=== PATIENT | male | born 1980 | race African-American/Black ===

== ENCOUNTER → 2016-11-20 | Outpatient (CLI) | payer OTHER ==
[~2016-11-20] MED LIST: ALBUPOW38 PO; DIPH1TAB36 PO; DOXY100T PO; NAPR500 PO; PROMSYP PO
--- NOTE | 2016-11-20 12:01 | RADRPT ---
EXAM DATE/TIME: 11/20/2016 11:46 [facility] COMPARISON: No previous studies available for comparison. INDICATIONS : Short of breath x3 days. MEDICAL HISTORY : None. SURGICAL HISTORY : None. ENCOUNTER: Initial ACUITY: 3 days PAIN SCORE: 0/10 LOCATION: Bilateral chest FINDINGS: PA and lateral views of the chest demonstrate the lungs to be symmetrically aerated without evidence of mass, infiltrate or effusion. The cardiomediastinal contours are unremarkable. Osseous structure s are intact. CONCLUSION: 1. No acute cardiopulmonary disease. Eron Angeles MD on November 20, 2016 at 11:58 Board Certified Radiologist. This report was verified electronically.
== END ==
LOC: HRAD 11:33
PROVIDERS: ATTEND Specialist
DX: B20 Human immunodeficiency virus [HIV] disease (principal)
CPT/HCPCS: 71020

== ENCOUNTER 2017-05-05 13:42 | Inpatient (IN) | payer OTHER ==
[~2017-05-05] VITALS: Ht 182.9 cm; Wt 61.0 kg
[2017-05-05] VITALS (11 sets, daily range): BP systolic 96–119; BP diastolic 51–63; PULSE 100–115; RESP 14–27; TEMP 98.2–100.6; O2SAT 97–100
[2017-05-05] MEDS ORDERED: SODIUM CHLORIDE 0.9% FLUSH 10 ML FLUSH IV FLUSH PRN ×2 (14:45→17:45)
[2017-05-05] MEDS ORDERED: FURO40TA PO (15:09)
[2017-05-05] MEDS ORDERED: CIPR500T2 PO (15:09)
[2017-05-05] MEDS ORDERED: AZIT500T2 PO (15:09)
[2017-05-05] MEDS ORDERED: ETHA400T (15:09)
[2017-05-05] MEDS ORDERED: FERR325T18 PO (15:09)
[2017-05-05] MEDS ORDERED: ELVI1TAB3 PO (15:09)
[2017-05-05] MEDS ORDERED: CYAN100025 SL (15:09)
[2017-05-05] MEDS ORDERED: FOLI400T PO (15:09)
[2017-05-05] MEDS ORDERED: BACT800T5 PO (15:09)
[2017-05-05 15:35] LABS: MEAN CELL VOLUME 85.3 FL (80.0-100.0); MEAN CORPUSCULAR HEMOGLOBIN 29.2 PG (27.0-34.0); MEAN CORPUSCULAR HGB CONC 34.2 % (32.0-36.0); PLATELET COUNT 58 TH/MM3 (150-450); RED BLOOD COUNT 2.13 MIL/MM3 (4.50-5.90); RED CELL DISTRIBUTION WIDTH 17.7 % (11.6-17.2); WHITE BLOOD COUNT 2.2 TH/MM3 (4.0-11.0)
[2017-05-05 15:41] LABS: HEMO FLAGS AUTO DIFF
[2017-05-05 15:42] LABS: INTERNATIONAL NORMALIZED RATIO 1.1 RATIO
--- NOTE | 2017-05-05 15:42 | PD ---
HPI Chief Complaint: Pain: Acute or Chronic Time Seen by Provider: 15:18 Travel History International Travel<30 days: No Contact w/Intl Traveler<30days: No Traveled to known affect area: No History of Present Illness HPI 36-year-old male presents to the emergency department for evaluation of " allover body pain". Patient also reports enlarged spleen and pain to the left upper quadrant. Patient reports history of AIDS. He states that he was started on antivirals approximately 6 months ago. He states he has been out of [facility] in a with a recent admission to ICU for pneumonia. He states he was discharged about 7 days ago. He states his current left upper quadrant abdominal pain and allover pain started approximately 2 days ago. He also reports new skin lesions as well. Reports that he has felt feverish, but has not checked his temperature. Patient is generally weak and his Duff at bedside states that she has to bathe him and dressed them. Patient states he still has a cough and feels slightly short of breath. Patient is currently on antibiotics. Severity is moderate. No exacerbating his or alleviating factors. PFSH Past Medical History Autoimmune Disease: Yes (HIV+) Diminished Hearing: No Medical other: Yes ("MAC") Social History Alcohol Use: No ( ) Tobacco Use: Yes (1/2 PACK A DAY FOR 13 YEARS) Substance Use: Yes (MARIJUANA) Allergies-Medications (Allergen,Severity, Reaction): Coded Allergies: No Known Allergies (Verified Allergy, Mild, 05/30/08) Reported Meds & Prescriptions Reported Meds & Active Scripts Active Reported Bactrim DS (Sulfamethoxazole-Trimethoprim) 800-160 Mg Tab 1 Tab PO DAILY Folic Acid 0.4 Mg Tab 1 Mg PO DAILY Ethambutol (Ethambutol HCl) 400 Mg Tab 800 DAILY B-12 (Cyanocobalamin) 1,000 Mcg Subl 1,000 Mcg SL DAILY Azithromycin 500 Mg Tab 500 Mg PO DAILY Furosemide 40 Mg Tab 40 Mg PO DAILY Ferrous Sulfate 325 Mg (65 Mg Iron) Tablet 325 Mg PO TIDPC Ciprofloxacin (Ciprofloxacin HCl) 500 Mg Tab 500 Mg PO BID Genvoya (Qjtpdyslcvov-Gyjnjmlkdv-Fkxxoljdksue-Tenofvir) [phone] Mg Tab 1 Tab PO DAILY Review of Systems Except as stated in HPI: all other systems reviewed are Neg Physical Exam Narrative GENERAL: Well-nourished, well-developed male patient, afebrile. SKIN: Focused skin assessment warm/dry. HEAD: Normocephalic. Atraumatic. ENT: Mucosa pink and moist. No erythema or exudates. No uvular edema. No uvular , palatal, or tonsillar deviation. Airway patent. Nasal turbinates appear normal without nasal blood, purulent drainage or septal hematoma. EYES: No scleral icterus. No injection or drainage. NECK: Supple, trachea midline. No JVD or lymphadenopathy. CARDIOVASCULAR: Regular rhythm without murmurs, gallops, or rubs. Patient is slightly tachycardic with heart rate of 110. RESPIRATORY: Breath sounds equal bilaterally. No accessory muscle use. GASTROINTESTINAL: Abdomen soft, and nondistended. Tenderness to palpation over the left upper quadrant. MUSCULOSKELETAL: No cyanosis, or edema. BACK: Nontender without obvious deformity. No CVA tenderness. RECTAL EXAM: No masses or tenderness, stool is brown. Hemoccult is negative This exam was done with TAVO Bey at bedside. Data Data Last Documented VS Vital Signs Date Time Temp Pulse Resp B/P (MAP) Pulse Ox O2 Delivery O2 Flow Rate FiO2 05/05/17 15:23 100 Room Air 05/05/17 14:58 100 20 05/05/17 13:45 98.4 Orders Orders Complete Blood Count With Diff (05/05/17 14:43) Comprehensive Metabolic Panel (05/05/17 14:43) Lipase (05/05/17 14:43) Lactic Acid (05/05/17 14:43) Prothrombin Time / Inr (Pt) (05/05/17 14:43) Act Partial Throm Time (Ptt) (05/05/17 14:43) Urinalysis - C+S If Indicated (05/05/17 14:43) Ct Abd/Pel W Iv Contrast(Rout) (05/05/17 14:43) Iv Access Insert/Monitor (05/05/17 14:43) Ecg Monitoring (05/05/17 14:43) Oximetry (05/05/17 14:43) Sodium Chloride 0.9% Flush (Ns Flush) (05/05/17 14:45) Chest, Single Ap (05/05/17 ) Sodium Chlorid 0.9% 500 Ml Inj (Ns 500 M (05/05/17 15:45) Morphine Inj (Morphine Inj) (05/05/17 15:45) Ondansetron Inj (Zofran Inj) (05/05/17 15:45) Type And Screen (05/05/17 16:07) Red Blood Cells (Rbc) (05/05/17 16:07) Sodium Chlor 0.9% 250 Ml Inj (Ns 250 Ml (05/05/17 16:15) Iohexol 350 Inj (Omnipaque 350 Inj) (05/05/17 17:00) Admit To Inpatient (05/05/17 ) Vital Signs (Adult) Q4H (05/05/17 17:40) Activity Oob With Assistance (05/05/17 17:40) Standards Engineer / Telemetry .CONTINUOUS (05/05/17 17:40) Intake + Output GERSON.QSHIFT (05/05/17 17:40) Diet Heart Healthy (05/05/17 Dinner) Sodium Chloride 0.9% Flush (Ns Flush) (05/05/17 17:45) Sodium Chloride 0.9% Flush (Ns Flush) (05/05/17 21:00) Basic Metabolic Panel (Bmp) (05/06/17 06:00) Complete Blood Count With Diff (05/06/17 06:00) Case Management Consult (05/05/17 17:40) Naloxone Inj (Narcan Inj) (05/05/17 17:45) Inpatient Certification (05/05/17 ) Hgb & Hct (05/05/17 23:55) Blood Product Administration (05/05/17 17:43) Furosemide Inj (Lasix Inj) (05/05/17 18:00) Admit Order (Ed Use Only) (05/05/17 17:52) Labs Laboratory Tests Test 05/05/17 15:20 05/05/17 15:55 White Blood Count 2.2 TH/MM3 Red Blood Count 2.13 MIL/MM3 Hemoglobin 6.2 GM/DL Hematocrit 18.2 % Mean Corpuscular Volume 85.3 FL Mean Corpuscular Hemoglobin 29.2 PG Mean Corpuscular Hemoglobin Concent 34.2 % Red Cell Distribution Width 17.7 % Platelet Count 58 TH/MM3 Mean Platelet Volume 8.3 FL CBC Comment AUTO DIFF Differential Total Cells Counted 100 Neutrophils % (Manual) 84 % Band Neutrophils % 1 % Lymphocytes % 5 % Monocytes % 10 % Neutrophils # (Manual) 1.9 TH/MM3 Differential Comment FINAL DIFF MANUAL Platelet Estimate LOW Platelet Morphology Comment NORMAL Stomatocytes Keratocytes OCC Prothrombin Time 12.0 SEC Prothromb Time International Ratio 1.1 RATIO Activated Partial Thromboplast Time 29.8 SEC Blood Urea Nitrogen 14 MG/DL Creatinine 0.90 MG/DL Random Glucose 108 MG/DL Total Protein 6.8 GM/DL Albumin 1.4 GM/DL Calcium Level 8.0 MG/DL Alkaline Phosphatase 138 U/L Aspartate Amino Transf (AST/SGOT) 59 U/L Alanine Aminotransferase (ALT/SGPT) 37 U/L Total Bilirubin 0.4 MG/DL Sodium Level 137 MEQ/L Potassium Level 4.7 MEQ/L Chloride Level 106 MEQ/L Carbon Dioxide Level 22.1 MEQ/L Anion Gap 9 MEQ/L Estimat Glomerular Filtration Rate 114 ML/MIN Lactic Acid Level 2.4 mmol/L Lipase 80 U/L Urine Color YELLOW Urine Turbidity HAZY Urine pH 5.5 Urine Specific [place] 1.016 Urine Protein 30 mg/dL Urine Glucose (UA) NEG mg/dL Urine Ketones NEG mg/dL Urine Occult Blood NEG Urine Nitrite NEG Urine Bilirubin NEG Urine Urobilinogen LESS THAN 2.0 MG/DL Urine Leukocyte Esterase NEG Urine RBC 1 /hpf Urine WBC 3 /hpf Urine Squamous Epithelial Cells <1 /hpf Urine Amorphous Sediment RARE Urine Mucus FEW /lpf Microscopic Urinalysis Comment CULT NOT INDICATED MDM Medical Decision Making Medical Screen Exam Complete: Yes Emergency Medical Condition: Yes Medical Record Reviewed: Yes Interpretation(s) Vital Signs Date Time Temp Pulse Resp B/P (MAP) Pulse Ox O2 Delivery O2 Flow Rate FiO2 05/05/17 15:23 100 Room Air 05/05/17 14:58 100 20 112/58 (76) 100 05/05/17 13:45 98.4 107 14 110/57 (74) 100 Room Air Last Impressions Chest X-Ray 05/05/17 0000 Signed Impressions: Service Date/Time: Wednesday, May 05, 2017 15:41 - CONCLUSION: Negative for fracture or dislocation. Follow up in 7-10 days is suggested if symptoms persist. Clinton Valadez MD FACR CT abdomen/pelvis - CONCLUSION: Enlarged spleen with large areas of infarction or or neoplastic infiltration. Trace ascites. Sclerotic bones without focal destructive lesions. Differential Diagnosis Pneumonia versus enlarged spleen versus sepsis versus UTI Narrative Course 36-year-old male history of AIDS presents to the emergency department for all of her body pain, new skin lesions, left upper quadrant abdominal pain with "enlarged spleen". CBC, CMP, lipase, lactic acid, PTT, PT/INR, UA are ordered and pending. Chest x-ray and CT abdomen/pelvis with IV contrast are ordered and pending. Patient is given normal saline 500 bolus, Zofran 4 mg IV, morphine 4 mg IV. CBC shows leukopenia 2.2, hemoglobin 6.2, hematocrit 18.2, platelets of 58. CMP shows no acute abnormality. Lipase is 80. Lactic acid is 2.4. Coags show no acute abnormality. UA is negative for acute infection. Chest x-ray shows no acute disease. CT abdomen/pelvis shows elarged spleen with large areas of infarction or or neoplastic infiltration. Trace ascites. Sclerotic bones without focal destructive lesions. 2 units PRBCs are ordered. [facility] is paged for admission. Dr. Hutchinson accepted admission. [facility] Point of Care Internal Pos. & Neg. Controls: Passed Fecal Specimen Occult Blood: Negative Diagnosis Primary Impression: Anemia Qualified Codes: D64.9 - Anemia, unspecified Additional Impression: Enlargement of spleen Admitting Information Admitting Physician Requests: Admit Mary Mendoza May 05, 2017 15:41
[2017-05-05 15:45] LABS: HEMATOCRIT 18.2 % (39.0-51.0)
[2017-05-05] MEDS ORDERED: ONDANSETRON HCL 4 MG/2 ML VIAL IV PUSH ONE (15:45)
[2017-05-05] MEDS ORDERED: SODIUM CHLORID 0.9% 500 ML INJ 500 ML IV ONE (15:45)
[2017-05-05] MEDS ORDERED: MORPHINE SULFATE 4 MG/ML INJ IV PUSH ONE (15:45)
[2017-05-05 15:46] LABS: APTT (PATIENT) 29.8 SEC (24.3-30.1)
--- NOTE | 2017-05-05 15:57 | RADRPT ---
EXAM DATE/TIME: 05/05/2017 15:41 [facility] COMPARISON: No previous studies available for comparison. INDICATIONS : Lower chest pain. Cough. MEDICAL HISTORY : None. SURGICAL HISTORY : None. ENCOUNTER: Initial ACUITY: 1 day PAIN SCORE: 2/10 LOCATION: Bilateral chest FINDINGS: A single view of the chest demonstrates the lungs to be symmetrically aerated without evidence of mas s, infiltrate or effusion. The cardiomediastinal contours are unremarkable. Osseous structures are intact. CONCLUSION: Negative for fracture or dislocation. Follow up in 7-10 days is suggested if symptoms persist. Clinton Valadez MD FACR on May 05, 2017 at 15:54 Board Certified Radiologist. This report was verified electronically.
[2017-05-05 16:01] LABS: ALKALINE PHOSPHATASE 138 U/L (45-117); ALT (GPT) 37 U/L (12-78); TOTAL BILIRUBIN ADULT 0.4 MG/DL (0.2-1.0)
[2017-05-05 16:04] LABS: ANION GAP 9 MEQ/L (5-15); AST (GOT) 59 U/L (15-37); BICARBONATE 22.1 MEQ/L (21.0-32.0); BLOOD UREA NITROGEN 14 MG/DL (7-18); CHLORIDE 106 MEQ/L (98-107); GLOMERULAR FILTRATION RATE 114 ML/MIN (>89); SODIUM (NA) 137 MEQ/L (136-145)
[2017-05-05 16:06] LABS: POTASSIUM 4.7 MEQ/L (3.5-5.1)
[2017-05-05 16:13] LABS: BLOOD, URINE NEG (NEG); COMMENT (UR) CULT NOT INDICATED; CULTURE IF INDICATED CULT NOT INDICATED; GLUCOSE,URINE NEG (NEG); KETONE, URINE NEG (NEG); MUCUS URINE FEW /lpf (OCC); NITRITE,URINE NEG (NEG); PH, URINE 5.5 (5.0-8.5); SQUAMOUS EPITHELIAL CELL URINE <1 /hpf (0-5); URINE COLOR YELLOW (YELLW/STRAW)
[2017-05-05] MEDS ORDERED: SODIUM CHLOR 0.9% 250 ML INJ 250 ML IV ONE (16:15)
[2017-05-05 16:32] LABS: BANDS 1 % (0-6); NEUTROPHIL # MANUAL DIFF 1.9 TH/MM3 (1.8-7.7); POLYS (SEG NEUTROPHILS) 84 % (16-70); WBC DIFF SAMPLE 100
[2017-05-05 16:40] LABS: KERATOCYTES OCC (NORMAL)
[2017-05-05 16:42] LABS: PLATELET ESTIMATE SMEAR LOW (NORMAL); PLATELET MORPHOLOGY NORMAL (NORMAL); SCAN/DIFF FINAL DIFF MANUAL
[2017-05-05] MEDS ORDERED: IOHEXOL 350 MG/ML 10 ML VIAL (for RAD DIAG) IVCONTRAST ONE (17:00)
--- NOTE | 2017-05-05 17:06 | RADRPT ---
EXAM DATE/TIME: 05/05/2017 16:42 [facility] COMPARISON: No previous studies available for comparison. INDICATIONS : Generalized abdominal pain. IV CONTRAST: 100 cc Omnipaque 350 (iohexol) IV ORAL CONTRAST: No oral contrast ingested. RADIATION DOSE: 11.60 CTDIvol (mGy) MEDICAL HISTORY : HIV. SURGICAL HISTORY : None. ENCOUNTER: Initial ACUITY: 4 - 6 days PAIN SCALE: 10/10 LOCATION: Bilateral lower quadrant upper quadrant TECHNIQUE: Volumetric scanning of the abdomen and pelvis was performed. Using automated exposure control and ad justment of the mA and/or kV according to patient size, radiation dose was kept as low as reasonably achievable to obtain optimal diagnostic quality images. DICOM format image data is available electro nically for review and comparison. FINDINGS: Lung base is are clear. The liver is free of focal defects. Massive splenomegaly is evident with la rge areas of apparent infarction or infiltration. The spleen measures 15 cm. The pancreas is unremarkable. There is symmetrical renal function. Minimal ascites is evident. Other than trace fluid pelvic contents unremarkable. The bones are sclerotic. CONCLUSION: Enlarged spleen with large areas of infarction or or neoplastic infiltration. Trace ascites. Sclerotic bones without focal destructive lesions. Clinton Valadez MD FACR on May 05, 2017 at 17:02 Board Certified Radiologist. This report was verified electronically.
[2017-05-05] MEDS ORDERED: NALOXONE HCL 0.4 MG/ML AMP IV PUSH PRN (17:45)
[2017-05-05] MEDS ORDERED: FUROSEMIDE 20 MG/2 ML VIAL IV PUSH ONE (18:00)
--- NOTE | 2017-05-05 18:19 | HHI.HP ---
[facility] Melanie Edmondson MD Admission Diagnosis anemia, enlarged spleen Diagnoses: Travel History International Travel<30 Days: No Contact w/Intl Traveler <30 Da: No Traveled to Known Affected Are: No History of Present Illness hx from patient, ER communication, and nursing staff hurts all over cant lie down on left side because spleen is too big and painful it was bruised before but not bleeding there body aches, left shoulder pains, cant even grab a bottle also now within past 48hrs, nodules all over the body popped up fevers come and go , highest 103.2- past 3 months of fever at [facility] icu- discharged about 10 days ago, was in hospital for 13 days, 3 days was in icu- think it was for hypertensive urgency; had MAC, was on airborne or droplet isolation there, no toxo, cmv or epv that he knows of at that time, had 3 different transfusions had fevers then too had iv in neck had diarrhea- always had lose stool- goes about 5-6 x a day congested in nasal and had thick discharge no urinary symptoms no blood in stool or urine never had gi workup no chest pain, no shortness of breath has been taking lots of bc powders and ibuprofen Review of Systems Except as stated in HPI: all other systems reviewed are Neg Past Family Social History Past Medical History hiv/aids- 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24 borderline htn no cad/chf/afib splenomegaly no kidney or liver problem Past Surgical History no surgeries Allergies: Coded Allergies: No Known Allergies (Verified Allergy, Mild, 05/30/08) Family History dm, htn in mom and grandma Social History stopped smoking about 3 days ago, usually about 10 cigarettes a day stopped etoh completely, usually only 8 beers a week or so smoke marijuana occasional pain med never iv drugs Physical Exam Vital Signs Vital Signs Date Time Temp Pulse Resp B/P (MAP) Pulse Ox O2 Delivery O2 Flow Rate FiO2 05/05/17 15:23 100 Room Air 05/05/17 14:58 100 20 112/58 (76) 100 05/05/17 13:45 98.4 107 14 110/57 (74) 100 Room Air Physical Exam GENERAL: This is a well-nourished, well-developed patient, in no apparent distress. SKIN: skin nodules all over HEAD: Atraumatic. Normocephalic. No temporal or scalp tenderness. EYES: No scleral icterus. No injection or drainage. ENT: . Airway patent. NECK: Trachea midline. No JVD or lymphadenopathy. Supple, nontender, no meningeal signs. CARDIOVASCULAR: Regular rate and rhythm without murmurs, gallops, or rubs. RESPIRATORY: Clear to auscultation. Breath sounds equal bilaterally. No wheezes , rales, or rhonchi. GASTROINTESTINAL: Abdomen soft, non-tender, nondistended. No guarding. MUSCULOSKELETAL: Extremities without clubbing, cyanosis, or edema. No calf tenderness NEUROLOGICAL: Awake and alert. Motor and sensory grossly within normal limits. Normal speech. Laboratory Laboratory Tests Test 05/05/17 15:20 05/05/17 15:55 White Blood Count 2.2 Red Blood Count 2.13 Hemoglobin 6.2 Hematocrit 18.2 Mean Corpuscular Volume 85.3 Mean Corpuscular Hemoglobin 29.2 Mean Corpuscular Hemoglobin Concent 34.2 Red Cell Distribution Width 17.7 Platelet Count 58 Mean Platelet Volume 8.3 CBC Comment AUTO DIFF Differential Total Cells Counted 100 Neutrophils % (Manual) 84 Band Neutrophils % 1 Lymphocytes % 5 Monocytes % 10 Neutrophils # (Manual) 1.9 Differential Comment FINAL DIFF MANUAL Platelet Estimate LOW Platelet Morphology Comment NORMAL Stomatocytes Keratocytes OCC Prothrombin Time 12.0 Prothromb Time International Ratio 1.1 Activated Partial Thromboplast Time 29.8 Blood Urea Nitrogen 14 Creatinine 0.90 Random Glucose 108 Total Protein 6.8 Albumin 1.4 Calcium Level 8.0 Alkaline Phosphatase 138 Aspartate Amino Transf (AST/SGOT) 59 Alanine Aminotransferase (ALT/SGPT) 37 Total Bilirubin 0.4 Sodium Level 137 Potassium Level 4.7 Chloride Level 106 Carbon Dioxide Level 22.1 Anion Gap 9 Estimat Glomerular Filtration Rate 114 Lactic Acid Level 2.4 Lipase 80 Urine Color YELLOW Urine Turbidity HAZY Urine pH 5.5 Urine Specific [place] 1.016 Urine Protein 30 Urine Glucose (UA) NEG Urine Ketones NEG Urine Occult Blood NEG Urine Nitrite NEG Urine Bilirubin NEG Urine Urobilinogen LESS THAN 2.0 Urine Leukocyte Esterase NEG Urine RBC 1 Urine WBC 3 Urine Squamous Epithelial Cells <1 Urine Amorphous Sediment RARE Urine Mucus FEW Microscopic Urinalysis Comment CULT NOT INDICATED Result Diagram: 05/05/17 1520 05/05/17 1520 Imaging Last 48 hours Impressions Abdomen/Pelvis CT 05/05/17 1443 Signed Impressions: Service Date/Time: Friday, May 05, 2017 16:42 - CONCLUSION: Enlarged spleen with large areas of infarction or or neoplastic infiltration. Trace ascites. Sclerotic bones without focal destructive lesions. Clinton Valadez MD FACR Chest X-Ray 05/05/17 0000 Signed Impressions: Service Date/Time: Friday, May 05, 2017 15:41 - CONCLUSION: Negative for fracture or dislocation. Follow up in 7-10 days is suggested if symptoms persist. Clinton Valadez MD FACR Caprini VTE Risk Assessment Caprini VTE Risk Assessment: Mod/High Risk (score >= 2) Caprini Risk Assessment Model Point Value = 1 Point Value = 2 Point Value = 3 Point Value = 5 Age 41-60 Minor surgery BMI > 25 kg/m2 Swollen legs Varicose veins or History of unexplained or recurrent spontaneous Oral contraceptives or hormone replacement Sepsis (< 1 month) Serious lung disease, including pneumonia (< 1 month) Abnormal pulmonary function Acute myocardial infarction Congestive heart failure (< 1 month) History of inflammatory bowel disease Medical patient at bed rest Age 61-74 Arthroscopic surgery Major open surgery (> 45 min) Laparoscopic surgery (> 45 min) Malignancy Confined to bed (> 72 hours) Immobilizing plaster cast Central venous access Age >= 75 History of VTE Family history of VTE Factor V Leiden Prothrombin [id number] Lupus anticoagulant Anticardiolipin antibodies Elevated serum homocysteine Heparin-induced thrombocytopenia Other congenital or acquired thrombophilia Stroke (< 1 month) Elective arthroplasty Hip, pelvis, or leg fracture Acute spinal cord injury (< 1 month) Prophylaxis Regimen Total Risk Factor Score Risk Level Prophylaxis Regimen 0-1 Low Early ambulation 2 Moderate Order ONE of the following: *Sequential Compression Device (SCD) *Heparin 5000 units SQ BID 3-4 Higher Order ONE of the following medications: *Heparin 5000 units SQ TID *Enoxaparin/Lovenox 40 mg SQ daily (WT < 150 kg, CrCl > 30 mL/min) *Enoxaparin/Lovenox 30 mg SQ daily (WT < 150 kg, CrCl > 10-29 mL/min) *Enoxaparin/Lovenox 30 mg SQ BID (WT < 150 kg, CrCl > 30 mL/min) AND/OR *Sequential Compression Device (SCD) 5 or more Highest Order ONE of the following medications: *Heparin 5000 units SQ TID (Preferred with Epidurals) *Enoxaparin/Lovenox 40 mg SQ daily (WT < 150 kg, CrCl > 30 mL/min) *Enoxaparin/Lovenox 30 mg SQ daily (WT < 150 kg, CrCl > 10-29 mL/min) *Enoxaparin/Lovenox 30 mg SQ BID (WT < 150 kg, CrCl > 30 mL/min) AND *Sequential Compression Device (SCD) Assessment and Plan Assessment and Plan Impression: splenic infarct splenomegaly aids thrombocytopenia anemia symptomatic freq use of nsaids and bc powder hiv/aids- cd4 - 24 borderline htn no cad/chf/afib splenomegaly no kidney or liver problem Plan: gi consult for r/o gi bleed egd colonsocopy general sx consult splenectomy? resume hiv meds transfuse 2 units prbc may need platelet transfusion if bleeding actively- guiaic negative in er here and at [facility] too Discussed Condition With patient, ER physician, nursing staff Physician Certification 2 Midnight Certification Type: Admission for Inpatient Services Order for Inpatient Services The services are ordered in accordance with Medicare regulations or non- Medicare payer requirements, as applicable. In the case of services not specified as inpatient-only, they are appropriately provided as inpatient services in accordance with the 2-midnight benchmark. Estimated LOS (days): 2 days is the estimated time the patient will need to remain in the hospital, assuming treatment plan goals are met and no additional complications. Post-Hospital Plan: Home Lokesh Hutchinson MD May 05, 2017 18:19
[2017-05-05] MEDS: FERROUS SULFATE 325 MG (65 MG ELEMENTAL IRON) TAB PO SCH (19:28)
[2017-05-05] MEDS: CIPROFLOXACIN 500 MG TAB PO SCH (20:40)
[2017-05-05] MEDS: SODIUM CHLORIDE 0.9% FLUSH 10 ML FLUSH IV FLUSH SCH (20:41)
[2017-05-05] MEDS: MORPHINE SULFATE 2 MG/ML INJ IV PUSH PRN (20:44)
[2017-05-06] VITALS (12 sets, daily range): BP systolic 101–117; BP diastolic 56–68; PULSE 84–109; RESP 17–22; TEMP 96.7–100.6; O2SAT 98–100
[2017-05-06 02:21] LABS: MEAN CELL VOLUME 82.4 FL (80.0-100.0); MEAN CORPUSCULAR HEMOGLOBIN 28.2 PG (27.0-34.0); MEAN CORPUSCULAR HGB CONC 34.3 % (32.0-36.0); PLATELET COUNT 47 TH/MM3 (150-450); RED BLOOD COUNT 2.42 MIL/MM3 (4.50-5.90); WHITE BLOOD COUNT 1.9 TH/MM3 (4.0-11.0)
[2017-05-06 02:25] LABS: HEMO FLAGS AUTO DIFF
[2017-05-06 02:53] LABS: POTASSIUM 4.2 MEQ/L (3.5-5.1)
[2017-05-06 02:55] LABS: BANDS 6 % (0-6); BASOPHILS 1 % (0-2); NEUTROPHIL # MANUAL DIFF 1.6 TH/MM3 (1.8-7.7); POLYS (SEG NEUTROPHILS) 76 % (16-70); WBC DIFF SAMPLE 100
[2017-05-06 02:56] LABS: PLATELET ESTIMATE SMEAR LOW (NORMAL); PLATELET MORPHOLOGY NORMAL (NORMAL); SCAN/DIFF FINAL DIFF MANUAL
[2017-05-06] MEDS ORDERED: SODIUM CHLOR 0.9% 250 ML INJ 250 ML IV ONE (03:00)
[2017-05-06 03:01] LABS: ACANTHOCYTES OCC (NORMAL); DOHLE BODIES PRESENT (NONE SEEN); HELMET CELLS OCC (NORMAL); OVALOCYTES 1+ (NORMAL)
[2017-05-06] MEDS: MORPHINE SULFATE 2 MG/ML INJ IV PUSH PRN ×4 (05:10→17:45)
[2017-05-06 08:55] LABS: APTT (PATIENT) 34.5 SEC (24.3-30.1); INTERNATIONAL NORMALIZED RATIO 1.1 RATIO; PROTHROMBIN TIME - PATIENT 12.1 SEC (9.8-11.6)
[2017-05-06] MEDS: FERROUS SULFATE 325 MG (65 MG ELEMENTAL IRON) TAB PO SCH ×3 (09:01→17:44)
[2017-05-06] MEDS: CIPROFLOXACIN 500 MG TAB PO SCH ×2 (09:01→21:21)
[2017-05-06] MEDS: FUROSEMIDE 40 MG TAB PO SCH (09:01)
[2017-05-06] MEDS: FOLIC ACID 1 MG TAB PO SCH (09:01)
[2017-05-06] MEDS: ETHAMBUTOL HCL 400 MG TAB PO SCH (09:02)
[2017-05-06] MEDS: AZITHROMYCIN 250 MG TAB PO SCH (09:02)
[2017-05-06] MEDS: CYANOCOBALAMIN 1,000 MCG TAB PO SCH (09:02)
[2017-05-06] MEDS: SODIUM CHLORIDE 0.9% FLUSH 10 ML FLUSH IV FLUSH SCH ×2 (09:03→21:00)
--- NOTE | 2017-05-06 10:00 | PD.CONS ---
History of Present Illness Service Infectious Disease Consult Requested By Dr Ernestina Hutchinson Reason for Consult Evaluate patient with HIV and splenic infarcts Primary Care Physician Melanie Edmondson MD Diagnoses: History of Present Illness Patient seen and examined. Records reviewed. Patient is a 36-year-old male, with known HIV, AIDS, presented to the hospital complaining of diffuse body aches, as well as severe left upper quadrant pain. Patient stated he was hospitalized 2 times at [facility]. The first one was 7 days, and the second one was about 10 days, and he was discharge about a week ago. During that hospitalization he was told he had a bruise in his spleen, and he was actively being evaluated for a splenectomy, but it was decided not to do it. During that time he also had left upper quadrant pain, and his pain resolved the pain however started again at home and it was so severe that any kind of movement aggravates the pain. He is also had on and off fevers. Minimal respiratory complaint. No nausea or vomiting. Has frequent bowel movement. No urinary complaints. Patient has been diagnosed to have HIV probably for the last 7 years. He was going [facility] the health Department, but lost to follow-up, and recently started following up with Dr. Edmondson. He has been put on HAART in the last 4 months. The record also mention that he had been diagnosed to have MAC, and currently on treatment for that. Patient also noted a rash on the right side of his neck recently. He has never had chickenpox and denies any exposure to anyone with shingles or chickenpox. Patient since admission has had fevers. He has pancytopenia. He is complaining of severe pain in his left upper quadrant. CT of the abdomen and pelvis did confirm an area of splenic infarct. Infectious disease consultation has been requested to evaluate the patient. Review of Systems Constitutional: COMPLAINS OF: Fatigue, Fever, Chills Eyes: DENIES: Eye pain, Double Vision Ears, nose, mouth, throat: COMPLAINS OF: Nasal discharge, DENIES: Oral lesions , Throat pain, Ear Pain Respiratory: DENIES: Cough, Shortness of breath Cardiovascular: DENIES: Chest pain, Palpitations, Syncope, Lower Extremity Edema Genitourinary: DENIES: Urgency, Hematuria, Dysuria Musculoskeletal: COMPLAINS OF: Muscle aches Integumentary: COMPLAINS OF: Rash Hematologic/lymphatic: DENIES: Bruising Immunologic/allergic: DENIES: Urticaria Neurologic: DENIES: Localized weakness Psychiatric: DENIES: Hallucinations Past Family Social History Allergies: Coded Allergies: No Known Allergies (Verified Allergy, Mild, 05/30/08) Past Medical History HIV/AIDS, CD4 24 Hypertension Splenomegaly, splenic infarct MAC infection Past Surgical History None Reported Medications I attest that I obtained, updated or reviewed the home and current medications. Reported Meds & Active Scripts Active Reported Folic Acid 0.4 Mg Tab 1 Mg PO DAILY Ethambutol (Ethambutol HCl) 400 Mg Tab 800 DAILY B-12 (Cyanocobalamin) 1,000 Mcg Subl 1,000 Mcg SL DAILY Azithromycin 500 Mg Tab 500 Mg PO DAILY Furosemide 40 Mg Tab 40 Mg PO DAILY Ferrous Sulfate 325 Mg (65 Mg Iron) Tablet 325 Mg PO TIDPC Ciprofloxacin (Ciprofloxacin HCl) 500 Mg Tab 500 Mg PO BID Genvoya (Irvtopizqqqs-Tzmvlhujwk-Mqsjklhwunpq-Tenofvir) [phone] Mg Tab 1 Tab PO DAILY Active Ordered Medications Current Medications Medications (Trade) Dose Ordered Sig/Derek Route Start Time Stop Time Status Last Admin (NS Flush) 2 ml UNSCH PRN IV FLUSH 05/05/17 17:45 (NS Flush) 2 ml BID IV FLUSH 05/05/17 21:00 05/06/17 09:03 (Narcan Inj) 0.4 mg UNSCH PRN IV PUSH 05/05/17 17:45 Patient Own Medication PT OWN MED: Genvoya (Elvitegra... DAILY PO 05/06/17 09:00 Future Hold (Zithromax) 500 mg DAILY PO 05/06/17 09:00 05/06/17 09:02 (Cipro) 500 mg BID PO 05/05/17 21:00 05/06/17 09:01 (Ferrous Sulfate) 325 mg TIDPC PO 05/05/17 18:30 05/06/17 09:01 (Folate) 1 mg DAILY PO 05/06/17 09:00 05/06/17 09:01 (Lasix) 40 mg DAILY PO 05/06/17 09:00 05/06/17 09:01 (Vitamin B12) 1,000 mcg DAILY PO 05/06/17 09:00 05/06/17 09:02 (Myambutol) 800 mg DAILY PO 05/06/17 09:00 05/06/17 09:02 (Morphine Inj) 2 mg Q3H PRN IV PUSH 05/05/17 18:45 05/06/17 09:05 Sodium Chloride 250 ml @ 15 mls/hr ONCE ONCE IV 05/06/17 03:00 05/06/17 19:39 05/06/17 04:55 Family History Fam Hx DM and hypertension Social History Stopped smoking about 3 days ago, usually about 10 cigarettes a day Stopped ETOH completely, usually only 8 beers a week or so Has smoke marijuana Denies IVDU Physical Exam Vital Signs Vital Signs Date Time Temp Pulse Resp B/P (MAP) Pulse Ox O2 Delivery O2 Flow Rate FiO2 05/06/17 08:46 99.3 91 17 110/68 100 05/06/17 08:18 96.7 84 19 104/65 100 05/06/17 08:12 99.6 84 19 104/65 100 05/06/17 08:00 99.6 84 18 104/65 (78) 100 05/06/17 05:15 20 05/06/17 05:10 99.3 90 20 108/57 99 05/06/17 04:55 98.9 93 20 106/58 98 05/06/17 04:00 99.2 97 22 107/58 (74) 99 05/06/17 00:00 100.0 101 22 103/56 (72) 98 05/06/17 00:00 100.0 101 22 103/56 98 05/05/17 23:01 110 05/05/17 22:13 100.3 115 20 102/56 100 05/05/17 21:58 100.5 111 20 96/58 99 05/05/17 21:06 100.6 103 24 118/63 99 05/05/17 20:30 100.2 108 24 108/56 (73) 98 05/05/17 19:49 98.2 106 27 119/57 100 05/05/17 19:32 98.2 113 23 119/57 97 05/05/17 18:49 99.0 110 20 102/51 (68) 99 Room Air 05/05/17 15:23 100 Room Air 05/05/17 14:58 100 20 112/58 (76) 100 05/05/17 13:45 98.4 107 14 110/57 (74) 100 Room Air Physical Exam GENERAL: Patient is a thin, well-developed male, awake and alert, not in respiratory distress. SKIN: Warm and dry. Has scattered pustular lesions that looks like chickenpox rash HEAD: Atraumatic. Normocephalic. No temporal wasting, or tenderness. EYES: [place] conjunctiva. No petechia or hemorrhage. Pupils equal, round and reactive to light. Extraocular movements full and intact. No scleral icterus. No injection or drainage. EARS, NOSE AND THROAT: Nose without bleeding or purulent nasal discharge. No sinus tenderness. Mucous membranes pink and moist. No oral lesions noted. No exudate. No oral thrush. NECK: Trachea midline. Supple and not tender, no meningeal signs. Has cervical lymphadenopathy CARDIOVASCULAR: Regular rate and rhythm. No murmurs, rubs or gallops heard RESPIRATORY: Clear to auscultation. Breath sounds equal bilaterally. No rales , wheezing or rhonchi ABDOMEN: Soft, nondistended. Tender especially on L side. Bowel sounds present and normoactive. No guarding. No rebound. EXTREMITIES: No clubbing, cyanosis, or edema.No joint effusion, has good ROM. No calf tenderness. Well perfused and warm. NEUROLOGICAL: Awake and alert. Cranial nerves grossly intact. Motor grossly within normal limits. PSYCHIATRIC: Normal affect, calm and cooperative. LINE: No evidence of infection Laboratory Laboratory Tests Test 05/05/17 15:20 05/05/17 15:55 05/06/17 01:39 05/06/17 08:15 White Blood Count 2.2 1.9 Red Blood Count 2.13 2.42 Hemoglobin 6.2 6.8 Hematocrit 18.2 20.0 Mean Corpuscular Volume 85.3 82.4 Mean Corpuscular Hemoglobin 29.2 28.2 Mean Corpuscular Hemoglobin Concent 34.2 34.3 Red Cell Distribution Width 17.7 18.0 Platelet Count 58 47 Mean Platelet Volume 8.3 7.8 CBC Comment AUTO DIFF AUTO DIFF Differential Total Cells Counted 100 100 Neutrophils % (Manual) 84 76 Band Neutrophils % 1 6 Lymphocytes % 5 8 Monocytes % 10 9 Neutrophils # (Manual) 1.9 1.6 Differential Comment FINAL DIFF MANUAL FINAL DIFF MANUAL Platelet Estimate LOW LOW Platelet Morphology Comment NORMAL NORMAL Stomatocytes Keratocytes OCC Prothrombin Time 12.0 12.1 Prothromb Time International Ratio 1.1 1.1 Activated Partial Thromboplast Time 29.8 34.5 Blood Urea Nitrogen 14 13 Creatinine 0.90 0.87 Random Glucose 108 91 Total Protein 6.8 Albumin 1.4 Calcium Level 8.0 7.6 Alkaline Phosphatase 138 Aspartate Amino Transf (AST/SGOT) 59 Alanine Aminotransferase (ALT/SGPT) 37 Total Bilirubin 0.4 Sodium Level 137 137 Potassium Level 4.7 4.2 Chloride Level 106 104 Carbon Dioxide Level 22.1 24.0 Anion Gap 9 9 Estimat Glomerular Filtration Rate 114 119 Lactic Acid Level 2.4 1.5 Lipase 80 Urine Color YELLOW Urine Turbidity HAZY Urine pH 5.5 Urine Specific [place] 1.016 Urine Protein 30 Urine Glucose (UA) NEG Urine Ketones NEG Urine Occult Blood NEG Urine Nitrite NEG Urine Bilirubin NEG Urine Urobilinogen LESS THAN 2.0 Urine Leukocyte Esterase NEG Urine RBC 1 Urine WBC 3 Urine Squamous Epithelial Cells <1 Urine Amorphous Sediment RARE Urine Mucus FEW Microscopic Urinalysis Comment CULT NOT INDICATED Basophils % 1 Dohle Bodies PRESENT Ovalocytes 1+ Helmet Cells OCC Acanthocytes OCC Date/Time Source Procedure Growth Status 05/06/17 08:25 Blood Peripheral Aerobic Blood Culture Pending Received 05/06/17 08:25 Blood Peripheral Anaerobic Blood Culture Pending Received Result Diagram: 05/06/17 0139 05/06/17 0139 Imaging RADIOLOGY STUDIES/FILMS REVIEWED Abdomen/Pelvis CT 05/05/17 1443 Signed Impressions: Service Date/Time: Friday, May 05, 2017 16:42 - CONCLUSION: Enlarged spleen with large areas of infarction or or neoplastic infiltration. Trace ascites. Sclerotic bones without focal destructive lesions. Clinton Valadez MD FACR Chest X-Ray 05/05/17 0000 Signed Impressions: Service Date/Time: Friday, May 05, 2017 15:41 - CONCLUSION: Negative for fracture or dislocation. Follow up in 7-10 days is suggested if symptoms persist. Clinton Valadez MD FACR Assessment and Plan Assessment and Plan IMPRESSION Sepsis, with fevers - has splenomegaly, prob nypersdplenism and splenic infarct - known MAC and on Rx - has HIV/AIDS - has rash resembling varicella, ?primary (he denies prior Hx chickenpox) or disseminated zoster Pancytopenia HIV/AIDS MAC infection by Hx RECOMMENDATION Get Varicella Ab (this will tell us if primary or dissemination) - not unusual for asymptomatic chickenpox if he had it at a young age Varicella PCR from neck lesion (I took the specimen) IV Acyclovir Continue other meds - MAC RX and HAART Get hematology consult for pancytopenia [place] [facility] [place] Monitor progress Isolation for disseminated zoster per infection control policy I will follow along with you Thank you for this consultation Discussed Condition With Discussed with RN Explained plan to the patient Bettina Covarrubias MD May 06, 2017 09:59
[2017-05-06 10:07] LABS: TOTAL BILIRUBIN ADULT 0.7 MG/DL (0.2-1.0)
--- NOTE | 2017-05-06 11:05 | PD.CONS ---
HPI History of Present Illness This is a 36 year old male who came to the hospital for evaluation of generalized malaise and left-sided abdominal pain. He has a history of HIV/ AIDS and was recently hospitalized at [facility] for about 2 weeks for pneumonia/MAC. During his hospitalization he required multiple blood transfusions. He was discharged about 10 days ago on azithromycin, ethambutol, and Cipro. He reports that he has continued to have generalized fatigue but started having malaise and left-sided abdominal pain about 3-4 days ago. He describes this as a constant ache in both the left upper and lower quadrant. He endorses some nausea but denies any vomiting. He states that for the past month, his stool has been more loose and he is having 3-4 bowel movements a day. He has not seen any blood or mucus. He normally has one solid bowel movement per day. He reports that at times, he has had decreased appetite, but denies any weight loss. He has not seen any obvious blood loss and denies any melena or hematochezia. He also reports scattered blisters/pustules on his trunk and arms. He came to the emergency room and was noted to have WBC 2.2, H& H 6.2/18.2, platelets 58. He does have a history of splenomegaly. She went for CT scan of the abdomen and pelvis with IV contrast (05/05/17) and this revealed enlarged spleen with large areas of infarction or neoplastic infiltration, trace ascites, sclerotic bones without focal destructive lesions. He was given 2 units of packed red blood cells and his repeat H&H this morning is 6.8/20.0. He is receiving an additional 2 units of packed red blood cells. He is currently in no distress. He is resting in bed eating his breakfast without any difficulty. He denies any history of peptic ulcer disease or GI bleeding in the past. He has never had an EGD or colonoscopy. (Alessandra De La Garza) PFSH Past Medical History HIV/AIDS HTN Mycobacterium avium complex Anemia Splenomegaly Past Surgical History Denies (Alessandra De La Garza) Coded Allergies: No Known Allergies (Verified Allergy, Mild, 05/30/08) Medications Allergies Coded Allergies Type Severity Reaction Last Updated Verified No Known Allergies Allergy Mild 05/30/08 Yes Active Scripts Medications Dose Route/Sig Max Daily Dose Days Date Category Folic Acid 0.4 Mg Tab 1 Mg PO DAILY 05/05/17 Reported Ethambutol (Ethambutol HCl) 400 Mg Tab 800 DAILY 05/05/17 Reported B-12 (Cyanocobalamin) 1,000 Mcg Subl 1,000 Mcg SL DAILY 05/05/17 Reported Azithromycin 500 Mg Tab 500 Mg PO DAILY 05/05/17 Reported Furosemide 40 Mg Tab 40 Mg PO DAILY 05/05/17 Reported Ferrous Sulfate 325 Mg (65 Mg Iron) Tablet 325 Mg PO TIDPC 05/05/17 Reported Ciprofloxacin (Ciprofloxacin HCl) 500 Mg Tab 500 Mg PO BID 05/05/17 Reported Genvoya (Rngktfkypkxy-Wzngpjtxhu-Zsdxtjwsdpnw-Tenofvir) [phone] Mg Tab 1 Tab PO DAILY 05/05/17 Reported Family History Mother and MGM with diabetes and htn. Social History Smokes 1/2 PPD No ETOH use Marijuana use (Alessandra De La Garza) Review of Systems Constitutional: COMPLAINS OF: Fatigue, Change in appetite, DENIES: Fever, Weight loss, Chills Respiratory: COMPLAINS OF: Cough, DENIES: Shortness of breath Cardiovascular: DENIES: Chest pain Gastrointestinal: COMPLAINS OF: Abdominal pain, Diarrhea, Nausea, Anorexia (at times), DENIES: Black stools, Bloody stools, Constipation, Vomiting, Heartburn, Hematemesis Musculoskeletal: COMPLAINS OF: Muscle aches Integumentary: COMPLAINS OF: Rash Neurologic: COMPLAINS OF: Headache Psychiatric: DENIES: Confusion (Alessandra De La Garza) GI Exam Vitals I&O Vital Signs Date Time Temp Pulse Resp B/P (MAP) Pulse Ox O2 Delivery O2 Flow Rate FiO2 05/06/17 08:46 99.3 91 17 110/68 100 05/06/17 08:18 96.7 84 19 104/65 100 05/06/17 08:12 99.6 84 19 104/65 100 05/06/17 08:00 99.6 84 18 104/65 (78) 100 05/06/17 05:15 20 05/06/17 05:10 99.3 90 20 108/57 99 05/06/17 04:55 98.9 93 20 106/58 98 05/06/17 04:00 99.2 97 22 107/58 (74) 99 05/06/17 00:00 100.0 101 22 103/56 (72) 98 05/06/17 00:00 100.0 101 22 103/56 98 05/05/17 23:01 110 05/05/17 22:13 100.3 115 20 102/56 100 05/05/17 21:58 100.5 111 20 96/58 99 05/05/17 21:06 100.6 103 24 118/63 99 05/05/17 20:30 100.2 108 24 108/56 (73) 98 05/05/17 19:49 98.2 106 27 119/57 100 05/05/17 19:32 98.2 113 23 119/57 97 05/05/17 18:49 99.0 110 20 102/51 (68) 99 Room Air 05/05/17 15:23 100 Room Air 05/05/17 14:58 100 20 112/58 (76) 100 05/05/17 13:45 98.4 107 14 110/57 (74) 100 Room Air I/O 05/05/17 05/05/17 05/05/17 05/06/17 05/06/17 05/06/17 07:00 15:00 23:00 07:00 15:00 23:00 Intake Total 420 ml 880 ml 410 ml Output Total 1250 ml Balance 420 ml -370 ml 410 ml Intake Oral 480 ml Packed Cells 400 ml 400 ml 400 ml Blood Product IV Normal Saline Flush 20 ml 10 ml Output Urine Total 1250 ml # Bowel Movements 0 Imaging Last Impressions Abdomen/Pelvis CT 05/05/17 1443 Signed Impressions: Service Date/Time: Friday, May 05, 2017 16:42 - CONCLUSION: Enlarged spleen with large areas of infarction or or neoplastic infiltration. Trace ascites. Sclerotic bones without focal destructive lesions. Clinton Valadez MD FACR Chest X-Ray 05/05/17 0000 Signed Impressions: Service Date/Time: Friday, May 05, 2017 15:41 - CONCLUSION: Negative for fracture or dislocation. Follow up in 7-10 days is suggested if symptoms persist. Clinton Valadez MD FACR Laboratory Test 05/05/17 15:20 05/05/17 15:55 05/06/17 01:39 05/06/17 08:15 White Blood Count 2.2 TH/MM3 1.9 TH/MM3 Red Blood Count 2.13 MIL/MM3 2.42 MIL/MM3 Hemoglobin 6.2 GM/DL 6.8 GM/DL Hematocrit 18.2 % 20.0 % Mean Corpuscular Volume 85.3 FL 82.4 FL Mean Corpuscular Hemoglobin 29.2 PG 28.2 PG Mean Corpuscular Hemoglobin Concent 34.2 % 34.3 % Red Cell Distribution Width 17.7 % 18.0 % Platelet Count 58 TH/MM3 47 TH/MM3 Mean Platelet Volume 8.3 FL 7.8 FL CBC Comment AUTO DIFF AUTO DIFF Differential Total Cells Counted 100 100 Neutrophils % (Manual) 84 % 76 % Band Neutrophils % 1 % 6 % Lymphocytes % 5 % 8 % Monocytes % 10 % 9 % Neutrophils # (Manual) 1.9 TH/MM3 1.6 TH/MM3 Differential Comment FINAL DIFF MANUAL FINAL DIFF MANUAL Platelet Estimate LOW LOW Platelet Morphology Comment NORMAL NORMAL Stomatocytes Keratocytes OCC Prothrombin Time 12.0 SEC 12.1 SEC Prothromb Time International Ratio 1.1 RATIO 1.1 RATIO Activated Partial Thromboplast Time 29.8 SEC 34.5 SEC Blood Urea Nitrogen 14 MG/DL 13 MG/DL Creatinine 0.90 MG/DL 0.87 MG/DL 0.90 MG/DL Random Glucose 108 MG/DL 91 MG/DL Total Protein 6.8 GM/DL Albumin 1.4 GM/DL Calcium Level 8.0 MG/DL 7.6 MG/DL Alkaline Phosphatase 138 U/L Aspartate Amino Transf (AST/SGOT) 59 U/L Alanine Aminotransferase (ALT/SGPT) 37 U/L Total Bilirubin 0.4 MG/DL 0.7 MG/DL Sodium Level 137 MEQ/L 137 MEQ/L Potassium Level 4.7 MEQ/L 4.2 MEQ/L Chloride Level 106 MEQ/L 104 MEQ/L Carbon Dioxide Level 22.1 MEQ/L 24.0 MEQ/L Anion Gap 9 MEQ/L 9 MEQ/L Estimat Glomerular Filtration Rate 114 ML/MIN 119 ML/MIN 114 ML/MIN Lactic Acid Level 2.4 mmol/L 1.5 mmol/L Lipase 80 U/L Urine Color YELLOW Urine Turbidity HAZY Urine pH 5.5 Urine Specific [place] 1.016 Urine Protein 30 mg/dL Urine Glucose (UA) NEG mg/dL Urine Ketones NEG mg/dL Urine Occult Blood NEG Urine Nitrite NEG Urine Bilirubin NEG Urine Urobilinogen LESS THAN 2.0 MG/DL Urine Leukocyte Esterase NEG Urine RBC 1 /hpf Urine WBC 3 /hpf Urine Squamous Epithelial Cells <1 /hpf Urine Amorphous Sediment RARE Urine Mucus FEW /lpf Microscopic Urinalysis Comment CULT NOT INDICATED Basophils % 1 % Dohle Bodies PRESENT Ovalocytes 1+ Helmet Cells OCC Acanthocytes OCC Test 05/06/17 09:30 Date/Time Source Procedure Growth Status 05/06/17 08:25 Blood Peripheral Aerobic Blood Culture Pending Received 05/06/17 08:25 Blood Peripheral Anaerobic Blood Culture Pending Received Physical Examination HEENT: Normocephalic; atraumatic; no jaundice. CHEST: CTA CARDIAC: RRR ABDOMEN: Soft, nondistended, mild LUQ tenderness; splenomegaly; bowel sounds are present in all four quadrants. EXTREMITIES: No clubbing, cyanosis, or edema. SKIN: Scattered pustules DIRECTOR CHECK: No focal deficits; alert and oriented times three. (Alessandra De La Garza) Assessment and Plan Plan ASSESSMENT: - Severe Anemia. HH on admission 6.2/18.2. S/P 2 units PRBC and now 6.8/20.0. No obvious GI bleeding. Has abdominal pain that could be attributed to his spleen. No hematemesis, melena, hematochezia. Tolerating diet. May need endoscopic evaluation depending on clinical course. - Abdominal pain. CT scan of the abdomen and pelvis with IV contrast (05/05/17 ) and this revealed enlarged spleen with large areas of infarction or neoplastic infiltration, trace ascites, sclerotic bones without focal destructive lesions. Likely related to splenic infarction. - Abnormal imaging of spleen with splenomegaly and large areas of infarction on CT imaging. CT as above. - Diarrhea, 1 month hx of diarrhea with 3-4 loose stools per day. Get stool studies. On Cipro/Azithromycin/Ethambutol for MAC. - Pancytopenia. WBC 1.9, 6.8, 20.0, 47. - Elevated AST, mild. - Sepsis with fevers. On tx for MAC. Pt with pustular rash, suspected varicella- primary vs. disseminated zoster. ID following. 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 Dx during recent hospitalization at [facility]. - Rash, scattered blisters/pustules. ? varicella- primary or disseminated zoster. ID following, Varicella Ab pending. - HIV/AIDS. On HAART. PLAN: - LAUR[facility] - Stool studies for WBC, Giardia, Enteric pathogens, O&P, Cyclospora, Cryptosporidium - PPI - Abx per ID - Monitor labs - Transfuse as necessary - ID following - Consider EGD/Colonoscopy based on clinical course and once stool studies resulted - Pt seen and examined by Dr. Mason and myself and this note is written on his behalf (Alessandra De La Garza) Physician Comments Patient seen and examined Agree with above Continue with current supportive care Monitor labs (Shiva Mason MD) Alessandra De La Garza May 06, 2017 11:05 Shiva Mason MD May 06, 2017 23:38
[2017-05-06] MEDS: ACYCLOVIR INJ 600 MG in SODIUM CHLORIDE 0.9% INJ 100 ML IV SCH ×2 (12:15→21:21)
--- NOTE | 2017-05-06 12:23 | PD.CONS ---
cc: Brice Jean MD [facility] Service General Surgery Consult NOTE FOR SURGICAL ATTENDING, DR. BRICE JEAN Consult Requested By Dr. Hutchinson Reason for Consult Splenic infarct Primary Care Physician Melanie Edmondson MD History of Present Illness This is a 36-year-old male with a past medical history of HIV/AIDS, hypertension , MAC, and splenomegaly. The patient was recently hospitalized at [facility] for pneumonia and found to also have a splenic infarct. The patient was discharged in stable condition with antibiotics. The patient continued to have generalized weakness and low appetite. He continued to have left-sided abdominal pain that radiated to his left shoulder. He is unable to lay on this side. Laboratory work was completed which shows a white blood cell count of 2.2 and hemoglobin of 6.2 with a hematocrit of 18.2. The patient's platelet count is 58k on admission. A CT abdomen and pelvis was obtained which shows an enlarged spleen with a large area of infarction. Also on exam the patient has a small pustular lesions on his right forearm, right upper abdomen and right shoulder. Infectious disease has been consulted. A General Surgery consultation has been requested for evaluation of spleen. Review of Systems Constitutional: COMPLAINS OF: Fatigue, Weight loss, Change in appetite Endocrine: DENIES: Polydipsia, Polyuria Eyes: DENIES: Diplopia Ears, nose, mouth, throat: DENIES: Tinnitus Respiratory: DENIES: Apneas Cardiovascular: DENIES: Palpitations Gastrointestinal: COMPLAINS OF: Abdominal pain, DENIES: Nausea, Vomiting Genitourinary: DENIES: Urinary frequency Musculoskeletal: COMPLAINS OF: Joint pain (LEFT shoulder pain ) Integumentary: COMPLAINS OF: Abnormal pigmentation (lesions on RIGHT forearm, RIGHT upper abdomnen; RIGHT sholder ) Hematologic/lymphatic: DENIES: Bruising Immunologic/allergic: DENIES: Eczema Neurologic: DENIES: Headache Psychiatric: DENIES: Confusion, Mood changes, Depression Past Family Social History Past Medical History HIV/AIDS Hypertension MAC Anemia Splenomegaly Past Surgical History None Reported Medications Erythromycin Cipro Ethambutol Genvoya Ferrous sulfate Furosemide B12 Folic acid Allergies: Coded Allergies: No Known Allergies (Verified Allergy, Mild, 05/30/08) Active Ordered Medications Current Medications Medications (Trade) Dose Ordered Sig/Derek Route Start Time Stop Time Status Last Admin (NS Flush) 2 ml UNSCH PRN IV FLUSH 05/05/17 17:45 (NS Flush) 2 ml BID IV FLUSH 05/05/17 21:00 05/06/17 09:03 (Narcan Inj) 0.4 mg UNSCH PRN IV PUSH 05/05/17 17:45 Patient Own Medication PT OWN MED: Genvoya (Elvitegra... DAILY PO 05/06/17 09:00 Future hold (Zithromax) 500 mg DAILY PO 05/06/17 09:00 05/06/17 09:02 (Cipro) 500 mg BID PO 05/05/17 21:00 05/06/17 09:01 (Ferrous Sulfate) 325 mg TIDPC PO 05/05/17 18:30 05/06/17 09:01 (Folate) 1 mg DAILY PO 05/06/17 09:00 05/06/17 09:01 (Lasix) 40 mg DAILY PO 05/06/17 09:00 05/06/17 09:01 (Vitamin B12) 1,000 mcg DAILY PO 05/06/17 09:00 05/06/17 09:02 (Myambutol) 800 mg DAILY PO 05/06/17 09:00 05/06/17 09:02 (Morphine Inj) 2 mg Q3H PRN IV PUSH 05/05/17 18:45 05/06/17 09:05 Sodium Chloride 250 ml @ 15 mls/hr ONCE ONCE IV 05/06/17 03:00 05/06/17 19:39 05/06/17 04:55 Acyclovir Sodium 600 mg/Sodium Chloride 100 ml @ 100 mls/hr Q8H IV 05/06/17 12:00 05/06/17 12:15 Family History Noncontributory Social History Positive tobacco use--1/2 per day Denies EtOH use Denies illicit drug use Physical Exam Vital Signs Vital Signs Date Time Temp Pulse Resp B/P (MAP) Pulse Ox O2 Delivery O2 Flow Rate FiO2 05/06/17 08:46 99.3 91 17 110/68 100 05/06/17 08:18 96.7 84 19 104/65 100 05/06/17 08:12 99.6 84 19 104/65 100 05/06/17 08:00 99.6 84 18 104/65 (78) 100 05/06/17 05:15 20 05/06/17 05:10 99.3 90 20 108/57 99 05/06/17 04:55 98.9 93 20 106/58 98 05/06/17 04:00 99.2 97 22 107/58 (74) 99 05/06/17 00:00 100.0 101 22 103/56 (72) 98 05/06/17 00:00 100.0 101 22 103/56 98 05/05/17 23:01 110 05/05/17 22:13 100.3 115 20 102/56 100 05/05/17 21:58 100.5 111 20 96/58 99 05/05/17 21:06 100.6 103 24 118/63 99 05/05/17 20:30 100.2 108 24 108/56 (73) 98 05/05/17 19:49 98.2 106 27 119/57 100 05/05/17 19:32 98.2 113 23 119/57 97 05/05/17 18:49 99.0 110 20 102/51 (68) 99 Room Air 05/05/17 15:23 100 Room Air 05/05/17 14:58 100 20 112/58 (76) 100 05/05/17 13:45 98.4 107 14 110/57 (74) 100 Room Air Physical Exam GENERAL: A 36-year-old male resting in bed in no acute distress. SKIN: Right forearm, right upper abdomen, right shoulder with pustular lesions. HEAD: Atraumatic. Normocephalic. EYES: Pupils equal and round. No scleral icterus. No injection or drainage. ENT: No nasal bleeding or discharge. Mucous membranes pink and moist. NECK: Trachea midline. CARDIOVASCULAR: Regular rate and rhythm. RESPIRATORY: No accessory muscle use. Clear to auscultation. Breath sounds equal bilaterally. GASTROINTESTINAL: Abdomen soft, nondistended. Left upper quadrant pain with palpation. No visible scars or hernias. MUSCULOSKELETAL: Extremities without clubbing, cyanosis, or edema. No obvious deformities. NEUROLOGICAL: Awake and alert. No obvious cranial nerve deficits. Motor grossly within normal limits. Five out of 5 muscle strength in the arms and legs. Normal speech. PSYCHIATRIC: Appropriate mood and affect; insight and judgment normal. Laboratory Laboratory Tests Test 05/05/17 15:20 05/05/17 15:55 05/06/17 01:39 05/06/17 08:15 White Blood Count 2.2 1.9 Red Blood Count 2.13 2.42 Hemoglobin 6.2 6.8 Hematocrit 18.2 20.0 Mean Corpuscular Volume 85.3 82.4 Mean Corpuscular Hemoglobin 29.2 28.2 Mean Corpuscular Hemoglobin Concent 34.2 34.3 Red Cell Distribution Width 17.7 18.0 Platelet Count 58 47 Mean Platelet Volume 8.3 7.8 CBC Comment AUTO DIFF AUTO DIFF Differential Total Cells Counted 100 100 Neutrophils % (Manual) 84 76 Band Neutrophils % 1 6 Lymphocytes % 5 8 Monocytes % 10 9 Neutrophils # (Manual) 1.9 1.6 Differential Comment FINAL DIFF MANUAL FINAL DIFF MANUAL Platelet Estimate LOW LOW Platelet Morphology Comment NORMAL NORMAL Stomatocytes Keratocytes OCC Prothrombin Time 12.0 12.1 Prothromb Time International Ratio 1.1 1.1 Activated Partial Thromboplast Time 29.8 34.5 Blood Urea Nitrogen 14 13 Creatinine 0.90 0.87 0.90 Random Glucose 108 91 Total Protein 6.8 Albumin 1.4 Calcium Level 8.0 7.6 Alkaline Phosphatase 138 Aspartate Amino Transf (AST/SGOT) 59 Alanine Aminotransferase (ALT/SGPT) 37 Total Bilirubin 0.4 0.7 Sodium Level 137 137 Potassium Level 4.7 4.2 Chloride Level 106 104 Carbon Dioxide Level 22.1 24.0 Anion Gap 9 9 Estimat Glomerular Filtration Rate 114 119 114 Lactic Acid Level 2.4 1.5 Lipase 80 Urine Color YELLOW Urine Turbidity HAZY Urine pH 5.5 Urine Specific [place] 1.016 Urine Protein 30 Urine Glucose (UA) NEG Urine Ketones NEG Urine Occult Blood NEG Urine Nitrite NEG Urine Bilirubin NEG Urine Urobilinogen LESS THAN 2.0 Urine Leukocyte Esterase NEG Urine RBC 1 Urine WBC 3 Urine Squamous Epithelial Cells <1 Urine Amorphous Sediment RARE Urine Mucus FEW Microscopic Urinalysis Comment CULT NOT INDICATED Basophils % 1 Dohle Bodies PRESENT Ovalocytes 1+ Helmet Cells OCC Acanthocytes OCC Test 05/06/17 09:30 Date/Time Source Procedure Growth Status 05/06/17 08:25 Blood Peripheral Aerobic Blood Culture Pending Received 05/06/17 08:25 Blood Peripheral Anaerobic Blood Culture Pending Received Result Diagram: 05/06/17 0139 05/06/17 0815 Imaging Last 48 hours Impressions Abdomen/Pelvis CT 05/05/17 1443 Signed Impressions: Service Date/Time: Friday, May 05, 2017 16:42 - CONCLUSION: Enlarged spleen with large areas of infarction or or neoplastic infiltration. Trace ascites. Sclerotic bones without focal destructive lesions. Clinton Valadez MD FACR Chest X-Ray 05/05/17 0000 Signed Impressions: Service Date/Time: Friday, May 05, 2017 15:41 - CONCLUSION: Negative for fracture or dislocation. Follow up in 7-10 days is suggested if symptoms persist. Clinton Valadez MD FACR Assessment and Plan Problem List: (1) Splenic infarction ICD Codes: D73.5 - Infarction of spleen Status: Acute (2) Enlargement of spleen ICD Codes: R16.1 - Splenomegaly, not elsewhere classified Status: Chronic (3) HIV (human immunodeficiency virus infection) ICD Codes: B20 - Human immunodeficiency virus [HIV] disease Status: Chronic (4) Thrombocytopenia ICD Codes: D69.6 - Thrombocytopenia, unspecified Status: Acute (5) Anemia ICD Codes: D64.9 - Anemia, unspecified Status: Acute Assessment and Plan 36 year old male with splenic infarction -Continue to monitor Hmg and transfuse as necessary -Continue to monitor platelet count -ID following -GI following -Pain control -We will continue to follow for possible splenectomy if clinically indicated Discussed Condition With Dr. Miranda Grady Attending Statement CONSULT NOTE FOR SURGICAL ATTENDING, DR. BRICE JEAN pt has very large spleen pat tender luq has very low plts nonoperative treatment for now I agree with above assessment and plan. The exam, history, and the medical decision-making described in the above note were completed with the assistance of the mid-level provider. I reviewed and agree with the findings presented. I attest that I had a [id number] encounter with the patient on the same day, and personally performed and documented my assessment and findings in the medical record. The following services were provided during this hospital visit: Chart data review, vital sign assessments/reviewing monitor data Review of consultations notes if present. Medication orders/review and/or management Ordering and/or reviewing lab tests Ordering and/or interpreting/reviewing x-rays and/or diagnostic studies Care of the patient and discussion of the patient with the care team Documentation time To help prompt me to consider important information that might be impacting today's encounter and assessment, information from prior notes written by myself or my colleagues may have been "brought forward/copy and pasted" into today's note. Problem Qualifiers (1) Anemia: Qualified Codes: D64.9 - Anemia, unspecified Agustina Mijares May 06, 2017 12:23 Brice Jean MD May 07, 2017 19:58
--- NOTE | 2017-05-06 13:23 | HHI.PR ---
Subjective Remarks Follow-up splenic infarct, anemia. The patient reports pain "all over". He states that his current pain medication is not helping. Denies dyspnea, nausea, vomiting. Objective Vitals Vital Signs Date Time Temp Pulse Resp B/P (MAP) Pulse Ox O2 Delivery O2 Flow Rate FiO2 05/06/17 12:00 100.0 104 19 101/59 (73) 99 05/06/17 08:46 99.3 91 17 110/68 100 05/06/17 08:18 96.7 84 19 104/65 100 05/06/17 08:12 99.6 84 19 104/65 100 05/06/17 08:00 99.6 84 18 104/65 (78) 100 05/06/17 05:15 20 05/06/17 05:10 99.3 90 20 108/57 99 05/06/17 04:55 98.9 93 20 106/58 98 05/06/17 04:00 99.2 97 22 107/58 (74) 99 05/06/17 00:00 100.0 101 22 103/56 (72) 98 05/06/17 00:00 100.0 101 22 103/56 98 05/05/17 23:01 110 05/05/17 22:13 100.3 115 20 102/56 100 05/05/17 21:58 100.5 111 20 96/58 99 05/05/17 21:06 100.6 103 24 118/63 99 05/05/17 20:30 100.2 108 24 108/56 (73) 98 05/05/17 19:49 98.2 106 27 119/57 100 05/05/17 19:32 98.2 113 23 119/57 97 05/05/17 18:49 99.0 110 20 102/51 (68) 99 Room Air 05/05/17 15:23 100 Room Air 05/05/17 14:58 100 20 112/58 (76) 100 05/05/17 13:45 98.4 107 14 110/57 (74) 100 Room Air I/O 05/05/17 05/05/17 05/05/17 05/06/17 05/06/17 05/06/17 07:00 15:00 23:00 07:00 15:00 23:00 Intake Total 420 ml 880 ml 1210 ml Output Total 1250 ml Balance 420 ml -370 ml 1210 ml Intake Oral 480 ml Packed Cells 400 ml 400 ml 800 ml Blood Product IV Normal Saline Flush 20 ml 410 ml Output Urine Total 1250 ml # Bowel Movements 0 Result Diagram: 05/06/17 0139 05/06/17 0815 Imaging Last Impressions Abdomen/Pelvis CT 05/05/17 1443 Signed Impressions: Service Date/Time: Friday, May 05, 2017 16:42 - CONCLUSION: Enlarged spleen with large areas of infarction or or neoplastic infiltration. Trace ascites. Sclerotic bones without focal destructive lesions. Clinton Valadez MD FACR Chest X-Ray 05/05/17 0000 Signed Impressions: Service Date/Time: Friday, May 05, 2017 15:41 - CONCLUSION: Negative for fracture or dislocation. Follow up in 7-10 days is suggested if symptoms persist. Clinton Valadez MD FACR Objective Remarks General: No acute distress. Heart: Regular rate and rhythm. No murmur. Lungs: Clear to auscultation bilaterally. No wheezes, rales, or rhonchi. Breathing is nonlabored. Abdomen: Soft, nontender, nondistended. Extremities: No lower extremity edema. Psych: Alert and oriented. Procedures None Urinary Catheter: No Vascular Central Line Catheter: No A/P Assessment and Plan 1. Splenic infarct: General surgery consultation appreciated. 2. Symptomatic anemia: Receiving transfusion of 2 units PRBCs. Monitor H&H. 3. AIDS: Appreciate infectious disease recommendations. 4. Possible GI bleed: Appreciate gastroenterology recommendations. 5. Disseminated para-sella: Airborne/contact isolation. Appreciate infectious disease recommendations. 6. DVT prophylaxis: SCDs, HERBER bojorqueze. Avoid chemical prophylaxis secondary to anemia, possible GI bleed. Discussed with Dr. Covarrubias. Kale Parrish MD May 06, 2017 13:23
--- NOTE | 2017-05-06 15:47 | PD.CONS ---
HPI Service General Surgery Consult Requested By Dr. Hutchinson Reason for Consult Splenic infarction Primary Care Physician Melanie Edmondson MD Past Family Social History Allergies: Coded Allergies: No Known Allergies (Verified Allergy, Mild, 05/30/08) Active Ordered Medications Current Medications Medications (Trade) Dose Ordered Sig/Derek Route Start Time Stop Time Status Last Admin (NS Flush) 2 ml UNSCH PRN IV FLUSH 05/05/17 17:45 (NS Flush) 2 ml BID IV FLUSH 05/05/17 21:00 05/06/17 09:03 (Narcan Inj) 0.4 mg UNSCH PRN IV PUSH 05/05/17 17:45 Patient Own Medication PT OWN MED: Genvoya (Elvitegra... DAILY PO 05/06/17 09:00 Future hold (Zithromax) 500 mg DAILY PO 05/06/17 09:00 05/06/17 09:02 (Cipro) 500 mg BID PO 05/05/17 21:00 05/06/17 09:01 (Ferrous Sulfate) 325 mg TIDPC PO 05/05/17 18:30 05/06/17 13:49 (Folate) 1 mg DAILY PO 05/06/17 09:00 05/06/17 09:01 (Lasix) 40 mg DAILY PO 05/06/17 09:00 05/06/17 09:01 (Vitamin B12) 1,000 mcg DAILY PO 05/06/17 09:00 05/06/17 09:02 (Myambutol) 800 mg DAILY PO 05/06/17 09:00 05/06/17 09:02 (Morphine Inj) 2 mg Q3H PRN IV PUSH 05/05/17 18:45 05/06/17 13:51 Sodium Chloride 250 ml @ 15 mls/hr ONCE ONCE IV 05/06/17 03:00 05/06/17 19:39 05/06/17 04:55 Acyclovir Sodium 600 mg/Sodium Chloride 100 ml @ 100 mls/hr Q8H IV 05/06/17 12:00 05/06/17 12:15 (Roxicodone) 5 mg Q6H PRN PO 05/06/17 13:30 (Roxicodone) 10 mg Q6H PRN PO 05/06/17 13:30 Physical Exam Vital Signs Vital Signs Date Time Temp Pulse Resp B/P (MAP) Pulse Ox O2 Delivery O2 Flow Rate FiO2 05/06/17 12:00 100.0 104 19 101/59 (73) 99 05/06/17 08:46 99.3 91 17 110/68 100 05/06/17 08:18 96.7 84 19 104/65 100 05/06/17 08:12 99.6 84 19 104/65 100 05/06/17 08:00 99.6 84 18 104/65 (78) 100 05/06/17 05:15 20 05/06/17 05:10 99.3 90 20 108/57 99 05/06/17 04:55 98.9 93 20 106/58 98 05/06/17 04:00 99.2 97 22 107/58 (74) 99 05/06/17 00:00 100.0 101 22 103/56 (72) 98 05/06/17 00:00 100.0 101 22 103/56 98 05/05/17 23:01 110 05/05/17 22:13 100.3 115 20 102/56 100 05/05/17 21:58 100.5 111 20 96/58 99 05/05/17 21:06 100.6 103 24 118/63 99 05/05/17 20:30 100.2 108 24 108/56 (73) 98 05/05/17 19:49 98.2 106 27 119/57 100 05/05/17 19:32 98.2 113 23 119/57 97 05/05/17 18:49 99.0 110 20 102/51 (68) 99 Room Air Laboratory Laboratory Tests Test 05/05/17 15:55 05/06/17 01:39 05/06/17 08:15 05/06/17 09:30 Urine Color YELLOW Urine Turbidity HAZY Urine pH 5.5 Urine Specific [place] 1.016 Urine Protein 30 Urine Glucose (UA) NEG Urine Ketones NEG Urine Occult Blood NEG Urine Nitrite NEG Urine Bilirubin NEG Urine Urobilinogen LESS THAN 2.0 Urine Leukocyte Esterase NEG Urine RBC 1 Urine WBC 3 Urine Squamous Epithelial Cells <1 Urine Amorphous Sediment RARE Urine Mucus FEW Microscopic Urinalysis Comment CULT NOT INDICATED White Blood Count 1.9 Red Blood Count 2.42 Hemoglobin 6.8 Hematocrit 20.0 Mean Corpuscular Volume 82.4 Mean Corpuscular Hemoglobin 28.2 Mean Corpuscular Hemoglobin Concent 34.3 Red Cell Distribution Width 18.0 Platelet Count 47 Mean Platelet Volume 7.8 CBC Comment AUTO DIFF Differential Total Cells Counted 100 Neutrophils % (Manual) 76 Band Neutrophils % 6 Lymphocytes % 8 Monocytes % 9 Basophils % 1 Neutrophils # (Manual) 1.6 Differential Comment FINAL DIFF MANUAL Dohle Bodies PRESENT Platelet Estimate LOW Platelet Morphology Comment NORMAL Ovalocytes 1+ Helmet Cells OCC Acanthocytes OCC Blood Urea Nitrogen 13 Creatinine 0.87 0.90 Random Glucose 91 Calcium Level 7.6 Sodium Level 137 Potassium Level 4.2 Chloride Level 104 Carbon Dioxide Level 24.0 Anion Gap 9 Estimat Glomerular Filtration Rate 119 114 Prothrombin Time 12.1 Prothromb Time International Ratio 1.1 Activated Partial Thromboplast Time 34.5 Lactic Acid Level 1.5 Total Bilirubin 0.7 Date/Time Source Procedure Growth Status 05/06/17 08:25 Blood Peripheral Aerobic Blood Culture Pending Received 05/06/17 08:25 Blood Peripheral Anaerobic Blood Culture Pending Received Result Diagram: 05/06/17 0139 05/06/17 0815 Agustina Mijares May 06, 2017 15:46
[2017-05-06 18:15] LABS: REVIEW FLAG FINAL
[2017-05-06 20:08] LABS: C. DIFF EPI 027 PRESUMPTIVE NEGATIVE (NEGATIVE)
[2017-05-06 23:37] LABS: HEMATOCRIT 27.1 % (39.0-51.0)
[2017-05-07] VITALS (7 sets, daily range): BP systolic 101–109; BP diastolic 57–61; PULSE 91–105; RESP 17–20; TEMP 98.2–100.1; O2SAT 93–100
[2017-05-07 00:05] LABS: REVIEW FLAG FINAL
[2017-05-07] MEDS: ACYCLOVIR INJ 600 MG in SODIUM CHLORIDE 0.9% INJ 100 ML IV SCH ×3 (04:59→21:43)
[2017-05-07 07:36] LABS: HEMATOCRIT 25.8 % (39.0-51.0); MEAN CELL VOLUME 82.9 FL (80.0-100.0); MEAN CORPUSCULAR HEMOGLOBIN 28.4 PG (27.0-34.0); MEAN CORPUSCULAR HGB CONC 34.3 % (32.0-36.0); PLATELET COUNT 41 TH/MM3 (150-450); RED BLOOD COUNT 3.11 MIL/MM3 (4.50-5.90); RED CELL DISTRIBUTION WIDTH 17.2 % (11.6-17.2); WHITE BLOOD COUNT 2.3 TH/MM3 (4.0-11.0)
[2017-05-07 07:46] LABS: BICARBONATE 24.5 MEQ/L (21.0-32.0); POTASSIUM 3.9 MEQ/L (3.5-5.1)
[2017-05-07 08:07] LABS: HEMO FLAGS AUTO DIFF
[2017-05-07] MEDS: SODIUM CHLORIDE 0.9% FLUSH 10 ML FLUSH IV FLUSH SCH ×2 (09:00→21:44)
[2017-05-07] MEDS: GENVOYA PO SCH (09:04)
[2017-05-07] MEDS: ETHAMBUTOL HCL 400 MG TAB PO SCH (09:04)
[2017-05-07] MEDS: [UNRECOGNIZED DRUG - OTHER] PO SCH (09:04)
[2017-05-07] MEDS: FUROSEMIDE 40 MG TAB PO SCH (09:05)
[2017-05-07] MEDS: CYANOCOBALAMIN 1,000 MCG TAB PO SCH (09:05)
[2017-05-07] MEDS: FERROUS SULFATE 325 MG (65 MG ELEMENTAL IRON) TAB PO SCH ×3 (09:05→17:50)
[2017-05-07] MEDS: CIPROFLOXACIN 500 MG TAB PO SCH ×2 (09:05→21:43)
[2017-05-07] MEDS: AZITHROMYCIN 250 MG TAB PO SCH (09:05)
[2017-05-07] MEDS: FOLIC ACID 1 MG TAB PO SCH (09:05)
[2017-05-07 09:38] LABS: BANDS 1 % (0-6); BASOPHILS 1 % (0-2); HYPERSEGMENTED POLYS 1+ (NORMAL); NEUTROPHIL # MANUAL DIFF 2.1 TH/MM3 (1.8-7.7); POLYS (SEG NEUTROPHILS) 91 % (16-70); WBC DIFF SAMPLE 100
[2017-05-07 09:39] LABS: PLATELET ESTIMATE SMEAR LOW (NORMAL); PLATELET MORPHOLOGY NORMAL (NORMAL); SCAN/DIFF FINAL DIFF MANUAL
--- NOTE | 2017-05-07 10:18 | HHI.GIFU ---
Subjective Remarks Patient resting in bed. He reports that he is having more left sided abdominal pain today, but states his diarrhea is better. He denies any nausea or vomiting. (Alessandra De La Garza) Objective Vitals I&O Vital Signs Date Time Temp Pulse Resp B/P (MAP) Pulse Ox O2 Delivery O2 Flow Rate FiO2 05/07/17 08:00 98.2 96 17 106/59 (75) 98 05/07/17 06:06 18 05/07/17 04:00 99.6 98 20 109/59 (76) 93 05/07/17 00:00 98.6 99 20 103/61 (75) 99 05/06/17 20:40 97 05/06/17 20:00 100.4 102 18 117/60 (79) 99 05/06/17 16:00 100.6 109 19 105/59 (74) 98 05/06/17 12:00 100.0 104 19 101/59 (73) 99 I/O 05/06/17 05/06/17 05/06/17 05/07/17 05/07/17 05/07/17 07:00 15:00 23:00 07:00 15:00 23:00 Intake Total 880 ml 1210 ml 2640 ml 400 ml Output Total 1250 ml 1200 ml 800 ml Balance -370 ml 1210 ml 1440 ml -400 ml Intake Oral 480 ml 2640 ml 400 ml Packed Cells 400 ml 800 ml Blood Product IV Normal Saline Flush 410 ml Output Urine Total 1250 ml 1200 ml 800 ml # Voids 8 # Bowel Movements 0 1 2 Laboratory Laboratory Tests Test 05/06/17 17:30 05/06/17 18:01 05/06/17 23:06 05/07/17 05:35 Hemoglobin 9.6 9.1 8.8 Hematocrit 28.0 27.1 25.8 Stool C. difficile Toxin (PCR) NEGATIVE Stl C. difficile Toxin Epiderm 027 PRESUMPTIVE NEGATIVE White Blood Count 2.3 Red Blood Count 3.11 Mean Corpuscular Volume 82.9 Mean Corpuscular Hemoglobin 28.4 Mean Corpuscular Hemoglobin Concent 34.3 Red Cell Distribution Width 17.2 Platelet Count 41 Mean Platelet Volume 8.3 CBC Comment AUTO DIFF Differential Total Cells Counted 100 Neutrophils % (Manual) 91 Band Neutrophils % 1 Lymphocytes % 4 Monocytes % 3 Basophils % 1 Neutrophils # (Manual) 2.1 Differential Comment FINAL DIFF MANUAL Hypersegmented Polys 1+ Platelet Estimate LOW Platelet Morphology Comment NORMAL Red Cell Morphology Comment NORMAL Blood Urea Nitrogen 13 Creatinine 0.96 Random Glucose 100 Calcium Level 8.0 Sodium Level 134 Potassium Level 3.9 Chloride Level 102 Carbon Dioxide Level 24.5 Anion Gap 8 Estimat Glomerular Filtration Rate 106 Date/Time Source Procedure Growth Status 05/06/17 08:25 Blood Peripheral Aerobic Blood Culture Pending Received 05/06/17 08:25 Blood Peripheral Anaerobic Blood Culture Pending Received 05/06/17 18:01 Stool Stool Cyclospora Exam Pending Resulted 05/06/17 18:01 Stool Stool Cryptosporidium Exam Pending Resulted 05/06/17 18:01 Stool Stool Stool Pus (RADHA) - Final RARE WBC Resulted 05/06/17 18:01 Stool Stool Giardia Antigen (RADHA) Pending Resulted Imaging Last Impressions Abdomen/Pelvis CT 05/05/17 1443 Signed Impressions: Service Date/Time: Wednesday, May 05, 2017 16:42 - CONCLUSION: Enlarged spleen with large areas of infarction or or neoplastic infiltration. Trace ascites. Sclerotic bones without focal destructive lesions. Clinton Valadez MD FACR Chest X-Ray 05/05/17 0000 Signed Impressions: Service Date/Time: Friday, May 05, 2017 15:41 - CONCLUSION: Negative for fracture or dislocation. Follow up in 7-10 days is suggested if symptoms persist. Clinton Valadez MD FACR Physical Exam HEENT: Normocephalic; atraumatic; no jaundice. CHEST: CTA CARDIAC: RRR ABDOMEN: Soft, mildly bloated, left sided abdominal tenderness, splenomegaly; bowel sounds are present in all four quadrants. EXTREMITIES: No clubbing, cyanosis, or edema. SKIN: Normal; no rash; no jaundice. TOWER CONTROL OPERATOR: No focal deficits; alert and oriented times three. (Alessandra De La Garza) Assessment and Plan Plan ASSESSMENT: - Severe Anemia. on admission 6.2/18.2. No obvious GI bleeding. Pt with known splenomegaly and now with areas of large splenic infarctions. S/P 4 units PRBC. HH 8.8/25.8. - Abdominal pain. CT scan of the abdomen and pelvis with IV contrast (05/05/17) and this revealed enlarged spleen with large areas of infarction or neoplastic infiltration, trace ascites, sclerotic bones without focal destructive lesions. Continues to have pain, states worse today. Likely related to splenic infarction. - Abnormal imaging of spleen with splenomegaly and large areas of infarction on CT imaging. CT as above. GS following. - Diarrhea, 1 month hx of diarrhea with 3-4 loose stools per day. On Cipro/ Azithromycin/Ethambutol for MAC. CDiff negative. Cryptosporidium, Cyclospora, Giardia, O&P, Enteric pathogens pending. - Pancytopenia. WBC 2.3, 8.8, 25.8, 41. - Elevated AST, mild. Recheck in am - Sepsis with fevers. On tx for MAC. Pt with pustular rash, suspected varicella- primary vs. disseminated zoster- labs pending. ID following. 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 Dx during recent hospitalization at [facility]. - Rash, scattered blisters/pustules. ? varicella- primary or disseminated zoster. ID following, Varicella Ab pending. - HIV/AIDS. On HAART. PLAN: - LAURA - Await stool studies - PPI - Abx per ID - Monitor labs - Transfuse as necessary - ID following - Likely will need EGD/Colonoscopy next week after stool studies resulted - Pt seen and examined by Dr. Mason and myself and this note is written on his behalf (Alessandra De La Garza) Physician Comments Patient seen and examined Agree with above Continue with current supportive care Monitor labs (Shiva Mason MD) Alessandra De La Garza May 07, 2017 10:17 Shiva Mason MD May 07, 2017 22:12
--- NOTE | 2017-05-07 11:19 | MB ---
cc: VALENTINE MARTI MD DATE OF CONSULTATION: 05/07/2017 DATE OF : 1980 Consult requested by the infectious disease service REASON FOR CONSULTATION Pancytopenia and massive splenomegaly associated with splenic infarct in a patient with HIV/AIDS. CHIEF COMPLAINT The patient reports a four-month history of progressive left-sided abdominal pain. He tells me he also has had an approximately 60-pound weight loss over the past 4 months. He reports symptoms of night sweats and chills. HISTORY OF PRESENT ILLNESS Mr. Grady is a 36-year-old male with the above-noted infectious medical co-morbid condition. He is under the care of Dr. Melanie Edmondson, who has him on treatment with HAART therapy as well as multiple antibiotics as the patient describes. He tells me his disease has been under "pretty good" control. He is not aware of his HIV titers, viral count or his CD4 count. The patient reports symptoms of progressive left-sided abdominal pain associated with decreased appetite, weight loss and night sweats over the past 4 months. The symptoms became acutely worse over the past 10 days and he was hospitalized at [facility] for these symptoms. His symptoms after discharge persisted so he came into [facility] this time. Since admission he has undergone imaging studies of the abdomen including CT scan of the abdomen and pelvis on 05/05/2017 which revealed massive splenomegaly associated with areas of infarction/infiltration. Sclerotic bone lesions were noted without destructive lesions. He was also noted to be pancytopenic with a WBC count of 2.2 associated with an absolute neutrophil count of 1.6. His hemoglobin at presentation was as low as 6.2 gm/dl with a hematocrit of 18.2%. Platelet counts have ranged between 40 and 58,000. PAST MEDICAL HISTORY 1. HIV/AIDS. 2. History of MAC infection. 3. Splenomegaly. 4. Hypertension. PAST SURGICAL HISTORY He denies any surgeries. FAMILY HISTORY Mother has diabetes. He denies any oncologic diagnoses. SOCIAL HISTORY The patient reports formally being a smoker, having quit smoking just before this admission. He reports smoking about a half pack a day and has smoked since he was a teenager. 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 He is disabled. He was a drinker but no longer drinks. He denies IV drug use. ALLERGIES No known drug allergies. MEDICATIONS Current inpatient medications: 1. Acyclovir 600 mg IV q.8h. 2. Azithromycin 500 mg p.o. daily. 3. Ciprofloxacin 500 mg p.o. b.i.d. 4. Vitamin-B12 1000 mcg p.o. daily. 5. Ethambutol 800 mg p.o. daily. 6. Ferrous sulfate 325 mg p.o. t.i.d. 7. Folic acid 1 mg p.o. daily. 8. Lasix 40 mg daily. 9. Morphine 2 mg IV q.3h. as needed for breakthrough pain. 10.Oxycodone 5 mg p.o. q.6h. as needed for pain. 11.The patient is also on his own medication of Genvoya, which is a combination of elvitegravir 150 mg, cobicistat 150 mg, emtricitabine 200 mg, and tenofovir 10 mg. He takes one tablet of this once a day. REVIEW OF SYSTEMS A 13-point review of systems was obtained and the following are the pertinent positives and negatives: CONSTITUTIONAL: The patient reports fatigue, weakness, loss of appetite, night sweats, weight loss of about 60 pounds over the past four months. HEENT: Denies headaches, blurry vision, difficulty swallowing or soreness in the throat. He does report recently having thrush which is now resolved. RESPIRATORY: Reports difficulty breathing with exertion. Denies cough, hemoptysis, pleuritic chest pain. He denies overt bleeding. CARDIOVASCULAR: Denies angina-like chest pain, PND, orthopnea. He denies lower extremity swelling. GASTROINTESTINAL: Denies nausea, vomiting, diarrhea, hematochezia or melena. He reports abdominal pain. Reports decreased appetite. GENITOURINARY: No complaints. CENTRAL NERVOUS SYSTEM: No focal sensory or motor deficits. SKIN: He reports developing hard round bumps all over his skin which he thinks may be "chickenpox." No other complaints reported. PHYSICAL EXAMINATION VITAL SIGNS: Temperature maximum over the past 24 hours is 100.4 degrees Fahrenheit, heart rate 96 beats a minute, respiratory rate 17, blood pressure 106/60. O2 sat is 98% on room air. GENERAL APPEARANCE: Mr. Grady is a young male. He appears to be cachectic and chronically ill. He is in no acute distress. HEENT: Head is atraumatic, normocephalic. Conjunctivae are not pale. Sclerae are anicteric. EOMI. PERRLA. No pharyngeal erythema. NECK: No palpable cervical or supraclavicular lymphadenopathy. PULMONARY: Good air movement bilaterally, poor inspiratory effort. CARDIOVASCULAR: Regular rate and rhythm, S1, S2. No obvious murmurs, rubs or gallops. ABDOMEN: Thin and soft. He has tenderness over the upper quadrants and in particular over the left upper quadrant. He has splenomegaly but no hepatomegaly. Positive bowel sounds. EXTREMITIES: No pretibial edema. No calf tenderness. MUSCULOSKELETAL: Generally decreased muscle mass and tone. RAND BUTTER: No focal sensory or motor deficits. SKIN: He has well-circumscribed firm nodular skin lesions with central dimpling. These are pinkish lesions noted on his forearms and torso. LABORATORY FINDINGS Blood work dated 05/07/2017: WBC count 2.3, hemoglobin 8.8 gm/dl, hematocrit 25.8%, platelet count 41,000. Absolute neutrophil count is 1.6. Chemistries: Sodium 134, potassium 3.9, chloride 102, bicarb 24.5, BUN 13, creatinine 0.96, EGFR 106, random glucose 100, calcium 8. Liver functions dated 05/05/2017: AST 59, ALT 37, alkaline phosphatase 138, albumin 1.4, lipase 80. IMAGING STUDIES CT scan of the abdomen and pelvis dated 05/05/2017 indicates enlarged spleen (massively enlarged) with large areas of infarction/infiltration. Trace ascites is noted as well. ASSESSMENT Mr. Grady is a 36-year-old man with a diagnosis of HIV/AIDS (diagnosed about 8 years ago). He is presently on HAART therapy with a combination pill known as Genvoya. His ID doctor is Dr. Edmondson in the outpatient setting. He was recently treated for thrush and also recently treated for the MAC infection. The patient was admitted to the hospital with complaints of progressive left-sided abdominal pain, unintended weight loss, night sweats, fatigue and weakness. Upon presentation to this hospital three days ago he was noted to be pancytopenic. His hemoglobin was 6.2 gm/dl, WBC count 2.2 and platelet count 58,000. IMAGING STUDIES The abdomen revealed a massively enlarged spleen associated with splenic infarction/infiltration. The hematology service has been asked to see him for further work-up and management of the pancytopenia and splenomegaly. Coupled with his symptoms of weight loss and night sweats I am concerned about an underlying myeloproliferative disorder. RECOMMENDATIONS 1. Pancytopenia and splenomegaly: I would like him to undergo a CT-guided bone marrow biopsy and aspiration to rule out a primary bone marrow disorder. Other differential diagnoses include bone marrow infiltration with an opportunistic infection related to his HIV or myelosuppression related to his HAART therapy. 2. I will add folic acid and a vitamin B12 level, and a parvovirus B19 level as well to rule out this as a possible etiology. His viral exanthem is appreciated on his skin and this may be a real issue with resultant aplastic crisis. 3. Future recommendations will be made as additional diagnostic work-up is reported. MD GILLIAN Moody/JARVIS /8:51 AM /10:47 AM
[2017-05-07 12:44] LABS: LDH SERUM 206 U/L (87-241)
--- NOTE | 2017-05-07 13:21 | HHI.IDPN ---
Subjective Subjective Remarks Patient is a 36-year-old male, with known HIV, AIDS, presented to the hospital complaining of diffuse body aches, as well as severe left upper quadrant pain. Patient stated he was hospitalized 2 times at [facility]. The first one was 7 days, and the second one was about 10 days, and he was discharge about a week ago. During that hospitalization he was told he had a bruise in his spleen, and he was actively being evaluated for a splenectomy, but it was decided not to do it. During that time he also had left upper quadrant pain, and his pain resolved the pain however started again at home and it was so severe that any kind of movement aggravates the pain. He is also had on and off fevers. Minimal respiratory complaint. No nausea or vomiting. Has frequent bowel movement. No urinary complaints. Patient has been diagnosed to have HIV probably for the last 7 years. He was going to the health Department, but lost to follow-up, and recently started following up with Dr. Edmondson. He has been put on HAART in the last 4 months. The record also mention that he had been diagnosed to have MAC, and currently on treatment for that. Patient also noted a rash on the right side of his neck recently. He has never had chickenpox and denies any exposure to anyone with shingles or chickenpox. Patient since admission has had fevers. He has pancytopenia. He is complaining of severe pain in his left upper quadrant. CT of the abdomen and pelvis did confirm an area of splenic infarct. Infectious disease consultation has been requested to evaluate the patient. Notes reviewed Has low grade temps Still with LUQ pain Diarrhea better C Diff negative BM biopsy has been ordered Antibiotics VIKKI Rx HAART Acyclovir Lines PIV Past Medical History HIV/AIDS, CD4 26 Hypertension Splenomegaly, splenic infarct MAC infection Allergies: Coded Allergies: No Known Allergies (Verified Allergy, Mild, 05/30/08) Objective . Vital Signs Date Time Temp Pulse Resp B/P (MAP) Pulse Ox O2 Delivery O2 Flow Rate FiO2 05/07/17 12:00 100.1 105 17 101/59 (73) 99 05/07/17 11:28 18 05/07/17 08:00 98.2 96 17 106/59 (75) 98 05/07/17 04:00 99.6 98 20 109/59 (76) 93 05/07/17 00:00 98.6 99 20 103/61 (75) 99 05/06/17 20:40 97 05/06/17 20:00 100.4 102 18 117/60 (79) 99 05/06/17 16:00 100.6 109 19 105/59 (74) 98 . Laboratory Tests Test 05/05/17 15:20 05/06/17 01:39 05/06/17 17:30 05/06/17 23:06 White Blood Count 2.2 TH/MM3 1.9 TH/MM3 Red Blood Count 2.13 MIL/MM3 2.42 MIL/MM3 Hemoglobin 6.2 GM/DL 6.8 GM/DL 9.6 GM/DL 9.1 GM/DL Hematocrit 18.2 % 20.0 % 28.0 % 27.1 % Mean Corpuscular Volume 85.3 FL 82.4 FL Mean Corpuscular Hemoglobin 29.2 PG 28.2 PG Mean Corpuscular Hemoglobin Concent 34.2 % 34.3 % Red Cell Distribution Width 17.7 % 18.0 % Platelet Count 58 TH/MM3 47 TH/MM3 Mean Platelet Volume 8.3 FL 7.8 FL CBC Comment AUTO DIFF AUTO DIFF Differential Total Cells Counted 100 100 Neutrophils % (Manual) 84 % 76 % Band Neutrophils % 1 % 6 % Lymphocytes % 5 % 8 % Monocytes % 10 % 9 % Neutrophils # (Manual) 1.9 TH/MM3 1.6 TH/MM3 Differential Comment FINAL DIFF MANUAL FINAL DIFF MANUAL Platelet Estimate LOW LOW Platelet Morphology Comment NORMAL NORMAL Stomatocytes Keratocytes OCC Basophils % 1 % Dohle Bodies PRESENT Ovalocytes 1+ Helmet Cells OCC Acanthocytes OCC Test 05/07/17 05:35 05/07/17 11:10 White Blood Count 2.3 TH/MM3 Red Blood Count 3.11 MIL/MM3 Hemoglobin 8.8 GM/DL Hematocrit 25.8 % Mean Corpuscular Volume 82.9 FL Mean Corpuscular Hemoglobin 28.4 PG Mean Corpuscular Hemoglobin Concent 34.3 % Red Cell Distribution Width 17.2 % Platelet Count 41 TH/MM3 Mean Platelet Volume 8.3 FL CBC Comment AUTO DIFF Differential Total Cells Counted 100 Neutrophils % (Manual) 91 % Band Neutrophils % 1 % Lymphocytes % 4 % Monocytes % 3 % Basophils % 1 % Neutrophils # (Manual) 2.1 TH/MM3 Differential Comment FINAL DIFF MANUAL Hypersegmented Polys 1+ Platelet Estimate LOW Platelet Morphology Comment NORMAL Red Cell Morphology Comment NORMAL Erythrocyte Sedimentation Rate GREATER THAN 140 mm/hr Haptoglobin 482 MG/DL Laboratory Tests Test 05/05/17 15:20 05/06/17 01:39 05/06/17 08:15 05/07/17 05:35 Blood Urea Nitrogen 14 MG/DL 13 MG/DL 13 MG/DL Creatinine 0.90 MG/DL 0.87 MG/DL 0.90 MG/DL 0.96 MG/DL Random Glucose 108 MG/DL 91 MG/DL 100 MG/DL Total Protein 6.8 GM/DL Albumin 1.4 GM/DL Calcium Level 8.0 MG/DL 7.6 MG/DL 8.0 MG/DL Alkaline Phosphatase 138 U/L Aspartate Amino Transf (AST/SGOT) 59 U/L Alanine Aminotransferase (ALT/SGPT) 37 U/L Total Bilirubin 0.4 MG/DL 0.7 MG/DL Sodium Level 137 MEQ/L 137 MEQ/L 134 MEQ/L Potassium Level 4.7 MEQ/L 4.2 MEQ/L 3.9 MEQ/L Chloride Level 106 MEQ/L 104 MEQ/L 102 MEQ/L Carbon Dioxide Level 22.1 MEQ/L 24.0 MEQ/L 24.5 MEQ/L Anion Gap 9 MEQ/L 9 MEQ/L 8 MEQ/L Estimat Glomerular Filtration Rate 114 ML/MIN 119 ML/MIN 114 ML/MIN 106 ML/MIN Lactic Acid Level 2.4 mmol/L 1.5 mmol/L Lipase 80 U/L Test 05/07/17 11:10 Lactate Dehydrogenase 206 U/L C-Reactive Protein 13.40 MG/DL Vitamin B12 Level GREATER THAN 2000 PG/ML Folate GREATER THAN 20.0 NG/ML Microbiology Date/Time Source Procedure Growth Status 05/06/17 08:25 Blood Peripheral Aerobic Blood Culture - Preliminary NO GROWTH IN 1 DAY Resulted 05/06/17 08:25 Blood Peripheral Anaerobic Blood Culture - Preliminary NO GROWTH IN 1 DAY Resulted 05/06/17 08:15 Blood Peripheral Aerobic Blood Culture - Preliminary NO GROWTH IN 1 DAY Resulted 05/06/17 08:15 Blood Peripheral Anaerobic Blood Culture - Preliminary NO GROWTH IN 1 DAY Resulted 05/06/17 18:01 Stool Stool Cyclospora Exam Pending Resulted 05/06/17 18:01 Stool Stool Cryptosporidium Exam Pending Resulted 05/06/17 18:01 Stool Stool Stool Pus (RADHA) - Final RARE WBC Resulted 05/06/17 18:01 Stool Stool Giardia Antigen (RADHA) Pending Resulted 05/06/17 18:01 Stool Stool Pending Received Imaging Last Impressions Abdomen/Pelvis CT 05/05/17 1443 Signed Impressions: Service Date/Time: Friday, May 05, 2017 16:42 - CONCLUSION: Enlarged spleen with large areas of infarction or or neoplastic infiltration. Trace ascites. Sclerotic bones without focal destructive lesions. Clinton Valadez MD FACR Chest X-Ray 05/05/17 0000 Signed Impressions: Service Date/Time: Wednesday, May 05, 2017 15:41 - CONCLUSION: Negative for fracture or dislocation. Follow up in 7-10 days is suggested if symptoms persist. Clinton Valadez MD FACR Physical Exam GENERAL: Patient is a thin, well-developed male, awake and alert, not in respiratory distress. SKIN: Warm and dry. Has scattered pustular lesions looks more, noted in back/ trunk, RUE, and BLE HEAD: Atraumatic. Normocephalic. No temporal wasting, or tenderness. EYES: Jena conjunctiva. No petechia or hemorrhage. Pupils equal, round and reactive to light. Extraocular movements full and intact. No scleral icterus. No injection or drainage. EARS, NOSE AND THROAT: Nose without bleeding or purulent nasal discharge. No sinus tenderness. Mucous membranes pink and moist. No oral lesions noted. No exudate. No oral thrush. NECK: Trachea midline. Supple and not tender, no meningeal signs. Has cervical lymphadenopathy CARDIOVASCULAR: Regular rate and rhythm. No murmurs, rubs or gallops heard RESPIRATORY: Clear to auscultation. Breath sounds equal bilaterally. No rales , wheezing or rhonchi ABDOMEN: Soft, nondistended. Tender especially on L side. Bowel sounds present and normoactive. No guarding. No rebound. EXTREMITIES: No clubbing, cyanosis, or edema.No joint effusion, has good ROM. No calf tenderness. Well perfused and warm. NEUROLOGICAL: Awake and alert. Cranial nerves grossly intact. Motor grossly within normal limits. PSYCHIATRIC: Normal affect, calm and cooperative. LINE: No evidence of infection Assessment & Plan Remarks IMPRESSION Sepsis, with fevers - has splenomegaly, prob hypersdplenism and splenic infarct - known MAC and on Rx - has HIV/AIDS - has rash resembling varicella, ?primary (he denies prior Hx chickenpox) or disseminated zoster Pancytopenia HIV/AIDS MAC infection by Hx RECOMMENDATION Get Varicella Ab (this will tell us if primary or dissemination) - not unusual for asymptomatic chickenpox if he had it at a young age Follow C/S Continue IV Acyclovir Continue other meds - MAC RX and HAART Heme eval in progress Obtain records from [facility] Follow C/S Monitor progress Isolation for disseminated zoster per infection control policy Explained plan to the patient Bettina Covarrubias MD May 07, 2017 13:21
[2017-05-07] MEDS: ACETAMINOPHEN 325 MG TAB PO PRN (14:06)
[2017-05-07 14:22] LABS: VZV RESULT Positive (Negative); VZV SPECIMEN SOURCE RT.NECK PUSTULE
--- NOTE | 2017-05-07 14:24 | HHI.PR ---
Subjective Remarks Follow-up abdominal pain, sepsis, anemia. The patient reports worsening pain on the left side of his abdomen. Otherwise feels better. No nausea or vomiting. No chest pain or dyspnea. Objective Vitals Vital Signs Date Time Temp Pulse Resp B/P (MAP) Pulse Ox O2 Delivery O2 Flow Rate FiO2 05/07/17 12:00 100.1 105 17 101/59 (73) 99 05/07/17 11:28 18 05/07/17 08:00 98.2 96 17 106/59 (75) 98 05/07/17 04:00 99.6 98 20 109/59 (76) 93 05/07/17 00:00 98.6 99 20 103/61 (75) 99 05/06/17 20:40 97 05/06/17 20:00 100.4 102 18 117/60 (79) 99 05/06/17 16:00 100.6 109 19 105/59 (74) 98 I/O 05/06/17 05/06/17 05/06/17 05/07/17 05/07/17 05/07/17 07:00 15:00 23:00 07:00 15:00 23:00 Intake Total 880 ml 1210 ml 2640 ml 400 ml Output Total 1250 ml 1200 ml 800 ml Balance -370 ml 1210 ml 1440 ml -400 ml Intake Oral 480 ml 2640 ml 400 ml Packed Cells 400 ml 800 ml Blood Product IV Normal Saline Flush 410 ml Output Urine Total 1250 ml 1200 ml 800 ml # Voids 8 # Bowel Movements 0 1 2 Result Diagram: 05/07/17 0535 05/07/17 0535 Imaging Last Impressions Abdomen/Pelvis CT 05/05/17 1443 Signed Impressions: Service Date/Time: Friday, May 05, 2017 16:42 - CONCLUSION: Enlarged spleen with large areas of infarction or or neoplastic infiltration. Trace ascites. Sclerotic bones without focal destructive lesions. Clinton Valadez MD FACR Chest X-Ray 05/05/17 0000 Signed Impressions: Service Date/Time: Friday, May 05, 2017 15:41 - CONCLUSION: Negative for fracture or dislocation. Follow up in 7-10 days is suggested if symptoms persist. Clinton Valadez MD FACR Objective Remarks General: No acute distress. Heart: Regular rate and rhythm. No murmur. Lungs: Clear to auscultation bilaterally. No wheezes, rales, or rhonchi. Breathing is nonlabored. Abdomen: Soft, nontender, nondistended. Extremities: No lower extremity edema. Psych: Alert and oriented. Procedures None Urinary Catheter: No Vascular Central Line Catheter: No A/P Assessment and Plan 1. Splenic infarct: General surgery consultation appreciated. 2. Symptomatic anemia: Receiving transfusion of 2 units PRBCs. Monitor H&H. 3. AIDS: Appreciate infectious disease recommendations. 4. Possible GI bleed: Appreciate gastroenterology recommendations. 5. Disseminated varicella: Airborne/contact isolation. Appreciate infectious disease recommendations. 6. DVT prophylaxis: SCDs, HERBER boss. Avoid chemical prophylaxis secondary to anemia, possible GI bleed. 7. Pancytopenia: Appreciate hematology recommendations. Planning for bone marrow biopsy, likely Wednesday. Kale Parrish MD May 07, 2017 14:24
--- NOTE | 2017-05-07 17:51 | HHI.PR ---
cc: Brice Domínguez MD Subjective Subjective Notes PROGRESS NOTE FOR SURGICAL ATTENDING, DR. BRICE DOMÍNGUEZ Sitting on the side of the bed Ambulating in room without any issues Objective Vitals/I&O Vital Signs Date Time Temp Pulse Resp B/P (MAP) Pulse Ox O2 Delivery O2 Flow Rate FiO2 05/07/17 16:19 18 05/07/17 16:00 98.8 100 104/57 (73) 98 05/05/17 18:49 Room Air Labs Laboratory Tests Test 05/06/17 18:01 05/06/17 23:06 05/07/17 05:35 05/07/17 11:10 Stool C. difficile Toxin (PCR) NEGATIVE Stl C. difficile Toxin Epiderm 027 PRESUMPTIVE NEGATIVE Hemoglobin 9.1 8.8 Hematocrit 27.1 25.8 White Blood Count 2.3 Red Blood Count 3.11 Mean Corpuscular Volume 82.9 Mean Corpuscular Hemoglobin 28.4 Mean Corpuscular Hemoglobin Concent 34.3 Red Cell Distribution Width 17.2 Platelet Count 41 Mean Platelet Volume 8.3 CBC Comment AUTO DIFF Differential Total Cells Counted 100 Neutrophils % (Manual) 91 Band Neutrophils % 1 Lymphocytes % 4 Monocytes % 3 Basophils % 1 Neutrophils # (Manual) 2.1 Differential Comment FINAL DIFF MANUAL Hypersegmented Polys 1+ Platelet Estimate LOW Platelet Morphology Comment NORMAL Red Cell Morphology Comment NORMAL Blood Urea Nitrogen 13 Creatinine 0.96 Random Glucose 100 Calcium Level 8.0 Sodium Level 134 Potassium Level 3.9 Chloride Level 102 Carbon Dioxide Level 24.5 Anion Gap 8 Estimat Glomerular Filtration Rate 106 Erythrocyte Sedimentation Rate GREATER THAN 140 Haptoglobin 482 Lactate Dehydrogenase 206 C-Reactive Protein 13.40 Vitamin B12 Level GREATER THAN 2000 Folate GREATER THAN 20.0 Hepatitis A IgM Antibody NEGATIVE Hepatitis B Surface Antigen NEGATIVE Hepatitis B Core IgM Antibody NEGATIVE Hepatitis C Antibody NEGATIVE Date/Time Source Procedure Growth Status 05/06/17 08:25 Blood Peripheral Aerobic Blood Culture - Preliminary NO GROWTH IN 1 DAY Resulted 05/06/17 08:25 Blood Peripheral Anaerobic Blood Culture - Preliminary NO GROWTH IN 1 DAY Resulted 05/06/17 18:01 Stool Stool Cyclospora Exam - Final NO CYCLOSPORA SEEN Resulted 05/06/17 18:01 Stool Stool Cryptosporidium Exam Pending Resulted 05/06/17 18:01 Stool Stool Stool Pus (RADHA) - Final RARE WBC Resulted 05/06/17 18:01 Stool Stool Giardia Antigen (RADHA) Pending Resulted Radiology Last Impressions Abdomen/Pelvis CT 05/05/17 1443 Signed Impressions: Service Date/Time: Friday, May 05, 2017 16:42 - CONCLUSION: Enlarged spleen with large areas of infarction or or neoplastic infiltration. Trace ascites. Sclerotic bones without focal destructive lesions. Clinton Valadez MD FACR Chest X-Ray 05/05/17 0000 Signed Impressions: Service Date/Time: Friday, May 05, 2017 15:41 - CONCLUSION: Negative for fracture or dislocation. Follow up in 7-10 days is suggested if symptoms persist. Clinton Valadez MD FACR Cardiovascular: Regular Lungs: Clear Abdomen: Other (LUQ tenderness ) Extremities: No edema A/P Assessment and Plan 36 year old male with splenic infarction; low platelet count; HIV/AIS -Plans for bone marrow bx on Wednesday -Regular diet -Continue to monitor blood counts Attending Statement PROGRESS NOTE FOR SURGICAL ATTENDING, DR. BRICE DOMÍNGUEZ I agree with above assessment and plan. The exam, history, and the medical decision-making described in the above note were completed with the assistance of the mid-level provider. I reviewed and agree with the findings presented. I attest that I had a [id number] encounter with the patient on the same day, and personally performed and documented my assessment and findings in the medical record. The following services were provided during this hospital visit: Chart data review, vital sign assessments/reviewing monitor data Review of consultations notes if present. Medication orders/review and/or management Ordering and/or reviewing lab tests Ordering and/or interpreting/reviewing x-rays and/or diagnostic studies Care of the patient and discussion of the patient with the care team Documentation time To help prompt me to consider important information that might be impacting today's encounter and assessment, information from prior notes written by myself or my colleagues may have been "brought forward/copy and pasted" into today's note. Agustina Mijares May 07, 2017 17:51 Brice Domínguez MD May 07, 2017 19:00
[2017-05-08 00:46] VITALS: BP 90/54; PULSE 95; RESP 18; TEMP 100; O2SAT 98
[2017-05-08 04:00] VITALS: BP 104/59; PULSE 97; RESP 18; TEMP 99.4; O2SAT 99
[2017-05-08] MEDS: ACYCLOVIR INJ 600 MG in SODIUM CHLORIDE 0.9% INJ 100 ML IV SCH ×3 (05:34→20:33)
[2017-05-08 07:34] LABS: AUTOMATED NEUTROPHIL # 1.5 TH/MM3 (1.8-7.7); BASOPHIL % 0.6 % (0.0-2.0); EOSINOPHIL % 0.3 % (0.0-4.0); HEMATOCRIT 24.3 % (39.0-51.0); LYMPH % 8.1 % (9.0-44.0); LYMPHOCYTE # 0.2 TH/MM3 (1.0-4.8); MEAN CELL VOLUME 82.7 FL (80.0-100.0); MEAN CORPUSCULAR HGB CONC 33.8 % (32.0-36.0); MONO % 12.3 % (0.0-8.0); NEUT % 78.7 % (16.0-70.0); PLATELET COUNT 42 TH/MM3 (150-450); RED BLOOD COUNT 2.93 MIL/MM3 (4.50-5.90); RED CELL DISTRIBUTION WIDTH 17.4 % (11.6-17.2); WHITE BLOOD COUNT 1.9 TH/MM3 (4.0-11.0)
[2017-05-08 07:40] LABS: HEMO FLAGS AUTO DIFF
[2017-05-08 07:56] LABS: POTASSIUM 3.9 MEQ/L (3.5-5.1)
[2017-05-08 08:00] VITALS: BP 98/53; PULSE 100; PULSE 89; RESP 20; TEMP 99; O2SAT 96
[2017-05-08] MEDS: CIPROFLOXACIN 500 MG TAB PO SCH ×2 (08:54→20:33)
[2017-05-08] MEDS: [UNRECOGNIZED DRUG - OTHER] PO SCH (08:54)
[2017-05-08] MEDS: GENVOYA PO SCH (08:54)
[2017-05-08] MEDS: SODIUM CHLORIDE 0.9% FLUSH 10 ML FLUSH IV FLUSH SCH ×2 (08:55→20:34)
[2017-05-08] MEDS: CYANOCOBALAMIN 1,000 MCG TAB PO SCH (08:55)
[2017-05-08] MEDS: ETHAMBUTOL HCL 400 MG TAB PO SCH (08:55)
[2017-05-08] MEDS: FOLIC ACID 1 MG TAB PO SCH (08:55)
[2017-05-08] MEDS: FUROSEMIDE 40 MG TAB PO SCH (08:55)
[2017-05-08] MEDS: FERROUS SULFATE 325 MG (65 MG ELEMENTAL IRON) TAB PO SCH ×3 (08:55→18:01)
[2017-05-08] MEDS: AZITHROMYCIN 250 MG TAB PO SCH (08:55)
--- NOTE | 2017-05-08 09:11 | PD.ONC.PN ---
Subjective Subjective Remarks Tmax 100F overnight. Patient resting in bed in nad. Having pain in left rib cage with cough. Objective Data Date Time Temp Pulse Resp B/P (MAP) Pulse Ox O2 Delivery O2 Flow Rate FiO2 05/08/17 08:00 99.0 100 20 98/53 (68) 96 05/08/17 04:00 99.4 97 18 104/59 (74) 99 05/08/17 00:46 100.0 95 18 90/54 (66) 98 05/07/17 20:21 91 05/07/17 20:00 98.9 93 18 108/60 (76) 100 05/07/17 16:19 18 05/07/17 16:00 98.8 100 17 104/57 (73) 98 05/07/17 15:06 18 05/07/17 12:00 100.1 105 17 101/59 (73) 99 05/07/17 11:28 18 05/08/17 05/08/17 05/08/17 07:00 15:00 23:00 Intake Total 120 ml Output Total 300 ml Balance -300 ml 120 ml Result Diagram: 05/08/1770405/08/17704 Laboratory Results Laboratory Tests Test 05/07/17 11:10 05/08/17 07:05 Erythrocyte Sedimentation Rate GREATER THAN 140 mm/hr Haptoglobin 482 MG/DL Lactate Dehydrogenase 206 U/L C-Reactive Protein 13.40 MG/DL Vitamin B12 Level GREATER THAN 2000 PG/ML Folate GREATER THAN 20.0 NG/ML Hepatitis A IgM Antibody NEGATIVE Hepatitis B Surface Antigen NEGATIVE Hepatitis B Core IgM Antibody NEGATIVE Hepatitis C Antibody NEGATIVE White Blood Count 1.9 TH/MM3 Red Blood Count 2.93 MIL/MM3 Hemoglobin 8.2 GM/DL Hematocrit 24.3 % Mean Corpuscular Volume 82.7 FL Mean Corpuscular Hemoglobin 28.0 PG Mean Corpuscular Hemoglobin Concent 33.8 % Red Cell Distribution Width 17.4 % Platelet Count 42 TH/MM3 Mean Platelet Volume 7.6 FL Neutrophils (%) (Auto) 78.7 % Lymphocytes (%) (Auto) 8.1 % Monocytes (%) (Auto) 12.3 % Eosinophils (%) (Auto) 0.3 % Basophils (%) (Auto) 0.6 % Neutrophils # (Auto) 1.5 TH/MM3 Lymphocytes # (Auto) 0.2 TH/MM3 Monocytes # (Auto) 0.2 TH/MM3 Eosinophils # (Auto) 0.0 TH/MM3 Basophils # (Auto) 0.0 TH/MM3 CBC Comment AUTO DIFF Blood Urea Nitrogen 11 MG/DL Creatinine 0.83 MG/DL Random Glucose 111 MG/DL Calcium Level 8.1 MG/DL Sodium Level 136 MEQ/L Potassium Level 3.9 MEQ/L Chloride Level 102 MEQ/L Carbon Dioxide Level 26.0 MEQ/L Anion Gap 8 MEQ/L Estimat Glomerular Filtration Rate 126 ML/MIN Culture Results Microbiology Date/Time Source Procedure Growth Status 05/06/17 08:25 Blood Peripheral Aerobic Blood Culture - Preliminary NO GROWTH IN 1 DAY Resulted 05/06/17 08:25 Blood Peripheral Anaerobic Blood Culture - Preliminary NO GROWTH IN 1 DAY Resulted 05/06/17 08:15 Blood Peripheral Aerobic Blood Culture - Preliminary NO GROWTH IN 1 DAY Resulted 05/06/17 08:15 Blood Peripheral Anaerobic Blood Culture - Preliminary NO GROWTH IN 1 DAY Resulted 05/06/17 18:01 Stool Stool Cyclospora Exam - Final NO CYCLOSPORA SEEN Resulted 05/06/17 18:01 Stool Stool Cryptosporidium Exam Pending Resulted 05/06/17 18:01 Stool Stool Stool Pus (RADHA) - Final RARE WBC Resulted 05/06/17 18:01 Stool Stool Giardia Antigen (RADHA) Pending Resulted 05/06/17 18:01 Stool Stool - Final NO ENTERIC PATHOGENS DETECTED BY PCR... Complete Administered Medications Medications (Trade) Dose Ordered Sig/Derek Route PRN Reason Start Time Stop Time Status Last Admin Dose Admin Sodium Chloride (NS Flush) 2 ml BID IV FLUSH 05/05/17 21:00 05/07/17 21:44 Patient Own Medication PT OWN MED: Genvoya (Elvitegra... DAILY PO 05/06/17 09:00 Future hold 05/08/17 08:54 Azithromycin (Zithromax) 500 mg DAILY PO 05/06/17 09:00 05/07/17 09:05 Ciprofloxacin (Cipro) 500 mg BID PO 05/05/17 21:00 05/08/17 08:54 Ferrous Sulfate (Ferrous Sulfate) 325 mg TIDPC PO 05/05/17 18:30 05/07/17 17:50 Folic Acid (Folate) 1 mg DAILY PO 05/06/17 09:00 05/07/17 09:05 Furosemide (Lasix) 40 mg DAILY PO 05/06/17 09:00 05/07/17 09:05 Cyanocobalamin (Vitamin B12) 1,000 mcg DAILY PO 05/06/17 09:00 05/07/17 09:05 Ethambutol HCl (Myambutol) 800 mg DAILY PO 05/06/17 09:00 05/08/17 08:55 Morphine Sulfate (Morphine Inj) 2 mg Q3H PRN IV PUSH BREAKTHROUGH PAIN 05/05/17 18:45 05/06/17 17:45 Acyclovir Sodium 600 mg/Sodium Chloride 100 ml @ 100 mls/hr Q8H IV 05/06/17 12:00 05/08/17 05:34 Oxycodone HCl (Roxicodone) 10 mg Q4H PRN PO PAIN SCALE 7 TO 10 05/07/17 15:00 05/08/17 05:30 Acetaminophen (Tylenol) 325 mg Q6H PRN PO FEVER 05/07/17 13:15 05/07/17 14:06 Objective Remarks GENERAL: Middle aged female lying in bed in nad. SKIN: Warm and dry. HEAD: Normocephalic. EYES: No injection or drainage. NECK: Supple, trachea midline. CARDIOVASCULAR: Regular rate and rhythm RESPIRATORY: diminished at bases. anterior dunn clear. GASTROINTESTINAL: Abdomen soft, non-tender, nondistended. EXTREMITIES: No cyanosis NEUROLOGICAL: No obvious focal deficit. Awake, alert, and oriented x3. Assessment/Plan Problem List: (1) Pancytopenia ICD Codes: D61.818 - Other pancytopenia Plan: --will need CT-guided bone marrow biopsy and aspiration to rule out a primary bone marrow disorder. --with a diagnosis of HIV/AIDS (diagnosed about 8 years ago). --is presently on HAART therapy with a combination pill known as Genvoya. --CT abdomen shows enlarged spleen --Coupled with his symptoms of weight loss and night sweats I am concerned about an underlying myeloproliferative disorder. --other differential diagnoses include bone marrow infiltration with an opportunistic infection related to his HIV or myelosuppression related to his HAART therapy. Assessment 36y/o male with pancytopenia and massive splenomegaly associated with splenic infarct in a patient with HIV/AIDS. h/o HIV/AIDS. History of MAC infection. Splenomegaly. Hypertension. Plan 1. monitor CBC 2. plan for CT guided bone marrow biopsy Wednesday Attending Statement The exam, history, and the medical decision-making described in the above note were completed with the assistance of the mid-level provider. I reviewed and agree with the findings presented. I attest that I had a [id number] encounter with the patient on the same day, and personally performed and documented my assessment and findings in the medical record. No complaints, sleepy after meds. Discussed biopsy and differential. Ghislaine Bender May 08, 2017 09:11 Marisel Ashley MD May 08, 2017 19:54
[2017-05-08 09:27] LABS: BANDS 8 % (0-6); METAMYELOCYTES 1 % (0-1); NEUTROPHIL # MANUAL DIFF 1.7 TH/MM3 (1.8-7.7); PLATELET ESTIMATE SMEAR LOW (NORMAL); PLATELET MORPHOLOGY NORMAL (NORMAL); POLYS (SEG NEUTROPHILS) 80 % (16-70); SCAN/DIFF FINAL DIFF MANUAL; WBC DIFF SAMPLE 100
--- NOTE | 2017-05-08 10:12 | HHI.IDPN ---
Subjective Subjective Remarks Patient is a 36-year-old male, with known HIV, AIDS, presented to the hospital complaining of diffuse body aches, as well as severe left upper quadrant pain. Patient stated he was hospitalized [address] [facility]. The first one was 7 days, and the second one was about 10 days, and he was discharge about a week ago. During that hospitalization he was told he had a bruise in his spleen, and he was actively being evaluated for a splenectomy, but it was decided not to do it. During that time he also had left upper quadrant pain, and his pain resolved the pain however started again at home and it was so severe that any kind of movement aggravates the pain. He is also had on and off fevers. Minimal respiratory complaint. No nausea or vomiting. Has frequent bowel movement. No urinary complaints. Patient has been diagnosed to have HIV probably for the last 7 years. He was going [facility] the health Department, but lost to follow-up, and recently started following up with Dr. Edmondson. He has been put on HAART in the last 4 months. The record also mention that he had been diagnosed to have MAC, and currently on treatment for that. Patient also noted a rash on the right side of his neck recently. He has never had chickenpox and denies any exposure to anyone with shingles or chickenpox. Patient since admission has had fevers. He has pancytopenia. He is complaining of severe pain in his left upper quadrant. CT of the abdomen and pelvis did confirm an area of splenic infarct. Infectious disease consultation has been requested to evaluate the patient. Notes reviewed Has low grade temps Still with LUQ pain BM biopsy scheduled for Wednesday WBC lower 1.9 VZV PCR (+) Diarrhea better C Diff negative Antibiotics VIKKI Rx HAART Acyclovir Lines PIV Past Medical History HIV/AIDS, CD4 26 Hypertension Splenomegaly, splenic infarct MAC infection Allergies: Coded Allergies: No Known Allergies (Verified Allergy, Mild, 05/30/08) Objective . Vital Signs Date Time Temp Pulse Resp B/P (MAP) Pulse Ox O2 Delivery O2 Flow Rate FiO2 05/08/17 08:00 99.0 100 20 98/53 (68) 96 05/08/17 04:00 99.4 97 18 104/59 (74) 99 05/08/17 00:46 100.0 95 18 90/54 (66) 98 05/07/17 20:21 91 05/07/17 20:00 98.9 93 18 108/60 (76) 100 05/07/17 16:19 18 05/07/17 16:00 98.8 100 17 104/57 (73) 98 05/07/17 15:06 18 05/07/17 12:00 100.1 105 17 101/59 (73) 99 05/07/17 11:28 18 05/08/17 05/08/17 05/09/17 15:00 23:00 07:00 Intake Total 120 ml Balance 120 ml Intake Oral 120 ml . Laboratory Tests Test 05/06/17 17:30 05/06/17 23:06 05/07/17 05:35 05/07/17 11:10 Hemoglobin 9.6 GM/DL 9.1 GM/DL 8.8 GM/DL Hematocrit 28.0 % 27.1 % 25.8 % White Blood Count 2.3 TH/MM3 Red Blood Count 3.11 MIL/MM3 Mean Corpuscular Volume 82.9 FL Mean Corpuscular Hemoglobin 28.4 PG Mean Corpuscular Hemoglobin Concent 34.3 % Red Cell Distribution Width 17.2 % Platelet Count 41 TH/MM3 Mean Platelet Volume 8.3 FL CBC Comment AUTO DIFF Differential Total Cells Counted 100 Neutrophils % (Manual) 91 % Band Neutrophils % 1 % Lymphocytes % 4 % Monocytes % 3 % Basophils % 1 % Neutrophils # (Manual) 2.1 TH/MM3 Differential Comment FINAL DIFF MANUAL Hypersegmented Polys 1+ Platelet Estimate LOW Platelet Morphology Comment NORMAL Red Cell Morphology Comment NORMAL Erythrocyte Sedimentation Rate GREATER THAN 140 mm/hr Haptoglobin 482 MG/DL Test 05/08/17 07:05 White Blood Count 1.9 TH/MM3 Red Blood Count 2.93 MIL/MM3 Hemoglobin 8.2 GM/DL Hematocrit 24.3 % Mean Corpuscular Volume 82.7 FL Mean Corpuscular Hemoglobin 28.0 PG Mean Corpuscular Hemoglobin Concent 33.8 % Red Cell Distribution Width 17.4 % Platelet Count 42 TH/MM3 Mean Platelet Volume 7.6 FL Neutrophils (%) (Auto) 78.7 % Lymphocytes (%) (Auto) 8.1 % Monocytes (%) (Auto) 12.3 % Eosinophils (%) (Auto) 0.3 % Basophils (%) (Auto) 0.6 % Neutrophils # (Auto) 1.5 TH/MM3 Lymphocytes # (Auto) 0.2 TH/MM3 Monocytes # (Auto) 0.2 TH/MM3 Eosinophils # (Auto) 0.0 TH/MM3 Basophils # (Auto) 0.0 TH/MM3 CBC Comment AUTO DIFF Differential Total Cells Counted 100 Neutrophils % (Manual) 80 % Band Neutrophils % 8 % Lymphocytes % 4 % Monocytes % 7 % Neutrophils # (Manual) 1.7 TH/MM3 Metamyelocytes 1 % Differential Comment FINAL DIFF MANUAL Platelet Estimate LOW Platelet Morphology Comment NORMAL Red Cell Morphology Comment NORMAL Laboratory Tests Test 05/07/17 05:35 05/07/17 11:10 05/08/17 07:05 Blood Urea Nitrogen 13 MG/DL 11 MG/DL Creatinine 0.96 MG/DL 0.83 MG/DL Random Glucose 100 MG/DL 111 MG/DL Calcium Level 8.0 MG/DL 8.1 MG/DL Sodium Level 134 MEQ/L 136 MEQ/L Potassium Level 3.9 MEQ/L 3.9 MEQ/L Chloride Level 102 MEQ/L 102 MEQ/L Carbon Dioxide Level 24.5 MEQ/L 26.0 MEQ/L Anion Gap 8 MEQ/L 8 MEQ/L Estimat Glomerular Filtration Rate 106 ML/MIN 126 ML/MIN Lactate Dehydrogenase 206 U/L C-Reactive Protein 13.40 MG/DL Vitamin B12 Level GREATER THAN 2000 PG/ML Folate GREATER THAN 20.0 NG/ML Microbiology Date/Time Source Procedure Growth Status 05/06/17 08:25 Blood Peripheral Aerobic Blood Culture - Preliminary NO GROWTH IN 1 DAY Resulted 05/06/17 08:25 Blood Peripheral Anaerobic Blood Culture - Preliminary NO GROWTH IN 1 DAY Resulted 05/06/17 08:15 Blood Peripheral Aerobic Blood Culture - Preliminary NO GROWTH IN 1 DAY Resulted 05/06/17 08:15 Blood Peripheral Anaerobic Blood Culture - Preliminary NO GROWTH IN 1 DAY Resulted 05/06/17 18:01 Stool Stool Cyclospora Exam - Final NO CYCLOSPORA SEEN Resulted 05/06/17 18:01 Stool Stool Cryptosporidium Exam Pending Resulted 05/06/17 18:01 Stool Stool Stool Pus (RADHA) - Final RARE WBC Resulted 05/06/17 18:01 Stool Stool Giardia Antigen (RADHA) Pending Resulted 05/06/17 18:01 Stool Stool - Final NO ENTERIC PATHOGENS DETECTED BY PCR... Complete Imaging Last Impressions Abdomen/Pelvis CT 05/05/17 [id number] Signed Impressions: Service Date/Time: Friday, May 05, 2017 16:42 - CONCLUSION: Enlarged spleen with large areas of infarction or or neoplastic infiltration. Trace ascites. Sclerotic bones without focal destructive lesions. Clinton Valadez MD FACR Chest X-Ray 05/05/17 0000 Signed Impressions: Service Date/Time: Friday, May 05, 2017 15:41 - CONCLUSION: Negative for fracture or dislocation. Follow up in 7-10 days is suggested if symptoms persist. Clinton Valadez MD FACR Physical Exam GENERAL: Patient is a thin, well-developed male, awake and alert, not in respiratory distress. SKIN: Warm and dry. Has scattered pustular lesions looks more, noted in back/ trunk, RUE, and BLE HEAD: Atraumatic. Normocephalic. No temporal wasting, or tenderness. EYES: [place] conjunctiva. No petechia or hemorrhage. Pupils equal, round and reactive to light. Extraocular movements full and intact. No scleral icterus. No injection or drainage. EARS, NOSE AND THROAT: Nose without bleeding or purulent nasal discharge. No sinus tenderness. Mucous membranes pink and moist. No oral lesions noted. No exudate. No oral thrush. NECK: Trachea midline. Supple and not tender, no meningeal signs. Has cervical lymphadenopathy CARDIOVASCULAR: Regular rate and rhythm. No murmurs, rubs or gallops heard RESPIRATORY: Clear to auscultation. Breath sounds equal bilaterally. No rales , wheezing or rhonchi ABDOMEN: Soft, nondistended. Tender especially on L side. Bowel sounds present and normoactive. No guarding. No rebound. EXTREMITIES: No clubbing, cyanosis, or edema.No joint effusion, has good ROM. No calf tenderness. Well perfused and warm. NEUROLOGICAL: Awake and alert. Cranial nerves grossly intact. Motor grossly within normal limits. PSYCHIATRIC: Normal affect, calm and cooperative. LINE: No evidence of infection Assessment & Plan Remarks IMPRESSION Sepsis, with fevers - has splenomegaly, prob hypersdplenism and splenic infarct - known MAC and on Rx - has HIV/AIDS - has rash resembling varicella, ?primary (he denies prior Hx chickenpox) or disseminated zoster ?Primary Varicella vs disseminated zoster HIV/AIDS MAC infection by Hx RECOMMENDATION Follow C/S Continue IV Acyclovir Continue other meds - MAC RX and HAART Heme eval in progress Obtain records from [facility] [place] Follow C/S Monitor progress Isolation for disseminated zoster per infection control policy Explained plan to the patient Bettina Covarrubias MD May 08, 2017 10:12
--- NOTE | 2017-05-08 11:52 | HHI.PR ---
Subjective Remarks Patient reports left upper quadrant abdominal pain. The pain medication is helping.. Objective Vitals Vital Signs Date Time Temp Pulse Resp B/P (MAP) Pulse Ox O2 Delivery O2 Flow Rate FiO2 05/08/17 08:00 99.0 100 20 98/53 (68) 96 05/08/17 04:00 99.4 97 18 104/59 (74) 99 05/08/17 00:46 100.0 95 18 90/54 (66) 98 05/07/17 20:21 91 05/07/17 20:00 98.9 93 18 108/60 (76) 100 05/07/17 16:19 18 05/07/17 16:00 98.8 100 17 104/57 (73) 98 05/07/17 15:06 18 05/07/17 12:00 100.1 105 17 101/59 (73) 99 I/O 05/07/17 05/07/17 05/07/17 05/08/17 05/08/17 05/08/17 07:00 15:00 23:00 07:00 15:00 23:00 Intake Total 400 ml 1780 ml 120 ml Output Total 800 ml 2125 ml 300 ml Balance -400 ml -345 ml -300 ml 120 ml Intake Oral 400 ml 1680 ml 120 ml IV Total 100 ml Output Urine Total 800 ml 2125 ml 300 ml # Voids 2 # Bowel Movements 2 0 Result Diagram: 05/08/1770405/08/17704 Objective Remarks GENERAL: Appearing older than stated age CARDIOVASCULAR: Normal rate and regular rhythm without murmurs, gallops, or rubs. RESPIRATORY: Good respiratory efforts. Breath sounds equal and clear to auscultation bilaterally. GASTROINTESTINAL: Abdomen soft, some tenderness to palpation over the left upper quadrant. MUSCULOSKELETAL: Extremities without cyanosis, or edema. NEURO: Alert & Oriented x4 to person, place, time, situation. Moves all ext x4 PSYCH: Appropriate mood and affect. Procedures None A/P Assessment and Plan 36-year-old male with history of HIV/AIDS admitted with splenic infarct, symptomatic anemia, pancytopenia. Splenic infarct: General surgery consultation appreciated. Hematology following and planning for bone marrow biopsy on Wednesday. Symptomatic anemia/pancytopenia: Patient received transfusion of 2 units of PRBCs. Monitor H&H. -Appreciate hematology following. Concern for underlying myeloproliferative disorder. Plan for bone marrow biopsy on Wednesday. HIV/AIDS: Appreciate infectious disease recommendations. Known history of MAC and on treatment. Primary varicella versus disseminated zoster - Continue IV acyclovir, MAC Rx and HAART treatment Possible GI bleed: Appreciate gastroenterology recommendations. DVT prophylaxis: HERBER [place]. Avoid chemical prophylaxis secondary to anemia , possible GI bleed. Mitesh Wheeler MD May 08, 2017 11:52
[2017-05-08 12:00] VITALS: BP 107/60; PULSE 104; RESP 20; TEMP 98.9; O2SAT 99
--- NOTE | 2017-05-08 14:08 | HHI.GIFU ---
Subjective Remarks Pt resting in bed in NAD. "I've been better but I'm ok i guess." ADmits LUQ discomfort. No BM today. (Rebeca Ribeiro) Objective Vitals I&O Vital Signs Date Time Temp Pulse Resp B/P (MAP) Pulse Ox O2 Delivery O2 Flow Rate FiO2 05/08/17 12:00 98.9 104 20 107/60 (76) 99 05/08/17 11:14 18 05/08/17 08:00 99.0 100 20 98/53 (68) 96 05/08/17 04:00 99.4 97 18 104/59 (74) 99 05/08/17 00:46 100.0 95 18 90/54 (66) 98 05/07/17 20:21 91 05/07/17 20:00 98.9 93 18 108/60 (76) 100 05/07/17 16:00 98.8 100 17 104/57 (73) 98 05/07/17 15:06 18 I/O 05/07/17 05/07/17 05/07/17 05/08/17 05/08/17 05/08/17 07:00 15:00 23:00 07:00 15:00 23:00 Intake Total 400 ml 1780 ml 120 ml Output Total 800 ml 2125 ml 300 ml Balance -400 ml -345 ml -300 ml 120 ml Intake Oral 400 ml 1680 ml 120 ml IV Total 100 ml Output Urine Total 800 ml 2125 ml 300 ml # Voids 2 # Bowel Movements 2 0 Laboratory Laboratory Tests Test 05/08/17 07:05 White Blood Count 1.9 Red Blood Count 2.93 Hemoglobin 8.2 Hematocrit 24.3 Mean Corpuscular Volume 82.7 Mean Corpuscular Hemoglobin 28.0 Mean Corpuscular Hemoglobin Concent 33.8 Red Cell Distribution Width 17.4 Platelet Count 42 Mean Platelet Volume 7.6 Neutrophils (%) (Auto) 78.7 Lymphocytes (%) (Auto) 8.1 Monocytes (%) (Auto) 12.3 Eosinophils (%) (Auto) 0.3 Basophils (%) (Auto) 0.6 Neutrophils # (Auto) 1.5 Lymphocytes # (Auto) 0.2 Monocytes # (Auto) 0.2 Eosinophils # (Auto) 0.0 Basophils # (Auto) 0.0 CBC Comment AUTO DIFF Differential Total Cells Counted 100 Neutrophils % (Manual) 80 Band Neutrophils % 8 Lymphocytes % 4 Monocytes % 7 Neutrophils # (Manual) 1.7 Metamyelocytes 1 Differential Comment FINAL DIFF MANUAL Platelet Estimate LOW Platelet Morphology Comment NORMAL Red Cell Morphology Comment NORMAL Blood Urea Nitrogen 11 Creatinine 0.83 Random Glucose 111 Calcium Level 8.1 Sodium Level 136 Potassium Level 3.9 Chloride Level 102 Carbon Dioxide Level 26.0 Anion Gap 8 Estimat Glomerular Filtration Rate 126 Date/Time Source Procedure Growth Status 05/06/17 08:25 Blood Peripheral Aerobic Blood Culture - Preliminary NO GROWTH IN 2 DAYS Resulted 05/06/17 08:25 Blood Peripheral Anaerobic Blood Culture - Preliminary NO GROWTH IN 2 DAYS Resulted 05/06/17 18:01 Stool Stool Cyclospora Exam - Final NO CYCLOSPORA SEEN Resulted 05/06/17 18:01 Stool Stool Cryptosporidium Exam Pending Resulted 05/06/17 18:01 Stool Stool Stool Pus (RADHA) - Final RARE WBC Resulted 05/06/17 18:01 Stool Stool Giardia Antigen (RADHA) Pending Resulted Imaging Last Impressions Abdomen/Pelvis CT 05/05/17 1443 Signed Impressions: Service Date/Time: Friday, May 05, 2017 16:42 - CONCLUSION: Enlarged spleen with large areas of infarction or or neoplastic infiltration. Trace ascites. Sclerotic bones without focal destructive lesions. Clinton Valadez MD FACR Chest X-Ray 05/05/17 0000 Signed Impressions: Service Date/Time: Friday, May 05, 2017 15:41 - CONCLUSION: Negative for fracture or dislocation. Follow up in 7-10 days is suggested if symptoms persist. Clinton Valadez MD FACR Physical Exam HEENT: Normocephalic; atraumatic; no jaundice. CHEST: CTA CARDIAC: RRR ABDOMEN: Soft, mildly bloated, left sided abdominal tenderness, splenomegaly; bowel sounds are present in all four quadrants. EXTREMITIES: No clubbing, cyanosis, or edema. SKIN: Normal; no rash; no jaundice. [employer]: No focal deficits; alert and oriented times three. (Rebeca Ribeiro) Assessment and Plan Plan ASSESSMENT: - Severe Anemia. HH on admission 6.2/18.2. No obvious GI bleeding. Pt with known splenomegaly and now with areas of large splenic infarctions. S/P 4 units PRBC. HH relatively stable - Abdominal pain. CT scan of the abdomen and pelvis with IV contrast (05/05/17) and this revealed enlarged spleen with large areas of infarction or neoplastic infiltration, trace ascites, sclerotic bones without focal destructive lesions. likely related to splenic infarction - Abnormal imaging of spleen with splenomegaly and large areas of infarction on CT imaging. CT as above. GS following. - Diarrhea, 1 month hx of diarrhea with 3-4 loose stools per day. On Cipro/ Azithromycin/Ethambutol for MAC. CDiff negative. Cryptosporidium, Cyclospora, Giardia, O&P, Enteric pathogens negative - Pancytopenia. WBC 1.9, PLT 42 going for bone marrow bx next week, hem/ onc following, concern for myeloproliferative disorder - Elevated AST, mild. - Sepsis with fevers. On tx for MAC. Pt with pustular rash, suspected varicella- primary vs. disseminated zoster- labs pending. ID following. 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 Dx during recent hospitalization at [facility]. - Rash, scattered blisters/pustules. ? varicella- primary or disseminated zoster. ID following, Varicella Ab pending. - HIV/AIDS. On HAART. 05/08/17 - some LUQ discomfort. No BM today. enteric pathogens negative. bone marrow bx next week per hem/onc. PLAN: - LAURA - Await O&P, cryptosporidium & giardia - PPI - Abx per ID - Monitor labs - Transfuse as necessary - EGD colonoscopy possibly next week - Pt seen and examined by Dr. Mason and myself and this note is written on his behalf (Rebeca Ribeiro) Physician Comments Patient seen and examined Agree with above Continue with current supportive care Monitor labs Probable EGD colonoscopy on Wednesday (Shiva Mason MD) Rebeca Ribeiro May 08, 2017 14:08 Shiva Mason MD May 08, 2017 22:35
[2017-05-08 15:48] VITALS: BP 108/62; PULSE 122; RESP 20; TEMP 98.6; O2SAT 97
--- NOTE | 2017-05-08 17:56 | HHI.PR ---
cc: Dash Henderson MD Subjective Subjective Notes Pain stable, not worse; hurts mostly when he is taking a deep breath. Objective Vitals/I&O Vital Signs Date Time Temp Pulse Resp B/P (MAP) Pulse Ox O2 Delivery O2 Flow Rate FiO2 05/08/17 15:48 98.6 122 20 108/62 (77) 97 05/05/17 18:49 Room Air Labs Laboratory Tests Test 05/08/17 07:05 White Blood Count 1.9 Red Blood Count 2.93 Hemoglobin 8.2 Hematocrit 24.3 Mean Corpuscular Volume 82.7 Mean Corpuscular Hemoglobin 28.0 Mean Corpuscular Hemoglobin Concent 33.8 Red Cell Distribution Width 17.4 Platelet Count 42 Mean Platelet Volume 7.6 Neutrophils (%) (Auto) 78.7 Lymphocytes (%) (Auto) 8.1 Monocytes (%) (Auto) 12.3 Eosinophils (%) (Auto) 0.3 Basophils (%) (Auto) 0.6 Neutrophils # (Auto) 1.5 Lymphocytes # (Auto) 0.2 Monocytes # (Auto) 0.2 Eosinophils # (Auto) 0.0 Basophils # (Auto) 0.0 CBC Comment AUTO DIFF Differential Total Cells Counted 100 Neutrophils % (Manual) 80 Band Neutrophils % 8 Lymphocytes % 4 Monocytes % 7 Neutrophils # (Manual) 1.7 Metamyelocytes 1 Differential Comment FINAL DIFF MANUAL Platelet Estimate LOW Platelet Morphology Comment NORMAL Red Cell Morphology Comment NORMAL Blood Urea Nitrogen 11 Creatinine 0.83 Random Glucose 111 Calcium Level 8.1 Sodium Level 136 Potassium Level 3.9 Chloride Level 102 Carbon Dioxide Level 26.0 Anion Gap 8 Estimat Glomerular Filtration Rate 126 Date/Time Source Procedure Growth Status 05/06/17 08:25 Blood Peripheral Aerobic Blood Culture - Preliminary NO GROWTH IN 2 DAYS Resulted 05/06/17 08:25 Blood Peripheral Anaerobic Blood Culture - Preliminary NO GROWTH IN 2 DAYS Resulted 05/06/17 18:01 Stool Stool Cyclospora Exam - Final NO CYCLOSPORA SEEN Resulted 05/06/17 18:01 Stool Stool Cryptosporidium Exam Pending Resulted 05/06/17 18:01 Stool Stool Stool Pus (RADHA) - Final RARE WBC Resulted 05/06/17 18:01 Stool Stool Giardia Antigen (RADHA) Pending Resulted Radiology Last Impressions Abdomen/Pelvis CT 05/05/17 1443 Signed Impressions: Service Date/Time: Friday, May 05, 2017 16:42 - CONCLUSION: Enlarged spleen with large areas of infarction or or neoplastic infiltration. Trace ascites. Sclerotic bones without focal destructive lesions. Clinton Valadez MD FACR Chest X-Ray 05/05/17 0000 Signed Impressions: Service Date/Time: Friday, May 05, 2017 15:41 - CONCLUSION: Negative for fracture or dislocation. Follow up in 7-10 days is suggested if symptoms persist. Clinton Valadez MD FACR Abdomen: Non-distended, Other (Tender LUQ) A/P Problem List: (1) Splenic infarction ICD Codes: D73.5 - Infarction of spleen Status: Acute (2) Enlargement of spleen ICD Codes: R16.1 - Splenomegaly, not elsewhere classified Status: Chronic (3) HIV (human immunodeficiency virus infection) ICD Codes: B20 - Human immunodeficiency virus [HIV] disease Status: Chronic (4) Thrombocytopenia ICD Codes: D69.6 - Thrombocytopenia, unspecified Status: Acute (5) Anemia ICD Codes: D64.9 - Anemia, unspecified Status: Acute Assessment and Plan Assessment and Plan 36 year old male with splenic infarction; low platelet count persists; HIV/AIDS -Plans for bone marrow bx on Wednesday -Regular diet -Continue to monitor blood counts Problem Qualifiers (1) Anemia: Qualified Codes: D64.9 - Anemia, unspecified Dash Henderson MD May 08, 2017 17:56
[2017-05-08 20:00] VITALS: BP 112/62; PULSE 116; RESP 18; TEMP 99.6; O2SAT 97
[2017-05-09] VITALS (8 sets, daily range): BP systolic 93–104; BP diastolic 52–59; PULSE 81–109; RESP 16–18; TEMP 96.7–100.3; O2SAT 95–99
[2017-05-09] MEDS: ACETAMINOPHEN 325 MG TAB PO PRN ×2 (05:05→15:40)
[2017-05-09] MEDS: ACYCLOVIR INJ 600 MG in SODIUM CHLORIDE 0.9% INJ 100 ML IV SCH ×2 (05:05→12:00)
[2017-05-09] MEDS: FOLIC ACID 1 MG TAB PO SCH (08:27)
[2017-05-09] MEDS: GENVOYA PO SCH (08:27)
[2017-05-09] MEDS: FUROSEMIDE 40 MG TAB PO SCH (08:27)
[2017-05-09] MEDS: [UNRECOGNIZED DRUG - OTHER] PO SCH (08:27)
[2017-05-09] MEDS: CIPROFLOXACIN 500 MG TAB PO SCH ×2 (08:27→20:03)
[2017-05-09] MEDS: CYANOCOBALAMIN 1,000 MCG TAB PO SCH (08:28)
[2017-05-09] MEDS: AZITHROMYCIN 250 MG TAB PO SCH (08:28)
[2017-05-09] MEDS: FERROUS SULFATE 325 MG (65 MG ELEMENTAL IRON) TAB PO SCH ×3 (08:28→18:18)
[2017-05-09] MEDS: ETHAMBUTOL HCL 400 MG TAB PO SCH (08:28)
[2017-05-09] MEDS: SODIUM CHLORIDE 0.9% FLUSH 10 ML FLUSH IV FLUSH SCH ×2 (08:32→20:04)
--- NOTE | 2017-05-09 09:45 | HHI.IDPN ---
Subjective Subjective Remarks Patient is a 36-year-old male, with known HIV, AIDS, presented to the hospital complaining of diffuse body aches, as well as severe left upper quadrant pain. Patient stated he was hospitalized 2 times at [facility]. The first one was 7 days, and the second one was about 10 days, and he was discharge about a week ago. During that hospitalization he was told he had a bruise in his spleen, and he was actively being evaluated for a splenectomy, but it was decided not to do it. During that time he also had left upper quadrant pain, and his pain resolved the pain however started again at home and it was so severe that any kind of movement aggravates the pain. He is also had on and off fevers. Minimal respiratory complaint. No nausea or vomiting. Has frequent bowel movement. No urinary complaints. Patient has been diagnosed to have HIV probably for the last 7 years. He was going to the health Department, but lost to follow-up, and recently started following up with Dr. Edmondson. He has been put on HAART in the last 4 months. The record also mention that he had been diagnosed to have MAC, and currently on treatment for that. Patient also noted a rash on the right side of his neck recently. He has never had chickenpox and denies any exposure to anyone with shingles or chickenpox. Patient since admission has had fevers. He has pancytopenia. He is complaining of severe pain in his left upper quadrant. CT of the abdomen and pelvis did confirm an area of splenic infarct. Infectious disease consultation has been requested to evaluate the patient. Notes reviewed Has low grade temps Still with LUQ pain BM biopsy scheduled for Wednesday WBC lower 1.9 VZV PCR (+) VZV IgG (+) Antibiotics VIKKI Rx HAART Acyclovir Lines PIV Past Medical History HIV/AIDS, CD4 26 Hypertension Splenomegaly, splenic infarct MAC infection Allergies: Coded Allergies: No Known Allergies (Verified Allergy, Mild, 05/30/08) Objective . Vital Signs Date Time Temp Pulse Resp B/P (MAP) Pulse Ox O2 Delivery O2 Flow Rate FiO2 05/09/17 08:00 97.6 91 16 99/56 (70) 98 05/09/17 06:36 99.1 103 18 104/59 (74) 05/09/17 04:35 100.2 109 18 96/54 (68) 95 05/09/17 00:13 99.6 97 18 93/52 (66) 97 05/08/17 20:00 99.6 116 18 112/62 (79) 97 05/08/17 15:48 98.6 122 20 108/62 (77) 97 05/08/17 15:38 18 05/08/17 12:00 98.9 104 20 107/60 (76) 99 . Laboratory Tests Test 05/07/17 11:10 05/08/17 07:05 Erythrocyte Sedimentation Rate GREATER THAN 140 mm/hr Haptoglobin 482 MG/DL White Blood Count 1.9 TH/MM3 Red Blood Count 2.93 MIL/MM3 Hemoglobin 8.2 GM/DL Hematocrit 24.3 % Mean Corpuscular Volume 82.7 FL Mean Corpuscular Hemoglobin 28.0 PG Mean Corpuscular Hemoglobin Concent 33.8 % Red Cell Distribution Width 17.4 % Platelet Count 42 TH/MM3 Mean Platelet Volume 7.6 FL Neutrophils (%) (Auto) 78.7 % Lymphocytes (%) (Auto) 8.1 % Monocytes (%) (Auto) 12.3 % Eosinophils (%) (Auto) 0.3 % Basophils (%) (Auto) 0.6 % Neutrophils # (Auto) 1.5 TH/MM3 Lymphocytes # (Auto) 0.2 TH/MM3 Monocytes # (Auto) 0.2 TH/MM3 Eosinophils # (Auto) 0.0 TH/MM3 Basophils # (Auto) 0.0 TH/MM3 CBC Comment AUTO DIFF Differential Total Cells Counted 100 Neutrophils % (Manual) 80 % Band Neutrophils % 8 % Lymphocytes % 4 % Monocytes % 7 % Neutrophils # (Manual) 1.7 TH/MM3 Metamyelocytes 1 % Differential Comment FINAL DIFF MANUAL Platelet Estimate LOW Platelet Morphology Comment NORMAL Red Cell Morphology Comment NORMAL Laboratory Tests Test 05/07/17 11:10 05/08/17 07:05 Lactate Dehydrogenase 206 U/L C-Reactive Protein 13.40 MG/DL Vitamin B12 Level GREATER THAN 2000 PG/ML Folate GREATER THAN 20.0 NG/ML Blood Urea Nitrogen 11 MG/DL Creatinine 0.83 MG/DL Random Glucose 111 MG/DL Calcium Level 8.1 MG/DL Sodium Level 136 MEQ/L Potassium Level 3.9 MEQ/L Chloride Level 102 MEQ/L Carbon Dioxide Level 26.0 MEQ/L Anion Gap 8 MEQ/L Estimat Glomerular Filtration Rate 126 ML/MIN Microbiology Date/Time Source Procedure Growth Status 05/06/17 18:01 Stool Stool Cyclospora Exam - Final NO CYCLOSPORA SEEN Resulted 05/06/17 18:01 Stool Stool Cryptosporidium Exam Pending Resulted 05/06/17 18:01 Stool Stool Stool Pus (RADHA) - Final RARE WBC Resulted 05/06/17 18:01 Stool Stool Giardia Antigen (RADHA) Pending Resulted 05/06/17 18:01 Stool Stool - Final NO ENTERIC PATHOGENS DETECTED BY PCR... Complete Imaging Last Impressions Abdomen/Pelvis CT 05/05/17 1443 Signed Impressions: Service Date/Time: Wednesday, May 05, 2017 16:42 - CONCLUSION: Enlarged spleen with large areas of infarction or or neoplastic infiltration. Trace ascites. Sclerotic bones without focal destructive lesions. Clinton Valadez MD FACR Chest X-Ray 05/05/17 0000 Signed Impressions: Service Date/Time: Wednesday, May 05, 2017 15:41 - CONCLUSION: Negative for fracture or dislocation. Follow up in 7-10 days is suggested if symptoms persist. Clinton Valadez MD FACR Physical Exam GENERAL: Patient is a thin, well-developed male, awake and alert, not in respiratory distress. SKIN: Warm and dry. Has scattered pustular lesions looks more, noted in back/ trunk, RUE, and BLE, some lesions are drying up HEAD: Atraumatic. Normocephalic. No temporal wasting, or tenderness. EYES: [place] conjunctiva. No petechia or hemorrhage. Pupils equal, round and reactive to light. Extraocular movements full and intact. No scleral icterus. No injection or drainage. EARS, NOSE AND THROAT: Nose without bleeding or purulent nasal discharge. No sinus tenderness. Mucous membranes pink and moist. No oral lesions noted. No exudate. No oral thrush. NECK: Trachea midline. Supple and not tender, no meningeal signs. Has cervical lymphadenopathy CARDIOVASCULAR: Regular rate and rhythm. No murmurs, rubs or gallops heard RESPIRATORY: Clear to auscultation. Breath sounds equal bilaterally. No rales , wheezing or rhonchi ABDOMEN: Soft, nondistended. Tender especially on L side. Bowel sounds present and normoactive. No guarding. No rebound. EXTREMITIES: No clubbing, cyanosis, or edema.No joint effusion, has good ROM. No calf tenderness. Well perfused and warm. NEUROLOGICAL: Awake and alert. Cranial nerves grossly intact. Motor grossly within normal limits. PSYCHIATRIC: Normal affect, calm and cooperative. LINE: No evidence of infection Assessment & Plan Remarks IMPRESSION Sepsis, with fevers - has splenomegaly, prob hypersdplenism and splenic infarct - known MAC and on Rx - has HIV/AIDS - has rash resembling varicella, ?primary (he denies prior Hx chickenpox) or disseminated zoster Disseminated zoster HIV/AIDS MAC infection by Hx RECOMMENDATION Follow C/S Continue IV Acyclovir - follow BMP Continue other meds - MAC RX and HAART Heme eval in progress Monitor progress Isolation for disseminated zoster per infection control policy Explained plan to the patient D/W Bettina Tang MD May 09, 2017 09:45
--- NOTE | 2017-05-09 11:27 | HHI.PR ---
Subjective Subjective Notes pain stable, hurts with deep breaths, tolerating diet, moving bowels. Objective Vitals/I&O Vital Signs Date Time Temp Pulse Resp B/P (MAP) Pulse Ox O2 Delivery O2 Flow Rate FiO2 05/09/17 08:30 88 05/09/17 08:00 97.6 16 99/56 (70) 98 05/05/17 18:49 Room Air Labs Date/Time Source Procedure Growth Status 05/06/17 08:25 Blood Peripheral Aerobic Blood Culture - Preliminary NO GROWTH IN 3 DAYS Resulted 05/06/17 08:25 Blood Peripheral Anaerobic Blood Culture - Preliminary NO GROWTH IN 3 DAYS Resulted 05/06/17 18:01 Stool Stool Cyclospora Exam - Final NO CYCLOSPORA SEEN Resulted 05/06/17 18:01 Stool Stool Cryptosporidium Exam Pending Resulted 05/06/17 18:01 Stool Stool Stool Pus (RADHA) - Final RARE WBC Resulted 05/06/17 18:01 Stool Stool Giardia Antigen (RADHA) Pending Resulted Radiology Last Impressions Abdomen/Pelvis CT 05/05/17 1443 Signed Impressions: Service Date/Time: Friday, May 05, 2017 16:42 - CONCLUSION: Enlarged spleen with large areas of infarction or or neoplastic infiltration. Trace ascites. Sclerotic bones without focal destructive lesions. Clinton Valadez MD FACR Chest X-Ray 05/05/17 0000 Signed Impressions: Service Date/Time: Friday, May 05, 2017 15:41 - CONCLUSION: Negative for fracture or dislocation. Follow up in 7-10 days is suggested if symptoms persist. Clinton Valadez MD FACR Abdomen: Non-distended Narrative Exam mild tenderness, no R/G, BS present. A/P Problem List: (1) Splenic infarction ICD Codes: D73.5 - Infarction of spleen Status: Acute (2) Enlargement of spleen ICD Codes: R16.1 - Splenomegaly, not elsewhere classified Status: Chronic (3) HIV (human immunodeficiency virus infection) ICD Codes: B20 - Human immunodeficiency virus [HIV] disease Status: Chronic (4) Thrombocytopenia ICD Codes: D69.6 - Thrombocytopenia, unspecified Status: Acute (5) Anemia ICD Codes: D64.9 - Anemia, unspecified Status: Acute Assessment and Plan splenic infarct vs metatatic process no indication for splenectomy at this time medical management continue BLANCA and pain management. Problem Qualifiers (1) Anemia: Qualified Codes: D64.9 - Anemia, unspecified Sathish Jimenes MD May 09, 2017 11:27
--- NOTE | 2017-05-09 12:01 | HHI.PR ---
Subjective Remarks Patient reports same left upper quadrant pain. Objective Vitals Vital Signs Date Time Temp Pulse Resp B/P (MAP) Pulse Ox O2 Delivery O2 Flow Rate FiO2 05/09/17 08:30 88 05/09/17 08:00 97.6 91 16 99/56 (70) 98 05/09/17 06:36 99.1 103 18 104/59 (74) 05/09/17 04:35 100.2 109 18 96/54 (68) 95 05/09/17 00:13 99.6 97 18 93/52 (66) 97 05/08/17 20:00 99.6 116 18 112/62 (79) 97 05/08/17 15:48 98.6 122 20 108/62 (77) 97 05/08/17 15:38 18 I/O 05/08/17 05/08/17 05/08/17 05/09/17 05/09/17 05/09/17 07:00 15:00 23:00 07:00 15:00 23:00 Intake Total 120 ml 1300 ml 100 ml Output Total 300 ml 2200 ml Balance -300 ml 120 ml -900 ml 100 ml Intake Oral 120 ml 1200 ml IV Total 100 ml 100 ml Output Urine Total 300 ml 2200 ml # Voids 2 3 # Bowel Movements 1 Result Diagram: 05/08/1770405/08/17704 Objective Remarks GENERAL: Appearing older than stated age CARDIOVASCULAR: Normal rate and regular rhythm without murmurs, gallops, or rubs. RESPIRATORY: Good respiratory efforts. Breath sounds equal and clear to auscultation bilaterally. GASTROINTESTINAL: Abdomen soft, some tenderness to palpation over the left upper quadrant. MUSCULOSKELETAL: Extremities without cyanosis, or edema. NEURO: Alert & Oriented x4 to person, place, time, situation. Moves all ext x4 PSYCH: Appropriate mood and affect. Procedures None A/P Assessment and Plan 36-year-old male with history of HIV/AIDS admitted with splenic infarct, symptomatic anemia, pancytopenia. Splenic infarct: General surgery consultation appreciated. Hematology following and planning for bone marrow biopsy on Wednesday. Symptomatic anemia/pancytopenia: Patient received transfusion of 2 units of PRBCs. H&H stable. -Appreciate hematology following. Concern for underlying myeloproliferative disorder. Plan for bone marrow biopsy tomorrow. HIV/AIDS: Appreciate infectious disease recommendations. Known history of MAC and on treatment. Primary varicella versus disseminated zoster - Continue IV acyclovir, MAC Rx and HAART treatment Possible GI bleed: Appreciate gastroenterology recommendations. DVT prophylaxis: SCDsHERBER. Avoid chemical prophylaxis secondary to anemia , possible GI bleed. Mitesh Wheeler MD May 09, 2017 12:01
--- NOTE | 2017-05-09 14:18 | HHI.GIFU ---
Subjective Remarks patient is resting in bed, no melena or hematochezia. Very fatigue and weak, going for bone marrow tomorrow (Sasha Birmingham) Objective Vitals I&O Vital Signs Date Time Temp Pulse Resp B/P (MAP) Pulse Ox O2 Delivery O2 Flow Rate FiO2 05/09/17 12:00 96.7 105 16 94/58 (70) 98 05/09/17 11:56 18 05/09/17 08:30 88 05/09/17 08:00 97.6 91 16 99/56 (70) 98 05/09/17 06:36 99.1 103 18 104/59 (74) 05/09/17 04:35 100.2 109 18 96/54 (68) 95 05/09/17 00:13 99.6 97 18 93/52 (66) 97 05/08/17 20:00 99.6 116 18 112/62 (79) 97 05/08/17 15:48 98.6 122 20 108/62 (77) 97 I/O 05/08/17 05/08/17 05/08/17 05/09/17 05/09/17 05/09/17 07:00 15:00 23:00 07:00 15:00 23:00 Intake Total 120 ml 1300 ml 100 ml Output Total 300 ml 2200 ml Balance -300 ml 120 ml -900 ml 100 ml Intake Oral 120 ml 1200 ml IV Total 100 ml 100 ml Output Urine Total 300 ml 2200 ml # Voids 2 3 # Bowel Movements 1 Laboratory Date/Time Source Procedure Growth Status 05/06/17 08:25 Blood Peripheral Aerobic Blood Culture - Preliminary NO GROWTH IN 3 DAYS Resulted 05/06/17 08:25 Blood Peripheral Anaerobic Blood Culture - Preliminary NO GROWTH IN 3 DAYS Resulted 05/06/17 18:01 Stool Stool Cyclospora Exam - Final NO CYCLOSPORA SEEN Resulted 05/06/17 18:01 Stool Stool Cryptosporidium Exam Pending Resulted 05/06/17 18:01 Stool Stool Stool Pus (RADHA) - Final RARE WBC Resulted 05/06/17 18:01 Stool Stool Giardia Antigen (RADHA) Pending Resulted Imaging Last Impressions Abdomen/Pelvis CT 05/05/17 1443 Signed Impressions: Service Date/Time: Wednesday, May 05, 2017 16:42 - CONCLUSION: Enlarged spleen with large areas of infarction or or neoplastic infiltration. Trace ascites. Sclerotic bones without focal destructive lesions. Clinton Valadez MD FACR Chest X-Ray 05/05/17 0000 Signed Impressions: Service Date/Time: Friday, May 05, 2017 15:41 - CONCLUSION: Negative for fracture or dislocation. Follow up in 7-10 days is suggested if symptoms persist. Clinton Valadez MD FACR Physical Exam HEENT: Normocephalic; atraumatic; no jaundice. CHEST: CTA CARDIAC: RRR ABDOMEN: Soft, mildly bloated, left sided abdominal tenderness, splenomegaly; bowel sounds are present in all four quadrants. EXTREMITIES: No clubbing, cyanosis, or edema. SKIN: Normal; no rash; no jaundice. POT PUNCHER: No focal deficits; alert and oriented times three. (Sasha Birmingham) Assessment and Plan Plan ASSESSMENT: - Severe Anemia. HH on admission 6.2/18.2. No obvious GI bleeding. Pt with known splenomegaly and now with areas of large splenic infarctions. S/P 4 units PRBC. HH relatively stable - Abdominal pain. CT scan of the abdomen and pelvis with IV contrast (05/05/17) and this revealed enlarged spleen with large areas of infarction or neoplastic infiltration, trace ascites, sclerotic bones without focal destructive lesions. likely related to splenic infarction - Abnormal imaging of spleen with splenomegaly and large areas of infarction on CT imaging. CT as above. GS following. - Diarrhea, 1 month hx of diarrhea with 3-4 loose stools per day. On Cipro/ Azithromycin/Ethambutol for MAC. CDiff negative. Cryptosporidium, Cyclospora, Giardia, O&P, Enteric pathogens negative - Pancytopenia. WBC 1.9, PLT 42 going for bone marrow bx tomorrow, hem/ onc following, concern for myeloproliferative disorder - Elevated AST, mild. - Sepsis with fevers. On tx for MAC. Pt with pustular rash, suspected varicella- primary vs. disseminated zoster- labs pending. ID following. 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 Dx during recent hospitalization at [facility]. - Rash, scattered blisters/pustules. ? varicella- primary or disseminated zoster. ID following, Varicella Ab pending. - HIV/AIDS. On HAART. PLAN: - LAURA - going for bone marrow bx tomorrow, will shoot for EGD/colonoscopy possibly on Wednesday - PPI - Abx per ID - Monitor labs - Transfuse as necessary - Pt seen and examined by Dr. Mason and myself and this note is written on his behalf (Sasha Birmingham) Physician Comments Patient seen and examined Agree with above Continue with current supportive care Monitor labs (Shiva Mason MD) Sasha Birmingham May 09, 2017 14:18 Shiva Mason MD May 09, 2017 18:43
[2017-05-09 17:01] LABS: HEMATOCRIT 26.6 % (39.0-51.0); MEAN CELL VOLUME 83.9 FL (80.0-100.0); MEAN CORPUSCULAR HEMOGLOBIN 27.6 PG (27.0-34.0); MEAN CORPUSCULAR HGB CONC 32.9 % (32.0-36.0); PLATELET COUNT 48 TH/MM3 (150-450); RED BLOOD COUNT 3.17 MIL/MM3 (4.50-5.90); WHITE BLOOD COUNT 1.9 TH/MM3 (4.0-11.0)
[2017-05-09 17:04] LABS: HEMO FLAGS AUTO DIFF
[2017-05-09 17:36] LABS: BANDS 1 % (0-6); BASOPHILS 1 % (0-2); NEUTROPHIL # MANUAL DIFF 1.6 TH/MM3 (1.8-7.7); POLYS (SEG NEUTROPHILS) 85 % (16-70); WBC DIFF SAMPLE 100
[2017-05-09 17:37] LABS: PLATELET ESTIMATE SMEAR LOW (NORMAL); PLATELET MORPHOLOGY NORMAL (NORMAL); SCAN/DIFF FINAL DIFF MANUAL
[2017-05-10] VITALS (9 sets, daily range): BP systolic 97–123; BP diastolic 51–64; PULSE 90–108; RESP 18–20; TEMP 96.9–100.7; O2SAT 95–100
[2017-05-10] MEDS: ACYCLOVIR INJ 600 MG in SODIUM CHLORIDE 0.9% INJ 100 ML IV SCH ×4 (00:35→21:22)
[2017-05-10] MEDS: AZITHROMYCIN 250 MG TAB PO SCH (07:51)
[2017-05-10] MEDS: ELVIT/COBI/EMTR/TENOF 150/150/200/300 MG TABLETS PO SCH (07:51)
[2017-05-10] MEDS: CYANOCOBALAMIN 1,000 MCG TAB PO SCH (07:51)
[2017-05-10] MEDS: CIPROFLOXACIN 500 MG TAB PO SCH ×2 (07:51→21:23)
[2017-05-10] MEDS: ETHAMBUTOL HCL 400 MG TAB PO SCH (07:52)
[2017-05-10] MEDS: FOLIC ACID 1 MG TAB PO SCH (07:52)
[2017-05-10] MEDS: FERROUS SULFATE 325 MG (65 MG ELEMENTAL IRON) TAB PO SCH ×3 (07:52→17:18)
[2017-05-10] MEDS: FUROSEMIDE 40 MG TAB PO SCH (07:53)
[2017-05-10] MEDS: GENVOYA PO SCH (07:53)
[2017-05-10] MEDS: [UNRECOGNIZED DRUG - OTHER] PO SCH (07:53)
[2017-05-10] MEDS: SODIUM CHLORIDE 0.9% FLUSH 10 ML FLUSH IV FLUSH SCH ×2 (07:53→21:22)
--- NOTE | 2017-05-10 09:01 | PD.ONC.PN ---
Subjective Subjective Remarks Patient seen and examined, vital signs, labs and medications reviewed. Patient remains pancytopenic, bone marrow biopsy planned for later today. He continues to have left-sided abdominal pain which he reports associated severe he even has difficulty shifting in bed. He denies fevers or chills. Objective Data Date Time Temp Pulse Resp B/P (MAP) Pulse Ox O2 Delivery O2 Flow Rate FiO2 05/10/17 04:33 98.8 94 18 99/54 (69) 95 05/10/17 00:37 99.6 100 18 98/57 (71) 96 05/09/17 20:59 98.9 102 18 104/57 (73) 99 05/09/17 16:40 18 05/09/17 16:40 18 05/09/17 16:00 100.3 107 16 104/59 (74) 97 05/09/17 12:00 96.7 105 16 94/58 (70) 98 05/10/17 05/10/17 05/10/17 07:00 15:00 23:00 Intake Total 100 ml Output Total 700 ml Balance -600 ml Result Diagram: 05/09/17 1435 05/08/17 0705 Laboratory Results Laboratory Tests Test 05/09/17 14:35 White Blood Count 1.9 TH/MM3 Red Blood Count 3.17 MIL/MM3 Hemoglobin 8.7 GM/DL Hematocrit 26.6 % Mean Corpuscular Volume 83.9 FL Mean Corpuscular Hemoglobin 27.6 PG Mean Corpuscular Hemoglobin Concent 32.9 % Red Cell Distribution Width 17.0 % Platelet Count 48 TH/MM3 Mean Platelet Volume 8.1 FL CBC Comment AUTO DIFF Differential Total Cells Counted 100 Neutrophils % (Manual) 85 % Band Neutrophils % 1 % Lymphocytes % 8 % Monocytes % 5 % Basophils % 1 % Neutrophils # (Manual) 1.6 TH/MM3 Differential Comment FINAL DIFF MANUAL Platelet Estimate LOW Platelet Morphology Comment NORMAL Administered Medications Medications (Trade) Dose Ordered Sig/Derek Route PRN Reason Start Time Stop Time Status Last Admin Dose Admin Sodium Chloride (NS Flush) 2 ml BID IV FLUSH 05/05/17 21:00 05/10/17 07:53 Patient Own Medication PT OWN MED: Genvoya (Elvitegra... DAILY PO 05/06/17 09:00 Future hold 05/10/17 07:53 Azithromycin (Zithromax) 500 mg DAILY PO 05/06/17 09:00 05/10/17 07:51 Ciprofloxacin (Cipro) 500 mg BID PO 05/05/17 21:00 05/10/17 07:51 Ferrous Sulfate (Ferrous Sulfate) 325 mg TIDPC PO 05/05/17 18:30 05/10/17 07:52 Folic Acid (Folate) 1 mg DAILY PO 05/06/17 09:00 05/10/17 07:52 Furosemide (Lasix) 40 mg DAILY PO 05/06/17 09:00 05/09/17 08:27 Cyanocobalamin (Vitamin B12) 1,000 mcg DAILY PO 05/06/17 09:00 05/10/17 07:51 Ethambutol HCl (Myambutol) 800 mg DAILY PO 05/06/17 09:00 05/10/17 07:52 Morphine Sulfate (Morphine Inj) 2 mg Q3H PRN IV PUSH BREAKTHROUGH PAIN 05/05/17 18:45 05/06/17 17:45 Acyclovir Sodium 600 mg/Sodium Chloride 100 ml @ 100 mls/hr Q8H IV 05/06/17 12:00 05/10/17 06:23 Oxycodone HCl (Roxicodone) 10 mg Q4H PRN PO PAIN SCALE 7 TO 10 05/07/17 15:00 05/10/17 06:24 Acetaminophen (Tylenol) 325 mg Q6H PRN PO FEVER 05/07/17 13:15 05/09/17 15:40 Elvitegravir/ Cobicis/Emtricit/ Tenof (Stribild [phone] Mg) 1 tab DAILY PO 05/10/17 09:00 05/10/17 07:51 Objective Remarks GENERAL APPEARANCE: Mr. Grady is a young male. He appears to be cachectic and chronically ill. He is in no acute distress. HEENT: Head is atraumatic, normocephalic. Conjunctivae are not pale. Sclerae are anicteric. EOMI. PERRLA. No pharyngeal erythema. NECK: No palpable cervical or supraclavicular lymphadenopathy. PULMONARY: Good air movement bilaterally, poor inspiratory effort. CARDIOVASCULAR: Regular rate and rhythm, S1, S2. No obvious murmurs, rubs or gallops. ABDOMEN: Thin and soft. He has tenderness over the upper quadrants and in particular over the left upper quadrant. He has splenomegaly but no hepatomegaly. Positive bowel sounds. EXTREMITIES: No pretibial edema. No calf tenderness. MUSCULOSKELETAL: Generally decreased muscle mass and tone. CLINICAL AIDE: No focal sensory or motor deficits. SKIN: He has well-circumscribed firm nodular skin lesions with central dimpling. These are pinkish lesions noted on his forearms and torso. Assessment/Plan Problem List: (1) Pancytopenia ICD Codes: D61.818 - Other pancytopenia Plan: --will need CT-guided bone marrow biopsy and aspiration to rule out a primary bone marrow disorder. --with a diagnosis of HIV/AIDS (diagnosed about 8 years ago). --is presently on HAART therapy with a combination pill known as Genvoya. --CT abdomen shows enlarged spleen --Coupled with his symptoms of weight loss and night sweats I am concerned about an underlying myeloproliferative disorder. --other differential diagnoses include bone marrow infiltration with an opportunistic infection related to his HIV or myelosuppression related to his HAART therapy. Assessment 36y/o male with pancytopenia and massive splenomegaly associated with splenic infarct in a patient with HIV/AIDS. Recent history of MAC infection. Massive Splenomegaly with what appears to be either infarction or infiltration of the spleen. Plan 1. Pancytopenia: Parvovirus B19 IgG titers elevated, IgM titer is undetectable this indicates previous infection but not active infection. Vitamin B12 and folic acid levels are within normal limits. Await findings on bone marrow biopsy; differential diagnosis includes primary bone marrow disorder such as lymphoproliferative disorder versus opportunistic infection versus medication related myelosuppression. I anticipate the results of the bone marrow findings will be available either early next week or later this week. Jerry Chapman MD May 10, 2017 09:01
--- NOTE | 2017-05-10 11:02 | HHI.GIFU ---
Subjective Remarks Resting in bed. No complaints other than being hungry. Abdominal pain is improved. (Alessandra De La Garza) Objective Vitals I&O Vital Signs Date Time Temp Pulse Resp B/P (MAP) Pulse Ox O2 Delivery O2 Flow Rate FiO2 05/10/17 08:00 98.7 91 20 97/51 (66) 98 05/10/17 04:33 98.8 94 18 99/54 (69) 95 05/10/17 00:37 99.6 100 18 98/57 (71) 96 05/09/17 20:59 98.9 102 18 104/57 (73) 99 05/09/17 16:40 18 05/09/17 16:40 18 05/09/17 16:00 100.3 107 16 104/59 (74) 97 05/09/17 12:00 96.7 105 16 94/58 (70) 98 I/O 05/09/17 05/09/17 05/09/17 05/10/17 05/10/17 05/10/17 07:00 15:00 23:00 07:00 15:00 23:00 Intake Total 100 ml 600 ml 100 ml 0 ml Output Total 900 ml 700 ml Balance 100 ml -300 ml -600 ml 0 ml Intake Oral 600 ml 0 ml IV Total 100 ml 100 ml Output Urine Total 900 ml 700 ml # Voids 3 # Bowel Movements 1 Laboratory Laboratory Tests Test 05/09/17 14:35 White Blood Count 1.9 Red Blood Count 3.17 Hemoglobin 8.7 Hematocrit 26.6 Mean Corpuscular Volume 83.9 Mean Corpuscular Hemoglobin 27.6 Mean Corpuscular Hemoglobin Concent 32.9 Red Cell Distribution Width 17.0 Platelet Count 48 Mean Platelet Volume 8.1 CBC Comment AUTO DIFF Differential Total Cells Counted 100 Neutrophils % (Manual) 85 Band Neutrophils % 1 Lymphocytes % 8 Monocytes % 5 Basophils % 1 Neutrophils # (Manual) 1.6 Differential Comment FINAL DIFF MANUAL Platelet Estimate LOW Platelet Morphology Comment NORMAL Date/Time Source Procedure Growth Status 05/06/17 08:25 Blood Peripheral Aerobic Blood Culture - Preliminary NO GROWTH IN 3 DAYS Resulted 05/06/17 08:25 Blood Peripheral Anaerobic Blood Culture - Preliminary NO GROWTH IN 3 DAYS Resulted 05/06/17 18:01 Stool Stool Cyclospora Exam - Final NO CYCLOSPORA SEEN Resulted 05/06/17 18:01 Stool Stool Cryptosporidium Exam Pending Resulted 05/06/17 18:01 Stool Stool Stool Pus (RADHA) - Final RARE WBC Resulted 05/06/17 18:01 Stool Stool Giardia Antigen (RADHA) Pending Resulted Imaging Last Impressions Abdomen/Pelvis CT 05/05/17 1443 Signed Impressions: Service Date/Time: Friday, May 05, 2017 16:42 - CONCLUSION: Enlarged spleen with large areas of infarction or or neoplastic infiltration. Trace ascites. Sclerotic bones without focal destructive lesions. Clinton Valadez MD FACR Chest X-Ray 05/05/17 0000 Signed Impressions: Service Date/Time: Friday, May 05, 2017 15:41 - CONCLUSION: Negative for fracture or dislocation. Follow up in 7-10 days is suggested if symptoms persist. Clinton Valadez MD FACR Physical Exam HEENT: Normocephalic; atraumatic; no jaundice. CHEST: CTA CARDIAC: RRR ABDOMEN: Soft, mildly bloated, left sided abdominal tenderness, splenomegaly; bowel sounds are present in all four quadrants. EXTREMITIES: No clubbing, cyanosis, or edema. SKIN: Normal; no rash; no jaundice. MANAGER COMMUNICATION: No focal deficits; alert and oriented times three. (Alessandra De La Garza [facility]) Assessment and Plan Plan ASSESSMENT: - Severe Anemia. HH on admission 8.7/26.6. No obvious GI bleeding. Pt with known splenomegaly and now with areas of large splenic infarctions. S/P 4 units PRBC. HH relatively stable - Abdominal pain. CT scan of the abdomen and pelvis with IV contrast (05/05/17) and this revealed enlarged spleen with large areas of infarction or neoplastic infiltration, trace ascites, sclerotic bones without focal destructive lesions. Likely related to splenic infarction - Abnormal imaging of spleen with splenomegaly and large areas of infarction on CT imaging. CT as above. GS following, will likely need splenectomy at some point. - Diarrhea, 1 month hx of diarrhea with 3-4 loose stools per day. On Cipro/ Azithromycin/Ethambutol for MAC. CDiff negative. Cryptosporidium, Cyclospora, Giardia, O&P, Enteric pathogens negative - Pancytopenia. WBC 1.9, PLT 48. Hematology- concern for myeloproliferative disorder, going for bone marrow bx tomorrow - Elevated AST, mild. - Sepsis with fevers. On tx for MAC. Pt with pustular rash, suspected varicella- primary vs. disseminated zoster- labs pending. ID following. 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 Dx during recent hospitalization at [facility]. - Rash, scattered blisters/pustules, Disseminated zoster ID following, Acyclovir - HIV/AIDS. On HAART. PLAN: - Plan for egd with sb biopsy and colonoscopy in am - Obtain consents - Clear liquids - NPO after MN - Golytely - Notify GI in am if Platelets < 50,000 - PPI - Abx per ID - Monitor labs - Transfuse as necessary - Pt seen and examined by Dr. Lindsey and myself and this note is written on his behalf (Alessandra De La Garza) Physician Comments Seen and examined with JANE, egd/colonoscopy planned for tomorrow. (Charisma Lindsey MD) Alessandra De La Garza May 10, 2017 11:02 Charisma Lindsey MD May 10, 2017 15:47
[2017-05-10] MEDS ORDERED: MIDAZOLAM HCL 2 MG/2 ML VIAL ONE (12:10)
[2017-05-10] MEDS ORDERED: LIDOCAINE 1%/EPINEPHrine 1:100,000 SOLN 20 ML VIAL ONE (12:11)
[2017-05-10 12:49] LABS: AUTOMATED NEUTROPHIL # 1.6 TH/MM3 (1.8-7.7); BASOPHIL % 0.6 % (0.0-2.0); EOSINOPHIL % 0.3 % (0.0-4.0); HEMATOCRIT 25.4 % (39.0-51.0); LYMPH % 9.7 % (9.0-44.0); LYMPHOCYTE # 0.2 TH/MM3 (1.0-4.8); MEAN CORPUSCULAR HEMOGLOBIN 27.8 PG (27.0-34.0); MEAN CORPUSCULAR HGB CONC 33.1 % (32.0-36.0); MONO % 12.3 % (0.0-8.0); NEUT % 77.1 % (16.0-70.0); PLATELET COUNT 50 TH/MM3 (150-450); RED BLOOD COUNT 3.02 MIL/MM3 (4.50-5.90); RED CELL DISTRIBUTION WIDTH 16.8 % (11.6-17.2)
[2017-05-10 12:53] LABS: HEMO FLAGS AUTO DIFF
--- NOTE | 2017-05-10 13:00 | PD.RAD ---
Post CT Procedure Prog Note Pre Procedure Diagnosis: (1) Thrombocytopenia (2) HIV (human immunodeficiency virus infection) Post Procedure Diagnosis: (1) HIV (human immunodeficiency virus infection) (2) Thrombocytopenia Procedure Date: May 10, 2017 Supervising Radiologist: Eron Angeles Anesthesia: Conscious Sedation Plan of Activity Patient to Unit: ROPU Patient Condition: Good See PACS Report for procedural detail/treatment Eron Angeles MD May 10, 2017 13:00
[2017-05-10 13:12] LABS: APTT (PATIENT) 36.4 SEC (24.3-30.1); INTERNATIONAL NORMALIZED RATIO 1.1 RATIO; PROTHROMBIN TIME - PATIENT 12.7 SEC (9.8-11.6)
[2017-05-10 13:16] LABS: BICARBONATE 26.6 MEQ/L (21.0-32.0); POTASSIUM 4.3 MEQ/L (3.5-5.1)
[2017-05-10 13:35] LABS: OVALOCYTES 1+ (NORMAL); PLATELET ESTIMATE SMEAR LOW (NORMAL); PLATELET MORPHOLOGY NORMAL (NORMAL); SCAN/DIFF AUTO DIFF CONFIRMED
--- NOTE | 2017-05-10 13:52 | RADRPT ---
EXAM DATE/TIME: 05/10/2017 12:39 [place] COMPARISON: No previous studies available for comparison. INDICATIONS : Thrombocytopenia SEDATION TIME: 30 minutes BIOPSY SITE: Left ilium MEDICATION(S): 1.) 4 mg midazolam (Versed) IV 2.) 200 mcg fentanyl (Sublimaze) IV DEVICE(S): 1.) 12 gauge On-Control needle MEDICAL HISTORY : HIV. SURGICAL HISTORY : None. ENCOUNTER: Initial ACUITY: 1 day PAIN SCORE: 0/10 LOCATION: lower quadrant A total of one core specimen(s) were obtained and sent to the laboratory for pathologic evaluation. PROCEDURE: 1. CT guided bone marrow biopsy. 2. Conscious sedation with continuous EKG and oximetry monitoring. 3. EKG and oximetry remained stable throughout the procedure. Prior to the procedure informed consent was obtained. Any appropriate prior imaging studies were rev iewed. Using automated exposure control and adjustment of the mA and/or kV according to patient size , radiation dose was kept as low as reasonably achievable to obtain optimal diagnostic quality images . DICOM format image data is available electronically for review and comparison. The site was prepped in a sterile fashion. Full sterile technique was used, including cap, mask, sujata rile gloves and gown and a large sterile sheet. Hand hygiene and 2% chlorhexidine and/or betadine/al cohol prep was utilized per protocol for cutaneous antisepsis. The skin and subcutaneous tissues wer e infiltrated with local anesthetic solution. With CT guidance the previously identified target was localized. Biopsy was performed using the presc ribed needle as above. Following biopsy marrow aspiration was performed with repeat puncture. Adequa te hemostasis was obtained with compression at the puncture site. Follow-up CT scan reveals no hemorrhage. Conscious sedation was performed with the prescribed dosages and duration as above in the presence of an independent trained radiology nurse to assist in the monitoring of the patient. EKG and oximetry remained stable throughout the procedure. The patient tolerated the procedure well and there were no complications. The patient was sent to Radiology Outpatient Unit in stable condition. CONCLUSION: 1. Uncomplicated CT guided bone marrow aspirate. 2. Uncomplicated CT guided bone marrow biopsy. Eron Angeles MD on May 10, 2017 at 13:50 Board Certified Radiologist. This report was verified electronically.
[2017-05-10 14:08] LABS: BONE MARROW PROCESSING COMPLETE; IRON STAIN DONE; JENNER GIEMSA STAIN DONE
--- NOTE | 2017-05-10 14:11 | HHI.PR ---
Subjective Remarks Patient is still having intermittent left upper quadrant pain. No new issues. Will have bone marrow biopsy today. Objective Vitals Vital Signs Date Time Temp Pulse Resp B/P (MAP) Pulse Ox O2 Delivery O2 Flow Rate FiO2 05/10/17 13:30 90 20 100/60 (73) 100 05/10/17 13:10 97.7 98 20 98/59 (72) 99 05/10/17 11:44 97.7 96 20 102/55 (71) 99 05/10/17 08:00 98.7 91 20 97/51 (66) 98 05/10/17 04:33 98.8 94 18 99/54 (69) 95 05/10/17 00:37 99.6 100 18 98/57 (71) 96 05/09/17 20:59 98.9 102 18 104/57 (73) 99 05/09/17 16:40 18 05/09/17 16:40 18 05/09/17 16:00 100.3 107 16 104/59 (74) 97 I/O 05/09/17 05/09/17 05/09/17 05/10/17 05/10/17 05/10/17 07:00 15:00 23:00 07:00 15:00 23:00 Intake Total 100 ml 600 ml 100 ml 0 ml Output Total 900 ml 700 ml Balance 100 ml -300 ml -600 ml 0 ml Intake Oral 600 ml 0 ml IV Total 100 ml 100 ml Output Urine Total 900 ml 700 ml # Voids 3 # Bowel Movements 1 Result Diagram: 05/10/17 1145 05/10/17 1145 Objective Remarks GENERAL: Appearing older than stated age CARDIOVASCULAR: Normal rate and regular rhythm without murmurs, gallops, or rubs. RESPIRATORY: Good respiratory efforts. Breath sounds equal and clear to auscultation bilaterally. GASTROINTESTINAL: Abdomen soft, some tenderness to palpation over the left upper quadrant. MUSCULOSKELETAL: Extremities without cyanosis, or edema. NEURO: Alert & Oriented x4 to person, place, time, situation. Moves all ext x4 PSYCH: Appropriate mood and affect. Procedures None A/P Assessment and Plan 36-year-old male with history of HIV/AIDS admitted with splenic infarct, symptomatic anemia, pancytopenia. Splenic infarct: General surgery consultation appreciated. Hematology following and planning for bone marrow today. Symptomatic anemia/pancytopenia: Patient received transfusion of 2 units of PRBCs. H&H stable. -Appreciate hematology following. Concern for underlying myeloproliferative disorder. Bone marrow biopsy today. HIV/AIDS: Appreciate infectious disease recommendations. Known history of MAC and on treatment. Primary varicella versus disseminated zoster - Continue IV acyclovir, MAC Rx and HAART treatment ?GI bleed: Appreciate gastroenterology recommendations. DVT prophylaxis: ADRIANAs, HERBER boss. Avoid chemical prophylaxis secondary to anemia , possible GI bleed. Mitesh Wheeler MD May 10, 2017 14:11
[2017-05-10] MEDS ORDERED: PEG (High)/E-LYTE SOLN 4000 ML BTL PO ONE (16:00)
--- NOTE | 2017-05-10 16:41 | HHI.PR ---
Subjective Subjective Notes Resting in bed No issues Feels hungry ---await bone marrow bx Objective Vitals/I&O Vital Signs Date Time Temp Pulse Resp B/P (MAP) Pulse Ox O2 Delivery O2 Flow Rate FiO2 05/10/17 13:30 90 20 100/60 (73) 100 05/10/17 13:10 97.7 Labs Laboratory Tests Test 05/10/17 11:45 05/10/17 12:50 White Blood Count 2.0 Red Blood Count 3.02 Hemoglobin 8.4 Hematocrit 25.4 Mean Corpuscular Volume 84.0 Mean Corpuscular Hemoglobin 27.8 Mean Corpuscular Hemoglobin Concent 33.1 Red Cell Distribution Width 16.8 Platelet Count 50 Mean Platelet Volume 7.4 Neutrophils (%) (Auto) 77.1 Lymphocytes (%) (Auto) 9.7 Monocytes (%) (Auto) 12.3 Eosinophils (%) (Auto) 0.3 Basophils (%) (Auto) 0.6 Neutrophils # (Auto) 1.6 Lymphocytes # (Auto) 0.2 Monocytes # (Auto) 0.2 Eosinophils # (Auto) 0.0 Basophils # (Auto) 0.0 CBC Comment AUTO DIFF Differential Comment AUTO DIFF CONFIRMED Platelet Estimate LOW Platelet Morphology Comment NORMAL Ovalocytes 1+ Prothrombin Time 12.7 Prothromb Time International Ratio 1.1 Activated Partial Thromboplast Time 36.4 Fibrinogen 648 Blood Urea Nitrogen 16 Creatinine 0.87 Random Glucose 73 Calcium Level 9.0 Sodium Level 134 Potassium Level 4.3 Chloride Level 98 Carbon Dioxide Level 26.6 Anion Gap 9 Estimat Glomerular Filtration Rate 119 Date/Time Source Procedure Growth Status 05/06/17 08:25 Blood Peripheral Aerobic Blood Culture - Preliminary NO GROWTH IN 4 DAYS Resulted 05/06/17 08:25 Blood Peripheral Anaerobic Blood Culture - Preliminary NO GROWTH IN 4 DAYS Resulted 05/06/17 18:01 Stool Stool Cyclospora Exam - Final NO CYCLOSPORA SEEN Complete 05/06/17 18:01 Stool Stool Cryptosporidium Exam - Final NEGATIVE - NO CRYPTOSPORIDIUM ANTIGEN... Complete 05/06/17 18:01 Stool Stool Stool Pus (RADHA) - Final RARE WBC Complete 05/06/17 18:01 Stool Stool Giardia Antigen (RADHA) - Final NEGATIVE - NO GIARDIA ANTIGEN DETECTE... Complete Radiology Last Impressions Abdomen/Pelvis CT 05/05/17 1443 Signed Impressions: Service Date/Time: Friday, May 05, 2017 16:42 - CONCLUSION: Enlarged spleen with large areas of infarction or or neoplastic infiltration. Trace ascites. Sclerotic bones without focal destructive lesions. Clinton Valadez MD FACR Chest X-Ray 05/05/17 0000 Signed Impressions: Service Date/Time: Wednesday, May 05, 2017 15:41 - CONCLUSION: Negative for fracture or dislocation. Follow up in 7-10 days is suggested if symptoms persist. Clinton Valadez MD FACR Cardiovascular: Regular Lungs: Clear Abdomen: Other (LUQ tenderness; soft ) Extremities: No edema A/P Problem List: (1) Splenic infarction ICD Codes: D73.5 - Infarction of spleen Status: Acute (2) Enlargement of spleen ICD Codes: R16.1 - Splenomegaly, not elsewhere classified Status: Chronic (3) HIV (human immunodeficiency virus infection) ICD Codes: B20 - Human immunodeficiency virus [HIV] disease Status: Chronic (4) Thrombocytopenia ICD Codes: D69.6 - Thrombocytopenia, unspecified Status: Acute (5) Anemia ICD Codes: D64.9 - Anemia, unspecified Status: Acute Assessment and Plan 36 year old male with splenic infarction; low platelet count; HIV/AIS -Plans for bone marrow bx today -Colonoscopy tomorrow -NPO for bone marrow biopsy; clear liquids after -Continue to monitor blood counts -Will continue to follow Attending Statement Abdomen soft, non tender now. For scopes for Gi bleed tomorrow. Pt may benefit from splenectomy at some point, will need to d/w Dr Chapman. Will require open approach due to splenomegaly. Will follow. Problem Qualifiers (1) Anemia: Qualified Codes: D64.9 - Anemia, unspecified Agustina Mijares May 10, 2017 16:41 Joni Alvarez MD May 10, 2017 16:58
[2017-05-10] MEDS: ACETAMINOPHEN 325 MG TAB PO PRN (21:24)
[2017-05-11] VITALS (8 sets, daily range): BP systolic 103–137; BP diastolic 56–77; PULSE 87–114; RESP 18–20; TEMP 96.5–102.2; O2SAT 97–100
[2017-05-11] MEDS: ACYCLOVIR INJ 600 MG in SODIUM CHLORIDE 0.9% INJ 100 ML IV SCH ×3 (03:13→21:00)
[2017-05-11 05:54] LABS: HEMATOCRIT 23.1 % (39.0-51.0); MEAN CELL VOLUME 83.5 FL (80.0-100.0); MEAN CORPUSCULAR HEMOGLOBIN 27.7 PG (27.0-34.0); MEAN CORPUSCULAR HGB CONC 33.2 % (32.0-36.0); PLATELET COUNT 53 TH/MM3 (150-450); RED BLOOD COUNT 2.77 MIL/MM3 (4.50-5.90); RED CELL DISTRIBUTION WIDTH 16.7 % (11.6-17.2); WHITE BLOOD COUNT 1.3 TH/MM3 (4.0-11.0)
[2017-05-11 05:57] LABS: HEMO FLAGS AUTO DIFF
[2017-05-11] MEDS ORDERED: LACTATED RINGER'S 1000 ML IV PRN (06:00)
[2017-05-11 06:11] LABS: BICARBONATE 26.7 MEQ/L (21.0-32.0); POTASSIUM 3.9 MEQ/L (3.5-5.1)
[2017-05-11 08:13] LABS: BANDS 5 % (0-6); EOSINOPHILS 2 % (0-4); NEUTROPHIL # MANUAL DIFF 1.1 TH/MM3 (1.8-7.7); POLYS (SEG NEUTROPHILS) 79 % (16-70); WBC DIFF SAMPLE 100
[2017-05-11 08:15] LABS: PLATELET ESTIMATE SMEAR LOW (NORMAL); PLATELET MORPHOLOGY NORMAL (NORMAL); SCAN/DIFF FINAL DIFF MANUAL
--- NOTE | 2017-05-11 08:30 | PD.ONC.PN ---
Subjective Subjective Remarks Patient seen and examined, vital signs, labs and medications reviewed. He reports tolerating the bone marrow biopsy yesterday without difficulties, he is currently nothing by mouth and is waiting a colonoscopy and EGD later today. His abdominal pain persists but is a little improved today. He denies fevers or chills. He denies overt bleeding. He is progressively pancytopenic. Objective Data Date Time Temp Pulse Resp B/P (MAP) Pulse Ox O2 Delivery O2 Flow Rate FiO2 05/11/17 04:00 97.8 87 20 105/56 (72) 99 05/11/17 00:00 97.0 92 20 110/62 (78) 100 05/10/17 20:11 107 05/10/17 20:00 100.7 108 20 123/64 (83) 99 05/10/17 16:00 96.9 99 19 114/62 (79) 99 05/10/17 13:30 90 20 100/60 (73) 100 05/10/17 13:10 97.7 98 20 98/59 (72) 99 05/10/17 11:44 97.7 96 20 102/55 (71) 99 05/11/17 05/11/17 05/11/17 07:00 15:00 23:00 Intake Total 580 ml Output Total 100 ml Balance 480 ml Result Diagram: 05/11/17 0505 05/11/17 0505 Laboratory Results Laboratory Tests Test 05/10/17 11:45 05/10/17 12:50 05/11/17 05:05 White Blood Count 2.0 TH/MM3 1.3 TH/MM3 Red Blood Count 3.02 MIL/MM3 2.77 MIL/MM3 Hemoglobin 8.4 GM/DL 7.7 GM/DL Hematocrit 25.4 % 23.1 % Mean Corpuscular Volume 84.0 FL 83.5 FL Mean Corpuscular Hemoglobin 27.8 PG 27.7 PG Mean Corpuscular Hemoglobin Concent 33.1 % 33.2 % Red Cell Distribution Width 16.8 % 16.7 % Platelet Count 50 TH/MM3 53 TH/MM3 Mean Platelet Volume 7.4 FL 7.3 FL Neutrophils (%) (Auto) 77.1 % Lymphocytes (%) (Auto) 9.7 % Monocytes (%) (Auto) 12.3 % Eosinophils (%) (Auto) 0.3 % Basophils (%) (Auto) 0.6 % Neutrophils # (Auto) 1.6 TH/MM3 Lymphocytes # (Auto) 0.2 TH/MM3 Monocytes # (Auto) 0.2 TH/MM3 Eosinophils # (Auto) 0.0 TH/MM3 Basophils # (Auto) 0.0 TH/MM3 CBC Comment AUTO DIFF AUTO DIFF Differential Comment AUTO DIFF CONFIRMED FINAL DIFF MANUAL Platelet Estimate LOW LOW Platelet Morphology Comment NORMAL NORMAL Ovalocytes 1+ Prothrombin Time 12.7 SEC Prothromb Time International Ratio 1.1 RATIO Activated Partial Thromboplast Time 36.4 SEC Fibrinogen 648 mg/dL Blood Urea Nitrogen 16 MG/DL 17 MG/DL Creatinine 0.87 MG/DL 0.85 MG/DL Random Glucose 73 MG/DL 86 MG/DL Calcium Level 9.0 MG/DL 8.5 MG/DL Sodium Level 134 MEQ/L 134 MEQ/L Potassium Level 4.3 MEQ/L 3.9 MEQ/L Chloride Level 98 MEQ/L 98 MEQ/L Carbon Dioxide Level 26.6 MEQ/L 26.7 MEQ/L Anion Gap 9 MEQ/L 9 MEQ/L Estimat Glomerular Filtration Rate 119 ML/MIN 122 ML/MIN Differential Total Cells Counted 100 Neutrophils % (Manual) 79 % Band Neutrophils % 5 % Lymphocytes % 4 % Monocytes % 10 % Eosinophils % 2 % Neutrophils # (Manual) 1.1 TH/MM3 Red Cell Morphology Comment NORMAL Administered Medications Medications (Trade) Dose Ordered Sig/Derek Route PRN Reason Start Time Stop Time Status Last Admin Dose Admin Sodium Chloride (NS Flush) 2 ml BID IV FLUSH 05/05/17 21:00 05/10/17 21:22 Patient Own Medication PT OWN MED: Genvoya (Elvitegra... DAILY PO 05/06/17 09:00 Future hold 05/10/17 07:53 Azithromycin (Zithromax) 500 mg DAILY PO 05/06/17 09:00 05/10/17 07:51 Ciprofloxacin (Cipro) 500 mg BID PO 05/05/17 21:00 05/10/17 21:23 Ferrous Sulfate (Ferrous Sulfate) 325 mg TIDPC PO 05/05/17 18:30 05/10/17 17:18 Folic Acid (Folate) 1 mg DAILY PO 05/06/17 09:00 05/10/17 07:52 Furosemide (Lasix) 40 mg DAILY PO 05/06/17 09:00 05/09/17 08:27 Cyanocobalamin (Vitamin B12) 1,000 mcg DAILY PO 05/06/17 09:00 05/10/17 07:51 Ethambutol HCl (Myambutol) 800 mg DAILY PO 05/06/17 09:00 05/10/17 07:52 Morphine Sulfate (Morphine Inj) 2 mg Q3H PRN IV PUSH BREAKTHROUGH PAIN 05/05/17 18:45 05/06/17 17:45 Acyclovir Sodium 600 mg/Sodium Chloride 100 ml @ 100 mls/hr Q8H IV 05/06/17 12:00 05/11/17 03:13 Oxycodone HCl (Roxicodone) 10 mg Q4H PRN PO PAIN SCALE 7 TO 10 05/07/17 15:00 05/11/17 05:36 Acetaminophen (Tylenol) 325 mg Q6H PRN PO FEVER 05/07/17 13:15 05/10/17 21:24 Elvitegravir/ Cobicis/Emtricit/ Tenof (Stribild [phone] Mg) 1 tab DAILY PO 05/10/17 09:00 05/10/17 07:51 Objective Remarks GENERAL APPEARANCE: Mr. Grady is a young male. He appears to be cachectic and chronically ill. He is in no acute distress. HEENT: Head is atraumatic, normocephalic. Conjunctivae are not pale. Sclerae are anicteric. EOMI. PERRLA. No pharyngeal erythema. NECK: No palpable cervical or supraclavicular lymphadenopathy. PULMONARY: Good air movement bilaterally, poor inspiratory effort. CARDIOVASCULAR: Regular rate and rhythm, S1, S2. No obvious murmurs, rubs or gallops. ABDOMEN: Thin and soft. He has tenderness over the upper quadrants and in particular over the left upper quadrant. He has splenomegaly but no hepatomegaly. Positive bowel sounds. EXTREMITIES: No pretibial edema. No calf tenderness. MUSCULOSKELETAL: Generally decreased muscle mass and tone. PREVENTIVE MEDICINE OFFICER: No focal sensory or motor deficits. SKIN: He has well-circumscribed firm nodular skin lesions with central dimpling. These are pinkish lesions noted on his forearms and torso. Assessment/Plan Problem List: (1) Pancytopenia ICD Codes: D61.818 - Other pancytopenia Plan: --will need CT-guided bone marrow biopsy and aspiration to rule out a primary bone marrow disorder. --with a diagnosis of HIV/AIDS (diagnosed about 8 years ago). --is presently on HAART therapy with a combination pill known as Genvoya. --CT abdomen shows enlarged spleen --Coupled with his symptoms of weight loss and night sweats I am concerned about an underlying myeloproliferative disorder. --other differential diagnoses include bone marrow infiltration with an opportunistic infection related to his HIV or myelosuppression related to his HAART therapy. Assessment 36y/o male with pancytopenia and massive splenomegaly associated with splenic infarct in a patient with HIV/AIDS. Recent history of MAC infection. Massive Splenomegaly with what appears to be either infarction or infiltration of the spleen. Plan 1. Pancytopenia: Parvovirus B19 IgG titers elevated, IgM titer is undetectable this indicates previous infection but not active infection. Vitamin B12 and folic acid levels are within normal limits. Worsening pancytopenia. Bone marrow biopsy was performed yesterday, await pathologic review. Splenomegaly: With symptoms of abdominal pain, possible infarction of the spleen. I will initiate him on low-dose heparin after he undergoes colonoscopy and EGD. I have requested antiphospholipid antibody panel and circulating lupus anticoagulant panel as a part of prothrombotic workup. Continue ongoing care/supportive care. Jerry Chapman MD May 11, 2017 08:30
[2017-05-11] MEDS: [UNRECOGNIZED DRUG - OTHER] PO SCH (09:00)
[2017-05-11] MEDS: GENVOYA PO SCH (09:00)
[2017-05-11] MEDS: CYANOCOBALAMIN 1,000 MCG TAB PO SCH (09:38)
[2017-05-11] MEDS: CIPROFLOXACIN 500 MG TAB PO SCH ×2 (09:38→21:00)
[2017-05-11] MEDS: FOLIC ACID 1 MG TAB PO SCH (09:39)
[2017-05-11] MEDS: AZITHROMYCIN 250 MG TAB PO SCH (09:39)
[2017-05-11] MEDS: FUROSEMIDE 40 MG TAB PO SCH (09:39)
[2017-05-11] MEDS: ETHAMBUTOL HCL 400 MG TAB PO SCH (09:40)
[2017-05-11] MEDS: ELVIT/COBI/EMTR/TENOF 150/150/200/300 MG TABLETS PO SCH (09:40)
[2017-05-11] MEDS: SODIUM CHLORIDE 0.9% FLUSH 10 ML FLUSH IV FLUSH SCH ×2 (09:48→21:01)
[2017-05-11] MEDS: FERROUS SULFATE 325 MG (65 MG ELEMENTAL IRON) TAB PO SCH ×3 (09:49→19:46)
--- NOTE | 2017-05-11 10:12 | HHI.IDPN ---
Subjective Subjective Remarks Patient is a 36-year-old male, with known HIV, AIDS, presented to the hospital complaining of diffuse body aches, as well as severe left upper quadrant pain. Patient stated he was hospitalized 2 times at [facility]. The first one was 7 days, and the second one was about 10 days, and he was discharge about a week ago. During that hospitalization he was told he had a bruise in his spleen, and he was actively being evaluated for a splenectomy, but it was decided not to do it. During that time he also had left upper quadrant pain, and his pain resolved the pain however started again at home and it was so severe that any kind of movement aggravates the pain. He is also had on and off fevers. Minimal respiratory complaint. No nausea or vomiting. Has frequent bowel movement. No urinary complaints. Patient has been diagnosed to have HIV probably for the last 7 years. He was [facility] the [facility], but lost to follow-up, and recently started following up with Dr. Edmondson. He has been put on HAART in the last 4 months. The record also mention that he had been diagnosed to have MAC, and currently on treatment for that. Patient also noted a rash on the right side of his neck recently. He has never had chickenpox and denies any exposure to anyone with shingles or chickenpox. Patient since admission has had fevers. He has pancytopenia. He is complaining of severe pain in his left upper quadrant. CT of the abdomen and pelvis did confirm an area of splenic infarct. Infectious disease consultation has been requested to evaluate the patient. Notes reviewed Has intermittent low grade temps Still with LUQ pain BM biopsy done yesterday, results pending Pancytopenia looks worse. VZV PCR (+) VZV IgG (+) Antibiotics VIKKI Rx HAART Acyclovir Current Medications Medications (Trade) Dose Ordered Sig/Derek Route Start Time Stop Time Status Last Admin (NS Flush) 2 ml UNSCH PRN IV FLUSH 05/05/17 17:45 (NS Flush) 2 ml BID IV FLUSH 05/05/17 21:00 05/11/17 09:48 (Narcan Inj) 0.4 mg UNSCH PRN IV PUSH 05/05/17 17:45 Patient Own Medication PT OWN MED: Genvoya (Elvitegra... DAILY PO 05/06/17 09:00 Future hold 05/10/17 07:53 (Zithromax) 500 mg DAILY PO 05/06/17 09:00 05/11/17 09:39 (Cipro) 500 mg BID PO 05/05/17 21:00 05/11/17 09:38 (Ferrous Sulfate) 325 mg TIDPC PO 05/05/17 18:30 05/11/17 09:49 (Folate) 1 mg DAILY PO 05/06/17 09:00 05/11/17 09:39 (Lasix) 40 mg DAILY PO 05/06/17 09:00 05/11/17 09:39 (Vitamin B12) 1,000 mcg DAILY PO 05/06/17 09:00 05/11/17 09:38 (Myambutol) 800 mg DAILY PO 05/06/17 09:00 05/11/17 09:40 (Morphine Inj) 2 mg Q3H PRN IV PUSH 05/05/17 18:45 05/06/17 17:45 Acyclovir Sodium 600 mg/Sodium Chloride 100 ml @ 100 mls/hr Q8H IV 05/06/17 12:00 05/11/17 09:35 (Roxicodone) 5 mg Q4HR PRN PO 05/07/17 12:00 (Roxicodone) 10 mg Q4H PRN PO 05/07/17 15:00 05/11/17 09:50 (Tylenol) 325 mg Q6H PRN PO 05/07/17 13:15 05/10/17 21:24 (Stribild [phone] Mg) 1 tab DAILY PO 05/10/17 09:00 05/11/17 09:40 Lactated Ringer's 1,000 ml @ 30 mls/hr Q24H PRN IV 05/11/17 06:00 05/14/17 05:59 Lines PIV Past Medical History HIV/AIDS, CD4 26 Hypertension Splenomegaly, splenic infarct MAC infection Allergies: Coded Allergies: No Known Allergies (Verified Allergy, Mild, 05/30/08) Objective . Vital Signs Date Time Temp Pulse Resp B/P (MAP) Pulse Ox O2 Delivery O2 Flow Rate FiO2 05/11/17 08:00 98.9 97 20 103/59 (74) 99 05/11/17 04:00 97.8 87 20 105/56 (72) 99 05/11/17 00:00 97.0 92 20 110/62 (78) 100 05/10/17 20:11 107 05/10/17 20:00 100.7 108 20 123/64 (83) 99 05/10/17 16:00 96.9 99 19 114/62 (79) 99 05/10/17 13:30 90 20 100/60 (73) 100 05/10/17 13:10 97.7 98 20 98/59 (72) 99 05/10/17 11:44 97.7 96 20 102/55 (71) 99 05/11/17 05/11/17 05/12/17 15:00 23:00 07:00 Intake Total 0 ml Balance 0 ml Intake Oral 0 ml . Laboratory Tests Test 05/09/17 14:35 05/10/17 11:45 05/11/17 05:05 White Blood Count 1.9 TH/MM3 2.0 TH/MM3 1.3 TH/MM3 Red Blood Count 3.17 MIL/MM3 3.02 MIL/MM3 2.77 MIL/MM3 Hemoglobin 8.7 GM/DL 8.4 GM/DL 7.7 GM/DL Hematocrit 26.6 % 25.4 % 23.1 % Mean Corpuscular Volume 83.9 FL 84.0 FL 83.5 FL Mean Corpuscular Hemoglobin 27.6 PG 27.8 PG 27.7 PG Mean Corpuscular Hemoglobin Concent 32.9 % 33.1 % 33.2 % Red Cell Distribution Width 17.0 % 16.8 % 16.7 % Platelet Count 48 TH/MM3 50 TH/MM3 53 TH/MM3 Mean Platelet Volume 8.1 FL 7.4 FL 7.3 FL CBC Comment AUTO DIFF AUTO DIFF AUTO DIFF Differential Total Cells Counted 100 100 Neutrophils % (Manual) 85 % 79 % Band Neutrophils % 1 % 5 % Lymphocytes % 8 % 4 % Monocytes % 5 % 10 % Basophils % 1 % Neutrophils # (Manual) 1.6 TH/MM3 1.1 TH/MM3 Differential Comment FINAL DIFF MANUAL AUTO DIFF CONFIRMED FINAL DIFF MANUAL Platelet Estimate LOW LOW LOW Platelet Morphology Comment NORMAL NORMAL NORMAL Neutrophils (%) (Auto) 77.1 % Lymphocytes (%) (Auto) 9.7 % Monocytes (%) (Auto) 12.3 % Eosinophils (%) (Auto) 0.3 % Basophils (%) (Auto) 0.6 % Neutrophils # (Auto) 1.6 TH/MM3 Lymphocytes # (Auto) 0.2 TH/MM3 Monocytes # (Auto) 0.2 TH/MM3 Eosinophils # (Auto) 0.0 TH/MM3 Basophils # (Auto) 0.0 TH/MM3 Ovalocytes 1+ Eosinophils % 2 % Red Cell Morphology Comment NORMAL Laboratory Tests Test 05/10/17 11:45 05/11/17 05:05 Blood Urea Nitrogen 16 MG/DL 17 MG/DL Creatinine 0.87 MG/DL 0.85 MG/DL Random Glucose 73 MG/DL 86 MG/DL Calcium Level 9.0 MG/DL 8.5 MG/DL Sodium Level 134 MEQ/L 134 MEQ/L Potassium Level 4.3 MEQ/L 3.9 MEQ/L Chloride Level 98 MEQ/L 98 MEQ/L Carbon Dioxide Level 26.6 MEQ/L 26.7 MEQ/L Anion Gap 9 MEQ/L 9 MEQ/L Estimat Glomerular Filtration Rate 119 ML/MIN 122 ML/MIN Imaging Last Impressions Abdomen/Pelvis CT 05/05/17 1443 Signed Impressions: Service Date/Time: Friday, May 05, 2017 16:42 - CONCLUSION: Enlarged spleen with large areas of infarction or or neoplastic infiltration. Trace ascites. Sclerotic bones without focal destructive lesions. Clinton Valadez MD FACR Chest X-Ray 05/05/17 0000 Signed Impressions: Service Date/Time: Friday, May 05, 2017 15:41 - CONCLUSION: Negative for fracture or dislocation. Follow up in 7-10 days is suggested if symptoms persist. Clinton Valadez MD FACR Physical Exam GENERAL: awake and alert, not in respiratory distress. SKIN: Warm and dry. Has scattered pustular lesions looks more, noted in back/ trunk, RUE, and BLE, some lesions are drying up HEAD: Atraumatic. Normocephalic. No temporal wasting, or tenderness. EYES: [place] conjunctiva. No petechia or hemorrhage. Pupils equal, round and reactive to light. Extraocular movements full and intact. No scleral icterus. No injection or drainage. EARS, NOSE AND THROAT: Nose without bleeding or purulent nasal discharge. No sinus tenderness. Mucous membranes pink and moist. No oral lesions noted. No exudate. No oral thrush. NECK: Trachea midline. Supple and not tender, no meningeal signs. Has cervical lymphadenopathy CARDIOVASCULAR: Regular rate and rhythm. No murmurs, rubs or gallops heard RESPIRATORY: Clear to auscultation. Breath sounds equal bilaterally. No rales , wheezing or rhonchi ABDOMEN: Soft, nondistended. Tender especially on L side. Bowel sounds present and normoactive. No guarding. No rebound. EXTREMITIES: No clubbing, cyanosis, or edema.No joint effusion, has good ROM. No calf tenderness. Well perfused and warm. NEUROLOGICAL: Grossly non-focal PSYCHIATRIC: Normal affect, calm and cooperative. LINE: No evidence of infection Assessment & Plan Remarks IMPRESSION Sepsis, with fevers - has splenomegaly, prob hypersdplenism and splenic infarct - known MAC and on Rx - has HIV/AIDS - has rash resembling varicella, ?primary (he denies prior Hx chickenpox) or disseminated zoster Disseminated zoster HIV/AIDS MAC infection by Hx RECOMMENDATION Follow C/S Continue IV Acyclovir - follow BMP Continue other meds - MAC RX and HAART Check CD4 counts Check CMV PCR Monitor progress Follow BM biopsy results Isolation for disseminated zoster per infection control policy Explained plan to the patient Bettina Covarrubias MD May 11, 2017 10:12
--- NOTE | 2017-05-11 12:19 | HHI.PR ---
Subjective Subjective Notes Resting in bed "I'm hungry" Objective Vitals/I&O Vital Signs Date Time Temp Pulse Resp B/P (MAP) Pulse Ox O2 Delivery O2 Flow Rate FiO2 05/11/17 08:30 96 05/11/17 08:00 98.9 20 103/59 (74) 99 Labs Laboratory Tests Test 05/10/17 12:50 05/11/17 05:05 White Blood Count 1.3 Red Blood Count 2.77 Hemoglobin 7.7 Hematocrit 23.1 Mean Corpuscular Volume 83.5 Mean Corpuscular Hemoglobin 27.7 Mean Corpuscular Hemoglobin Concent 33.2 Red Cell Distribution Width 16.7 Platelet Count 53 Mean Platelet Volume 7.3 CBC Comment AUTO DIFF Differential Total Cells Counted 100 Neutrophils % (Manual) 79 Band Neutrophils % 5 Lymphocytes % 4 Monocytes % 10 Eosinophils % 2 Neutrophils # (Manual) 1.1 Differential Comment FINAL DIFF MANUAL Platelet Estimate LOW Platelet Morphology Comment NORMAL Red Cell Morphology Comment NORMAL Blood Urea Nitrogen 17 Creatinine 0.85 Random Glucose 86 Calcium Level 8.5 Sodium Level 134 Potassium Level 3.9 Chloride Level 98 Carbon Dioxide Level 26.7 Anion Gap 9 Estimat Glomerular Filtration Rate 122 Date/Time Source Procedure Growth Status 05/06/17 08:25 Blood Peripheral Aerobic Blood Culture - Final NO GROWTH IN 5 DAYS Complete 05/06/17 08:25 Blood Peripheral Anaerobic Blood Culture - Final NO GROWTH IN 5 DAYS Complete 05/06/17 18:01 Stool Stool Cyclospora Exam - Final NO CYCLOSPORA SEEN Complete 05/06/17 18:01 Stool Stool Cryptosporidium Exam - Final NEGATIVE - NO CRYPTOSPORIDIUM ANTIGEN... Complete 05/06/17 18:01 Stool Stool Stool Pus (RADHA) - Final RARE WBC Complete 05/06/17 18:01 Stool Stool Giardia Antigen (RADHA) - Final NEGATIVE - NO GIARDIA ANTIGEN DETECTE... Complete Radiology Last Impressions Abdomen/Pelvis CT 05/05/17 2353 Signed Impressions: Service Date/Time: Wednesday, May 05, 2017 16:42 - CONCLUSION: Enlarged spleen with large areas of infarction or or neoplastic infiltration. Trace ascites. Sclerotic bones without focal destructive lesions. Clinton Valadez MD FACR Chest X-Ray 05/05/17 0000 Signed Impressions: Service Date/Time: Friday, May 05, 2017 15:41 - CONCLUSION: Negative for fracture or dislocation. Follow up in 7-10 days is suggested if symptoms persist. Clinton Valadez MD FACR Cardiovascular: Regular Lungs: Clear Abdomen: Non-distended, Other (minimal LUQ tenderness to palpation ) Extremities: No edema A/P Problem List: (1) Splenic infarction ICD Codes: D73.5 - Infarction of spleen Status: Acute (2) Enlargement of spleen ICD Codes: R16.1 - Splenomegaly, not elsewhere classified Status: Chronic (3) HIV (human immunodeficiency virus infection) ICD Codes: B20 - Human immunodeficiency virus [HIV] disease Status: Chronic (4) Thrombocytopenia ICD Codes: D69.6 - Thrombocytopenia, unspecified Status: Acute (5) Anemia ICD Codes: D64.9 - Anemia, unspecified Status: Acute Assessment and Plan 36 year old male with splenic infarction; low platelet count; HIV/AIS -s/p bone marrow bx yesterday---await results -Colonoscopy today -Diet as tolerated after colonoscopy -Continue to monitor blood counts -Will continue to follow Attending Statement The exam, history, and the medical decision-making described in the above note were completed with the assistance of the mid-level provider. I reviewed and agree with the findings presented. I attest that I had a [id number] encounter with the patient on the same day, and personally performed and documented my assessment and findings in the medical record. Patient stable, pain controlled, continue follow up, abdominal exam stable Problem Qualifiers (1) Anemia: Qualified Codes: D64.9 - Anemia, unspecified Agustina Mijares May 11, 2017 12:19 Carlito López MD May 20, 2017 13:38
--- NOTE | 2017-05-11 13:12 | HHI.PR ---
Subjective Remarks Patient reports is feeling better. Left upper quadrant abdominal pain is better. Will have EGD/colonoscopy today. Objective Vitals Vital Signs Date Time Temp Pulse Resp B/P (MAP) Pulse Ox O2 Delivery O2 Flow Rate FiO2 05/11/17 12:00 99.5 93 19 103/59 (74) 97 05/11/17 08:30 96 05/11/17 08:00 98.9 97 20 103/59 (74) 99 05/11/17 04:00 97.8 87 20 105/56 (72) 99 05/11/17 00:00 97.0 92 20 110/62 (78) 100 05/10/17 20:11 107 05/10/17 20:00 100.7 108 20 123/64 (83) 99 05/10/17 16:00 96.9 99 19 114/62 (79) 99 05/10/17 13:30 90 20 100/60 (73) 100 I/O 05/10/17 05/10/17 05/10/17 05/11/17 05/11/17 05/11/17 07:00 15:00 23:00 07:00 15:00 23:00 Intake Total 100 ml 0 ml 1500 ml 580 ml 0 ml Output Total 700 ml 1200 ml 100 ml Balance -600 ml 0 ml 300 ml 480 ml 0 ml Intake Oral 0 ml 1200 ml 480 ml 0 ml IV Total 100 ml 300 ml 100 ml Output Urine Total 700 ml 1200 ml 100 ml # Voids 2 # Bowel Movements 0 Result Diagram: 05/11/17 0505 05/11/17 0505 Objective Remarks GENERAL: Appearing older than stated age CARDIOVASCULAR: Normal rate and regular rhythm without murmurs, gallops, or rubs. RESPIRATORY: Good respiratory efforts. Breath sounds equal and clear to auscultation bilaterally. GASTROINTESTINAL: Abdomen soft, some tenderness to palpation over the left upper quadrant. MUSCULOSKELETAL: Extremities without cyanosis, or edema. NEURO: Alert & Oriented x4 to person, place, time, situation. Moves all ext x4 PSYCH: Appropriate mood and affect. Procedures None A/P Assessment and Plan 36-year-old male with history of HIV/AIDS admitted with splenic infarct, symptomatic anemia, pancytopenia. Splenic infarct: General surgery consultation appreciated. Hematology following , status post bone marrow biopsy Symptomatic anemia/pancytopenia: Patient received transfusion of 2 units of PRBCs. H&H stable. -Appreciate hematology following. Concern for underlying myeloproliferative disorder. Status post bone marrow biopsy. Pathology pending. HIV/AIDS: Appreciate infectious disease recommendations. Known history of MAC and on treatment. Primary varicella versus disseminated zoster - Continue IV acyclovir, MAC Rx and HAART treatment ?GI bleed: Appreciate gastroenterology recommendations. Plan for EGD/ colonoscopy today DVT prophylaxis: SCDs, HERBER boss. Avoid chemical prophylaxis secondary to anemia , possible GI bleed. Mitesh Wheeler MD May 11, 2017 13:12
--- NOTE | 2017-05-11 14:06 | GIPROC ---
[facility] [address] [facility]. [facility], [address] EGD PROCEDURE REPORT EXAM DATE: 05/11/2017 PATIENT NAME: Andrea Grady MR #: [id number] BIRTHDATE: 1980 ATTENDING: Charisma Lindsey MD ORDER #: [id number] ASP NET MVC DEVELOPER: Pascual Hankins and Mimi Berman STATUS: inpatient INDICATIONS: The patient is a 36 yr old male here for an EGD due to iron deficiency anemia PROCEDURE PERFORMED: EGD w/ biopsy MEDICATIONS: None and Per Anesthesia. TOPICAL ANESTHETIC: CONSENT: The patient understands the risks and benefits of the procedure and understands that these risks include, but are not limited to: sedation, allergic reaction, infection, perforation and/or bleeding. Alternative means of evaluation and treatment include, among others: physical exam, x-rays, and/or surgical intervention. The patient elects to proceed with this endoscopic procedure. medical equipment was checked for proper function. Hand hygiene and appropriate measures for infection prevention was taken. After the risks, benefits and alternatives of the procedure were thoroughly explained, Informed consent was verified, confirmed and timeout was successfully executed by the treatment team. The patient was anesthetized with topical anesthesia and the EC-[id number] (Pedi C) endoscope was introduced through the mouth and advanced to the second portion of the duodenum. Retroflexed views revealed no abnormalities The gastroscope was then slowly withdrawn and removed. ESOPHAGUS: The mucosa of the esophagus appeared normal. STOMACH: There was erythematous moderate gastritis in the gastric antrum. A biopsy was performed using cold forceps. Sample sent for histology. DUODENUM: Moderate duodenal inflammation was found in the bulb and second portion of the duodenum. ADVERSE EVENTS: There were no complications. IMPRESSIONS: 1. The esophagus appeared normal 2. There was erythematous gastritis in the gastric antrum 3. Duodenal inflammation was found in the bulb and second portion of the duodenum 4. Retroflexed views revealed no abnormalities RECOMMENDATIONS: 1. Await biopsy results. Biopsy results will not be ready for 7-10 days. If you don't hear from us in two weeks, call our office for biopsy results. 2. Anti-reflux regimen 3. Continue PPI PATIENT CONDITION: stable DISPOSITION: Inpatient REPEAT EXAM: Return 1 year EGD pending biopsy results Charisma Lindsey MD eSigned: Charisma Lindsey MD 05/11/2017 2:06 PM cc: PATIENT NAME: Andrea Grady MR#: [id number]
--- NOTE | 2017-05-11 14:08 | GIPROC ---
[facility] [address] [facility]. [facility], [address] COLONOSCOPY PROCEDURE REPORT EXAM DATE: 05/11/2017 PATIENT NAME: Andrea Grady MR #: [id number] BIRTHDATE: 1980 ENDOSCOPIST: Charisma Lindsey MD ORDER #: [id number] NAIL GALVANIZER: Pascual Hankins and Mimi Berman STATUS: inpatient INDICATIONS: The patient is a 36 yr old male here for a colonoscopy due to iron deficiency anemia PROCEDURE PERFORMED: Colonoscopy, diagnostic MEDICATIONS: None and Per Anesthesia. PREP QUALITY: The [place] Bowel Prep Score was Right colon 2, Mid colon 2, and Left colon 2. Total = 6. PREP TYPE:GoLytely ESTIMATED BLOOD LOSS: None CONSENT: The patient understands the risks and benefits of the procedure and understands that these risks include, but are not limited to: sedation, allergic reaction, infection, perforation and/or bleeding. Alternative means of evaluation and treatment include, among others: physical exam, x-rays, and/or surgical intervention. The patient elects to proceed with this endoscopic procedure. medical equipment was checked for proper function. Hand hygiene and appropriate measures for infection prevention was taken. After the risks, benefits and alternatives of the procedure were thoroughly explained, Informed consent was verified, confirmed and timeout was successfully executed by the treatment team. A digital exam revealed external hemorrhoids The Pentax [id number] endoscope was introduced through the anus and advanced to the cecum, which was identified by both the appendix and ileocecal valve. The instrument was then slowly withdrawn as the colon was fully examined. COLON FINDINGS: The colonic mucosa appeared normal. Retroflexed views revealed internal hemorrhoids and Retroflexed views revealed medium internal hemorrhoids The scope was then completely withdrawn from the patient and the procedure terminated. PROCEDURE WITHDRAWAL TIME:6minutes ADVERSE EVENTS: There were no complications. IMPRESSIONS: 1. The colonic mucosa appeared normal 2. Retroflexed views revealed internal hemorrhoids 3. Retroflexed views revealed medium internal hemorrhoids 4. Revealed external hemorrhoids RECOMMENDATIONS: 1. Continue surveillance 2. Yearly hemoccult RECALL: Return 5 years Colonoscopy Charisma Lindsey MD eSigned: Charisma Lindsey MD 05/11/2017 2:08 PM cc:
[2017-05-11] MEDS: ACETAMINOPHEN 325 MG TAB PO PRN (21:00)
[2017-05-12] VITALS: BP 105/58; PULSE 88; RESP 20; TEMP 97.9; O2SAT 99
[2017-05-12 04:00] VITALS: BP 111/63; PULSE 97; RESP 20; TEMP 100.4; O2SAT 99
[2017-05-12] MEDS: ACYCLOVIR INJ 600 MG in SODIUM CHLORIDE 0.9% INJ 100 ML IV SCH ×3 (04:09→21:41)
[2017-05-12] MEDS: ACETAMINOPHEN 325 MG TAB PO PRN (05:21)
[2017-05-12 06:53] LABS: HEMATOCRIT 23.1 % (39.0-51.0); MEAN CELL VOLUME 83.7 FL (80.0-100.0); MEAN CORPUSCULAR HEMOGLOBIN 27.8 PG (27.0-34.0); MEAN CORPUSCULAR HGB CONC 33.3 % (32.0-36.0); PLATELET COUNT 57 TH/MM3 (150-450); RED BLOOD COUNT 2.76 MIL/MM3 (4.50-5.90); RED CELL DISTRIBUTION WIDTH 16.6 % (11.6-17.2); WHITE BLOOD COUNT 1.6 TH/MM3 (4.0-11.0)
[2017-05-12 07:10] LABS: POTASSIUM 3.9 MEQ/L (3.5-5.1)
[2017-05-12 07:13] LABS: REVIEW FLAG AUTO DIFF
[2017-05-12 08:00] VITALS: BP 137/64; PULSE 97; RESP 16; TEMP 97.9; O2SAT 98
[2017-05-12] MEDS: FERROUS SULFATE 325 MG (65 MG ELEMENTAL IRON) TAB PO SCH ×3 (08:49→17:52)
[2017-05-12] MEDS: AZITHROMYCIN 250 MG TAB PO SCH (08:49)
[2017-05-12] MEDS: CIPROFLOXACIN 500 MG TAB PO SCH ×2 (08:49→21:41)
[2017-05-12] MEDS: FUROSEMIDE 40 MG TAB PO SCH (08:50)
[2017-05-12] MEDS: ELVIT/COBI/EMTR/TENOF 150/150/200/300 MG TABLETS PO SCH (08:50)
[2017-05-12] MEDS: CYANOCOBALAMIN 1,000 MCG TAB PO SCH (08:50)
[2017-05-12] MEDS: ETHAMBUTOL HCL 400 MG TAB PO SCH (08:50)
[2017-05-12] MEDS: FOLIC ACID 1 MG TAB PO SCH (08:50)
[2017-05-12] MEDS: GENVOYA PO SCH (09:00)
[2017-05-12] MEDS: [UNRECOGNIZED DRUG - OTHER] PO SCH (09:00)
--- NOTE | 2017-05-12 09:17 | PD.PN.STU ---
Subjective Remarks Patient 1 day s/p endoscopy and colonoscopy. States procedure went well to his knowledge. Awaiting report. States he ran a fever last night. [place] hot and woke up sweaty. No chills, muscle aches, n/v, chest pain. Also states that he has had more cough than usual overnight. He is producing occasional thick clear mucus. Denies any blood in sputum. His intermittent LUQ abdominal pain has increased slightly which patient attributes to coughing. He states that his abdomen is uncomfortable but he his not in acute pain at time of exam. Continues to use calamine lotion for itch a/w rash. Objective Vitals Vital Signs Date Time Temp Pulse Resp B/P (MAP) Pulse Ox O2 Delivery O2 Flow Rate FiO2 05/12/17 08:00 97.9 97 16 137/64 (88) 98 05/12/17 04:00 100.4 97 20 111/63 (79) 99 05/12/17 00:00 97.9 88 20 105/58 (74) 99 05/11/17 20:37 114 05/11/17 20:00 102.2 111 20 137/67 (90) 98 05/11/17 16:00 96.5 106 18 126/77 (93) 100 05/11/17 14:22 87 18 89/53 (65) 100 05/11/17 14:09 97.8 85 18 85/48 (60) 100 05/11/17 12:00 99.5 93 19 103/59 (74) 97 I/O 05/11/17 05/11/17 05/11/17 05/12/17 05/12/17 05/12/17 07:00 15:00 23:00 07:00 15:00 23:00 Intake Total 580 ml 450 ml 880 ml 400 ml Output Total 100 ml 700 ml 800 ml Balance 480 ml 450 ml 180 ml -400 ml Intake Oral 480 ml 0 ml 680 ml 300 ml IV Total 100 ml 200 ml 100 ml Other 450 ml Output Urine Total 100 ml 700 ml 800 ml # Voids 2 # Bowel Movements 0 0 Result Diagram: 05/12/17 0615 05/12/17 0615 Other Results Laboratory Tests Test 05/12/17 06:15 White Blood Count 1.6 TH/MM3 (4.0-11.0) Red Blood Count 2.76 MIL/MM3 (4.50-5.90) Hemoglobin 7.7 GM/DL (13.0-17.0) Hematocrit 23.1 % (39.0-51.0) Mean Corpuscular Volume 83.7 FL (80.0-100.0) Mean Corpuscular Hemoglobin 27.8 PG (27.0-34.0) Mean Corpuscular Hemoglobin Concent 33.3 % (32.0-36.0) Red Cell Distribution Width 16.6 % (11.6-17.2) Platelet Count 57 TH/MM3 (150-450) Mean Platelet Volume 7.0 FL (7.0-11.0) Blood Urea Nitrogen 14 MG/DL (7-18) Creatinine 0.85 MG/DL (0.60-1.30) Random Glucose 108 MG/DL (74-106) Calcium Level 8.8 MG/DL (8.5-10.1) Sodium Level 135 MEQ/L (136-145) Potassium Level 3.9 MEQ/L (3.5-5.1) Chloride Level 99 MEQ/L (98-107) Carbon Dioxide Level 26.0 MEQ/L (21.0-32.0) Anion Gap 10 MEQ/L (5-15) Estimat Glomerular Filtration Rate 122 ML/MIN (>89) Objective Remarks GENERAL: Patient is supine in bed, pleasant, in no apparent distress. SKIN: Warm and dry. Few scabbed ~0.5 cm skin lesions on extremities. Bandage over location of BM biopsy without blood/discharge in bandage, no surrounding erythema. HEAD: Normocephalic. EYES: No scleral icterus. No injection or drainage. NECK: Supple, trachea midline. No JVD or lymphadenopathy. CARDIOVASCULAR: Regular rate and rhythm without murmurs, gallops, or rubs. RESPIRATORY: Breath sounds equal bilaterally. No accessory muscle use. GASTROINTESTINAL: Abdomen soft, non-tender, nondistended. Spleen palpable but non-tender. MUSCULOSKELETAL: No cyanosis, or edema. BACK: Nontender without obvious deformity. No CVA tenderness. Medications and IVs Current Medications Sodium Chloride (NS Flush) 2 ml UNSCH PRN IV FLUSH FLUSH AFTER USING IV ACCESS ; Start 05/05/17 at 14:45; Stop 05/05/17 at 17:55; Status DC Sodium Chloride 500 ml @ 500 mls/hr BOLUS ONCE IV ; Start 05/05/17 at 15:45; Stop 05/05/17 at 16:44; Status DC Morphine Sulfate (Morphine Inj) 4 mg ONCE ONCE IV PUSH Last administered on 15:53; Start 05/05/17 at 15:45; Stop 05/05/17 at 15:46; Status DC Ondansetron HCl (Zofran Inj) 4 mg ONCE ONCE IV PUSH Last administered on 05/05 15:53; Start 05/05/17 at 15:45; Stop 05/05/17 at 15:46; Status DC Sodium Chloride 250 ml @ 15 mls/hr ONCE ONCE IV Last administered on 19:28; Start 05/05/17 at 16:15; Stop 05/06/17 at 08:54; Status DC Iohexol (Omnipaque 350 Inj) 100 ml STK-MED ONCE IVCONTRAST Last administered on 05/05/17 17:00; Start 05/05/17 at 17:00; Stop 05/05/17 at 17:01; Status DC Sodium Chloride (NS Flush) 2 ml UNSCH PRN IV FLUSH FLUSH AFTER USING IV ACCESS ; Start 05/05/17 at 17:45 Sodium Chloride (NS Flush) 2 ml BID IV FLUSH Last administered on 05/11/17 21 :01; Start 05/05/17 at 21:00 Naloxone HCl (Narcan Inj) 0.4 mg UNSCH PRN IV PUSH SEE LABEL COMMENTS; Start 05/05/17 at 17:45 Furosemide (Lasix Inj) 20 mg ONCE ONCE IV PUSH Last administered on 21:08; Start 05/05/17 at 18:00; Stop 05/05/17 at 18:01; Status DC Patient Own Medication PT OWN MED: Genvoya (Elvitegra... DAILY PO Last administered on 05/10/17 07:53; Start 05/06/17 at 09:00; Status Future hold Azithromycin (Zithromax) 500 mg DAILY PO Last administered on 05/11/17 09:39 ; Start 05/06/17 at 09:00 Ciprofloxacin (Cipro) 500 mg BID PO Last administered on 05/11/17 21:00; Start 05/05/17 at 21:00 Ferrous Sulfate (Ferrous Sulfate) 325 mg TIDPC PO Last administered on 19:46; Start 05/05/17 at 18:30 Folic Acid (Folate) 1 mg DAILY PO Last administered on 05/11/17 09:39; Start 05/06/17 at 09:00 Furosemide (Lasix) 40 mg DAILY PO Last administered on 05/11/17 09:39; Start 05/06/17 at 09:00 Cyanocobalamin (Vitamin B12) 1,000 mcg DAILY PO Last administered on 09:38; Start 05/06/17 at 09:00 Ethambutol HCl (Myambutol) 800 mg DAILY PO Last administered on 05/11/17 09: 40; Start 05/06/17 at 09:00 Morphine Sulfate (Morphine Inj) 2 mg Q3H PRN IV PUSH BREAKTHROUGH PAIN Last administered on 05/06/17 17:45; Start 05/05/17 at 18:45 Sodium Chloride 250 ml @ 15 mls/hr ONCE ONCE IV Last administered on 04:55; Start 05/06/17 at 03:00; Stop 05/06/17 at 19:39; Status DC Acyclovir Sodium 600 mg/Sodium Chloride 100 ml @ 100 mls/hr Q8H IV Last administered on 05/12/17 04:09; Start 05/06/17 at 12:00 Oxycodone HCl (Roxicodone) 5 mg Q6H PRN PO PAIN SCALE 3 TO 6; Start 05/06/17 at 13:30; Stop 05/07/17 at 11:03; Status DC Oxycodone HCl (Roxicodone) 10 mg Q6H PRN PO PAIN SCALE 7 TO 10 Last administered on 05/07/17 10:54; Start 05/06/17 at 13:30; Stop 05/07/17 at 11 :03; Status DC Oxycodone HCl (Roxicodone) 5 mg Q4HR PRN PO PAIN SCALE 3 TO 6; Start 05/07/17 at 12:00 Oxycodone HCl (Roxicodone) 10 mg Q4H PRN PO PAIN SCALE 7 TO 10 Last administered on 05/11/17 18:30; Start 05/07/17 at 15:00 Acetaminophen (Tylenol) 325 mg Q6H PRN PO FEVER Last administered on 05:21; Start 05/07/17 at 13:15 Elvitegravir/ Cobicis/Emtricit/ Tenof (Stribild [id number] Mg) 1 tab DAILY PO Last administered on 05/11/17 09:40; Start 05/10/17 at 09:00 Polyethylene Glycol/ Electrolytes (Colyte Liq) 4,000 ml ONCE ONCE PO Last administered on 05/10/17 16:00; Start 05/10/17 at 16:00; Stop 05/10/17 at 16 :01; Status DC Fentanyl Citrate (fentaNYL INJ) 100 mcg STK-MED ONCE .ROUTE Last administered on 05/10/17 12:09; Start 05/10/17 at 12:09; Stop 05/10/17 at 12:10; Status DC Fentanyl Citrate (fentaNYL INJ) 100 mcg STK-MED ONCE .ROUTE Last administered on 05/10/17 12:10; Start 05/10/17 at 12:10; Stop 05/10/17 at 12:11; Status DC Midazolam HCl (Versed Inj) 4 mg STK-MED ONCE .ROUTE Last administered on 12:10; Start 05/10/17 at 12:10; Stop 05/10/17 at 12:11; Status DC Lidocaine/ Epinephrine (Xylocaine-Epi 1%-1:100,000 Inj) 20 ml STK-MED ONCE .ROUTE ; Start 05/10/17 at 12:11; Stop 05/10/17 at 12:12; Status DC Lactated Ringer's 1,000 ml @ 30 mls/hr Q24H PRN IV SEE LABEL COMMENTS; Start 05/11/17 at 06:00; Stop 05/14/17 at 05:59 A/P Assessment and Plan Fever -Temp fluctuated between 96.5 and 102.2 overnight. Monitor closely especially due to immunocompromised state. Pt did have more cough but has known chronic MAC pneumonia. No other evidence of new infection. -Consider CXR to compare with 05/05. -Continue to follow with ID. Pancytopenia -awaiting path report of bone marrow biopsy -following with oncology Possible GI bleed -awaiting report from endoscopy/colonoscopy undergone yesterday for evidence of occult bleeding Chronic MAC pneumonia infection -patient had more cough overnight -continue current management per ID HIV positive with disseminated rash possibly due to varicella -Rash healing well -Continue acyclovir with ART -follow with ID Splenic infarct -LUQ abd pain still less than admission and intermittent -following with gen. surg. Antonino Cabello M3 May 12, 2017 09:17
--- NOTE | 2017-05-12 10:45 | HHI.PR ---
Subjective Remarks Having fevers. Cough is worse which cause him to have more pain Objective Vitals Vital Signs Date Time Temp Pulse Resp B/P (MAP) Pulse Ox O2 Delivery O2 Flow Rate FiO2 05/12/17 08:00 97.9 97 16 137/64 (88) 98 05/12/17 04:00 100.4 97 20 111/63 (79) 99 05/12/17 00:00 97.9 88 20 105/58 (74) 99 05/11/17 20:37 114 05/11/17 20:00 102.2 111 20 137/67 (90) 98 05/11/17 16:00 96.5 106 18 126/77 (93) 100 05/11/17 14:22 87 18 89/53 (65) 100 05/11/17 14:09 97.8 85 18 85/48 (60) 100 05/11/17 12:00 99.5 93 19 103/59 (74) 97 I/O 05/11/17 05/11/17 05/11/17 05/12/17 05/12/17 05/12/17 07:00 15:00 23:00 07:00 15:00 23:00 Intake Total 580 ml 450 ml 880 ml 400 ml Output Total 100 ml 700 ml 800 ml 800 ml Balance 480 ml 450 ml 180 ml -400 ml -800 ml Intake Oral 480 ml 0 ml 680 ml 300 ml IV Total 100 ml 200 ml 100 ml Other 450 ml Output Urine Total 100 ml 700 ml 800 ml 800 ml # Voids 2 # Bowel Movements 0 0 Result Diagram: 05/12/1761405/12/17614 Objective Remarks GENERAL: Appearing older than stated age CARDIOVASCULAR: Normal rate and regular rhythm without murmurs, gallops, or rubs. RESPIRATORY: Good respiratory efforts. Breath sounds equal and clear to auscultation bilaterally. GASTROINTESTINAL: Abdomen soft, some tenderness to palpation over the left upper quadrant. MUSCULOSKELETAL: Extremities without cyanosis, or edema. NEURO: Alert & Oriented x4 to person, place, time, situation. Moves all ext x4 PSYCH: Appropriate mood and affect. Procedures None A/P Assessment and Plan 36-year-old male with history of HIV/AIDS admitted with splenic infarct, symptomatic anemia, pancytopenia. Splenic infarct: General surgery consultation appreciated. Hematology following , status post bone marrow biopsy Symptomatic anemia/pancytopenia: Patient received transfusion of 2 units of PRBCs. H&H stable. -Appreciate hematology following. Concern for underlying myeloproliferative disorder. Status post bone marrow biopsy. Pathology pending. HIV/AIDS: Appreciate infectious disease recommendations. Known history of MAC and on treatment. Primary varicella versus disseminated zoster - Continue IV acyclovir, MAC Rx and HAART treatment Fever/cough: Repeat a chest x-ray today. Patient on antibiotics as above. ?GI bleed: Appreciate gastroenterology recommendations. Plan for EGD/ colonoscopy today DVT prophylaxis: HERBER [place]. Avoid chemical prophylaxis secondary to anemia , possible GI bleed. Discharge Planning Awaiting pathology per hematology. Mitesh Wheeler MD May 12, 2017 10:45
[2017-05-12 12:00] VITALS: BP 117/66; PULSE 97; RESP 16; TEMP 97; O2SAT 99
--- NOTE | 2017-05-12 12:18 | RADRPT ---
EXAM DATE/TIME: 05/12/2017 11:52 [facility] COMPARISON: No previous studies available for comparison. INDICATIONS : Cough. MEDICAL HISTORY : HIV. SURGICAL HISTORY : None. ENCOUNTER: Initial ACUITY: 1 day PAIN SCORE: 0/10 LOCATION: Bilateral chest FINDINGS: A single view of the chest demonstrates the lungs to be symmetrically aerated without evidence of mas s, infiltrate or effusion except minimal platelike atelectasis left lung base. The cardiomediastinal contours are unremarkable. Osseous structures are intact. CONCLUSION: Normal examination except minimal platelike atelectasis left lung base. Jozef Rod MD on May 12, 2017 at 12:16 Board Certified Radiologist. This report was verified electronically.
[2017-05-12 16:00] VITALS: BP 117/66; PULSE 101; PULSE 88; RESP 16; TEMP 99.3; O2SAT 100
[2017-05-12 20:00] VITALS: BP 117/67; PULSE 106; RESP 18; TEMP 99.9; O2SAT 98
[2017-05-12] MEDS: FAMOTIDINE 20 MG TAB PO SCH (21:41)
[2017-05-12] MEDS: SODIUM CHLORIDE 0.9% FLUSH 10 ML FLUSH IV FLUSH SCH (21:46)
[2017-05-13] VITALS (8 sets, daily range): BP systolic 102–116; BP diastolic 59–67; PULSE 80–108; RESP 18–22; TEMP 98.4–100.7; O2SAT 95–99
[2017-05-13 05:18] LABS: HEMATOCRIT 22.5 % (39.0-51.0); MEAN CELL VOLUME 84.3 FL (80.0-100.0); MEAN CORPUSCULAR HEMOGLOBIN 28.1 PG (27.0-34.0); MEAN CORPUSCULAR HGB CONC 33.4 % (32.0-36.0); PLATELET COUNT 59 TH/MM3 (150-450); RED BLOOD COUNT 2.67 MIL/MM3 (4.50-5.90); RED CELL DISTRIBUTION WIDTH 16.7 % (11.6-17.2); WHITE BLOOD COUNT 1.5 TH/MM3 (4.0-11.0)
[2017-05-13 05:23] LABS: REVIEW FLAG FINAL
[2017-05-13] MEDS: ACYCLOVIR INJ 600 MG in SODIUM CHLORIDE 0.9% INJ 100 ML IV SCH ×3 (05:40→19:46)
[2017-05-13 05:45] LABS: BICARBONATE 26.6 MEQ/L (21.0-32.0); POTASSIUM 3.9 MEQ/L (3.5-5.1)
[2017-05-13] MEDS: ELVIT/COBI/EMTR/TENOF 150/150/200/300 MG TABLETS PO SCH (08:49)
[2017-05-13] MEDS: AZITHROMYCIN 250 MG TAB PO SCH (08:50)
[2017-05-13] MEDS: FUROSEMIDE 40 MG TAB PO SCH (08:50)
[2017-05-13] MEDS: FOLIC ACID 1 MG TAB PO SCH (08:50)
[2017-05-13] MEDS: CYANOCOBALAMIN 1,000 MCG TAB PO SCH (08:50)
[2017-05-13] MEDS: FAMOTIDINE 20 MG TAB PO SCH ×2 (08:51→19:45)
[2017-05-13] MEDS: FERROUS SULFATE 325 MG (65 MG ELEMENTAL IRON) TAB PO SCH ×3 (08:51→17:36)
[2017-05-13] MEDS: ETHAMBUTOL HCL 400 MG TAB PO SCH (08:51)
[2017-05-13] MEDS: CIPROFLOXACIN 500 MG TAB PO SCH ×2 (08:51→19:45)
[2017-05-13] MEDS: SODIUM CHLORIDE 0.9% FLUSH 10 ML FLUSH IV FLUSH SCH ×2 (08:53→19:49)
--- NOTE | 2017-05-13 08:53 | PD.ONC.PN ---
Subjective Subjective Remarks Patient seen and examined, VS, labs and meds reviewed. BMbx findings reviewed with our hematopathologist; findings in marrow consistent with disseminated MAC infection with hypoplastic changes in the marrow. Objective Data Date Time Temp Pulse Resp B/P (MAP) Pulse Ox O2 Delivery O2 Flow Rate FiO2 05/13/17 08:00 99.0 100 19 110/65 (80) 97 05/13/17 04:22 98.9 93 18 109/66 (80) 98 05/13/17 00:33 98.4 88 18 110/59 (76) 98 05/12/17 20:00 99.9 106 18 117/67 (84) 98 05/12/17 16:00 99.3 101 16 117/66 (83) 100 05/12/17 16:00 88 05/12/17 12:00 97.0 97 16 117/66 (83) 99 05/12/17 10:30 18 05/13/17 05/13/17 05/13/17 07:00 15:00 23:00 Intake Total 200 ml 120 ml Output Total 1225 ml Balance -1025 ml 120 ml Result Diagram: 05/13/17 0344 05/13/17 0344 Laboratory Results Laboratory Tests Test 05/13/17 03:44 White Blood Count 1.5 TH/MM3 Red Blood Count 2.67 MIL/MM3 Hemoglobin 7.5 GM/DL Hematocrit 22.5 % Mean Corpuscular Volume 84.3 FL Mean Corpuscular Hemoglobin 28.1 PG Mean Corpuscular Hemoglobin Concent 33.4 % Red Cell Distribution Width 16.7 % Platelet Count 59 TH/MM3 Mean Platelet Volume 6.9 FL Blood Urea Nitrogen 13 MG/DL Creatinine 0.82 MG/DL Random Glucose 87 MG/DL Calcium Level 8.8 MG/DL Sodium Level 133 MEQ/L Potassium Level 3.9 MEQ/L Chloride Level 99 MEQ/L Carbon Dioxide Level 26.6 MEQ/L Anion Gap 7 MEQ/L Estimat Glomerular Filtration Rate 127 ML/MIN Administered Medications Medications (Trade) Dose Ordered Sig/Derek Route PRN Reason Start Time Stop Time Status Last Admin Dose Admin Sodium Chloride (NS Flush) 2 ml BID IV FLUSH 05/05/17 21:00 05/12/17 21:46 Patient Own Medication PT OWN MED: Genvoya (Elvitegra... DAILY PO 05/06/17 09:00 Future hold 05/10/17 07:53 Azithromycin (Zithromax) 500 mg DAILY PO 05/06/17 09:00 05/12/17 08:49 Ciprofloxacin (Cipro) 500 mg BID PO 05/05/17 21:00 05/12/17 21:41 Ferrous Sulfate (Ferrous Sulfate) 325 mg TIDPC PO 05/05/17 18:30 05/12/17 17:52 Folic Acid (Folate) 1 mg DAILY PO 05/06/17 09:00 05/12/17 08:50 Furosemide (Lasix) 40 mg DAILY PO 05/06/17 09:00 05/12/17 08:50 Cyanocobalamin (Vitamin B12) 1,000 mcg DAILY PO 05/06/17 09:00 05/12/17 08:50 Ethambutol HCl (Myambutol) 800 mg DAILY PO 05/06/17 09:00 05/12/17 08:50 Morphine Sulfate (Morphine Inj) 2 mg Q3H PRN IV PUSH BREAKTHROUGH PAIN 05/05/17 18:45 05/06/17 17:45 Acyclovir Sodium 600 mg/Sodium Chloride 100 ml @ 100 mls/hr Q8H IV 05/06/17 12:00 05/13/17 05:40 Oxycodone HCl (Roxicodone) 10 mg Q4H PRN PO PAIN SCALE 7 TO 10 05/07/17 15:00 05/13/17 05:45 Acetaminophen (Tylenol) 325 mg Q6H PRN PO FEVER 05/07/17 13:15 05/12/17 05:21 Elvitegravir/ Cobicis/Emtricit/ Tenof (Stribild 375-240-337-300 Mg) 1 tab DAILY PO 05/10/17 09:00 05/12/17 08:50 Famotidine (Pepcid) 20 mg BID PO 05/12/17 21:00 05/12/17 21:41 Objective Remarks GENERAL APPEARANCE: Mr. Grady is a young male. He appears to be cachectic and chronically ill. He is in no acute distress. HEENT: Head is atraumatic, normocephalic. Conjunctivae are not pale. Sclerae are anicteric. EOMI. PERRLA. No pharyngeal erythema. NECK: No palpable cervical or supraclavicular lymphadenopathy. PULMONARY: Good air movement bilaterally, poor inspiratory effort. CARDIOVASCULAR: Regular rate and rhythm, S1, S2. No obvious murmurs, rubs or gallops. ABDOMEN: Thin and soft. He has tenderness over the upper quadrants and in particular over the left upper quadrant. He has splenomegaly but no hepatomegaly. Positive bowel sounds. EXTREMITIES: No pretibial edema. No calf tenderness. MUSCULOSKELETAL: Generally decreased muscle mass and tone. [employer]: No focal sensory or motor deficits. SKIN: He has well-circumscribed firm nodular skin lesions with central dimpling. These are pinkish lesions noted on his forearms and torso. Assessment/Plan Problem List: (1) Pancytopenia ICD Codes: D61.818 - Other pancytopenia Plan: --will need CT-guided bone marrow biopsy and aspiration to rule out a primary bone marrow disorder. --with a diagnosis of HIV/AIDS (diagnosed about 8 years ago). --is presently on HAART therapy with a combination pill known as Genvoya. --CT abdomen shows enlarged spleen --Coupled with his symptoms of weight loss and night sweats I am concerned about an underlying myeloproliferative disorder. --other differential diagnoses include bone marrow infiltration with an opportunistic infection related to his HIV or myelosuppression related to his HAART therapy. Assessment 36y/o male with pancytopenia and massive splenomegaly associated with splenic infarct in a patient with HIV/AIDS. Recent history of disseminated MAC infection. Massive Splenomegaly with what appears to be either infarction or infiltration of the spleen. Plan 1. Pancytopenia: BMbx findings consistent with disseminated MAC infection. Treating his MAC will eventually result in marrow recovery. 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 It is not uncommon to observe splenic infarction after the spleen has undergone rapid enlargement. Splenectomy is not indicated in this setting. I updated the patient on the BMBx findings. I explained to him in no uncertain terms that he must absolutely adhere to his out patient HAART medications and all associated prophylactic antibiotics. His life is at stake and he was informed that if he continues to use illicit drugs (which he admits to using) and missing out patient visits with his ID specialists, he will of complications related to an opportunistic infection such as MAC. The hematology service will follow along with the primary service. Jerry Chapman MD May 13, 2017 08:53
--- NOTE | 2017-05-13 08:57 | PD.PN.STU ---
Subjective Remarks Patient stated he had some cough and warmth last night but much better than the night before. Does complain of a slight sore throat this morning that feels dry and painful upon swallowing. Temp. more stable overnight with Tmax 99.9. Only slight abdominal discomfort in LUQ. Objective Vitals Vital Signs Date Time Temp Pulse Resp B/P (MAP) Pulse Ox O2 Delivery O2 Flow Rate FiO2 05/13/17 08:00 99.0 100 19 110/65 (80) 97 05/13/17 04:22 98.9 93 18 109/66 (80) 98 05/13/17 00:33 98.4 88 18 110/59 (76) 98 05/12/17 20:00 99.9 106 18 117/67 (84) 98 05/12/17 16:00 99.3 101 16 117/66 (83) 100 05/12/17 16:00 88 05/12/17 12:00 97.0 97 16 117/66 (83) 99 05/12/17 10:30 18 I/O 05/12/17 05/12/17 05/12/17 05/13/17 05/13/17 05/13/17 07:00 15:00 23:00 07:00 15:00 23:00 Intake Total 400 ml 100 ml 700 ml 200 ml 120 ml Output Total 800 ml 800 ml 900 ml 1225 ml Balance -400 ml -700 ml -200 ml -1025 ml 120 ml Intake Oral 300 ml 700 ml 120 ml IV Total 100 ml 100 ml 200 ml Output Urine Total 800 ml 800 ml 900 ml 1225 ml # Bowel Movements 0 0 Result Diagram: 05/13/17 0344 05/13/17 0344 Other Results Laboratory Tests Test 05/13/17 03:44 White Blood Count 1.5 TH/MM3 (4.0-11.0) Red Blood Count 2.67 MIL/MM3 (4.50-5.90) Hemoglobin 7.5 GM/DL (13.0-17.0) Hematocrit 22.5 % (39.0-51.0) Mean Corpuscular Volume 84.3 FL (80.0-100.0) Mean Corpuscular Hemoglobin 28.1 PG (27.0-34.0) Mean Corpuscular Hemoglobin Concent 33.4 % (32.0-36.0) Red Cell Distribution Width 16.7 % (11.6-17.2) Platelet Count 59 TH/MM3 (150-450) Mean Platelet Volume 6.9 FL (7.0-11.0) Blood Urea Nitrogen 13 MG/DL (7-18) Creatinine 0.82 MG/DL (0.60-1.30) Random Glucose 87 MG/DL (74-106) Calcium Level 8.8 MG/DL (8.5-10.1) Sodium Level 133 MEQ/L (136-145) Potassium Level 3.9 MEQ/L (3.5-5.1) Chloride Level 99 MEQ/L (98-107) Carbon Dioxide Level 26.6 MEQ/L (21.0-32.0) Anion Gap 7 MEQ/L (5-15) Estimat Glomerular Filtration Rate 127 ML/MIN (>89) Imaging Last 48 hours Impressions Chest X-Ray 05/12/17 0000 Signed Impressions: Service Date/Time: Friday, May 12, 2017 11:52 - CONCLUSION: Normal examination except minimal platelike atelectasis left lung base. Jozef Rod MD Objective Remarks GENERAL: Patient is supine in bed, pleasant, in no apparent distress. SKIN: Warm and dry. Few scabbed ~0.5 cm skin lesions on extremities. HEAD: Normocephalic. EYES: No scleral icterus. No injection or drainage. NECK: Supple, trachea midline. No JVD. Supraclavicular lymphadenopathy (not previously appreciated but patient states has been present for >1 month and biopsied) CARDIOVASCULAR: Regular rate and rhythm without murmurs, gallops, or rubs. RESPIRATORY: Breath sounds equal bilaterally. No accessory muscle use. GASTROINTESTINAL: Abdomen soft, non-tender, nondistended. Spleen palpable but non-tender. MUSCULOSKELETAL: No cyanosis, or edema. BACK: Nontender without obvious deformity. No CVA tenderness. Medications and IVs Current Medications Sodium Chloride (NS Flush) 2 ml UNSCH PRN IV FLUSH FLUSH AFTER USING IV ACCESS ; Start 05/05/17 at 14:45; Stop 05/05/17 at 17:55; Status DC Sodium Chloride 500 ml @ 500 mls/hr BOLUS ONCE IV ; Start 05/05/17 at 15:45; Stop 05/05/17 at 16:44; Status DC Morphine Sulfate (Morphine Inj) 4 mg ONCE ONCE IV PUSH Last administered on 15:53; Start 05/05/17 at 15:45; Stop 05/05/17 at 15:46; Status DC Ondansetron HCl (Zofran Inj) 4 mg ONCE ONCE IV PUSH Last administered on 05/05 15:53; Start 05/05/17 at 15:45; Stop 05/05/17 at 15:46; Status DC Sodium Chloride 250 ml @ 15 mls/hr ONCE ONCE IV Last administered on 19:28; Start 05/05/17 at 16:15; Stop 05/06/17 at 08:54; Status DC Iohexol (Omnipaque 350 Inj) 100 ml STK-MED ONCE IVCONTRAST Last administered on 05/05/17 17:00; Start 05/05/17 at 17:00; Stop 05/05/17 at 17:01; Status DC Sodium Chloride (NS Flush) 2 ml UNSCH PRN IV FLUSH FLUSH AFTER USING IV ACCESS ; Start 05/05/17 at 17:45 Sodium Chloride (NS Flush) 2 ml BID IV FLUSH Last administered on 05/12/17 21 :46; Start 05/05/17 at 21:00 Naloxone HCl (Narcan Inj) 0.4 mg UNSCH PRN IV PUSH SEE LABEL COMMENTS; Start 05/05/17 at 17:45 Furosemide (Lasix Inj) 20 mg ONCE ONCE IV PUSH Last administered on 21:08; Start 05/05/17 at 18:00; Stop 05/05/17 at 18:01; Status DC Patient Own Medication PT OWN MED: Genvoya (Elvitegra... DAILY PO Last administered on 05/10/17 07:53; Start 05/06/17 at 09:00; Status Future hold Azithromycin (Zithromax) 500 mg DAILY PO Last administered on 05/12/17 08:49 ; Start 05/06/17 at 09:00 Ciprofloxacin (Cipro) 500 mg BID PO Last administered on 05/12/17 21:41; Start 05/05/17 at 21:00 Ferrous Sulfate (Ferrous Sulfate) 325 mg TIDPC PO Last administered on 17:52; Start 05/05/17 at 18:30 Folic Acid (Folate) 1 mg DAILY PO Last administered on 05/12/17 08:50; Start 05/06/17 at 09:00 Furosemide (Lasix) 40 mg DAILY PO Last administered on 05/12/17 08:50; Start 05/06/17 at 09:00 Cyanocobalamin (Vitamin B12) 1,000 mcg DAILY PO Last administered on 08:50; Start 05/06/17 at 09:00 Ethambutol HCl (Myambutol) 800 mg DAILY PO Last administered on 05/12/17 08: 50; Start 05/06/17 at 09:00 Morphine Sulfate (Morphine Inj) 2 mg Q3H PRN IV PUSH BREAKTHROUGH PAIN Last administered on 05/06/17 17:45; Start 05/05/17 at 18:45 Sodium Chloride 250 ml @ 15 mls/hr ONCE ONCE IV Last administered on 04:55; Start 05/06/17 at 03:00; Stop 05/06/17 at 19:39; Status DC Acyclovir Sodium 600 mg/Sodium Chloride 100 ml @ 100 mls/hr Q8H IV Last administered on 05/13/17 05:40; Start 05/06/17 at 12:00 Oxycodone HCl (Roxicodone) 5 mg Q6H PRN PO PAIN SCALE 3 TO 6; Start 05/06/17 at 13:30; Stop 05/07/17 at 11:03; Status DC Oxycodone HCl (Roxicodone) 10 mg Q6H PRN PO PAIN SCALE 7 TO 10 Last administered on 05/07/17 10:54; Start 05/06/17 at 13:30; Stop 05/07/17 at 11 :03; Status DC Oxycodone HCl (Roxicodone) 5 mg Q4HR PRN PO PAIN SCALE 3 TO 6; Start 05/07/17 at 12:00 Oxycodone HCl (Roxicodone) 10 mg Q4H PRN PO PAIN SCALE 7 TO 10 Last administered on 05/13/17 05:45; Start 05/07/17 at 15:00 Acetaminophen (Tylenol) 325 mg Q6H PRN PO FEVER Last administered on 05:21; Start 05/07/17 at 13:15 Elvitegravir/ Cobicis/Emtricit/ Tenof (Stribild [phone] Mg) 1 tab DAILY PO Last administered on 05/12/17 08:50; Start 05/10/17 at 09:00 Polyethylene Glycol/ Electrolytes (Colyte Liq) 4,000 ml ONCE ONCE PO Last administered on 05/10/17 16:00; Start 05/10/17 at 16:00; Stop 05/10/17 at 16 :01; Status DC Fentanyl Citrate (fentaNYL INJ) 100 mcg STK-MED ONCE .ROUTE Last administered on 05/10/17 12:09; Start 05/10/17 at 12:09; Stop 05/10/17 at 12:10; Status DC Fentanyl Citrate (fentaNYL INJ) 100 mcg STK-MED ONCE .ROUTE Last administered on 05/10/17 12:10; Start 05/10/17 at 12:10; Stop 05/10/17 at 12:11; Status DC Midazolam HCl (Versed Inj) 4 mg STK-MED ONCE .ROUTE Last administered on 12:10; Start 05/10/17 at 12:10; Stop 05/10/17 at 12:11; Status DC Lidocaine/ Epinephrine (Xylocaine-Epi 1%-1:100,000 Inj) 20 ml STK-MED ONCE .ROUTE ; Start 05/10/17 at 12:11; Stop 05/10/17 at 12:12; Status DC Lactated Ringer's 1,000 ml @ 30 mls/hr Q24H PRN IV SEE LABEL COMMENTS; Start 05/11/17 at 06:00; Stop 05/14/17 at 05:59 Famotidine (Pepcid) 20 mg BID PO Last administered on 05/12/17 21:41; Start 05/12/17 at 21:00 A/P Assessment and Plan Patient is a 36 year old HIV positive male with chronic MAC pneumonia who presented 05/05 with abdominal pain, splenomegaly, rash, and pancytopenia. Fever overnight on -No fever last night 05/12-. Cough better. No acute findings on CXR. Monitor sore throat. No other evidence of new infection. -Continue to follow with ID. Pancytopenia -Hgb continues to decline slowly, 7.5 today. Consider transfusion if down further tomorrow. -awaiting path report of bone marrow biopsy -following with oncology Possible GI bleed -endoscopy/colonoscopy undergone yesterday showed gastritis with no evidence of occult bleeding Gastritis and duodenal inflammation on EGD -continue famotidine tx -awaiting duodenal biopsy results. Following with GI Chronic MAC pneumonia infection -less cough today -continue current management per ID HIV positive with disseminated rash possibly due to varicella -Rash healing well -Continue acyclovir with ART -follow with ID Splenic infarct -LUQ abd pain still less than admission and intermittent -following with gen. surg. Generalized weakness and muscle wasting: most likely due to chronic illness -continue with regular PT to improve mobility Antonino Cabello May 13, 2017 08:57
[2017-05-13] MEDS: [UNRECOGNIZED DRUG - OTHER] PO SCH (09:00)
[2017-05-13] MEDS: GENVOYA PO SCH (09:00)
--- NOTE | 2017-05-13 09:58 | HHI.PR ---
Subjective Remarks Patient reports is doing okay. No new issues. Objective Vitals Vital Signs Date Time Temp Pulse Resp B/P (MAP) Pulse Ox O2 Delivery O2 Flow Rate FiO2 05/13/17 08:00 99.0 100 19 110/65 (80) 97 05/13/17 04:22 98.9 93 18 109/66 (80) 98 05/13/17 00:33 98.4 88 18 110/59 (76) 98 05/12/17 20:00 99.9 106 18 117/67 (84) 98 05/12/17 16:00 99.3 101 16 117/66 (83) 100 05/12/17 16:00 88 05/12/17 12:00 97.0 97 16 117/66 (83) 99 05/12/17 10:30 18 I/O 05/12/17 05/12/17 05/12/17 05/13/17 05/13/17 05/13/17 07:00 15:00 23:00 07:00 15:00 23:00 Intake Total 400 ml 100 ml 700 ml 200 ml 120 ml Output Total 800 ml 800 ml 900 ml 1225 ml Balance -400 ml -700 ml -200 ml -1025 ml 120 ml Intake Oral 300 ml 700 ml 120 ml IV Total 100 ml 100 ml 200 ml Output Urine Total 800 ml 800 ml 900 ml 1225 ml # Bowel Movements 0 0 Result Diagram: 05/13/1734305/13/17343 Objective Remarks GENERAL: Appearing older than stated age CARDIOVASCULAR: Normal rate and regular rhythm without murmurs, gallops, or rubs. RESPIRATORY: Good respiratory efforts. Breath sounds equal and clear to auscultation bilaterally. GASTROINTESTINAL: Abdomen soft, some tenderness to palpation over the left upper quadrant. MUSCULOSKELETAL: Extremities without cyanosis, or edema. NEURO: Alert & Oriented x4 to person, place, time, situation. Moves all ext x4 PSYCH: Appropriate mood and affect. Procedures None A/P Assessment and Plan 36-year-old male with history of HIV/AIDS admitted with splenic infarct, symptomatic anemia, pancytopenia. 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 I discussed with hematology, his pancytopenia is likely a result of MAC. Unfortunately the patient has not been compliant with outpatient treatment per Dr. Chapman's discussion with his infectious disease Dr. Edmondson. He is H&H has been trending down. He will receive a unit of PRBC transfusion today. We'll await final recommendations from ID. We also need to ensure he can get his medications from the health department prior to discharge. They are currently close for the holidays. Splenic infarct: General surgery consultation appreciated. Hematology following , status post bone marrow biopsy. 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 Symptomatic anemia/pancytopenia: Bone marrow biopsy showed disseminated MAC. Patient previously received transfusion of 2 units of PRBCs. H&H trending down. Hemoglobin of 7.1 today. We'll give another unit of PRBC transfusion today. -Appreciate hematology following. Discussed with Dr. Chapman, kitchen food server today. Recommendation is for treatment of MAC and support with transfusions as needed. HIV/AIDS: Appreciate infectious disease recommendations. Known history of MAC and on treatment. Primary varicella versus disseminated zoster - Continue IV acyclovir, MAC Rx and HAART treatment - Further treatment recommendations per infectious disease. Fever/cough: Repeat a chest x-ray today. Patient on antibiotics as above. ?GI bleed: Appreciate gastroenterology recommendations. Plan for EGD/ colonoscopy today DVT prophylaxis: SCDs, HERBER boss. Avoid chemical prophylaxis secondary to anemia , possible GI bleed. Discharge Planning Transfusion today. Need final recommendations from infectious disease. Also needs to ensure the patient can get his medications from the health department. Unfortunately they are closed currently for the holidays. Case management is aware. Mitesh Wheeler MD May 13, 2017 09:58
[2017-05-13] MEDS ORDERED: SODIUM CHLOR 0.9% 250 ML INJ 250 ML IV ONE (10:00)
[2017-05-13 17:54] LABS: CD 19 PERCENT 1 % (6-29); CD3 ABSOLUTE 114 (840-3060); CD4/CD8 RATIO 0.1 (0.86-5.00); CD8 ABSOLUTE 105 (180-1170); LYMPHOCYTES, ABSOLUTE 165 (850-3900)
[2017-05-13] MEDS: ACETAMINOPHEN 325 MG TAB PO PRN (22:21)
[2017-05-14] VITALS (7 sets, daily range): BP systolic 106–118; BP diastolic 56–71; PULSE 88–109; RESP 18–20; TEMP 98.3–100.2; O2SAT 95–100
[2017-05-14] MEDS: ACYCLOVIR INJ 600 MG in SODIUM CHLORIDE 0.9% INJ 100 ML IV SCH ×3 (04:45→21:32)
[2017-05-14 06:06] LABS: HEMATOCRIT 24.5 % (39.0-51.0); MEAN CELL VOLUME 81.6 FL (80.0-100.0); MEAN CORPUSCULAR HEMOGLOBIN 27.5 PG (27.0-34.0); MEAN CORPUSCULAR HGB CONC 33.7 % (32.0-36.0); PLATELET COUNT 67 TH/MM3 (150-450); RED CELL DISTRIBUTION WIDTH 18.6 % (11.6-17.2); WHITE BLOOD COUNT 1.7 TH/MM3 (4.0-11.0)
[2017-05-14 06:12] LABS: REVIEW FLAG FINAL
[2017-05-14] MEDS: FAMOTIDINE 20 MG TAB PO SCH ×2 (08:30→21:32)
[2017-05-14] MEDS: ELVIT/COBI/EMTR/TENOF 150/150/200/300 MG TABLETS PO SCH (08:30)
[2017-05-14] MEDS: ETHAMBUTOL HCL 400 MG TAB PO SCH (08:31)
[2017-05-14] MEDS: AZITHROMYCIN 250 MG TAB PO SCH (08:31)
[2017-05-14] MEDS: FERROUS SULFATE 325 MG (65 MG ELEMENTAL IRON) TAB PO SCH ×3 (08:32→18:00)
[2017-05-14] MEDS: CIPROFLOXACIN 500 MG TAB PO SCH ×2 (08:33→21:32)
[2017-05-14] MEDS: FOLIC ACID 1 MG TAB PO SCH (08:33)
[2017-05-14] MEDS: CYANOCOBALAMIN 1,000 MCG TAB PO SCH (08:34)
[2017-05-14] MEDS: FUROSEMIDE 40 MG TAB PO SCH (08:34)
[2017-05-14] MEDS: SODIUM CHLORIDE 0.9% FLUSH 10 ML FLUSH IV FLUSH SCH ×2 (08:35→21:32)
--- NOTE | 2017-05-14 10:36 | HHI.PR ---
Subjective Remarks AWAIT BONE MARROW BIOPSY RESULTS CONTINUE CURRENT TREATMENTS CONTINUE HAART DW RN AND PT AND FAMILY AT BEDSIDE Objective Vitals Vital Signs Date Time Temp Pulse Resp B/P (MAP) Pulse Ox O2 Delivery O2 Flow Rate FiO2 05/14/17 08:00 99.8 103 18 111/63 (79) 99 05/14/17 03:59 99.0 97 20 117/69 (85) 98 05/14/17 01:07 18 05/14/17 00:45 99.8 90 20 116/63 99 05/13/17 23:50 20 05/13/17 22:32 100.2 97 20 105/66 99 05/13/17 22:18 100.2 97 20 116/67 97 05/13/17 20:00 100.7 108 22 111/65 (80) 96 05/13/17 16:00 98.5 80 20 110/65 (80) 95 05/13/17 11:26 98.5 87 19 102/61 (75) 96 I/O 05/13/17 05/13/17 05/13/17 05/14/17 05/14/17 05/14/17 07:00 15:00 23:00 07:00 15:00 23:00 Intake Total 200 ml 220 ml 1700 ml 720 ml Output Total 1225 ml 2000 ml 500 ml Balance -1025 ml 220 ml -300 ml 220 ml Intake Oral 120 ml 1200 ml 320 ml IV Total 200 ml 100 ml Packed Cells 400 ml Blood Product IV Normal Saline Flush 500 ml Output Urine Total 1225 ml 2000 ml 500 ml # Bowel Movements 1 0 Result Diagram: 05/14/17 0420 05/13/17 0344 Other Results Laboratory Tests Test 05/11/17 12:15 05/12/17 06:15 05/13/17 03:44 05/14/17 04:20 Mix DRVV Patient/Normal 1:1 Absolute Lymphocytes (Cell Immunity 165 Percent CD3 Cells 69 % Absolute CD3 Count 114 Percent CD3-/CD16+/CD56+ Cells 28 % Absolute CD3-/CD16+/CD56+ Count 47 Percent CD4 Cells 3 % Absolute CD4 Count LESS THAN 20 T-[place]/Suppressor Ratio 0.1 Percent CD8 Cells 63 % Absolute CD8 Count 105 Percent CD19 Cells 1 % Absolute CD19 Count LESS THAN 20 Cytomegalovirus DNA Quant (PCR) Undetected IU/mL White Blood Count 1.6 TH/MM3 1.5 TH/MM3 1.7 TH/MM3 Red Blood Count 2.76 MIL/MM3 2.67 MIL/MM3 3.00 MIL/MM3 Hemoglobin 7.7 GM/DL 7.5 GM/DL 8.3 GM/DL Hematocrit 23.1 % 22.5 % 24.5 % Mean Corpuscular Volume 83.7 FL 84.3 FL 81.6 FL Mean Corpuscular Hemoglobin 27.8 PG 28.1 PG 27.5 PG Mean Corpuscular Hemoglobin Concent 33.3 % 33.4 % 33.7 % Red Cell Distribution Width 16.6 % 16.7 % 18.6 % Platelet Count 57 TH/MM3 59 TH/MM3 67 TH/MM3 Mean Platelet Volume 7.0 FL 6.9 FL 7.3 FL Blood Urea Nitrogen 14 MG/DL 13 MG/DL Creatinine 0.85 MG/DL 0.82 MG/DL Random Glucose 108 MG/DL 87 MG/DL Calcium Level 8.8 MG/DL 8.8 MG/DL Sodium Level 135 MEQ/L 133 MEQ/L Potassium Level 3.9 MEQ/L 3.9 MEQ/L Chloride Level 99 MEQ/L 99 MEQ/L Carbon Dioxide Level 26.0 MEQ/L 26.6 MEQ/L Anion Gap 10 MEQ/L 7 MEQ/L Estimat Glomerular Filtration Rate 122 ML/MIN 127 ML/MIN Imaging Last Impressions Chest X-Ray 05/12/17 0000 Signed Impressions: Service Date/Time: Friday, May 12, 2017 11:52 - CONCLUSION: Normal examination except minimal platelike atelectasis left lung base. Jozef Rod MD Bone Biopsy CT 05/10/17 0000 Signed Impressions: Service Date/Time: Wednesday, May 10, 2017 12:39 - CONCLUSION: 1. Uncomplicated CT guided bone marrow aspirate. 2. Uncomplicated CT guided bone marrow biopsy. Eron Angeles MD Abdomen/Pelvis CT 05/05/17 1443 Signed Impressions: Service Date/Time: Friday, May 05, 2017 16:42 - CONCLUSION: Enlarged spleen with large areas of infarction or or neoplastic infiltration. Trace ascites. Sclerotic bones without focal destructive lesions. Clinton Valadez MD FACR Objective Remarks GENERAL: Awake alert oriented talkative and cooperative in no acute distress SKIN: Warm and dry. HEAD: Atraumatic. Normocephalic. EYES: Pupils equal and round. No scleral icterus. No injection or drainage. Extraocular muscles intact ENT: No nasal bleeding or discharge. Mucous membranes pink and moist. Tongue is midline NECK: Trachea midline. No JVD. Supple CARDIOVASCULAR: Regular rate and rhythm. S1 and S2 no S3 or S4 RESPIRATORY: No accessory muscle use. Clear to auscultation. Breath sounds equal bilaterally. GASTROINTESTINAL: Abdomen soft, non-tender, nondistended. Hepatic and splenic margins not palpable. MUSCULOSKELETAL: Extremities without clubbing, cyanosis, or edema. No obvious deformities. NEUROLOGICAL: Awake and alert. No obvious cranial nerve deficits. Motor grossly within normal limits. Five out of 5 muscle strength in the arms and legs. Normal speech. PSYCHIATRIC: Appropriate mood and affect; insight and judgment normal. Procedures EGD PROCEDURE REPORT EXAM DATE: 05/11/2017 PATIENT NAME: Andrea Grady MR #: [id number] BIRTHDATE: 1980 ATTENDING: Charisma Lindsey MD ORDER #: [id number] [employer] F[employer]OR MANAGER: Pascual Hankins and Mimi Berman STATUS: inpatient INDICATIONS: The patient is a 36 yr old male here for an EGD due to iron deficiency anemia PROCEDURE PERFORMED: EGD w/ biopsy MEDICATIONS: None and Per Anesthesia. TOPICAL ANESTHETIC: CONSENT: The patient understands the risks and benefits of the procedure and understands that these risks include, but are not limited to: sedation, allergic reaction, infection, perforation and/or bleeding. Alternative means of evaluation and treatment include, among others: physical exam, x-rays, and/or surgical intervention. The patient elects to proceed with this endoscopic procedure. medical equipment was checked for proper function. Hand hygiene and appropriate measures for infection prevention was taken. After the risks, benefits and alternatives of the procedure were thoroughly explained, Informed consent was verified, confirmed and timeout was successfully executed by the treatment team. The patient was anesthetized with topical anesthesia and the EC-[id number] (Pedi C) endoscope was introduced through the mouth and advanced to the second portion of the duodenum. Retroflexed views revealed no abnormalities The gastroscope was then slowly withdrawn and removed. ESOPHAGUS: The mucosa of the esophagus appeared normal. STOMACH: There was erythematous moderate gastritis in the gastric antrum. A biopsy was performed using cold forceps. Sample sent for histology. DUODENUM: Moderate duodenal inflammation was found in the bulb and second portion of the duodenum. ADVERSE EVENTS: There were no complications. IMPRESSIONS: 1. The esophagus appeared normal 2. There was erythematous gastritis in the gastric antrum 3. Duodenal inflammation was found in the bulb and second portion of the duodenum 4. Retroflexed views revealed no abnormalities RECOMMENDATIONS: 1. Await biopsy results. Biopsy results will not be ready for 7-10 days. If you don't hear from us in two weeks, call our office for biopsy results. 2. Anti-reflux regimen 3. Continue PPI PATIENT CONDITION: stable DISPOSITION: Inpatient REPEAT EXAM: Return 1 year EGD pending biopsy results COLONOSCOPY PROCEDURE REPORT EXAM DATE: 05/11/2017 PATIENT NAME: Andrea Grady MR #: [id number] BIRTHDATE: 1980 ENDOSCOPIST: Charisma Lindsey MD ORDER #: [id number] [employer] FLOOR MANAGER: Pascual Hankins and Mimi Berman STATUS: inpatient INDICATIONS: The patient is a 36 yr old male here for a colonoscopy due to iron deficiency anemia PROCEDURE PERFORMED: Colonoscopy, diagnostic MEDICATIONS: None and Per Anesthesia. PREP QUALITY: The Weikert Bowel Prep Score was Right colon 2, Mid colon 2, and Left colon 2. Total = 6. PREP TYPE:GoLytely ESTIMATED BLOOD LOSS: None CONSENT: The patient understands the risks and benefits of the procedure and understands that these risks include, but are not limited to: sedation, allergic reaction, infection, perforation and/or bleeding. Alternative means of evaluation and treatment include, among others: physical exam, x-rays, and/or surgical intervention. The patient elects to proceed with this endoscopic procedure. medical equipment was checked for proper function. Hand hygiene and appropriate measures for infection prevention was taken. After the risks, benefits and alternatives of the procedure were thoroughly explained, Informed consent was verified, confirmed and timeout was successfully executed by the treatment team. A digital exam revealed external hemorrhoids The Pentax EC-3490Li endoscope was introduced through the anus and advanced to the cecum, which was identified by both the appendix and ileocecal valve. The instrument was then slowly withdrawn as the colon was fully examined. COLON FINDINGS: The colonic mucosa appeared normal. Retroflexed views revealed internal hemorrhoids and Retroflexed views revealed medium internal hemorrhoids The scope was then completely withdrawn from the patient and the procedure terminated. PROCEDURE WITHDRAWAL TIME:6minutes ADVERSE EVENTS: There were no complications. IMPRESSIONS: 1. The colonic mucosa appeared normal 2. Retroflexed views revealed internal hemorrhoids 3. Retroflexed views revealed medium internal hemorrhoids 4. Revealed external hemorrhoids RECOMMENDATIONS: 1. Continue surveillance 2. Yearly hemoccult RECALL: Return [address] Bone Marrow Biopsy Signed EXAM DATE/TIME: 05/10/2017 12:39 [place] COMPARISON: No previous studies available for comparison. INDICATIONS : Thrombocytopenia SEDATION TIME: 30 minutes BIOPSY SITE: Left ilium MEDICATION(S): 1.) 4 mg midazolam (Versed) IV 2.) 200 mcg fentanyl (Sublimaze) IV DEVICE(S): 1.) 12 gauge On-Control needle MEDICAL HISTORY : HIV. SURGICAL HISTORY : None. ENCOUNTER: Initial ACUITY: 1 day PAIN SCORE: 0/10 LOCATION: lower quadrant A total of one core specimen(s) were obtained and sent to the laboratory for pathologic evaluation. PROCEDURE: 1. CT guided bone marrow biopsy. 2. Conscious sedation with continuous EKG and oximetry monitoring. 3. EKG and oximetry remained stable throughout the procedure. Prior to the procedure informed consent was obtained. Any appropriate prior imaging studies were reviewed. Using automated exposure control and adjustment of the mA and/or kV according to patient size, radiation dose was kept as low as reasonably achievable to obtain optimal diagnostic quality images. DICOM format image data is available electronically for review and comparison. The site was prepped in a sterile fashion. Full sterile technique was used, including cap, mask, sterile gloves and gown and a large sterile sheet. Hand hygiene and 2% chlorhexidine and/or betadine/alcohol prep was utilized per protocol for cutaneous antisepsis. The skin and subcutaneous tissues were infiltrated with local anesthetic solution. With CT guidance the previously identified target was localized. Biopsy was performed using the prescribed needle as above. Following biopsy marrow aspiration was performed with repeat puncture. Adequate hemostasis was obtained with compression at the puncture site. Follow-up CT scan reveals no hemorrhage. Conscious sedation was performed with the prescribed dosages and duration as above in the presence of an independent trained radiology nurse to assist in the monitoring of the patient. EKG and oximetry remained stable throughout the procedure. The patient tolerated the procedure well and there were no complications. The patient was sent to Radiology Outpatient Unit in stable condition. CONCLUSION: 1. Uncomplicated CT guided bone marrow aspirate. 2. Uncomplicated CT guided bone marrow biopsy. Eron Angeles MD on May 10, 2017 at 13:50 Medications and IVs Current Medications Sodium Chloride (NS Flush) 2 ml UNSCH PRN IV FLUSH FLUSH AFTER USING IV ACCESS ; Start 05/05/17 at 14:45; Stop 05/05/17 at 17:55; Status DC Sodium Chloride 500 ml @ 500 mls/hr BOLUS ONCE IV ; Start 05/05/17 at 15:45; Stop 05/05/17 at 16:44; Status DC Morphine Sulfate (Morphine Inj) 4 mg ONCE ONCE IV PUSH Last administered on 15:53; Start 05/05/17 at 15:45; Stop 05/05/17 at 15:46; Status DC Ondansetron HCl (Zofran Inj) 4 mg ONCE ONCE IV PUSH Last administered on 05/05 15:53; Start 05/05/17 at 15:45; Stop 05/05/17 at 15:46; Status DC Sodium Chloride 250 ml @ 15 mls/hr ONCE ONCE IV Last administered on 19:28; Start 05/05/17 at 16:15; Stop 05/06/17 at 08:54; Status DC Iohexol (Omnipaque 350 Inj) 100 ml STK-MED ONCE IVCONTRAST Last administered on 05/05/17 17:00; Start 05/05/17 at 17:00; Stop 05/05/17 at 17:01; Status DC Sodium Chloride (NS Flush) 2 ml UNSCH PRN IV FLUSH FLUSH AFTER USING IV ACCESS ; Start 05/05/17 at 17:45 Sodium Chloride (NS Flush) 2 ml BID IV FLUSH Last administered on 05/14/17 08 :35; Start 05/05/17 at 21:00 Naloxone HCl (Narcan Inj) 0.4 mg UNSCH PRN IV PUSH SEE LABEL COMMENTS; Start 05/05/17 at 17:45 Furosemide (Lasix Inj) 20 mg ONCE ONCE IV PUSH Last administered on 21:08; Start 05/05/17 at 18:00; Stop 05/05/17 at 18:01; Status DC Patient Own Medication PT OWN MED: Genvoya (Elvitegra... DAILY PO Last administered on 05/10/17 07:53; Start 05/06/17 at 09:00; Status Future Hold Azithromycin (Zithromax) 500 mg DAILY PO Last administered on 05/14/17 08:31 ; Start 05/06/17 at 09:00 Ciprofloxacin (Cipro) 500 mg BID PO Last administered on 05/14/17 08:33; Start 05/05/17 at 21:00 Ferrous Sulfate (Ferrous Sulfate) 325 mg TIDPC PO Last administered on 08:32; Start 05/05/17 at 18:30 Folic Acid (Folate) 1 mg DAILY PO Last administered on 05/14/17 08:33; Start 05/06/17 at 09:00 Furosemide (Lasix) 40 mg DAILY PO Last administered on 05/14/17 08:34; Start 05/06/17 at 09:00 Cyanocobalamin (Vitamin B12) 1,000 mcg DAILY PO Last administered on 08:34; Start 05/06/17 at 09:00 Ethambutol HCl (Myambutol) 800 mg DAILY PO Last administered on 05/14/17 08: 31; Start 05/06/17 at 09:00 Morphine Sulfate (Morphine Inj) 2 mg Q3H PRN IV PUSH BREAKTHROUGH PAIN Last administered on 05/06/17 17:45; Start 05/05/17 at 18:45 Sodium Chloride 250 ml @ 15 mls/hr ONCE ONCE IV Last administered on 04:55; Start 05/06/17 at 03:00; Stop 05/06/17 at 19:39; Status DC Acyclovir Sodium 600 mg/Sodium Chloride 100 ml @ 100 mls/hr Q8H IV Last administered on 05/14/17 04:45; Start 05/06/17 at 12:00 Oxycodone HCl (Roxicodone) 5 mg Q6H PRN PO PAIN SCALE 3 TO 6; Start 05/06/17 at 13:30; Stop 05/07/17 at 11:03; Status DC Oxycodone HCl (Roxicodone) 10 mg Q6H PRN PO PAIN SCALE 7 TO 10 Last administered on 05/07/17 10:54; Start 05/06/17 at 13:30; Stop 05/07/17 at 11 :03; Status DC Oxycodone HCl (Roxicodone) 5 mg Q4HR PRN PO PAIN SCALE 3 TO 6; Start 05/07/17 at 12:00 Oxycodone HCl (Roxicodone) 10 mg Q4H PRN PO PAIN SCALE 7 TO 10 Last administered on 05/14/17 08:33; Start 05/07/17 at 15:00 Acetaminophen (Tylenol) 325 mg Q6H PRN PO FEVER Last administered on 22:21; Start 05/07/17 at 13:15 Elvitegravir/ Cobicis/Emtricit/ Tenof (Stribild [id number] Mg) 1 tab DAILY PO Last administered on 05/14/17 08:30; Start 05/10/17 at 09:00 Polyethylene Glycol/ Electrolytes (Colyte Liq) 4,000 ml ONCE ONCE PO Last administered on 05/10/17 16:00; Start 05/10/17 at 16:00; Stop 05/10/17 at 16 :01; Status DC Fentanyl Citrate (fentaNYL INJ) 100 mcg STK-MED ONCE .ROUTE Last administered on 05/10/17 12:09; Start 05/10/17 at 12:09; Stop 05/10/17 at 12:10; Status DC Fentanyl Citrate (fentaNYL INJ) 100 mcg STK-MED ONCE .ROUTE Last administered on 05/10/17 12:10; Start 05/10/17 at 12:10; Stop 05/10/17 at 12:11; Status DC Midazolam HCl (Versed Inj) 4 mg STK-MED ONCE .ROUTE Last administered on 12:10; Start 05/10/17 at 12:10; Stop 05/10/17 at 12:11; Status DC Lidocaine/ Epinephrine (Xylocaine-Epi 1%-1:100,000 Inj) 20 ml STK-MED ONCE .ROUTE ; Start 05/10/17 at 12:11; Stop 05/10/17 at 12:12; Status DC Lactated Ringer's 1,000 ml @ 30 mls/hr Q24H PRN IV SEE LABEL COMMENTS; Start 05/11/17 at 06:00; Stop 05/14/17 at 05:59; Status DC Famotidine (Pepcid) 20 mg BID PO Last administered on 05/14/17 08:30; Start 05/12/17 at 21:00 Sodium Chloride 250 ml @ 15 mls/hr ONCE ONCE IV Last administered on t 22:12; Start 05/13/17 at 10:00; Stop 05/14/17 at 02:39; Status DC A/P Assessment and Plan Assessment and Plan 36-year-old male with history of HIV/AIDS admitted with splenic infarct, symptomatic anemia, pancytopenia. 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 I discussed with hematology, his pancytopenia is likely a result of MAC. Unfortunately the patient has not been compliant with outpatient treatment per Dr. Chapman's discussion with his infectious disease Dr. Edmondson. He is H&H has been trending down. He will receive a unit of PRBC transfusion today. We'll await final recommendations from ID. We also need to ensure he can get his medications from the health department prior to discharge. They are currently close for the holidays. Splenic infarct: General surgery consultation appreciated. Hematology following , status post bone marrow biopsy. 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 Symptomatic anemia/pancytopenia: Bone marrow biopsy showed disseminated MAC. Patient previously received transfusion of 2 units of PRBCs. H&H trending down. Hemoglobin of 7.1 today. We'll give another unit of PRBC transfusion today. -Appreciate hematology following. Discussed with Dr. Chapman, registered pharmacy technician today. Recommendation is for treatment of MAC and support with transfusions as needed. HIV/AIDS: Appreciate infectious disease recommendations. Known history of MAC and on treatment. Primary varicella versus disseminated zoster - Continue IV acyclovir, MAC Rx and HAART treatment - Further treatment recommendations per infectious disease. Fever/cough: Repeat a chest x-ray today. Patient on antibiotics as above. ?GI bleed: Appreciate gastroenterology recommendations. Plan for EGD/ colonoscopy today DVT prophylaxis: SCDs, HERBER hose. Avoid chemical prophylaxis secondary to anemia , possible GI bleed. Await bone marrow biopsy for further clarification of diagnosis Discussed with patient and RN and family Discharge Planning Pending bone marrow biopsy results Clinton Bazzi DO May 14, 2017 10:36
--- NOTE | 2017-05-14 13:38 | HHI.IDPN ---
Subjective Subjective Remarks Patient is a 36-year-old male, with known HIV, AIDS, presented to the hospital complaining of diffuse body aches, as well as severe left upper quadrant pain. Patient stated he was hospitalized 2 times at [facility]. The first one was 7 days, and the second one was about 10 days, and he was discharge about a week ago. During that hospitalization he was told he had a bruise in his spleen, and he was actively being evaluated for a splenectomy, but it was decided not to do it. During that time he also had left upper quadrant pain, and his pain resolved the pain however started again at home and it was so severe that any kind of movement aggravates the pain. He is also had on and off fevers. Minimal respiratory complaint. No nausea or vomiting. Has frequent bowel movement. No urinary complaints. Patient has been diagnosed to have HIV probably for the last 7 years. He was [facility] the [facility], but lost to follow-up, and recently started following up with Dr. Edmondson. He has been put on HAART in the last 4 months. The record also mention that he had been diagnosed to have MAC, and currently on treatment for that. Patient also noted a rash on the right side of his neck recently. He has never had chickenpox and denies any exposure to anyone with shingles or chickenpox. Patient since admission has had fevers. He has pancytopenia. He is complaining of severe pain in his left upper quadrant. CT of the abdomen and pelvis did confirm an area of splenic infarct. Infectious disease consultation has been requested to evaluate the patient. Notes reviewed Has intermittent low grade temps Still with LUQ pain BM biopsy done yesterday, results pending No new skin lesions. Remains in airborne isolation. Pancytopenia. VZV PCR (+) VZV IgG (+) Antibiotics VIKKI Rx HAART Acyclovir Current Medications Medications (Trade) Dose Ordered Sig/Derek Route Start Time Stop Time Status Last Admin (NS Flush) 2 ml UNSCH PRN IV FLUSH 05/05/17 17:45 (NS Flush) 2 ml BID IV FLUSH 05/05/17 21:00 05/11/17 09:48 (Narcan Inj) 0.4 mg UNSCH PRN IV PUSH 05/05/17 17:45 Patient Own Medication PT OWN MED: Genvoya (Elvitegra... DAILY PO 05/06/17 09:00 Future hold 05/10/17 07:53 (Zithromax) 500 mg DAILY PO 05/06/17 09:00 05/11/17 09:39 (Cipro) 500 mg BID PO 05/05/17 21:00 05/11/17 09:38 (Ferrous Sulfate) 325 mg TIDPC PO 05/05/17 18:30 05/11/17 09:49 (Folate) 1 mg DAILY PO 05/06/17 09:00 05/11/17 09:39 (Lasix) 40 mg DAILY PO 05/06/17 09:00 05/11/17 09:39 (Vitamin B12) 1,000 mcg DAILY PO 05/06/17 09:00 05/11/17 09:38 (Myambutol) 800 mg DAILY PO 05/06/17 09:00 05/11/17 09:40 (Morphine Inj) 2 mg Q3H PRN IV PUSH 05/05/17 18:45 05/06/17 17:45 Acyclovir Sodium 600 mg/Sodium Chloride 100 ml @ 100 mls/hr Q8H IV 05/06/17 12:00 05/11/17 09:35 (Roxicodone) 5 mg Q4HR PRN PO 05/07/17 12:00 (Roxicodone) 10 mg Q4H PRN PO 05/07/17 15:00 05/11/17 09:50 (Tylenol) 325 mg Q6H PRN PO 05/07/17 13:15 05/10/17 21:24 (Stribild [id number] Mg) 1 tab DAILY PO 05/10/17 09:00 05/11/17 09:40 Lactated Ringer's 1,000 ml @ 30 mls/hr Q24H PRN IV 05/11/17 06:00 05/14/17 05:59 Lines PIV Past Medical History HIV/AIDS, CD4 26 Hypertension Splenomegaly, splenic infarct MAC infection Allergies: Coded Allergies: No Known Allergies (Verified Allergy, Mild, 05/30/08) Objective . Vital Signs Date Time Temp Pulse Resp B/P (MAP) Pulse Ox O2 Delivery O2 Flow Rate FiO2 05/14/17 11:48 99.2 100 19 112/64 (80) 100 05/14/17 08:00 99.8 103 18 111/63 (79) 99 05/14/17 03:59 99.0 97 20 117/69 (85) 98 05/14/17 01:07 18 05/14/17 00:45 99.8 90 20 116/63 99 05/13/17 23:50 20 05/13/17 22:32 100.2 97 20 105/66 99 05/13/17 22:18 100.2 97 20 116/67 97 05/13/17 20:00 100.7 108 22 111/65 (80) 96 05/13/17 16:00 98.5 80 20 110/65 (80) 95 . Laboratory Tests Test 05/13/17 03:44 05/14/17 04:20 White Blood Count 1.5 TH/MM3 1.7 TH/MM3 Red Blood Count 2.67 MIL/MM3 3.00 MIL/MM3 Hemoglobin 7.5 GM/DL 8.3 GM/DL Hematocrit 22.5 % 24.5 % Mean Corpuscular Volume 84.3 FL 81.6 FL Mean Corpuscular Hemoglobin 28.1 PG 27.5 PG Mean Corpuscular Hemoglobin Concent 33.4 % 33.7 % Red Cell Distribution Width 16.7 % 18.6 % Platelet Count 59 TH/MM3 67 TH/MM3 Mean Platelet Volume 6.9 FL 7.3 FL Laboratory Tests Test 05/13/17 03:44 Blood Urea Nitrogen 13 MG/DL Creatinine 0.82 MG/DL Random Glucose 87 MG/DL Calcium Level 8.8 MG/DL Sodium Level 133 MEQ/L Potassium Level 3.9 MEQ/L Chloride Level 99 MEQ/L Carbon Dioxide Level 26.6 MEQ/L Anion Gap 7 MEQ/L Estimat Glomerular Filtration Rate 127 ML/MIN Imaging Last Impressions Abdomen/Pelvis CT 05/05/17 1443 Signed Impressions: Service Date/Time: Friday, May 05, 2017 16:42 - CONCLUSION: Enlarged spleen with large areas of infarction or or neoplastic infiltration. Trace ascites. Sclerotic bones without focal destructive lesions. Clinton Valadez MD FACR Chest X-Ray 05/05/17 0000 Signed Impressions: Service Date/Time: Friday, May 05, 2017 15:41 - CONCLUSION: Negative for fracture or dislocation. Follow up in 7-10 days is suggested if symptoms persist. Clinton Valadez MD FACR Physical Exam GENERAL: awake and alert, not in respiratory distress. SKIN: Warm and dry. Skin lesions are drying up HEAD: Atraumatic. Normocephalic. No temporal wasting, or tenderness. EYES: [place] conjunctiva. No petechia or hemorrhage. Pupils equal, round and reactive to light. Extraocular movements full and intact. No scleral icterus. No injection or drainage. EARS, NOSE AND THROAT: Nose without bleeding or purulent nasal discharge. No sinus tenderness. Mucous membranes pink and moist. No oral lesions noted. No exudate. No oral thrush. NECK: Trachea midline. Supple and not tender, no meningeal signs. Has cervical lymphadenopathy CARDIOVASCULAR: Regular rate and rhythm. No murmurs, rubs or gallops heard RESPIRATORY: Clear to auscultation. Breath sounds equal bilaterally. No rales , wheezing or rhonchi ABDOMEN: Soft, nondistended. Tender especially on L side. Bowel sounds present and normoactive. No guarding. No rebound. EXTREMITIES: No clubbing, cyanosis, or edema.No joint effusion, has good ROM. No calf tenderness. Well perfused and warm. NEUROLOGICAL: Grossly non-focal PSYCHIATRIC: Normal affect, calm and cooperative. LINE: No evidence of infection Assessment & Plan Remarks IMPRESSION Sepsis, with fevers - has splenomegaly, prob hypersdplenism and splenic infarct - known MAC and on Rx - has HIV/AIDS - has rash resembling varicella, ?primary (he denies prior Hx chickenpox) or disseminated zoster Disseminated zoster HIV/AIDS MAC infection by Hx RECOMMENDATION Follow C/S Continue IV Acyclovir would recommend a 3 week course followed by oral suppression. - follow BMP Continue other meds - MAC RX and HAART Check CD4 counts Check CMV PCR Monitor progress Follow BM biopsy results Bone marrow cultures were not sent unfortunately. D.w Pathologist : prelim read s/o macrophages and VIKKI organisms. Will send AFB blood culture Will send Fungus blood culture Send RPR Will send cryptococcal antigen as at risk for Immune reconstitution syndrome if on HAART and has nidus of infection in body. Isolation for disseminated zoster per infection control policy Explained plan to the patient Mely Fernandes MD May 14, 2017 13:38
[2017-05-14] MEDS: ACETAMINOPHEN 325 MG TAB PO PRN (18:01)
[2017-05-15] VITALS (8 sets, daily range): BP systolic 97–162; BP diastolic 53–70; PULSE 86–100; RESP 17–20; TEMP 97.9–100.5; O2SAT 97–100
[2017-05-15] MEDS: ACYCLOVIR INJ 600 MG in SODIUM CHLORIDE 0.9% INJ 100 ML IV SCH ×3 (03:49→21:19)
--- NOTE | 2017-05-15 07:54 | PD.ONC.PN ---
Subjective Subjective Remarks Had low grade temp of 100.2 yesterday afternoon Reports he slept well Has some pain in his back and shoulders that he reports has been an ongoing issue Otherwise no acute complaints Objective Data Date Time Temp Pulse Resp B/P (MAP) Pulse Ox O2 Delivery O2 Flow Rate FiO2 05/15/17 04:35 99.3 94 18 114/62 (79) 99 05/15/17 00:52 98.9 91 20 113/55 (74) 100 05/14/17 20:46 98.3 90 20 106/56 (73) 100 05/14/17 20:00 88 05/14/17 16:00 100.2 109 19 118/71 (87) 95 05/14/17 11:48 99.2 100 19 112/64 (80) 100 05/14/17 08:00 99.8 103 18 111/63 (79) 99 05/15/17 05/15/17 05/15/17 07:00 15:00 23:00 Intake Total 100 ml Output Total 750 ml Balance -650 ml Result Diagram: 05/14/17 0420 05/13/17 0344 Laboratory Results Laboratory Tests Test 05/14/17 17:40 Culture Results Microbiology Date/Time Source Procedure Growth Status 05/14/17 17:40 Blood Peripheral Blood Fungal Culture Pending Received 05/14/17 17:40 Blood Peripheral Blood Fungal Culture Pending Received 05/14/17 17:40 Blood Peripheral Mycobacterial Culture Pending Received Administered Medications Medications (Trade) Dose Ordered Sig/Derek Route PRN Reason Start Time Stop Time Status Last Admin Dose Admin Sodium Chloride (NS Flush) 2 ml BID IV FLUSH 05/05/17 21:00 05/14/17 21:32 Patient Own Medication PT OWN MED: Genvoya (Elvitegra... DAILY PO 05/06/17 09:00 Future Hold 05/10/17 07:53 Azithromycin (Zithromax) 500 mg DAILY PO 05/06/17 09:00 05/14/17 08:31 Ciprofloxacin (Cipro) 500 mg BID PO 05/05/17 21:00 05/14/17 21:32 Ferrous Sulfate (Ferrous Sulfate) 325 mg TIDPC PO 05/05/17 18:30 05/14/17 18:00 Folic Acid (Folate) 1 mg DAILY PO 05/06/17 09:00 05/14/17 08:33 Furosemide (Lasix) 40 mg DAILY PO 05/06/17 09:00 05/14/17 08:34 Cyanocobalamin (Vitamin B12) 1,000 mcg DAILY PO 05/06/17 09:00 05/14/17 08:34 Ethambutol HCl (Myambutol) 800 mg DAILY PO 05/06/17 09:00 05/14/17 08:31 Morphine Sulfate (Morphine Inj) 2 mg Q3H PRN IV PUSH BREAKTHROUGH PAIN 05/05/17 18:45 05/06/17 17:45 Acyclovir Sodium 600 mg/Sodium Chloride 100 ml @ 100 mls/hr Q8H IV 05/06/17 12:00 05/15/17 03:49 Oxycodone HCl (Roxicodone) 10 mg Q4H PRN PO PAIN SCALE 7 TO 10 05/07/17 15:00 05/15/17 03:49 Acetaminophen (Tylenol) 325 mg Q6H PRN PO FEVER 05/07/17 13:15 05/14/17 18:01 Elvitegravir/ Cobicis/Emtricit/ Tenof (Stribild [id number] Mg) 1 tab DAILY PO 05/10/17 09:00 05/14/17 08:30 Famotidine (Pepcid) 20 mg BID PO 05/12/17 21:00 05/14/17 21:32 Objective Remarks GENERAL: Thin, younger male resting in bed. He appears comfortable and calm on exam and converses easily. SKIN: Warm and dry. HEAD: Normocephalic. EYES: No injection or drainage. NECK: Supple, trachea midline. CARDIOVASCULAR: Regular rate and rhythm without murmurs. RESPIRATORY: Clear anteriorly. Breathing unlabored. GASTROINTESTINAL: +Splenomegaly. Non-tender to palpation. EXTREMITIES: No cyanosis, or edema. MUSCULOSKELETAL: Adequate muscle tone. NEUROLOGICAL: No obvious focal deficit. Awake, alert, and oriented x3. Assessment/Plan Problem List: (1) Pancytopenia ICD Codes: D61.818 - Other pancytopenia Plan: --s/p CT-guided bone marrow biopsy and aspiration to rule out a primary bone marrow disorder. --with a diagnosis of HIV/AIDS (diagnosed about 8 years ago). --is presently on HAART therapy with a combination pill known as Genvoya. --CT abdomen shows enlarged spleen --Coupled with his symptoms of weight loss and night sweats there is concern about an underlying myeloproliferative disorder; other differential diagnoses include bone marrow infiltration with an opportunistic infection related to his HIV or myelosuppression related to his HAART therapy. Assessment 36y/o male with pancytopenia and massive splenomegaly associated with splenic infarct in a patient with HIV/AIDS. Recent history of disseminated MAC infection. Massive Splenomegaly with what appears to be either infarction or infiltration of the spleen. Plan 1. Pancytopenia due to MAC infection. Full pathology report pending. Expect counts to slowly recover as infection is treated. 2. Continue Acyclovir; ID recommending 3 weeks of IV therapy followed by po. 3. CBC pending for today. Plan to transfuse for Hgb less than 7.5. 4. Supportive care. Brook Galarza May 15, 2017 07:54
[2017-05-15] MEDS: FUROSEMIDE 40 MG TAB PO SCH (09:00)
[2017-05-15] MEDS: FOLIC ACID 1 MG TAB PO SCH (09:04)
[2017-05-15] MEDS: CYANOCOBALAMIN 1,000 MCG TAB PO SCH (09:04)
[2017-05-15] MEDS: FAMOTIDINE 20 MG TAB PO SCH ×2 (09:04→21:19)
[2017-05-15] MEDS: FERROUS SULFATE 325 MG (65 MG ELEMENTAL IRON) TAB PO SCH ×3 (09:04→17:32)
[2017-05-15] MEDS: CIPROFLOXACIN 500 MG TAB PO SCH ×2 (09:05→21:19)
[2017-05-15] MEDS: AZITHROMYCIN 250 MG TAB PO SCH (09:05)
[2017-05-15 10:50] LABS: ANION GAP 9 MEQ/L (5-15); AST (GOT) 54 U/L (15-37); BICARBONATE 27.1 MEQ/L (21.0-32.0); BLOOD UREA NITROGEN 19 MG/DL (7-18); CHLORIDE 95 MEQ/L (98-107); GLOMERULAR FILTRATION RATE 104 ML/MIN (>89); MAGNESIUM 1.5 MG/DL (1.5-2.5); POTASSIUM 3.8 MEQ/L (3.5-5.1); SODIUM (NA) 131 MEQ/L (136-145)
[2017-05-15 10:51] LABS: ALT (GPT) 50 U/L (12-78)
[2017-05-15 10:56] LABS: MEAN CELL VOLUME 81.5 FL (80.0-100.0); MEAN CORPUSCULAR HEMOGLOBIN 27.5 PG (27.0-34.0); MEAN CORPUSCULAR HGB CONC 33.7 % (32.0-36.0); PLATELET COUNT 81 TH/MM3 (150-450); RED BLOOD COUNT 3.44 MIL/MM3 (4.50-5.90); RED CELL DISTRIBUTION WIDTH 18.7 % (11.6-17.2); WHITE BLOOD COUNT 2.1 TH/MM3 (4.0-11.0)
[2017-05-15 11:00] LABS: ALKALINE PHOSPHATASE 217 U/L (45-117); HEMO FLAGS AUTO DIFF; TOTAL BILIRUBIN ADULT 0.7 MG/DL (0.2-1.0)
[2017-05-15] MEDS: ETHAMBUTOL HCL 400 MG TAB PO SCH (11:32)
[2017-05-15] MEDS: SODIUM CHLORIDE 0.9% FLUSH 10 ML FLUSH IV FLUSH SCH ×2 (11:33→21:19)
[2017-05-15] MEDS: ELVIT/COBI/EMTR/TENOF 150/150/200/300 MG TABLETS PO SCH (11:33)
--- NOTE | 2017-05-15 12:19 | HHI.PR ---
Subjective Remarks AWAIT BONE MARROW BIOPSY RESULTS CONTINUE CURRENT TREATMENTS CONTINUE HAART DW RN AND PT AND FAMILY AT BEDSIDE 05-15 SEEN BY ID AND HEMATOLOGY HAD FEVERS LAST NIGHT BLOOD PRESSURE IS BORDERLINE- HOLD LASIX DW RN AND PT AM LABS Objective Vitals Vital Signs Date Time Temp Pulse Resp B/P (MAP) Pulse Ox O2 Delivery O2 Flow Rate FiO2 05/15/17 08:00 97.9 86 17 106/59 (75) 99 05/15/17 04:35 99.3 94 18 114/62 (79) 99 05/15/17 00:52 98.9 91 20 113/55 (74) 100 05/14/17 20:46 98.3 90 20 106/56 (73) 100 05/14/17 20:00 88 05/14/17 16:00 100.2 109 19 118/71 (87) 95 I/O 05/14/17 05/14/17 05/14/17 05/15/17 05/15/17 05/15/17 07:00 15:00 23:00 07:00 15:00 23:00 Intake Total 720 ml 100 ml 960 ml 100 ml Output Total 500 ml 900 ml 750 ml Balance 220 ml 100 ml 60 ml -650 ml Intake Oral 320 ml 860 ml IV Total 100 ml 100 ml 100 ml Packed Cells 400 ml Output Urine Total 500 ml 900 ml 750 ml # Voids 2 # Bowel Movements 0 1 Result Diagram: 05/15/17 1008 05/15/17 1008 Other Results Laboratory Tests Test 05/13/17 03:44 05/14/17 04:20 05/14/17 17:40 05/15/17 10:08 White Blood Count 1.5 TH/MM3 1.7 TH/MM3 2.1 TH/MM3 Red Blood Count 2.67 MIL/MM3 3.00 MIL/MM3 3.44 MIL/MM3 Hemoglobin 7.5 GM/DL 8.3 GM/DL 9.5 GM/DL Hematocrit 22.5 % 24.5 % 28.0 % Mean Corpuscular Volume 84.3 FL 81.6 FL 81.5 FL Mean Corpuscular Hemoglobin 28.1 PG 27.5 PG 27.5 PG Mean Corpuscular Hemoglobin Concent 33.4 % 33.7 % 33.7 % Red Cell Distribution Width 16.7 % 18.6 % 18.7 % Platelet Count 59 TH/MM3 67 TH/MM3 81 TH/MM3 Mean Platelet Volume 6.9 FL 7.3 FL 7.4 FL Blood Urea Nitrogen 13 MG/DL 19 MG/DL Creatinine 0.82 MG/DL 0.98 MG/DL Random Glucose 87 MG/DL 122 MG/DL Calcium Level 8.8 MG/DL 9.6 MG/DL Sodium Level 133 MEQ/L 131 MEQ/L Potassium Level 3.9 MEQ/L 3.8 MEQ/L Chloride Level 99 MEQ/L 95 MEQ/L Carbon Dioxide Level 26.6 MEQ/L 27.1 MEQ/L Anion Gap 7 MEQ/L 9 MEQ/L Estimat Glomerular Filtration Rate 127 ML/MIN 104 ML/MIN CBC Comment AUTO DIFF Total Protein 7.6 GM/DL Albumin 1.7 GM/DL Phosphorus Level 3.8 MG/DL Magnesium Level 1.5 MG/DL Alkaline Phosphatase 217 U/L Aspartate Amino Transf (AST/SGOT) 54 U/L Alanine Aminotransferase (ALT/SGPT) 50 U/L Total Bilirubin 0.7 MG/DL Free Thyroxine 1.20 NG/DL Thyroid Stimulating Hormone 3rd Gen 1.570 uIU/ML Imaging Last Impressions Chest X-Ray 05/12/17 0000 Signed Impressions: Service Date/Time: Friday, May 12, 2017 11:52 - CONCLUSION: Normal examination except minimal platelike atelectasis left lung base. Jozef Rod MD Bone Biopsy CT 05/10/17 0000 Signed Impressions: Service Date/Time: Wednesday, May 10, 2017 12:39 - CONCLUSION: 1. Uncomplicated CT guided bone marrow aspirate. 2. Uncomplicated CT guided bone marrow biopsy. Eron Angeles MD Abdomen/Pelvis CT 05/05/17 1443 Signed Impressions: Service Date/Time: Friday, May 05, 2017 16:42 - CONCLUSION: Enlarged spleen with large areas of infarction or or neoplastic infiltration. Trace ascites. Sclerotic bones without focal destructive lesions. Clinton Valadez MD FACR Objective Remarks GENERAL: Awake alert oriented talkative and cooperative in no acute distress SKIN: Warm and dry. HEAD: Atraumatic. Normocephalic. EYES: Pupils equal and round. No scleral icterus. No injection or drainage. Extraocular muscles intact ENT: No nasal bleeding or discharge. Mucous membranes pink and moist. Tongue is midline NECK: Trachea midline. No JVD. Supple CARDIOVASCULAR: Regular rate and rhythm. S1 and S2 no S3 or S4 RESPIRATORY: No accessory muscle use. Clear to auscultation. Breath sounds equal bilaterally. GASTROINTESTINAL: Abdomen soft, non-tender, nondistended. Hepatic and splenic margins not palpable. MUSCULOSKELETAL: Extremities without clubbing, cyanosis, or edema. No obvious deformities. NEUROLOGICAL: Awake and alert. No obvious cranial nerve deficits. Motor grossly within normal limits. Five out of 5 muscle strength in the arms and legs. Normal speech. PSYCHIATRIC: Appropriate mood and affect; insight and judgment normal. Procedures EGD PROCEDURE REPORT EXAM DATE: 05/11/2017 PATIENT NAME: Andrea Grady MR #: [id number] BIRTHDATE: 1980 ATTENDING: Charisma Lindsey MD ORDER #: [id number] SLITTER HELPER: Pascual Hankins and Mimi Berman STATUS: inpatient INDICATIONS: The patient is a 36 yr old male here for an EGD due to iron deficiency anemia PROCEDURE PERFORMED: EGD w/ biopsy MEDICATIONS: None and Per Anesthesia. TOPICAL ANESTHETIC: CONSENT: The patient understands the risks and benefits of the procedure and understands that these risks include, but are not limited to: sedation, allergic reaction, infection, perforation and/or bleeding. Alternative means of evaluation and treatment include, among others: physical exam, x-rays, and/or surgical intervention. The patient elects to proceed with this endoscopic procedure. medical equipment was checked for proper function. Hand hygiene and appropriate measures for infection prevention was taken. After the risks, benefits and alternatives of the procedure were thoroughly explained, Informed consent was verified, confirmed and timeout was successfully executed by the treatment team. The patient was anesthetized with topical anesthesia and the EC-3490Li (Pedi C) endoscope was introduced through the mouth and advanced to the second portion of the duodenum. Retroflexed views revealed no abnormalities The gastroscope was then slowly withdrawn and removed. ESOPHAGUS: The mucosa of the esophagus appeared normal. STOMACH: There was erythematous moderate gastritis in the gastric antrum. A biopsy was performed using cold forceps. Sample sent for histology. DUODENUM: Moderate duodenal inflammation was found in the bulb and second portion of the duodenum. ADVERSE EVENTS: There were no complications. IMPRESSIONS: 1. The esophagus appeared normal 2. There was erythematous gastritis in the gastric antrum 3. Duodenal inflammation was found in the bulb and second portion of the duodenum 4. Retroflexed views revealed no abnormalities RECOMMENDATIONS: 1. Await biopsy results. Biopsy results will not be ready for 7-10 days. If you don't hear from us in two weeks, call our office for biopsy results. 2. Anti-reflux regimen 3. Continue PPI PATIENT CONDITION: stable DISPOSITION: Inpatient REPEAT EXAM: Return 1 year EGD pending biopsy results COLONOSCOPY PROCEDURE REPORT EXAM DATE: 05/11/2017 PATIENT NAME: Andrea Grady MR #: [id number] BIRTHDATE: 1980 ENDOSCOPIST: Charisma Lindsey MD ORDER #: [id number] SLITTER HELPER: Pascual Hankins and Mimi Berman STATUS: inpatient INDICATIONS: The patient is a 36 yr old male here for a colonoscopy due to iron deficiency anemia PROCEDURE PERFORMED: Colonoscopy, diagnostic MEDICATIONS: None and Per Anesthesia. PREP QUALITY: The [place] Bowel Prep Score was Right colon 2, Mid colon 2, and Left colon 2. Total = 6. PREP TYPE:GoLytely ESTIMATED BLOOD LOSS: None CONSENT: The patient understands the risks and benefits of the procedure and understands that these risks include, but are not limited to: sedation, allergic reaction, infection, perforation and/or bleeding. Alternative means of evaluation and treatment include, among others: physical exam, x-rays, and/or surgical intervention. The patient elects to proceed with this endoscopic procedure. medical equipment was checked for proper function. Hand hygiene and appropriate measures for infection prevention was taken. After the risks, benefits and alternatives of the procedure were thoroughly explained, Informed consent was verified, confirmed and timeout was successfully executed by the treatment team. A digital exam revealed external hemorrhoids The Pentax EC-[id number] endoscope was introduced through the anus and advanced to the cecum, which was identified by both the appendix and ileocecal valve. The instrument was then slowly withdrawn as the colon was fully examined. COLON FINDINGS: The colonic mucosa appeared normal. Retroflexed views revealed internal hemorrhoids and Retroflexed views revealed medium internal hemorrhoids The scope was then completely withdrawn from the patient and the procedure terminated. PROCEDURE WITHDRAWAL TIME:6minutes ADVERSE EVENTS: There were no complications. IMPRESSIONS: 1. The colonic mucosa appeared normal 2. Retroflexed views revealed internal hemorrhoids 3. Retroflexed views revealed medium internal hemorrhoids 4. Revealed external hemorrhoids RECOMMENDATIONS: 1. Continue surveillance 2. Yearly hemoccult RECALL: Return [address] Bone Marrow Biopsy Signed EXAM DATE/TIME: 05/10/2017 12:39 [place] COMPARISON: No previous studies available for comparison. INDICATIONS : Thrombocytopenia SEDATION TIME: 30 minutes BIOPSY SITE: Left ilium MEDICATION(S): 1.) 4 mg midazolam (Versed) IV 2.) 200 mcg fentanyl (Sublimaze) IV DEVICE(S): 1.) 12 gauge On-Control needle MEDICAL HISTORY : HIV. SURGICAL HISTORY : None. ENCOUNTER: Initial ACUITY: 1 day PAIN SCORE: 0/10 LOCATION: lower quadrant A total of one core specimen(s) were obtained and sent to the laboratory for pathologic evaluation. PROCEDURE: 1. CT guided bone marrow biopsy. 2. Conscious sedation with continuous EKG and oximetry monitoring. 3. EKG and oximetry remained stable throughout the procedure. Prior to the procedure informed consent was obtained. Any appropriate prior imaging studies were reviewed. Using automated exposure control and adjustment of the mA and/or kV according to patient size, radiation dose was kept as low as reasonably achievable to obtain optimal diagnostic quality images. DICOM format image data is available electronically for review and comparison. The site was prepped in a sterile fashion. Full sterile technique was used, including cap, mask, sterile gloves and gown and a large sterile sheet. Hand hygiene and 2% chlorhexidine and/or betadine/alcohol prep was utilized per protocol for cutaneous antisepsis. The skin and subcutaneous tissues were infiltrated with local anesthetic solution. With CT guidance the previously identified target was localized. Biopsy was performed using the prescribed needle as above. Following biopsy marrow aspiration was performed with repeat puncture. Adequate hemostasis was obtained with compression at the puncture site. Follow-up CT scan reveals no hemorrhage. Conscious sedation was performed with the prescribed dosages and duration as above in the presence of an independent trained radiology nurse to assist in the monitoring of the patient. EKG and oximetry remained stable throughout the procedure. The patient tolerated the procedure well and there were no complications. The patient was sent to Radiology Outpatient Unit in stable condition. CONCLUSION: 1. Uncomplicated CT guided bone marrow aspirate. 2. Uncomplicated CT guided bone marrow biopsy. Eron Angeles MD on May 10, 2017 at 13:50 Medications and IVs Current Medications Sodium Chloride (NS Flush) 2 ml UNSCH PRN IV FLUSH FLUSH AFTER USING IV ACCESS ; Start 05/05/17 at 14:45; Stop 05/05/17 at 17:55; Status DC Sodium Chloride 500 ml @ 500 mls/hr BOLUS ONCE IV ; Start 05/05/17 at 15:45; Stop 05/05/17 at 16:44; Status DC Morphine Sulfate (Morphine Inj) 4 mg ONCE ONCE IV PUSH Last administered on 15:53; Start 05/05/17 at 15:45; Stop 05/05/17 at 15:46; Status DC Ondansetron HCl (Zofran Inj) 4 mg ONCE ONCE IV PUSH Last administered on 05/05 15:53; Start 05/05/17 at 15:45; Stop 05/05/17 at 15:46; Status DC Sodium Chloride 250 ml @ 15 mls/hr ONCE ONCE IV Last administered on 19:28; Start 05/05/17 at 16:15; Stop 05/06/17 at 08:54; Status DC Iohexol (Omnipaque 350 Inj) 100 ml STK-MED ONCE IVCONTRAST Last administered on 05/05/17 17:00; Start 05/05/17 at 17:00; Stop 05/05/17 at 17:01; Status DC Sodium Chloride (NS Flush) 2 ml UNSCH PRN IV FLUSH FLUSH AFTER USING IV ACCESS ; Start 05/05/17 at 17:45 Sodium Chloride (NS Flush) 2 ml BID IV FLUSH Last administered on 05/15/17 11 :33; Start 05/05/17 at 21:00 Naloxone HCl (Narcan Inj) 0.4 mg UNSCH PRN IV PUSH SEE LABEL COMMENTS; Start 05/05/17 at 17:45 Furosemide (Lasix Inj) 20 mg ONCE ONCE IV PUSH Last administered on 21:08; Start 05/05/17 at 18:00; Stop 05/05/17 at 18:01; Status DC Patient Own Medication PT OWN MED: Genvoya (Elvitegra... DAILY PO Last administered on 05/10/17 07:53; Start 05/06/17 at 09:00; Status Future Hold Azithromycin (Zithromax) 500 mg DAILY PO Last administered on 05/15/17 09:05 ; Start 05/06/17 at 09:00 Ciprofloxacin (Cipro) 500 mg BID PO Last administered on 05/15/17 09:05; Start 05/05/17 at 21:00 Ferrous Sulfate (Ferrous Sulfate) 325 mg TIDPC PO Last administered on 09:04; Start 05/05/17 at 18:30 Folic Acid (Folate) 1 mg DAILY PO Last administered on 05/15/17 09:04; Start 05/06/17 at 09:00 Furosemide (Lasix) 40 mg DAILY PO Last administered on 05/14/17 08:34; Start 05/06/17 at 09:00 Cyanocobalamin (Vitamin B12) 1,000 mcg DAILY PO Last administered on 09:04; Start 05/06/17 at 09:00 Ethambutol HCl (Myambutol) 800 mg DAILY PO Last administered on 05/15/17 11: 32; Start 05/06/17 at 09:00 Morphine Sulfate (Morphine Inj) 2 mg Q3H PRN IV PUSH BREAKTHROUGH PAIN Last administered on 05/06/17 17:45; Start 05/05/17 at 18:45 Sodium Chloride 250 ml @ 15 mls/hr ONCE ONCE IV Last administered on 04:55; Start 05/06/17 at 03:00; Stop 05/06/17 at 19:39; Status DC Acyclovir Sodium 600 mg/Sodium Chloride 100 ml @ 100 mls/hr Q8H IV Last administered on 05/15/17 11:32; Start 05/06/17 at 12:00 Oxycodone HCl (Roxicodone) 5 mg Q6H PRN PO PAIN SCALE 3 TO 6; Start 05/06/17 at 13:30; Stop 05/07/17 at 11:03; Status DC Oxycodone HCl (Roxicodone) 10 mg Q6H PRN PO PAIN SCALE 7 TO 10 Last administered on 05/07/17 10:54; Start 05/06/17 at 13:30; Stop 05/07/17 at 11 :03; Status DC Oxycodone HCl (Roxicodone) 5 mg Q4HR PRN PO PAIN SCALE 3 TO 6; Start 05/07/17 at 12:00 Oxycodone HCl (Roxicodone) 10 mg Q4H PRN PO PAIN SCALE 7 TO 10 Last administered on 05/15/17 09:05; Start 05/07/17 at 15:00 Acetaminophen (Tylenol) 325 mg Q6H PRN PO FEVER Last administered on 18:01; Start 05/07/17 at 13:15 Elvitegravir/ Cobicis/Emtricit/ Tenof (Stribild [phone] Mg) 1 tab DAILY PO Last administered on 05/15/17 11:33; Start 05/10/17 at 09:00 Polyethylene Glycol/ Electrolytes (Colyte Liq) 4,000 ml ONCE ONCE PO Last administered on 05/10/17 16:00; Start 05/10/17 at 16:00; Stop 05/10/17 at 16 :01; Status DC Fentanyl Citrate (fentaNYL INJ) 100 mcg STK-MED ONCE .ROUTE Last administered on 05/10/17 12:09; Start 05/10/17 at 12:09; Stop 05/10/17 at 12:10; Status DC Fentanyl Citrate (fentaNYL INJ) 100 mcg STK-MED ONCE .ROUTE Last administered on 05/10/17 12:10; Start 05/10/17 at 12:10; Stop 05/10/17 at 12:11; Status DC Midazolam HCl (Versed Inj) 4 mg STK-MED ONCE .ROUTE Last administered on 12:10; Start 05/10/17 at 12:10; Stop 05/10/17 at 12:11; Status DC Lidocaine/ Epinephrine (Xylocaine-Epi 1%-1:100,000 Inj) 20 ml STK-MED ONCE .ROUTE ; Start 05/10/17 at 12:11; Stop 05/10/17 at 12:12; Status DC Lactated Ringer's 1,000 ml @ 30 mls/hr Q24H PRN IV SEE LABEL COMMENTS; Start 05/11/17 at 06:00; Stop 05/14/17 at 05:59; Status DC Famotidine (Pepcid) 20 mg BID PO Last administered on 05/15/17 09:04; Start 05/12/17 at 21:00 Sodium Chloride 250 ml @ 15 mls/hr ONCE ONCE IV Last administered on 22:12; Start 05/13/17 at 10:00; Stop 05/14/17 at 02:39; Status DC A/P Assessment and Plan Assessment and Plan 36-year-old male with history of HIV/AIDS admitted with splenic infarct, symptomatic anemia, pancytopenia. 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 I discussed with hematology, his pancytopenia is likely a result of MAC. Unfortunately the patient has not been compliant with outpatient treatment per Dr. Chapman's discussion with his infectious disease Dr. Edmondson. He is H&H has been trending down. He will receive a unit of PRBC transfusion today. We'll await final recommendations from ID. We also need to ensure he can get his medications from the health department prior to discharge. They are currently close for the holidays. Splenic infarct: General surgery consultation appreciated. Hematology following , status post bone marrow biopsy. 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 Symptomatic anemia/pancytopenia: Bone marrow biopsy showed disseminated MAC. Patient previously received transfusion of 2 units of PRBCs. H&H trending down. Hemoglobin of 7.1 today. We'll give another unit of PRBC transfusion today. -Appreciate hematology following. Discussed with Dr. Chapman, stock counter today. Recommendation is for treatment of MAC and support with transfusions as needed. HIV/AIDS: Appreciate infectious disease recommendations. Known history of MAC and on treatment. Primary varicella versus disseminated zoster - Continue IV acyclovir, MAC Rx and HAART treatment - Further treatment recommendations per infectious disease. Fever/cough: Repeat a chest x-ray today. Patient on antibiotics as above. ?GI bleed: Appreciate gastroenterology recommendations. Plan for EGD/ colonoscopy today DVT prophylaxis: SCDs, HERBER hose. Avoid chemical prophylaxis secondary to anemia , possible GI bleed. Await bone marrow biopsy for further clarification of diagnosis Discussed with patient and RN and family Discharge Planning Pending OFFICIAL bone marrow biopsy results Clinton Bazzi DO May 15, 2017 12:19
[2017-05-15 12:45] LABS: HEMOGLOBIN A1a 1.3 %; HEMOGLOBIN Ao 84.3 %; HEMOGLOBIN LA1C 2.2 %
[2017-05-15 13:27] LABS: EOSINOPHILS 1 % (0-4); NEUTROPHIL # MANUAL DIFF 1.7 TH/MM3 (1.8-7.7); PLATELET ESTIMATE SMEAR LOW (NORMAL); PLATELET MORPHOLOGY NORMAL (NORMAL); POLYS (SEG NEUTROPHILS) 83 % (16-70); SCAN/DIFF FINAL DIFF MANUAL; WBC DIFF SAMPLE 100
[2017-05-15 19:52] LABS: BETA2 GLYCOPROTEIN I AB IGA LESS THAN 9.0 SAU (< OR = 20)
[2017-05-15] MEDS: ACETAMINOPHEN 325 MG TAB PO PRN (21:18)
[2017-05-16] MEDS: ACYCLOVIR INJ 600 MG in SODIUM CHLORIDE 0.9% INJ 100 ML IV SCH ×3 (03:55→21:25)
[2017-05-16] MEDS: ACETAMINOPHEN 325 MG TAB PO PRN ×2 (03:55→18:42)
[2017-05-16 04:00] VITALS: BP 102/58; PULSE 96; RESP 18; TEMP 100.1; O2SAT 97
[2017-05-16 07:56] LABS: AUTOMATED NEUTROPHIL # 1.3 TH/MM3 (1.8-7.7); BASOPHIL % 0.2 % (0.0-2.0); EOSINOPHIL % 0.2 % (0.0-4.0); HEMATOCRIT 24.8 % (39.0-51.0); LYMPH % 8.4 % (9.0-44.0); LYMPHOCYTE # 0.1 TH/MM3 (1.0-4.8); MEAN CELL VOLUME 82.8 FL (80.0-100.0); MEAN CORPUSCULAR HGB CONC 33.9 % (32.0-36.0); MONO % 19.1 % (0.0-8.0); NEUT % 72.1 % (16.0-70.0); PLATELET COUNT 75 TH/MM3 (150-450); RED BLOOD COUNT 2.99 MIL/MM3 (4.50-5.90); RED CELL DISTRIBUTION WIDTH 18.2 % (11.6-17.2); WHITE BLOOD COUNT 1.8 TH/MM3 (4.0-11.0)
[2017-05-16 07:59] LABS: HEMO FLAGS AUTO DIFF
[2017-05-16 08:00] VITALS: BP 100/57; PULSE 82; RESP 17; TEMP 98.4; O2SAT 98
[2017-05-16 08:16] LABS: ALT (GPT) 61 U/L (12-78); ANION GAP 7 MEQ/L (5-15); AST (GOT) 64 U/L (15-37); BICARBONATE 26.8 MEQ/L (21.0-32.0); BLOOD UREA NITROGEN 17 MG/DL (7-18); CHLORIDE 99 MEQ/L (98-107); GLOMERULAR FILTRATION RATE 113 ML/MIN (>89); MAGNESIUM 1.7 MG/DL (1.5-2.5); POTASSIUM 4.1 MEQ/L (3.5-5.1); SODIUM (NA) 133 MEQ/L (136-145)
[2017-05-16 08:30] LABS: ALKALINE PHOSPHATASE 231 U/L (45-117); TOTAL BILIRUBIN ADULT 0.5 MG/DL (0.2-1.0)
[2017-05-16 09:08] LABS: BANDS 5 % (0-6); BASOPHILS 2 % (0-2); METAMYELOCYTES 1 % (0-1); NEUTROPHIL # MANUAL DIFF 1.5 TH/MM3 (1.8-7.7); PLATELET ESTIMATE SMEAR LOW (NORMAL); POLYS (SEG NEUTROPHILS) 77 % (16-70); WBC DIFF SAMPLE 100
[2017-05-16 09:09] LABS: PLATELET MORPHOLOGY NORMAL (NORMAL); SCAN/DIFF FINAL DIFF MANUAL
[2017-05-16] MEDS: SODIUM CHLORIDE 0.9% FLUSH 10 ML FLUSH IV FLUSH SCH ×2 (09:23→21:26)
[2017-05-16] MEDS: FAMOTIDINE 20 MG TAB PO SCH ×2 (09:24→21:25)
[2017-05-16] MEDS: CIPROFLOXACIN 500 MG TAB PO SCH ×2 (09:24→21:25)
[2017-05-16] MEDS: ETHAMBUTOL HCL 400 MG TAB PO SCH (09:24)
[2017-05-16] MEDS: CYANOCOBALAMIN 1,000 MCG TAB PO SCH (09:24)
[2017-05-16] MEDS: AZITHROMYCIN 250 MG TAB PO SCH (09:25)
[2017-05-16] MEDS: FERROUS SULFATE 325 MG (65 MG ELEMENTAL IRON) TAB PO SCH ×3 (09:25→17:52)
[2017-05-16] MEDS: FOLIC ACID 1 MG TAB PO SCH (09:25)
--- NOTE | 2017-05-16 10:34 | HHI.PR ---
Addendum to Inpatient Note Addendum Reason: Additional Documentation Additional Information CD4 low at 42 Started Bactrim for PCP prophylaxis. Test G-6-PD in case alternatives needed. to resume care in am. Mely Fernandes MD May 16, 2017 10:34
[2017-05-16] MEDS: ELVIT/COBI/EMTR/TENOF 150/150/200/300 MG TABLETS PO SCH (10:50)
[2017-05-16 12:00] VITALS: BP 115/67; PULSE 91; RESP 18; TEMP 99; O2SAT 100
--- NOTE | 2017-05-16 12:23 | HHI.PR ---
Subjective Remarks AWAIT BONE MARROW BIOPSY RESULTS CONTINUE CURRENT TREATMENTS CONTINUE HAART DW RN AND PT AND FAMILY AT BEDSIDE 05-15 SEEN BY ID AND HEMATOLOGY HAD FEVERS LAST NIGHT BLOOD PRESSURE IS BORDERLINE- HOLD LASIX DW RN AND PT AM LABS 05-16 STARTED ON BACTRIM BY ID FOR PROPHYLAXIS IN ISOLATION STILL DW RN AND PT AM LABS HOPEFULLY HOME IN NEXT FEW DAYS WHEN CLEARED BY ID Objective Vitals Vital Signs Date Time Temp Pulse Resp B/P (MAP) Pulse Ox O2 Delivery O2 Flow Rate FiO2 05/16/17 08:00 98.4 82 17 100/57 (71) 98 05/16/17 04:00 100.1 96 18 102/58 (73) 97 05/15/17 23:50 98.8 86 18 97/53 (68) 97 05/15/17 20:00 100.3 100 18 103/58 (73) 98 05/15/17 20:00 94 05/15/17 16:00 100.5 91 17 100/56 (71) 99 05/15/17 13:50 162/70 (100) I/O 05/15/17 05/15/17 05/15/17 05/16/17 05/16/17 05/16/17 07:00 15:00 23:00 07:00 15:00 23:00 Intake Total 100 ml 1540 ml 420 ml Output Total 750 ml 950 ml 1050 ml Balance -650 ml 590 ml -630 ml Intake Oral 1440 ml 320 ml IV Total 100 ml 100 ml 100 ml Output Urine Total 750 ml 950 ml 1050 ml # Voids 2 # Bowel Movements 0 0 Result Diagram: 05/16/17 0713 05/16/17 0713 Other Results Laboratory Tests Test 05/14/17 04:20 05/14/17 17:40 05/15/17 10:08 05/16/17 07:13 White Blood Count 1.7 TH/MM3 2.1 TH/MM3 1.8 TH/MM3 Red Blood Count 3.00 MIL/MM3 3.44 MIL/MM3 2.99 MIL/MM3 Hemoglobin 8.3 GM/DL 9.5 GM/DL 8.4 GM/DL Hematocrit 24.5 % 28.0 % 24.8 % Mean Corpuscular Volume 81.6 FL 81.5 FL 82.8 FL Mean Corpuscular Hemoglobin 27.5 PG 27.5 PG 28.0 PG Mean Corpuscular Hemoglobin Concent 33.7 % 33.7 % 33.9 % Red Cell Distribution Width 18.6 % 18.7 % 18.2 % Platelet Count 67 TH/MM3 81 TH/MM3 75 TH/MM3 Mean Platelet Volume 7.3 FL 7.4 FL 7.4 FL CBC Comment AUTO DIFF AUTO DIFF Differential Total Cells Counted 100 100 Neutrophils % (Manual) 83 % 77 % Lymphocytes % 7 % 3 % Monocytes % 9 % 12 % Eosinophils % 1 % Neutrophils # (Manual) 1.7 TH/MM3 1.5 TH/MM3 Differential Comment FINAL DIFF MANUAL FINAL DIFF MANUAL Platelet Estimate LOW LOW Platelet Morphology Comment NORMAL NORMAL Blood Urea Nitrogen 19 MG/DL 17 MG/DL Creatinine 0.98 MG/DL 0.91 MG/DL Random Glucose 122 MG/DL 85 MG/DL Total Protein 7.6 GM/DL 7.3 GM/DL Albumin 1.7 GM/DL 1.7 GM/DL Calcium Level 9.6 MG/DL 9.2 MG/DL Phosphorus Level 3.8 MG/DL 3.4 MG/DL Magnesium Level 1.5 MG/DL 1.7 MG/DL Alkaline Phosphatase 217 U/L 231 U/L Aspartate Amino Transf (AST/SGOT) 54 U/L 64 U/L Alanine Aminotransferase (ALT/SGPT) 50 U/L 61 U/L Total Bilirubin 0.7 MG/DL 0.5 MG/DL Sodium Level 131 MEQ/L 133 MEQ/L Potassium Level 3.8 MEQ/L 4.1 MEQ/L Chloride Level 95 MEQ/L 99 MEQ/L Carbon Dioxide Level 27.1 MEQ/L 26.8 MEQ/L Anion Gap 9 MEQ/L 7 MEQ/L Estimat Glomerular Filtration Rate 104 ML/MIN 113 ML/MIN Hemoglobin A1c 5.6 % Free Thyroxine 1.20 NG/DL Thyroid Stimulating Hormone 3rd Gen 1.570 uIU/ML Neutrophils (%) (Auto) 72.1 % Lymphocytes (%) (Auto) 8.4 % Monocytes (%) (Auto) 19.1 % Eosinophils (%) (Auto) 0.2 % Basophils (%) (Auto) 0.2 % Neutrophils # (Auto) 1.3 TH/MM3 Lymphocytes # (Auto) 0.1 TH/MM3 Monocytes # (Auto) 0.3 TH/MM3 Eosinophils # (Auto) 0.0 TH/MM3 Basophils # (Auto) 0.0 TH/MM3 Band Neutrophils % 5 % Basophils % 2 % Metamyelocytes 1 % Imaging Last Impressions Chest X-Ray 05/12/17 0000 Signed Impressions: Service Date/Time: Friday, May 12, 2017 11:52 - CONCLUSION: Normal examination except minimal platelike atelectasis left lung base. Jozef Rod MD Bone Biopsy CT 05/10/17 0000 Signed Impressions: Service Date/Time: Wednesday, May 10, 2017 12:39 - CONCLUSION: 1. Uncomplicated CT guided bone marrow aspirate. 2. Uncomplicated CT guided bone marrow biopsy. Eron Angeles MD Abdomen/Pelvis CT 05/05/17 1443 Signed Impressions: Service Date/Time: Friday, May 05, 2017 16:42 - CONCLUSION: Enlarged spleen with large areas of infarction or or neoplastic infiltration. Trace ascites. Sclerotic bones without focal destructive lesions. Clinton Valadez MD FACR Objective Remarks GENERAL: Awake alert oriented talkative and cooperative in no acute distress SKIN: Warm and dry. HEAD: Atraumatic. Normocephalic. EYES: Pupils equal and round. No scleral icterus. No injection or drainage. Extraocular muscles intact ENT: No nasal bleeding or discharge. Mucous membranes pink and moist. Tongue is midline NECK: Trachea midline. No JVD. Supple CARDIOVASCULAR: Regular rate and rhythm. S1 and S2 no S3 or S4 RESPIRATORY: No accessory muscle use. Clear to auscultation. Breath sounds equal bilaterally. GASTROINTESTINAL: Abdomen soft, non-tender, nondistended. Hepatic and splenic margins not palpable. MUSCULOSKELETAL: Extremities without clubbing, cyanosis, or edema. No obvious deformities. NEUROLOGICAL: Awake and alert. No obvious cranial nerve deficits. Motor grossly within normal limits. Five out of 5 muscle strength in the arms and legs. Normal speech. PSYCHIATRIC: Appropriate mood and affect; insight and judgment normal. Procedures EGD PROCEDURE REPORT EXAM DATE: 05/11/2017 PATIENT NAME: Andrea Grady MR #: [id number] BIRTHDATE: 1980 ATTENDING: Charisma Lindsey MD ORDER #: [id number] DIGITAL CAMPAIGN MANAGER: Pascual Hankins and Mimi Berman STATUS: inpatient INDICATIONS: The patient is a 36 yr old male here for an EGD due to iron deficiency anemia PROCEDURE PERFORMED: EGD w/ biopsy MEDICATIONS: None and Per Anesthesia. TOPICAL ANESTHETIC: CONSENT: The patient understands the risks and benefits of the procedure and understands that these risks include, but are not limited to: sedation, allergic reaction, infection, perforation and/or bleeding. Alternative means of evaluation and treatment include, among others: physical exam, x-rays, and/or surgical intervention. The patient elects to proceed with this endoscopic procedure. medical equipment was checked for proper function. Hand hygiene and appropriate measures for infection prevention was taken. After the risks, benefits and alternatives of the procedure were thoroughly explained, Informed consent was verified, confirmed and timeout was successfully executed by the treatment team. The patient was anesthetized with topical anesthesia and the EC-[id number] (Pedi C) endoscope was introduced through the mouth and advanced to the second portion of the duodenum. Retroflexed views revealed no abnormalities The gastroscope was then slowly withdrawn and removed. ESOPHAGUS: The mucosa of the esophagus appeared normal. STOMACH: There was erythematous moderate gastritis in the gastric antrum. A biopsy was performed using cold forceps. Sample sent for histology. DUODENUM: Moderate duodenal inflammation was found in the bulb and second portion of the duodenum. ADVERSE EVENTS: There were no complications. IMPRESSIONS: 1. The esophagus appeared normal 2. There was erythematous gastritis in the gastric antrum 3. Duodenal inflammation was found in the bulb and second portion of the duodenum 4. Retroflexed views revealed no abnormalities RECOMMENDATIONS: 1. Await biopsy results. Biopsy results will not be ready for 7-10 days. If you don't hear from us in two weeks, call our office for biopsy results. 2. Anti-reflux regimen 3. Continue PPI PATIENT CONDITION: stable DISPOSITION: Inpatient REPEAT EXAM: Return 1 year EGD pending biopsy results COLONOSCOPY PROCEDURE REPORT EXAM DATE: 05/11/2017 PATIENT NAME: Andrea Grady MR #: [id number] BIRTHDATE: 1980 ENDOSCOPIST: Charisma Lindsey MD ORDER #: [id number] DIGITAL CAMPAIGN MANAGER: Pascual Hankins and Mimi Berman STATUS: inpatient INDICATIONS: The patient is a 36 yr old male here for a colonoscopy due to iron deficiency anemia PROCEDURE PERFORMED: Colonoscopy, diagnostic MEDICATIONS: None and Per Anesthesia. PREP QUALITY: The [place] Bowel Prep Score was Right colon 2, Mid colon 2, and Left colon 2. Total = 6. PREP TYPE:GoLytely ESTIMATED BLOOD LOSS: None CONSENT: The patient understands the risks and benefits of the procedure and understands that these risks include, but are not limited to: sedation, allergic reaction, infection, perforation and/or bleeding. Alternative means of evaluation and treatment include, among others: physical exam, x-rays, and/or surgical intervention. The patient elects to proceed with this endoscopic procedure. medical equipment was checked for proper function. Hand hygiene and appropriate measures for infection prevention was taken. After the risks, benefits and alternatives of the procedure were thoroughly explained, Informed consent was verified, confirmed and timeout was successfully executed by the treatment team. A digital exam revealed external hemorrhoids The Pentax EC-[id number] endoscope was introduced through the anus and advanced to the cecum, which was identified by both the appendix and ileocecal valve. The instrument was then slowly withdrawn as the colon was fully examined. COLON FINDINGS: The colonic mucosa appeared normal. Retroflexed views revealed internal hemorrhoids and Retroflexed views revealed medium internal hemorrhoids The scope was then completely withdrawn from the patient and the procedure terminated. PROCEDURE WITHDRAWAL TIME:6minutes ADVERSE EVENTS: There were no complications. IMPRESSIONS: 1. The colonic mucosa appeared normal 2. Retroflexed views revealed internal hemorrhoids 3. Retroflexed views revealed medium internal hemorrhoids 4. Revealed external hemorrhoids RECOMMENDATIONS: 1. Continue surveillance 2. Yearly hemoccult RECALL: Return [address] Bone Marrow Biopsy Signed EXAM DATE/TIME: 05/10/2017 12:39 [facility] COMPARISON: No previous studies available for comparison. INDICATIONS : Thrombocytopenia SEDATION TIME: 30 minutes BIOPSY SITE: Left ilium MEDICATION(S): 1.) 4 mg midazolam (Versed) IV 2.) 200 mcg fentanyl (Sublimaze) IV DEVICE(S): 1.) 12 gauge On-Control needle MEDICAL HISTORY : HIV. SURGICAL HISTORY : None. ENCOUNTER: Initial ACUITY: 1 day PAIN SCORE: 0/10 LOCATION: lower quadrant A total of one core specimen(s) were obtained and sent to the laboratory for pathologic evaluation. PROCEDURE: 1. CT guided bone marrow biopsy. 2. Conscious sedation with continuous EKG and oximetry monitoring. 3. EKG and oximetry remained stable throughout the procedure. Prior to the procedure informed consent was obtained. Any appropriate prior imaging studies were reviewed. Using automated exposure control and adjustment of the mA and/or kV according to patient size, radiation dose was kept as low as reasonably achievable to obtain optimal diagnostic quality images. DICOM format image data is available electronically for review and comparison. The site was prepped in a sterile fashion. Full sterile technique was used, including cap, mask, sterile gloves and gown and a large sterile sheet. Hand hygiene and 2% chlorhexidine and/or betadine/alcohol prep was utilized per protocol for cutaneous antisepsis. The skin and subcutaneous tissues were infiltrated with local anesthetic solution. With CT guidance the previously identified target was localized. Biopsy was performed using the prescribed needle as above. Following biopsy marrow aspiration was performed with repeat puncture. Adequate hemostasis was obtained with compression at the puncture site. Follow-up CT scan reveals no hemorrhage. Conscious sedation was performed with the prescribed dosages and duration as above in the presence of an independent trained radiology nurse to assist in the monitoring of the patient. EKG and oximetry remained stable throughout the procedure. The patient tolerated the procedure well and there were no complications. The patient was sent to Radiology Outpatient Unit in stable condition. CONCLUSION: 1. Uncomplicated CT guided bone marrow aspirate. 2. Uncomplicated CT guided bone marrow biopsy. Eron Angeles MD on May 10, 2017 at 13:50 Medications and IVs Current Medications Sodium Chloride (NS Flush) 2 ml UNSCH PRN IV FLUSH FLUSH AFTER USING IV ACCESS ; Start 05/05/17 at 14:45; Stop 05/05/17 at 17:55; Status DC Sodium Chloride 500 ml @ 500 mls/hr BOLUS ONCE IV ; Start 05/05/17 at 15:45; Stop 05/05/17 at 16:44; Status DC Morphine Sulfate (Morphine Inj) 4 mg ONCE ONCE IV PUSH Last administered on 15:53; Start 05/05/17 at 15:45; Stop 05/05/17 at 15:46; Status DC Ondansetron HCl (Zofran Inj) 4 mg ONCE ONCE IV PUSH Last administered on 05/05 15:53; Start 05/05/17 at 15:45; Stop 05/05/17 at 15:46; Status DC Sodium Chloride 250 ml @ 15 mls/hr ONCE ONCE IV Last administered on 19:28; Start 05/05/17 at 16:15; Stop 05/06/17 at 08:54; Status DC Iohexol (Omnipaque 350 Inj) 100 ml STK-MED ONCE IVCONTRAST Last administered on 05/05/17 17:00; Start 05/05/17 at 17:00; Stop 05/05/17 at 17:01; Status DC Sodium Chloride (NS Flush) 2 ml UNSCH PRN IV FLUSH FLUSH AFTER USING IV ACCESS ; Start 05/05/17 at 17:45 Sodium Chloride (NS Flush) 2 ml BID IV FLUSH Last administered on 05/16/17 09 :23; Start 05/05/17 at 21:00 Naloxone HCl (Narcan Inj) 0.4 mg UNSCH PRN IV PUSH SEE LABEL COMMENTS; Start 05/05/17 at 17:45 Furosemide (Lasix Inj) 20 mg ONCE ONCE IV PUSH Last administered on 21:08; Start 05/05/17 at 18:00; Stop 05/05/17 at 18:01; Status DC Patient Own Medication PT OWN MED: Genvoya (Elvitegra... DAILY PO Last administered on 05/10/17 07:53; Start 05/06/17 at 09:00; Status Future Hold Azithromycin (Zithromax) 500 mg DAILY PO Last administered on 05/16/17 09:25 ; Start 05/06/17 at 09:00 Ciprofloxacin (Cipro) 500 mg BID PO Last administered on 05/16/17 09:24; Start 05/05/17 at 21:00 Ferrous Sulfate (Ferrous Sulfate) 325 mg TIDPC PO Last administered on 09:25; Start 05/05/17 at 18:30 Folic Acid (Folate) 1 mg DAILY PO Last administered on 05/16/17 09:25; Start 05/06/17 at 09:00 Furosemide (Lasix) 40 mg DAILY PO Last administered on 05/14/17 08:34; Start 05/06/17 at 09:00; Stop 05/15/17 at 12:19; Status DC Cyanocobalamin (Vitamin B12) 1,000 mcg DAILY PO Last administered on 09:24; Start 05/06/17 at 09:00 Ethambutol HCl (Myambutol) 800 mg DAILY PO Last administered on 05/16/17 09: 24; Start 05/06/17 at 09:00 Morphine Sulfate (Morphine Inj) 2 mg Q3H PRN IV PUSH BREAKTHROUGH PAIN Last administered on 05/06/17 17:45; Start 05/05/17 at 18:45 Sodium Chloride 250 ml @ 15 mls/hr ONCE ONCE IV Last administered on 04:55; Start 05/06/17 at 03:00; Stop 05/06/17 at 19:39; Status DC Acyclovir Sodium 600 mg/Sodium Chloride 100 ml @ 100 mls/hr Q8H IV Last administered on 05/16/17 03:55; Start 05/06/17 at 12:00 Oxycodone HCl (Roxicodone) 5 mg Q6H PRN PO PAIN SCALE 3 TO 6; Start 05/06/17 at 13:30; Stop 05/07/17 at 11:03; Status DC Oxycodone HCl (Roxicodone) 10 mg Q6H PRN PO PAIN SCALE 7 TO 10 Last administered on 05/07/17 10:54; Start 05/06/17 at 13:30; Stop 05/07/17 at 11 :03; Status DC Oxycodone HCl (Roxicodone) 5 mg Q4HR PRN PO PAIN SCALE 3 TO 6; Start 05/07/17 at 12:00 Oxycodone HCl (Roxicodone) 10 mg Q4H PRN PO PAIN SCALE 7 TO 10 Last administered on 05/16/17 09:25; Start 05/07/17 at 15:00 Acetaminophen (Tylenol) 325 mg Q6H PRN PO FEVER Last administered on 03:55; Start 05/07/17 at 13:15 Elvitegravir/ Cobicis/Emtricit/ Tenof (Stribild 034-113-472-300 Mg) 1 tab DAILY PO Last administered on 05/16/17 10:50; Start 05/10/17 at 09:00 Polyethylene Glycol/ Electrolytes (Colyte Liq) 4,000 ml ONCE ONCE PO Last administered on 05/10/17 16:00; Start 05/10/17 at 16:00; Stop 05/10/17 at 16 :01; Status DC Fentanyl Citrate (fentaNYL INJ) 100 mcg STK-MED ONCE .ROUTE Last administered on 05/10/17 12:09; Start 05/10/17 at 12:09; Stop 05/10/17 at 12:10; Status DC Fentanyl Citrate (fentaNYL INJ) 100 mcg STK-MED ONCE .ROUTE Last administered on 05/10/17 12:10; Start 05/10/17 at 12:10; Stop 05/10/17 at 12:11; Status DC Midazolam HCl (Versed Inj) 4 mg STK-MED ONCE .ROUTE Last administered on 12:10; Start 05/10/17 at 12:10; Stop 05/10/17 at 12:11; Status DC Lidocaine/ Epinephrine (Xylocaine-Epi 1%-1:100,000 Inj) 20 ml STK-MED ONCE .ROUTE ; Start 05/10/17 at 12:11; Stop 05/10/17 at 12:12; Status DC Lactated Ringer's 1,000 ml @ 30 mls/hr Q24H PRN IV SEE LABEL COMMENTS; Start 05/11/17 at 06:00; Stop 05/14/17 at 05:59; Status DC Famotidine (Pepcid) 20 mg BID PO Last administered on 05/16/17 09:24; Start 05/12/17 at 21:00 Sodium Chloride 250 ml @ 15 mls/hr ONCE ONCE IV Last administered on 22:12; Start 05/13/17 at 10:00; Stop 05/14/17 at 02:39; Status DC Trimethoprim/ Sulfamethoxazole (Bactrim Ds 800-160 Mg) 1 tab MoWeFr@09 PO ; Start 05/17/17 at 09:00 A/P Assessment and Plan Assessment and Plan 36-year-old male with history of HIV/AIDS admitted with splenic infarct, symptomatic anemia, pancytopenia. 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 I discussed with hematology, his pancytopenia is likely a result of MAC. Unfortunately the patient has not been compliant with outpatient treatment per Dr. Chapman's discussion with his infectious disease Dr. Edmondson. He is H&H has been trending down. He will receive a unit of PRBC transfusion today. We'll await final recommendations from ID. We also need to ensure he can get his medications from the health department prior to discharge. They are currently close for the holidays. Splenic infarct: General surgery consultation appreciated. Hematology following , status post bone marrow biopsy. 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 Symptomatic anemia/pancytopenia: Bone marrow biopsy showed disseminated MAC. Patient previously received transfusion of 2 units of PRBCs. H&H trending down. Hemoglobin of 7.1 today. We'll give another unit of PRBC transfusion today. -Appreciate hematology following. Discussed with Dr. Chapman, physician gynecologist today. Recommendation is for treatment of MAC and support with transfusions as needed. HIV/AIDS: Appreciate infectious disease recommendations. Known history of MAC and on treatment. Primary varicella versus disseminated zoster - Continue IV acyclovir, MAC Rx and HAART treatment BACTRIM ADDED NOW - Further treatment recommendations per infectious disease. DISSEMINATED ZOSTER CONTINUE ON ISOLATION Fever/cough: Repeat a chest x-ray today. Patient on antibiotics as above. ?GI bleed: Appreciate gastroenterology recommendations. Plan for EGD/ colonoscopy today DVT prophylaxis: SCDs, HERBER boss. Avoid chemical prophylaxis secondary to anemia , possible GI bleed. Await bone marrow biopsy for further clarification of diagnosis Discussed with patient and RN and family Discharge Planning Pending OFFICIAL bone marrow biopsy results Clinton Bazzi DO May 16, 2017 12:23
[2017-05-16 14:28] VITALS: PULSE 91
[2017-05-16 16:00] VITALS: BP 120/69; PULSE 98; RESP 17; TEMP 100.3; O2SAT 100
[2017-05-16 20:00] VITALS: BP 98/51; PULSE 93; RESP 18; TEMP 100.1; O2SAT 98
[2017-05-17] VITALS: BP 94/54; PULSE 90; RESP 18; TEMP 97.9; O2SAT 100
[2017-05-17 04:00] VITALS: BP 112/63; PULSE 95; RESP 18; TEMP 99.3; O2SAT 98
[2017-05-17] MEDS: ACYCLOVIR INJ 600 MG in SODIUM CHLORIDE 0.9% INJ 100 ML IV SCH ×3 (04:48→19:55)
[2017-05-17 08:00] VITALS: BP 108/58; PULSE 86; RESP 16; TEMP 98.8; O2SAT 100
[2017-05-17] MEDS: ETHAMBUTOL HCL 400 MG TAB PO SCH (09:00)
[2017-05-17] MEDS: FERROUS SULFATE 325 MG (65 MG ELEMENTAL IRON) TAB PO SCH ×3 (10:57→18:15)
[2017-05-17] MEDS: CIPROFLOXACIN 500 MG TAB PO SCH (10:57)
[2017-05-17] MEDS: CYANOCOBALAMIN 1,000 MCG TAB PO SCH (10:57)
[2017-05-17] MEDS: SULFAMETHOXAZOLE-TRIMETHOPRIM DS 800-160 MG TAB PO SCH (10:57)
[2017-05-17] MEDS: FOLIC ACID 1 MG TAB PO SCH (10:57)
[2017-05-17] MEDS: AZITHROMYCIN 250 MG TAB PO SCH (10:57)
[2017-05-17] MEDS: ELVIT/COBI/EMTR/TENOF 150/150/200/300 MG TABLETS PO SCH (10:57)
[2017-05-17] MEDS: FAMOTIDINE 20 MG TAB PO SCH ×2 (10:57→19:55)
[2017-05-17] MEDS: SODIUM CHLORIDE 0.9% FLUSH 10 ML FLUSH IV FLUSH SCH ×2 (11:11→19:55)
[2017-05-17 11:25] LABS: AUTOMATED NEUTROPHIL # 1.7 TH/MM3 (1.8-7.7); BASOPHIL % 0.5 % (0.0-2.0); EOSINOPHIL % 0.4 % (0.0-4.0); HEMATOCRIT 30.4 % (39.0-51.0); HEMO FLAGS AUTO DIFF; LYMPH % 24.1 % (9.0-44.0); LYMPHOCYTE # 0.6 TH/MM3 (1.0-4.8); MEAN CELL VOLUME 84.3 FL (80.0-100.0); MEAN CORPUSCULAR HEMOGLOBIN 27.6 PG (27.0-34.0); MEAN CORPUSCULAR HGB CONC 32.7 % (32.0-36.0); MONO % 9.6 % (0.0-8.0); NEUT % 65.4 % (16.0-70.0); PLATELET COUNT 113 TH/MM3 (150-450); RED BLOOD COUNT 3.61 MIL/MM3 (4.50-5.90); RED CELL DISTRIBUTION WIDTH 18.4 % (11.6-17.2); WHITE BLOOD COUNT 2.6 TH/MM3 (4.0-11.0)
--- NOTE | 2017-05-17 11:37 | PD.ONC.PN ---
Subjective Subjective Remarks Tmax 100.1 overnight. Patient resting in bed. No overnight events. Objective Data Date Time Temp Pulse Resp B/P (MAP) Pulse Ox O2 Delivery O2 Flow Rate FiO2 05/17/17 08:00 98.8 86 16 108/58 (75) 100 05/17/17 04:00 99.3 95 18 112/63 (79) 98 05/17/17 00:00 97.9 90 18 94/54 (67) 100 05/16/17 20:00 93 05/16/17 20:00 93 05/16/17 20:00 100.1 93 18 98/51 (67) 98 05/16/17 16:00 100.3 98 17 120/69 (86) 100 05/16/17 14:28 91 05/16/17 12:00 99.0 91 18 115/67 (83) 100 05/17/17 05/17/17 05/17/17 06:59 14:59 22:59 Intake Total 720 ml Output Total 1125 ml Balance -405 ml Result Diagram: 05/17/17 1057 05/16/17 0713 Laboratory Results Laboratory Tests Test 05/16/17 12:17 05/17/17 10:57 White Blood Count 2.6 TH/MM3 Red Blood Count 3.61 MIL/MM3 Hemoglobin 10.0 GM/DL Hematocrit 30.4 % Mean Corpuscular Volume 84.3 FL Mean Corpuscular Hemoglobin 27.6 PG Mean Corpuscular Hemoglobin Concent 32.7 % Red Cell Distribution Width 18.4 % Platelet Count 113 TH/MM3 Mean Platelet Volume 7.1 FL Neutrophils (%) (Auto) 65.4 % Lymphocytes (%) (Auto) 24.1 % Monocytes (%) (Auto) 9.6 % Eosinophils (%) (Auto) 0.4 % Basophils (%) (Auto) 0.5 % Neutrophils # (Auto) 1.7 TH/MM3 Lymphocytes # (Auto) 0.6 TH/MM3 Monocytes # (Auto) 0.3 TH/MM3 Eosinophils # (Auto) 0.0 TH/MM3 Basophils # (Auto) 0.0 TH/MM3 CBC Comment AUTO DIFF Culture Results Microbiology Date/Time Source Procedure Growth Status 05/14/17 17:40 Blood Peripheral Blood Fungal Culture Pending Received 05/14/17 17:40 Blood Peripheral Blood Fungal Culture Pending Received 05/14/17 17:40 Blood Peripheral Mycobacterial Culture Pending Received Administered Medications Medications (Trade) Dose Ordered Sig/Derek Route PRN Reason Start Time Stop Time Status Last Admin Dose Admin Sodium Chloride (NS Flush) 2 ml BID IV FLUSH 05/05/17 21:00 05/17/17 11:11 Patient Own Medication PT OWN MED: Genvoya (Elvitegra... DAILY PO 05/06/17 09:00 Future Hold 05/10/17 07:53 Azithromycin (Zithromax) 500 mg DAILY PO 05/06/17 09:00 05/17/17 10:57 Ciprofloxacin (Cipro) 500 mg BID PO 05/05/17 21:00 05/17/17 10:57 Ferrous Sulfate (Ferrous Sulfate) 325 mg TIDPC PO 05/05/17 18:30 05/17/17 10:57 Folic Acid (Folate) 1 mg DAILY PO 05/06/17 09:00 05/17/17 10:57 Cyanocobalamin (Vitamin B12) 1,000 mcg DAILY PO 05/06/17 09:00 05/17/17 10:57 Ethambutol HCl (Myambutol) 800 mg DAILY PO 05/06/17 09:00 05/17/17 09:00 Morphine Sulfate (Morphine Inj) 2 mg Q3H PRN IV PUSH BREAKTHROUGH PAIN 05/05/17 18:45 05/06/17 17:45 Acyclovir Sodium 600 mg/Sodium Chloride 100 ml @ 100 mls/hr Q8H IV 05/06/17 12:00 05/17/17 04:48 Oxycodone HCl (Roxicodone) 10 mg Q4H PRN PO PAIN SCALE 7 TO 10 05/07/17 15:00 05/17/17 11:18 Acetaminophen (Tylenol) 325 mg Q6H PRN PO FEVER 05/07/17 13:15 05/16/17 18:42 Elvitegravir/ Cobicis/Emtricit/ Tenof (Stribild 757-035-211-300 Mg) 1 tab DAILY PO 05/10/17 09:00 05/17/17 10:57 Famotidine (Pepcid) 20 mg BID PO 05/12/17 21:00 05/17/17 10:57 Trimethoprim/ Sulfamethoxazole (Bactrim Ds 800-160 Mg) 1 tab MoWeFr@09 PO 05/17/17 09:00 05/17/17 10:57 Objective Remarks GENERAL: chronically ill male supine in bed in nad. SKIN: Warm and dry. HEAD: Normocephalic. EYES: No injection or drainage. NECK: Supple, trachea midline. CARDIOVASCULAR: +S1/S2 RESPIRATORY: anterior dunn clear. GASTROINTESTINAL: nondistended. nontender to palpation. EXTREMITIES: No cyanosis, or edema. NEUROLOGICAL: No obvious focal deficit. Awake, alert, and oriented x3. Assessment/Plan Problem List: (1) Pancytopenia ICD Codes: D61.818 - Other pancytopenia Plan: --most likely due to disseminated MAC in bone marrow, awaiting final pathology report. expect counts to improve as infection is treated. --s/p CT-guided bone marrow biopsy and aspiration --with a diagnosis of HIV/AIDS (diagnosed about 8 years ago). --is presently on HAART therapy with a combination pill known as Genvoya. --CT abdomen shows enlarged spleen Assessment 36y/o male with pancytopenia and massive splenomegaly associated with splenic infarct in a patient with HIV/AIDS. Recent history of disseminated MAC infection. Massive Splenomegaly with what appears to be either infarction or infiltration of the spleen. Plan 1. monitor CBC, no transfusion needed today 2. await final bone marrow biopsy pathology report. 3. continue supportive care Ghislaine Bender May 17, 2017 11:37
[2017-05-17 11:41] LABS: ALT (GPT) 96 U/L (12-78); ANION GAP 9 MEQ/L (5-15); AST (GOT) 90 U/L (15-37); BICARBONATE 27.1 MEQ/L (21.0-32.0); BLOOD UREA NITROGEN 16 MG/DL (7-18); CHLORIDE 97 MEQ/L (98-107); GLOMERULAR FILTRATION RATE 108 ML/MIN (>89); MAGNESIUM 1.7 MG/DL (1.5-2.5); POTASSIUM 3.8 MEQ/L (3.5-5.1); SODIUM (NA) 133 MEQ/L (136-145)
[2017-05-17 11:43] LABS: ALKALINE PHOSPHATASE 346 U/L (45-117); TOTAL BILIRUBIN ADULT 0.5 MG/DL (0.2-1.0)
[2017-05-17 12:00] VITALS: BP 135/67; PULSE 101; RESP 16; TEMP 99.2; O2SAT 100
[2017-05-17 12:03] LABS: SCAN/DIFF AUTO DIFF CONFIRMED
--- NOTE | 2017-05-17 14:23 | HHI.PR ---
Subjective Remarks Fevers still present overnight. Patient's primary complaint today is his diet. He says is not diabetic at baseline. No other complaints. No significant pain reported. Objective Vital Signs Date Time Temp Pulse Resp B/P (MAP) Pulse Ox O2 Delivery O2 Flow Rate FiO2 05/17/17 12:00 99.2 101 16 135/67 (89) 100 05/17/17 08:00 98.8 86 16 108/58 (75) 100 05/17/17 04:00 99.3 95 18 112/63 (79) 98 05/17/17 00:00 97.9 90 18 94/54 (67) 100 05/16/17 20:00 93 05/16/17 20:00 93 05/16/17 20:00 100.1 93 18 98/51 (67) 98 05/16/17 16:00 100.3 98 17 120/69 (86) 100 05/16/17 14:28 91 I/O 05/16/17 05/16/17 05/16/17 05/17/17 05/17/17 05/17/17 07:00 15:00 23:00 07:00 15:00 23:00 Intake Total 420 ml 840 ml 720 ml Output Total 1050 ml 1830 ml 1125 ml Balance -630 ml -990 ml -405 ml Intake Oral 320 ml 840 ml 720 ml IV Total 100 ml Output Urine Total 1050 ml 1830 ml 1125 ml # Bowel Movements 0 0 0 Result Diagram: 05/17/17 1057 05/17/17 1057 Objective Remarks GENERAL: NAD, A&Ox3 HEAD: Normocephalic. NECK: Supple, trachea midline. No lymphadenopathy. EYES: No scleral icterus. No injection or drainage. CARDIOVASCULAR: Regular rate and rhythm without murmurs, gallops, or rubs. RESPIRATORY: Breath sounds equal bilaterally. No accessory muscle use. GASTROINTESTINAL: Abdomen soft, non-tender, nondistended. MUSCULOSKELETAL: No cyanosis, or edema. Zoster rash at right lower jaw and neck SKIN: Warm and dry. NEURO: No focal neurological deficitis. A/P Problem List: (1) Pancytopenia ICD Code: D61.818 - Other pancytopenia (2) HIV (human immunodeficiency virus infection) ICD Code: B20 - Human immunodeficiency virus [HIV] disease Status: Chronic (3) Enlargement of spleen ICD Code: R16.1 - Splenomegaly, not elsewhere classified Status: Chronic (4) Thrombocytopenia ICD Code: D69.6 - Thrombocytopenia, unspecified Status: Acute (5) Splenic infarction ICD Code: D73.5 - Infarction of spleen Status: Acute (6) Anemia ICD Code: D64.9 - Anemia, unspecified Status: Acute Assessment and Plan Assessment and Plan 36-year-old male admitted secondary to pancytopenia and splenic infarct Splenic infarct Follow clinically Surgeon following Hematology following Immunocompromise HIV/AIDS Continue MAC treatment Disseminated zoster Continue IV acyclovir Continue Bactrim Contact and airborne isolation Fever Continue Bactrim Continue azithromycin Continue ciprofloxacin Follow for resolution of fever Possible GI bleed Acute blood loss anemia EGD and colonoscopy pending GI following Follow CBC Transfusions as needed Bone marrow biopsy results pending DVT prophylaxis SCDs Avoid blood thinners secondary to degree of anemia Problem Qualifiers (1) Anemia: Qualified Codes: D64.9 - Anemia, unspecified Esteban Morelos MD May 17, 2017 14:23
--- NOTE | 2017-05-17 14:30 | HHI.IDPN ---
Subjective Subjective Remarks Patient is a 36-year-old male, with known HIV, AIDS, presented to the hospital complaining of diffuse body aches, as well as severe left upper quadrant pain. Patient stated he was hospitalized 2 times at [facility]. The first one was 7 days, and the second one was about 10 days, and he was discharge about a week ago. During that hospitalization he was told he had a bruise in his spleen, and he was actively being evaluated for a splenectomy, but it was decided not to do it. During that time he also had left upper quadrant pain, and his pain resolved the pain however started again at home and it was so severe that any kind of movement aggravates the pain. He is also had on and off fevers. Minimal respiratory complaint. No nausea or vomiting. Has frequent bowel movement. No urinary complaints. Patient has been diagnosed to have HIV probably for the last 7 years. He was going to the health Department, but lost to follow-up, and recently started following up with Dr. Edmondson. He has been put on HAART in the last 4 months. The record also mention that he had been diagnosed to have MAC, and currently on treatment for that. Patient also noted a rash on the right side of his neck recently. He has never had chickenpox and denies any exposure to anyone with shingles or chickenpox. Patient since admission has had fevers. He has pancytopenia. He is complaining of severe pain in his left upper quadrant. CT of the abdomen and pelvis did confirm an area of splenic infarct. Infectious disease consultation has been requested to evaluate the patient. Notes reviewed Has intermittent low grade temps No new complaint BM biopsy pending Pancytopenia, though WBC slightly higher VZV PCR (+) VZV IgG (+) CD4 less than 20 CMV PCR negative RPR non-reactive Crypto Ag pending Antibiotics VIKKI Rx HAART Acyclovir Current Medications Medications (Trade) Dose Ordered Sig/Derek Route Start Time Stop Time Status Last Admin (NS Flush) 2 ml UNSCH PRN IV FLUSH 05/05/17 17:45 (NS Flush) 2 ml BID IV FLUSH 05/05/17 21:00 05/17/17 11:11 (Narcan Inj) 0.4 mg UNSCH PRN IV PUSH 05/05/17 17:45 Patient Own Medication PT OWN MED: Genvoya (Elvitegra... DAILY PO 11/16/17 09:00 Future Hold 05/10/17 07:53 (Ferrous Sulfate) 325 mg TIDPC PO 05/05/17 18:30 05/17/17 13:17 (Folate) 1 mg DAILY PO 05/06/17 09:00 05/17/17 10:57 (Vitamin B12) 1,000 mcg DAILY PO 05/06/17 09:00 05/17/17 10:57 (Myambutol) 800 mg DAILY PO 05/06/17 09:00 05/17/17 09:00 (Morphine Inj) 2 mg Q3H PRN IV PUSH 05/05/17 18:45 05/06/17 17:45 Acyclovir Sodium 600 mg/Sodium Chloride 100 ml @ 100 mls/hr Q8H IV 05/06/17 12:00 05/25/17 15:00 05/17/17 13:31 (Roxicodone) 5 mg Q4HR PRN PO 05/07/17 12:00 (Roxicodone) 10 mg Q4H PRN PO 05/07/17 15:00 05/17/17 11:18 (Tylenol) 325 mg Q6H PRN PO 05/07/17 13:15 05/16/17 18:42 (Stribild [phone] Mg) 1 tab DAILY PO 05/10/17 09:00 05/17/17 10:57 (Pepcid) 20 mg BID PO 05/12/17 21:00 05/17/17 10:57 (Bactrim Ds 800-160 Mg) 1 tab MoWeFr@09 PO 05/17/17 09:00 05/17/17 10:57 (Biaxin) 500 mg Q12HR PO 05/18/17 09:00 UNV (Rifampin) 300 mg Q12HR PO 05/17/17 21:00 UNV Lines PIV Past Medical History HIV/AIDS, CD4 26 Hypertension Splenomegaly, splenic infarct MAC infection Allergies: Coded Allergies: No Known Allergies (Verified Allergy, Mild, 05/30/08) Objective . Vital Signs Date Time Temp Pulse Resp B/P (MAP) Pulse Ox O2 Delivery O2 Flow Rate FiO2 05/17/17 12:00 99.2 101 16 135/67 (89) 100 05/17/17 08:00 98.8 86 16 108/58 (75) 100 05/17/17 04:00 99.3 95 18 112/63 (79) 98 05/17/17 00:00 97.9 90 18 94/54 (67) 100 05/16/17 20:00 93 05/16/17 20:00 93 05/16/17 20:00 100.1 93 18 98/51 (67) 98 05/16/17 16:00 100.3 98 17 120/69 (86) 100 05/16/17 14:28 91 . Laboratory Tests Test 05/16/17 07:13 05/16/17 12:17 05/17/17 10:57 White Blood Count 1.8 TH/MM3 2.6 TH/MM3 Red Blood Count 2.99 MIL/MM3 3.61 MIL/MM3 Hemoglobin 8.4 GM/DL 10.0 GM/DL Hematocrit 24.8 % 30.4 % Mean Corpuscular Volume 82.8 FL 84.3 FL Mean Corpuscular Hemoglobin 28.0 PG 27.6 PG Mean Corpuscular Hemoglobin Concent 33.9 % 32.7 % Red Cell Distribution Width 18.2 % 18.4 % Platelet Count 75 TH/MM3 113 TH/MM3 Mean Platelet Volume 7.4 FL 7.1 FL Neutrophils (%) (Auto) 72.1 % 65.4 % Lymphocytes (%) (Auto) 8.4 % 24.1 % Monocytes (%) (Auto) 19.1 % 9.6 % Eosinophils (%) (Auto) 0.2 % 0.4 % Basophils (%) (Auto) 0.2 % 0.5 % Neutrophils # (Auto) 1.3 TH/MM3 1.7 TH/MM3 Lymphocytes # (Auto) 0.1 TH/MM3 0.6 TH/MM3 Monocytes # (Auto) 0.3 TH/MM3 0.3 TH/MM3 Eosinophils # (Auto) 0.0 TH/MM3 0.0 TH/MM3 Basophils # (Auto) 0.0 TH/MM3 0.0 TH/MM3 CBC Comment AUTO DIFF AUTO DIFF Differential Total Cells Counted 100 Neutrophils % (Manual) 77 % Band Neutrophils % 5 % Lymphocytes % 3 % Monocytes % 12 % Basophils % 2 % Neutrophils # (Manual) 1.5 TH/MM3 Metamyelocytes 1 % Differential Comment FINAL DIFF MANUAL AUTO DIFF CONFIRMED Platelet Estimate LOW Platelet Morphology Comment NORMAL Laboratory Tests Test 05/16/17 07:13 05/17/17 10:57 Blood Urea Nitrogen 17 MG/DL 16 MG/DL Creatinine 0.91 MG/DL 0.95 MG/DL Random Glucose 85 MG/DL 101 MG/DL Total Protein 7.3 GM/DL 8.7 GM/DL Albumin 1.7 GM/DL 2.1 GM/DL Calcium Level 9.2 MG/DL 9.9 MG/DL Phosphorus Level 3.4 MG/DL 3.5 MG/DL Magnesium Level 1.7 MG/DL 1.7 MG/DL Alkaline Phosphatase 231 U/L 346 U/L Aspartate Amino Transf (AST/SGOT) 64 U/L 90 U/L Alanine Aminotransferase (ALT/SGPT) 61 U/L 96 U/L Total Bilirubin 0.5 MG/DL 0.5 MG/DL Sodium Level 133 MEQ/L 133 MEQ/L Potassium Level 4.1 MEQ/L 3.8 MEQ/L Chloride Level 99 MEQ/L 97 MEQ/L Carbon Dioxide Level 26.8 MEQ/L 27.1 MEQ/L Anion Gap 7 MEQ/L 9 MEQ/L Estimat Glomerular Filtration Rate 113 ML/MIN 108 ML/MIN Microbiology Date/Time Source Procedure Growth Status 05/14/17 17:40 Blood Peripheral Blood Fungal Culture Pending Received 05/14/17 17:40 Blood Peripheral Blood Fungal Culture Pending Received 05/14/17 17:40 Blood Peripheral Mycobacterial Culture Pending Received Imaging Last Impressions Abdomen/Pelvis CT 05/05/17 1443 Signed Impressions: Service Date/Time: Friday, May 05, 2017 16:42 - CONCLUSION: Enlarged spleen with large areas of infarction or or neoplastic infiltration. Trace ascites. Sclerotic bones without focal destructive lesions. Clinton Valadez MD FACR Chest X-Ray 05/05/17 0000 Signed Impressions: Service Date/Time: Friday, May 05, 2017 15:41 - CONCLUSION: Negative for fracture or dislocation. Follow up in 7-10 days is suggested if symptoms persist. Clinton Valadez MD FACR Physical Exam GENERAL: awake and alert, not in respiratory distress. SKIN: Warm and dry. Skin lesions are drying up HEAD: Atraumatic. Normocephalic. No temporal wasting, or tenderness. EYES: [place] conjunctiva. No petechia or hemorrhage. Pupils equal, round and reactive to light. Extraocular movements full and intact. No scleral icterus. No injection or drainage. EARS, NOSE AND THROAT: Nose without bleeding or purulent nasal discharge. No sinus tenderness. Mucous membranes pink and moist. No oral lesions noted. No exudate. No oral thrush. NECK: Trachea midline. Supple and not tender, no meningeal signs. Has cervical lymphadenopathy CARDIOVASCULAR: Regular rate and rhythm. No murmurs, rubs or gallops heard RESPIRATORY: Clear to auscultation. Breath sounds equal bilaterally. No rales , wheezing or rhonchi ABDOMEN: Soft, nondistended. Tender especially on L side. Bowel sounds present and normoactive. No guarding. No rebound. EXTREMITIES: No clubbing, cyanosis, or edema.No joint effusion, has good ROM. No calf tenderness. Well perfused and warm. NEUROLOGICAL: Grossly non-focal PSYCHIATRIC: Normal affect, calm and cooperative. LINE: No evidence of infection Assessment & Plan Remarks IMPRESSION Sepsis, with fevers - has splenomegaly, prob hypersplenism and splenic infarct - known MAC and on Rx - has HIV/AIDS - has rash resembling varicella, ?primary (he denies prior Hx chickenpox) or disseminated zoster Disseminated zoster HIV/AIDS MAC infection by Hx RECOMMENDATION Follow C/S Continue IV Acyclovir would recommend a 3 week course followed by oral suppression. - follow BMP Continue other meds - MAC RX and HAART Monitor progress Follow BM biopsy results Change VIKKI RX: Biaxin, EMB and Rifampin D.w Pathologist : prelim read s/o macrophages and VIKKI organisms. Follow new C/S Explained plan to the patient Bettina Covarrubias MD May 17, 2017 14:30
[2017-05-17 16:00] VITALS: BP 106/56; PULSE 96; RESP 17; TEMP 98.6; O2SAT 97
[2017-05-17] MEDS: RIFAMPIN 150 MG CAP PO SCH (19:55)
[2017-05-17 20:00] VITALS: BP 105/52; PULSE 103; RESP 18; TEMP 99.7; O2SAT 98
[2017-05-18] VITALS: BP 97/53; PULSE 97; RESP 18; TEMP 99.5; O2SAT 98
[2017-05-18] MEDS: ACYCLOVIR INJ 600 MG in SODIUM CHLORIDE 0.9% INJ 100 ML IV SCH ×3 (04:15→21:53)
[2017-05-18 04:29] VITALS: BP 102/51; PULSE 98; RESP 18; TEMP 99.9; O2SAT 100
[2017-05-18 08:00] VITALS: BP 96/52; PULSE 86; RESP 18; TEMP 98.7; O2SAT 98
[2017-05-18 08:13] LABS: AUTOMATED NEUTROPHIL # 1.3 TH/MM3 (1.8-7.7); BASOPHIL % 0.5 % (0.0-2.0); EOSINOPHIL % 0.2 % (0.0-4.0); LYMPHOCYTE # 0.2 TH/MM3 (1.0-4.8); MEAN CELL VOLUME 82.9 FL (80.0-100.0); MEAN CORPUSCULAR HGB CONC 33.7 % (32.0-36.0); MONO % 14.8 % (0.0-8.0); NEUT % 73.5 % (16.0-70.0); PLATELET COUNT 91 TH/MM3 (150-450); RED BLOOD COUNT 2.89 MIL/MM3 (4.50-5.90); RED CELL DISTRIBUTION WIDTH 18.3 % (11.6-17.2); WHITE BLOOD COUNT 1.8 TH/MM3 (4.0-11.0)
[2017-05-18 08:19] LABS: HEMO FLAGS AUTO DIFF
[2017-05-18 08:35] LABS: ANION GAP 9 MEQ/L (5-15); AST (GOT) 63 U/L (15-37); BICARBONATE 25.2 MEQ/L (21.0-32.0); BLOOD UREA NITROGEN 16 MG/DL (7-18); CHLORIDE 98 MEQ/L (98-107); GLOMERULAR FILTRATION RATE 113 ML/MIN (>89); SODIUM (NA) 132 MEQ/L (136-145)
[2017-05-18 08:37] LABS: ALT (GPT) 75 U/L (12-78)
[2017-05-18 08:39] LABS: ALKALINE PHOSPHATASE 312 U/L (45-117); TOTAL BILIRUBIN ADULT 0.6 MG/DL (0.2-1.0)
[2017-05-18] MEDS: SODIUM CHLORIDE 0.9% FLUSH 10 ML FLUSH IV FLUSH SCH ×2 (09:00→21:54)
[2017-05-18 09:33] LABS: BANDS 2 % (0-6); METAMYELOCYTES 1 % (0-1); NEUTROPHIL # MANUAL DIFF 1.5 TH/MM3 (1.8-7.7); POLYS (SEG NEUTROPHILS) 79 % (16-70); WBC DIFF SAMPLE 100
[2017-05-18 09:34] LABS: PLATELET ESTIMATE SMEAR LOW (NORMAL); PLATELET MORPHOLOGY NORMAL (NORMAL); SCAN/DIFF FINAL DIFF MANUAL
[2017-05-18] MEDS: FAMOTIDINE 20 MG TAB PO SCH ×2 (09:48→21:53)
[2017-05-18] MEDS: FOLIC ACID 1 MG TAB PO SCH (09:48)
[2017-05-18] MEDS: ETHAMBUTOL HCL 400 MG TAB PO SCH (09:49)
[2017-05-18] MEDS: ELVIT/COBI/EMTR/TENOF 150/150/200/300 MG TABLETS PO SCH (09:49)
[2017-05-18] MEDS: CLARITHROMYCIN 500 MG TAB PO SCH ×2 (09:49→21:53)
[2017-05-18] MEDS: CYANOCOBALAMIN 1,000 MCG TAB PO SCH (09:49)
[2017-05-18] MEDS: RIFAMPIN 150 MG CAP PO SCH ×2 (09:49→21:53)
[2017-05-18] MEDS: FERROUS SULFATE 325 MG (65 MG ELEMENTAL IRON) TAB PO SCH ×3 (09:49→17:56)
[2017-05-18 12:00] VITALS: BP 94/50; PULSE 96; RESP 16; TEMP 98.9; O2SAT 100
--- NOTE | 2017-05-18 12:46 | HHI.IDPN ---
Subjective Subjective Remarks Patient is a 36-year-old male, with known HIV, AIDS, presented to the hospital complaining of diffuse body aches, as well as severe left upper quadrant pain. Patient stated he was hospitalized 2 times at [facility]. The first one was 7 days, and the second one was about 10 days, and he was discharge about a week ago. During that hospitalization he was told he had a bruise in his spleen, and he was actively being evaluated for a splenectomy, but it was decided not to do it. During that time he also had left upper quadrant pain, and his pain resolved the pain however started again at home and it was so severe that any kind of movement aggravates the pain. He is also had on and off fevers. Minimal respiratory complaint. No nausea or vomiting. Has frequent bowel movement. No urinary complaints. Patient has been diagnosed to have HIV probably for the last 7 years. He was going to the health [facility], but lost to follow-up, and recently started following up with Dr. Edmondson. He has been put on HAART in the last 4 months. The record also mention that he had been diagnosed to have MAC, and currently on treatment for that. Patient also noted a rash on the right side of his neck recently. He has never had chickenpox and denies any exposure to anyone with shingles or chickenpox. Patient since admission has had fevers. He has pancytopenia. He is complaining of severe pain in his left upper quadrant. CT of the abdomen and pelvis did confirm an area of splenic infarct. Infectious disease consultation has been requested to evaluate the patient. Notes reviewed Temps 99+ No new complaint BM biopsy C/W VIKKI Duodenal biopsy C/W VIKKI Pancytopenia persists VZV PCR (+) VZV IgG (+) CD4 less than 20 CMV PCR negative RPR non-reactive Crypto Ag pending Antibiotics VIKKI Rx - Rifampin, Biaxin, EMB HAART Acyclovir Current Medications Medications (Trade) Dose Ordered Sig/Derek Route Start Time Stop Time Status Last Admin (NS Flush) 2 ml UNSCH PRN IV FLUSH 05/05/17 17:45 (NS Flush) 2 ml BID IV FLUSH 05/05/17 21:00 05/18/17 09:00 (Narcan Inj) 0.4 mg UNSCH PRN IV PUSH 05/05/17 17:45 Patient Own Medication PT OWN MED: Genvoya (Elvitegra... DAILY PO 05/06/17 09:00 Future Hold 05/10/17 07:53 (Ferrous Sulfate) 325 mg TIDPC PO 05/05/17 18:30 05/18/17 09:49 (Folate) 1 mg DAILY PO 05/06/17 09:00 05/18/17 09:48 (Vitamin B12) 1,000 mcg DAILY PO 05/06/17 09:00 05/18/17 09:49 (Myambutol) 800 mg DAILY PO 05/06/17 09:00 05/18/17 09:49 (Morphine Inj) 2 mg Q3H PRN IV PUSH 05/05/17 18:45 05/06/17 17:45 Acyclovir Sodium 600 mg/Sodium Chloride 100 ml @ 100 mls/hr Q8H IV 05/06/17 12:00 05/25/17 15:00 05/18/17 04:15 (Roxicodone) 5 mg Q4HR PRN PO 05/07/17 12:00 (Roxicodone) 10 mg Q4H PRN PO 05/07/17 15:00 05/18/17 09:58 (Tylenol) 325 mg Q6H PRN PO 05/07/17 13:15 05/16/17 18:42 (Stribild [phone] Mg) 1 tab DAILY PO 05/10/17 09:00 05/18/17 09:49 (Pepcid) 20 mg BID PO 05/12/17 21:00 05/18/17 09:48 (Bactrim Ds 800-160 Mg) 1 tab MoWeFr@09 PO 05/17/17 09:00 05/17/17 10:57 (Biaxin) 500 mg Q12HR PO 05/18/17 09:00 05/18/17 09:49 (Rifampin) 300 mg Q12HR PO 05/17/17 21:00 05/18/17 09:49 Lines PIV Past Medical History HIV/AIDS, CD4 26 Hypertension Splenomegaly, splenic infarct MAC infection Allergies: Coded Allergies: No Known Allergies (Verified Allergy, Mild, 05/30/08) Objective . Vital Signs Date Time Temp Pulse Resp B/P (MAP) Pulse Ox O2 Delivery O2 Flow Rate FiO2 05/18/17 12:00 98.9 96 16 94/50 (65) 100 05/18/17 08:00 98.7 86 18 96/52 (67) 98 05/18/17 04:29 99.9 98 18 102/51 (68) 100 05/18/17 00:00 99.5 97 18 97/53 (68) 98 05/17/17 20:00 99.7 103 18 105/52 (69) 98 05/17/17 16:00 98.6 96 17 106/56 (73) 97 . Laboratory Tests Test 05/17/17 10:57 05/18/17 06:51 White Blood Count 2.6 TH/MM3 1.8 TH/MM3 Red Blood Count 3.61 MIL/MM3 2.89 MIL/MM3 Hemoglobin 10.0 GM/DL 8.1 GM/DL Hematocrit 30.4 % 24.0 % Mean Corpuscular Volume 84.3 FL 82.9 FL Mean Corpuscular Hemoglobin 27.6 PG 28.0 PG Mean Corpuscular Hemoglobin Concent 32.7 % 33.7 % Red Cell Distribution Width 18.4 % 18.3 % Platelet Count 113 TH/MM3 91 TH/MM3 Mean Platelet Volume 7.1 FL 7.3 FL Neutrophils (%) (Auto) 65.4 % 73.5 % Lymphocytes (%) (Auto) 24.1 % 11.0 % Monocytes (%) (Auto) 9.6 % 14.8 % Eosinophils (%) (Auto) 0.4 % 0.2 % Basophils (%) (Auto) 0.5 % 0.5 % Neutrophils # (Auto) 1.7 TH/MM3 1.3 TH/MM3 Lymphocytes # (Auto) 0.6 TH/MM3 0.2 TH/MM3 Monocytes # (Auto) 0.3 TH/MM3 0.3 TH/MM3 Eosinophils # (Auto) 0.0 TH/MM3 0.0 TH/MM3 Basophils # (Auto) 0.0 TH/MM3 0.0 TH/MM3 CBC Comment AUTO DIFF AUTO DIFF Differential Comment AUTO DIFF CONFIRMED FINAL DIFF MANUAL Differential Total Cells Counted 100 Neutrophils % (Manual) 79 % Band Neutrophils % 2 % Lymphocytes % 6 % Monocytes % 12 % Neutrophils # (Manual) 1.5 TH/MM3 Metamyelocytes 1 % Platelet Estimate LOW Platelet Morphology Comment NORMAL Laboratory Tests Test 05/17/17 10:57 05/18/17 06:51 Blood Urea Nitrogen 16 MG/DL 16 MG/DL Creatinine 0.95 MG/DL 0.91 MG/DL Random Glucose 101 MG/DL 83 MG/DL Total Protein 8.7 GM/DL 7.2 GM/DL Albumin 2.1 GM/DL 1.7 GM/DL Calcium Level 9.9 MG/DL 9.4 MG/DL Phosphorus Level 3.5 MG/DL Magnesium Level 1.7 MG/DL Alkaline Phosphatase 346 U/L 312 U/L Aspartate Amino Transf (AST/SGOT) 90 U/L 63 U/L Alanine Aminotransferase (ALT/SGPT) 96 U/L 75 U/L Total Bilirubin 0.5 MG/DL 0.6 MG/DL Sodium Level 133 MEQ/L 132 MEQ/L Potassium Level 3.8 MEQ/L 4.0 MEQ/L Chloride Level 97 MEQ/L 98 MEQ/L Carbon Dioxide Level 27.1 MEQ/L 25.2 MEQ/L Anion Gap 9 MEQ/L 9 MEQ/L Estimat Glomerular Filtration Rate 108 ML/MIN 113 ML/MIN Imaging Last Impressions Abdomen/Pelvis CT 05/05/17 1443 Signed Impressions: Service Date/Time: Friday, May 05, 2017 16:42 - CONCLUSION: Enlarged spleen with large areas of infarction or or neoplastic infiltration. Trace ascites. Sclerotic bones without focal destructive lesions. Clinton Valadez MD FACR Chest X-Ray 05/05/17 0000 Signed Impressions: Service Date/Time: Friday, May 05, 2017 15:41 - CONCLUSION: Negative for fracture or dislocation. Follow up in 7-10 days is suggested if symptoms persist. Clinton Valadez MD FACR Physical Exam GENERAL: awake and alert, not in respiratory distress. SKIN: Warm and dry. Skin lesions are drying up HEAD: Atraumatic. Normocephalic. No temporal wasting, or tenderness. EYES: [place] conjunctiva. No petechia or hemorrhage. Pupils equal, round and reactive to light. Extraocular movements full and intact. No scleral icterus. No injection or drainage. EARS, NOSE AND THROAT: Nose without bleeding or purulent nasal discharge. No sinus tenderness. Mucous membranes pink and moist. No oral lesions noted. No exudate. No oral thrush. NECK: Trachea midline. Supple and not tender, no meningeal signs. Has cervical lymphadenopathy CARDIOVASCULAR: Regular rate and rhythm. No murmurs, rubs or gallops heard RESPIRATORY: Clear to auscultation. Breath sounds equal bilaterally. No rales , wheezing or rhonchi ABDOMEN: Soft, nondistended. Tender especially on L side. Bowel sounds present and normoactive. No guarding. No rebound. EXTREMITIES: No clubbing, cyanosis, or edema.No joint effusion, has good ROM. No calf tenderness. Well perfused and warm. NEUROLOGICAL: Grossly non-focal PSYCHIATRIC: Normal affect, calm and cooperative. 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 - follow BMP - end date ordered in [employer] Continue HAART Monitor progress Continue VIKKI RX: Biaxin, EMB and Rifampin Follow new C/S Explained plan to the patient eBttina Covarrubias MD May 18, 2017 12:46
--- NOTE | 2017-05-18 13:29 | HHI.PR ---
Subjective Remarks No further fevers overnight. No new complaints from the patient. Neutropenia still present. Bone marrow biopsy results pending. Objective Vital Signs Date Time Temp Pulse Resp B/P (MAP) Pulse Ox O2 Delivery O2 Flow Rate FiO2 05/18/17 12:00 98.9 96 16 94/50 (65) 100 05/18/17 08:00 98.7 86 18 96/52 (67) 98 05/18/17 04:29 99.9 98 18 102/51 (68) 100 05/18/17 00:00 99.5 97 18 97/53 (68) 98 05/17/17 20:00 99.7 103 18 105/52 (69) 98 05/17/17 16:00 98.6 96 17 106/56 (73) 97 I/O 05/17/17 05/17/17 05/17/17 05/18/17 05/18/17 05/18/17 07:00 15:00 23:00 07:00 15:00 23:00 Intake Total 720 ml 720 ml 100 ml Output Total 1125 ml 850 ml Balance -405 ml 720 ml -750 ml Intake Oral 720 ml 620 ml IV Total 100 ml 100 ml Output Urine Total 1125 ml 850 ml # Voids 4 # Bowel Movements 0 1 Result Diagram: 05/18/17 0651 05/18/17 0651 Objective Remarks GENERAL: NAD, A&Ox3 HEAD: Normocephalic. NECK: Supple, trachea midline. No lymphadenopathy. EYES: No scleral icterus. No injection or drainage. CARDIOVASCULAR: Regular rate and rhythm without murmurs, gallops, or rubs. RESPIRATORY: Breath sounds equal bilaterally. No accessory muscle use. GASTROINTESTINAL: Abdomen soft, non-tender, nondistended. MUSCULOSKELETAL: No cyanosis, or edema. Zoster rash at right lower jaw and neck SKIN: Warm and dry. NEURO: No focal neurological deficitis. A/P Problem List: (1) Pancytopenia ICD Code: D61.818 - Other pancytopenia (2) HIV (human immunodeficiency virus infection) ICD Code: B20 - Human immunodeficiency virus [HIV] disease Status: Chronic (3) Enlargement of spleen ICD Code: R16.1 - Splenomegaly, not elsewhere classified Status: Chronic (4) Thrombocytopenia ICD Code: D69.6 - Thrombocytopenia, unspecified Status: Acute (5) Splenic infarction ICD Code: D73.5 - Infarction of spleen Status: Acute (6) Anemia ICD Code: D64.9 - Anemia, unspecified Status: Acute Assessment and Plan Assessment and Plan 36-year-old male admitted secondary to pancytopenia and splenic infarct. Continue to monitor bone marrow biopsy, for results. Follow white blood cell count, neutropenic precautions until stabilized. Monitor for any recurrence of fever. Labs reviewed. Continue to monitor see. Labs ordered for further monitoring. Splenic infarct Follow clinically Surgeon following Hematology following Immunocompromise HIV/AIDS Continue MAC treatment Disseminated zoster Continue IV acyclovir Continue Bactrim Contact and airborne isolation Fever Continue Bactrim Continue azithromycin Continue ciprofloxacin Follow for resolution of fever Possible GI bleed Acute blood loss anemia EGD and colonoscopy pending GI following Follow CBC Transfusions as needed Bone marrow biopsy results pending DVT prophylaxis SCDs Avoid blood thinners secondary to degree of anemia Problem Qualifiers (1) Anemia: Qualified Codes: D64.9 - Anemia, unspecified Esteban Morelos MD May 18, 2017 13:29
[2017-05-18 14:13] LABS: CRYPTOCOCCUS ANTIGEN Negative (Negative)
[2017-05-18 16:00] VITALS: BP 92/58; PULSE 110; RESP 16; TEMP 99.9; O2SAT 97
[2017-05-18 20:00] VITALS: BP 97/52; PULSE 108; PULSE 99; RESP 18; TEMP 99.6; O2SAT 95
[2017-05-19] VITALS (10 sets, daily range): BP systolic 97–109; BP diastolic 52–60; PULSE 89–121; RESP 18–20; TEMP 97.7–100.3; O2SAT 98–100
[2017-05-19] MEDS: ACETAMINOPHEN 325 MG TAB PO PRN (01:46)
[2017-05-19] MEDS: ACYCLOVIR INJ 600 MG in SODIUM CHLORIDE 0.9% INJ 100 ML IV SCH ×3 (03:20→19:39)
[2017-05-19 06:15] LABS: HEMATOCRIT 23.6 % (39.0-51.0); MEAN CELL VOLUME 82.8 FL (80.0-100.0); MEAN CORPUSCULAR HEMOGLOBIN 27.6 PG (27.0-34.0); MEAN CORPUSCULAR HGB CONC 33.3 % (32.0-36.0); PLATELET COUNT 97 TH/MM3 (150-450); RED BLOOD COUNT 2.85 MIL/MM3 (4.50-5.90); RED CELL DISTRIBUTION WIDTH 18.1 % (11.6-17.2); WHITE BLOOD COUNT 1.8 TH/MM3 (4.0-11.0)
[2017-05-19 06:22] LABS: HEMO FLAGS AUTO DIFF
[2017-05-19 06:37] LABS: ALT (GPT) 67 U/L (12-78); ANION GAP 8 MEQ/L (5-15); AST (GOT) 51 U/L (15-37); BLOOD UREA NITROGEN 19 MG/DL (7-18); CHLORIDE 100 MEQ/L (98-107); GLOMERULAR FILTRATION RATE 126 ML/MIN (>89); POTASSIUM 4.2 MEQ/L (3.5-5.1); SODIUM (NA) 134 MEQ/L (136-145)
[2017-05-19 06:40] LABS: ALKALINE PHOSPHATASE 325 U/L (45-117); TOTAL BILIRUBIN ADULT 0.8 MG/DL (0.2-1.0)
[2017-05-19] MEDS: SODIUM CHLORIDE 0.9% FLUSH 10 ML FLUSH IV FLUSH SCH ×2 (09:00→19:41)
[2017-05-19 09:01] LABS: BANDS 2 % (0-6); NEUTROPHIL # MANUAL DIFF 1.4 TH/MM3 (1.8-7.7); PLATELET ESTIMATE SMEAR LOW (NORMAL); PLATELET MORPHOLOGY NORMAL (NORMAL); POLYS (SEG NEUTROPHILS) 78 % (16-70); SCAN/DIFF FINAL DIFF MANUAL; WBC DIFF SAMPLE 100
[2017-05-19] MEDS: CLARITHROMYCIN 500 MG TAB PO SCH ×2 (09:01→19:40)
[2017-05-19] MEDS: CYANOCOBALAMIN 1,000 MCG TAB PO SCH (09:01)
[2017-05-19] MEDS: RIFAMPIN 150 MG CAP PO SCH ×2 (09:01→19:40)
[2017-05-19] MEDS: FERROUS SULFATE 325 MG (65 MG ELEMENTAL IRON) TAB PO SCH ×3 (09:01→18:21)
[2017-05-19] MEDS: FAMOTIDINE 20 MG TAB PO SCH ×2 (09:02→19:40)
[2017-05-19] MEDS: FOLIC ACID 1 MG TAB PO SCH (09:02)
[2017-05-19] MEDS: ETHAMBUTOL HCL 400 MG TAB PO SCH (09:02)
[2017-05-19] MEDS: ELVIT/COBI/EMTR/TENOF 150/150/200/300 MG TABLETS PO SCH (09:25)
[2017-05-19] MEDS: SULFAMETHOXAZOLE-TRIMETHOPRIM DS 800-160 MG TAB PO SCH (09:25)
--- NOTE | 2017-05-19 11:20 | HHI.PR ---
Subjective Remarks Fevers present overnight. White blood cell count is stable at 1.8. Hemoglobin has a slight downward trend, not indicating transfusion yet. Objective Vital Signs Date Time Temp Pulse Resp B/P (MAP) Pulse Ox O2 Delivery O2 Flow Rate FiO2 05/19/17 08:00 99.7 91 19 97/52 (67) 98 05/19/17 04:06 97.8 89 18 102/54 (70) 100 05/19/17 04:00 92 05/19/17 00:58 100.3 106 18 107/56 (73) 98 05/19/17 00:00 98 05/18/17 20:00 99 05/18/17 20:00 99.6 108 18 97/52 (67) 95 05/18/17 16:00 99.9 110 16 92/58 (69) 97 05/18/17 12:00 98.9 96 16 94/50 (65) 100 I/O 05/18/17 05/18/17 05/18/17 05/19/17 05/19/17 05/19/17 07:00 15:00 23:00 07:00 15:00 23:00 Intake Total 100 ml 240 ml Output Total 850 ml 475 ml Balance -750 ml -475 ml 240 ml Intake Oral 240 ml IV Total 100 ml Output Urine Total 850 ml 475 ml Result Diagram: 05/19/1741405/19/17414 Objective Remarks GENERAL: NAD, A&Ox3 HEAD: Normocephalic. NECK: Supple, trachea midline. No lymphadenopathy. EYES: No scleral icterus. No injection or drainage. CARDIOVASCULAR: Regular rate and rhythm without murmurs, gallops, or rubs. RESPIRATORY: Breath sounds equal bilaterally. No accessory muscle use. GASTROINTESTINAL: Abdomen soft, non-tender, nondistended. MUSCULOSKELETAL: No cyanosis, or edema. Zoster rash at right lower jaw and neck SKIN: Warm and dry. NEURO: No focal neurological deficitis. A/P Problem List: (1) Pancytopenia ICD Code: D61.818 - Other pancytopenia (2) HIV (human immunodeficiency virus infection) ICD Code: B20 - Human immunodeficiency virus [HIV] disease Status: Chronic (3) Enlargement of spleen ICD Code: R16.1 - Splenomegaly, not elsewhere classified Status: Chronic (4) Thrombocytopenia ICD Code: D69.6 - Thrombocytopenia, unspecified Status: Acute (5) Splenic infarction ICD Code: D73.5 - Infarction of spleen Status: Acute (6) Anemia ICD Code: D64.9 - Anemia, unspecified Status: Acute Assessment and Plan Assessment and Plan 36-year-old male admitted secondary to pancytopenia and splenic infarct. Continue to monitor bone marrow biopsy, for results. Follow white blood cell count, neutropenic precautions until stabilized. Patient in isolation secondary to zoster outbreak, he will need to continue on IV antiviral treatments until 05/25/17. Fevers present last night. Monitor for any recurrence of fever. Labs reviewed. Continue to monitor see. Labs ordered for further monitoring. Splenic infarct Follow clinically Surgeon following Hematology following Immunocompromise HIV/AIDS Continue MAC treatment Disseminated zoster Continue IV acyclovir Continue Bactrim Contact and airborne isolation Fever Continue Bactrim Continue azithromycin Continue ciprofloxacin Follow for resolution of fever Possible GI bleed Acute blood loss anemia EGD and colonoscopy pending GI following Follow CBC Transfusions as needed Bone marrow biopsy results pending DVT prophylaxis SCDs Avoid blood thinners secondary to degree of anemia Problem Qualifiers (1) Anemia: Qualified Codes: D64.9 - Anemia, unspecified Esteban Morelos MD May 19, 2017 11:20
[2017-05-20] MEDS: ACYCLOVIR INJ 600 MG in SODIUM CHLORIDE 0.9% INJ 100 ML IV SCH ×3 (03:25→21:02)
[2017-05-20 07:07] LABS: HEMATOCRIT 23.4 % (39.0-51.0); MEAN CELL VOLUME 83.4 FL (80.0-100.0); MEAN CORPUSCULAR HGB CONC 33.5 % (32.0-36.0); PLATELET COUNT 103 TH/MM3 (150-450); RED BLOOD COUNT 2.81 MIL/MM3 (4.50-5.90); RED CELL DISTRIBUTION WIDTH 18.1 % (11.6-17.2); WHITE BLOOD COUNT 2.1 TH/MM3 (4.0-11.0)
[2017-05-20 07:32] LABS: ANION GAP 9 MEQ/L (5-15); AST (GOT) 38 U/L (15-37); BLOOD UREA NITROGEN 16 MG/DL (7-18); CHLORIDE 99 MEQ/L (98-107); GLOMERULAR FILTRATION RATE 122 ML/MIN (>89); POTASSIUM 4.5 MEQ/L (3.5-5.1); SODIUM (NA) 133 MEQ/L (136-145)
[2017-05-20 07:33] LABS: ALT (GPT) 54 U/L (12-78)
[2017-05-20 07:36] LABS: ALKALINE PHOSPHATASE 306 U/L (45-117); TOTAL BILIRUBIN ADULT 0.7 MG/DL (0.2-1.0)
[2017-05-20 07:39] LABS: HEMO FLAGS AUTO DIFF
[2017-05-20 08:00] VITALS: BP 107/56; PULSE 98; RESP 17; TEMP 98.2; O2SAT 100
[2017-05-20] MEDS: ELVIT/COBI/EMTR/TENOF 150/150/200/300 MG TABLETS PO SCH (08:22)
[2017-05-20] MEDS: CLARITHROMYCIN 500 MG TAB PO SCH ×2 (08:22→21:02)
[2017-05-20] MEDS: FAMOTIDINE 20 MG TAB PO SCH ×2 (08:22→21:02)
[2017-05-20] MEDS: ETHAMBUTOL HCL 400 MG TAB PO SCH (08:22)
[2017-05-20] MEDS: FOLIC ACID 1 MG TAB PO SCH (08:22)
[2017-05-20] MEDS: CYANOCOBALAMIN 1,000 MCG TAB PO SCH (08:22)
[2017-05-20] MEDS: FERROUS SULFATE 325 MG (65 MG ELEMENTAL IRON) TAB PO SCH ×3 (08:23→17:49)
[2017-05-20] MEDS: RIFAMPIN 150 MG CAP PO SCH ×2 (08:24→21:02)
[2017-05-20] MEDS: SODIUM CHLORIDE 0.9% FLUSH 10 ML FLUSH IV FLUSH SCH ×2 (08:25→21:00)
[2017-05-20 08:49] LABS: BANDS 3 % (0-6); NEUTROPHIL # MANUAL DIFF 1.7 TH/MM3 (1.8-7.7); POLYS (SEG NEUTROPHILS) 80 % (16-70); WBC DIFF SAMPLE 100
[2017-05-20 08:50] LABS: PLATELET ESTIMATE SMEAR LOW (NORMAL); PLATELET MORPHOLOGY NORMAL (NORMAL); SCAN/DIFF FINAL DIFF MANUAL
--- NOTE | 2017-05-20 10:03 | HHI.PR ---
Subjective Remarks Fevers not present overnight. White blood cell count is stable at 2.1. Hemoglobin has a slight downward trend, not indicating transfusion yet. Objective Vital Signs Date Time Temp Pulse Resp B/P (MAP) Pulse Ox O2 Delivery O2 Flow Rate FiO2 05/20/17 08:00 98.2 98 17 107/56 (73) 100 05/19/17 23:55 100 05/19/17 20:26 108 05/19/17 20:00 99.6 98 20 109/57 (74) 100 05/19/17 16:00 99.6 101 20 103/53 (70) 99 05/19/17 12:00 97.7 121 20 99/60 (73) 100 I/O 05/19/17 05/19/17 05/19/17 05/20/17 05/20/17 05/20/17 07:00 15:00 23:00 07:00 15:00 23:00 Intake Total 1100 ml 1300 ml 100 ml Output Total 475 ml 2075 ml Balance -475 ml 1100 ml -775 ml 100 ml Intake Oral 1000 ml 1200 ml IV Total 100 ml 100 ml 100 ml Output Urine Total 475 ml 2075 ml # Voids 1 # Bowel Movements 0 Result Diagram: 05/20/17 0458 05/20/17 0458 Objective Remarks GENERAL: NAD, A&Ox3 HEAD: Normocephalic. NECK: Supple, trachea midline. No lymphadenopathy. EYES: No scleral icterus. No injection or drainage. CARDIOVASCULAR: Regular rate and rhythm without murmurs, gallops, or rubs. RESPIRATORY: Breath sounds equal bilaterally. No accessory muscle use. GASTROINTESTINAL: Abdomen soft, non-tender, nondistended. MUSCULOSKELETAL: No cyanosis, or edema. Zoster rash at right lower jaw and neck SKIN: Warm and dry. NEURO: No focal neurological deficitis. A/P Problem List: (1) Pancytopenia ICD Code: D61.818 - Other pancytopenia (2) HIV (human immunodeficiency virus infection) ICD Code: B20 - Human immunodeficiency virus [HIV] disease Status: Chronic (3) Enlargement of spleen ICD Code: R16.1 - Splenomegaly, not elsewhere classified Status: Chronic (4) Thrombocytopenia ICD Code: D69.6 - Thrombocytopenia, unspecified Status: Acute (5) Splenic infarction ICD Code: D73.5 - Infarction of spleen Status: Acute (6) Anemia ICD Code: D64.9 - Anemia, unspecified Status: Acute Assessment and Plan Assessment and Plan 36-year-old male admitted secondary to pancytopenia and splenic infarct. Continue to monitor bone marrow biopsy, for results. Follow white blood cell count, neutropenic precautions until stabilized. Patient in isolation secondary to zoster outbreak, he will need to continue on IV antiviral treatments until 05/25/17. Fevers present last night. Monitor for any recurrence of fever. Labs reviewed. Continue to monitor see. Labs ordered for further monitoring. NSAIDs for shoulder pain. Splenic infarct Follow clinically Surgeon following Hematology following Immunocompromise HIV/AIDS Continue MAC treatment Disseminated zoster Continue IV acyclovir Continue Bactrim Contact and airborne isolation Fever Continue Bactrim Continue azithromycin Continue ciprofloxacin Follow for resolution of fever Possible GI bleed Acute blood loss anemia EGD and colonoscopy pending GI following Follow CBC Transfusions as needed Bone marrow biopsy results pending DVT prophylaxis SCDs Avoid blood thinners secondary to degree of anemia Problem Qualifiers (1) Anemia: Qualified Codes: D64.9 - Anemia, unspecified Esteban Morelos MD May 20, 2017 10:03
[2017-05-20 12:00] VITALS: BP 105/76; PULSE 102; RESP 18; TEMP 97.3; O2SAT 100
[2017-05-20] MEDS: KETOROLAC TROMETHAMINE 30 MG/ML (IVP) VIAL IV PUSH ONE ×2 (12:09→14:08)
--- NOTE | 2017-05-20 13:11 | HHI.IDPN ---
Subjective Subjective Remarks Patient is a 36-year-old male, with known HIV, AIDS, presented to the hospital complaining of diffuse body aches, as well as severe left upper quadrant pain. Patient stated he was hospitalized 2 times at [facility]. The first one was 7 days, and the second one was about 10 days, and he was discharge about a week ago. During that hospitalization he was told he had a bruise in his spleen, and he was actively being evaluated for a splenectomy, but it was decided not to do it. During that time he also had left upper quadrant pain, and his pain resolved the pain however started again at home and it was so severe that any kind of movement aggravates the pain. He is also had on and off fevers. Minimal respiratory complaint. No nausea or vomiting. Has frequent bowel movement. No urinary complaints. Patient has been diagnosed to have HIV probably for the last 7 years. He was [facility] the [facility], but lost to follow-up, and recently started following up with Dr. Edmondson. He has been put on HAART in the last 4 months. The record also mention that he had been diagnosed to have MAC, and currently on treatment for that. Patient also noted a rash on the right side of his neck recently. He has never had chickenpox and denies any exposure to anyone with shingles or chickenpox. Patient since admission has had fevers. He has pancytopenia. He is complaining of severe pain in his left upper quadrant. CT of the abdomen and pelvis did confirm an area of splenic infarct. Infectious disease consultation has been requested to evaluate the patient. Notes reviewed Temps less than 100 No new complaint BM biopsy C/W VIKKI Duodenal biopsy C/W VIKKI Pancytopenia persists VZV PCR (+) VZV IgG (+) CD4 less than 20 CMV PCR negative RPR non-reactive Crypto Ag negative Antibiotics VIKKI Rx - Rifampin, Biaxin, EMB HAART Acyclovir Current Medications Medications (Trade) Dose Ordered Sig/Derek Route Start Time Stop Time Status Last Admin (NS Flush) 2 ml UNSCH PRN IV FLUSH 05/05/17 17:45 (NS Flush) 2 ml BID IV FLUSH 05/05/17 21:00 05/18/17 09:00 (Narcan Inj) 0.4 mg UNSCH PRN IV PUSH 05/05/17 17:45 Patient Own Medication PT OWN MED: Genvoya (Elvitegra... DAILY PO 05/06/17 09:00 Future Hold 05/10/17 07:53 (Ferrous Sulfate) 325 mg TIDPC PO 05/05/17 18:30 05/18/17 09:49 (Folate) 1 mg DAILY PO 05/06/17 09:00 05/18/17 09:48 (Vitamin B12) 1,000 mcg DAILY PO 05/06/17 09:00 05/18/17 09:49 (Myambutol) 800 mg DAILY PO 05/06/17 09:00 05/18/17 09:49 (Morphine Inj) 2 mg Q3H PRN IV PUSH 05/05/17 18:45 05/06/17 17:45 Acyclovir Sodium 600 mg/Sodium Chloride 100 ml @ 100 mls/hr Q8H IV 05/06/17 12:00 05/25/17 15:00 05/18/17 04:15 (Roxicodone) 5 mg Q4HR PRN PO 05/07/17 12:00 (Roxicodone) 10 mg Q4H PRN PO 05/07/17 15:00 05/18/17 09:58 (Tylenol) 325 mg Q6H PRN PO 05/07/17 13:15 05/16/17 18:42 (Stribild [phone] Mg) 1 tab DAILY PO 05/10/17 09:00 05/18/17 09:49 (Pepcid) 20 mg BID PO 05/12/17 21:00 05/18/17 09:48 (Bactrim Ds 800-160 Mg) 1 tab MoWeFr@09 PO 05/17/17 09:00 05/17/17 10:57 (Biaxin) 500 mg Q12HR PO 05/18/17 09:00 05/18/17 09:49 (Rifampin) 300 mg Q12HR PO 05/17/17 21:00 05/18/17 09:49 Lines PIV Past Medical History HIV/AIDS, CD4 26 Hypertension Splenomegaly, splenic infarct MAC infection Allergies: Coded Allergies: No Known Allergies (Verified Allergy, Mild, 05/30/08) Objective . Vital Signs Date Time Temp Pulse Resp B/P (MAP) Pulse Ox O2 Delivery O2 Flow Rate FiO2 05/20/17 12:00 97.3 102 18 105/76 (86) 100 05/20/17 08:00 98.2 98 17 107/56 (73) 100 05/19/17 23:55 100 05/19/17 20:26 108 05/19/17 20:00 99.6 98 20 109/57 (74) 100 05/19/17 16:00 99.6 101 20 103/53 (70) 99 . Laboratory Tests Test 05/19/17 04:15 05/20/17 04:58 White Blood Count 1.8 TH/MM3 2.1 TH/MM3 Red Blood Count 2.85 MIL/MM3 2.81 MIL/MM3 Hemoglobin 7.9 GM/DL 7.8 GM/DL Hematocrit 23.6 % 23.4 % Mean Corpuscular Volume 82.8 FL 83.4 FL Mean Corpuscular Hemoglobin 27.6 PG 28.0 PG Mean Corpuscular Hemoglobin Concent 33.3 % 33.5 % Red Cell Distribution Width 18.1 % 18.1 % Platelet Count 97 TH/MM3 103 TH/MM3 Mean Platelet Volume 7.2 FL 7.2 FL CBC Comment AUTO DIFF AUTO DIFF Differential Total Cells Counted 100 100 Neutrophils % (Manual) 78 % 80 % Band Neutrophils % 2 % 3 % Lymphocytes % 7 % 5 % Monocytes % 13 % 12 % Neutrophils # (Manual) 1.4 TH/MM3 1.7 TH/MM3 Differential Comment FINAL DIFF MANUAL FINAL DIFF MANUAL Platelet Estimate LOW LOW Platelet Morphology Comment NORMAL NORMAL Laboratory Tests Test 05/19/17 04:15 05/20/17 04:58 Blood Urea Nitrogen 19 MG/DL 16 MG/DL Creatinine 0.83 MG/DL 0.85 MG/DL Random Glucose 85 MG/DL 98 MG/DL Total Protein 7.1 GM/DL 7.4 GM/DL Albumin 1.8 GM/DL 1.8 GM/DL Calcium Level 9.3 MG/DL 9.4 MG/DL Alkaline Phosphatase 325 U/L 306 U/L Aspartate Amino Transf (AST/SGOT) 51 U/L 38 U/L Alanine Aminotransferase (ALT/SGPT) 67 U/L 54 U/L Total Bilirubin 0.8 MG/DL 0.7 MG/DL Sodium Level 134 MEQ/L 133 MEQ/L Potassium Level 4.2 MEQ/L 4.5 MEQ/L Chloride Level 100 MEQ/L 99 MEQ/L Carbon Dioxide Level 26.0 MEQ/L 25.0 MEQ/L Anion Gap 8 MEQ/L 9 MEQ/L Estimat Glomerular Filtration Rate 126 ML/MIN 122 ML/MIN Imaging Last Impressions Abdomen/Pelvis CT 05/05/17 1443 Signed Impressions: Service Date/Time: Friday, May 05, 2017 16:42 - CONCLUSION: Enlarged spleen with large areas of infarction or or neoplastic infiltration. Trace ascites. Sclerotic bones without focal destructive lesions. Clinton Valadez MD FACR Chest X-Ray 05/05/17 0000 Signed Impressions: Service Date/Time: Friday, May 05, 2017 15:41 - CONCLUSION: Negative for fracture or dislocation. Follow up in 7-10 days is suggested if symptoms persist. Clinton Valadez MD FACR Physical Exam GENERAL: awake and alert, not in respiratory distress. SKIN: Warm and dry. Skin lesions are all dry and healing HEAD: Atraumatic. Normocephalic. No temporal wasting, or tenderness. EYES: Ursina conjunctiva. No petechia or hemorrhage. Pupils equal, round and reactive to light. Extraocular movements full and intact. No scleral icterus. No injection or drainage. EARS, NOSE AND THROAT: Nose without bleeding or purulent nasal discharge. No sinus tenderness. Mucous membranes pink and moist. No oral lesions noted. No exudate. No oral thrush. NECK: Trachea midline. Supple and not tender, no meningeal signs. Has cervical lymphadenopathy CARDIOVASCULAR: Regular rate and rhythm. No murmurs, rubs or gallops heard RESPIRATORY: Clear to auscultation. Breath sounds equal bilaterally. No rales , wheezing or rhonchi ABDOMEN: Soft, nondistended. Tender especially on L side. Bowel sounds present and normoactive. No guarding. No rebound. EXTREMITIES: No clubbing, cyanosis, or edema.No joint effusion, has good ROM. No calf tenderness. Well perfused and warm. NEUROLOGICAL: Grossly non-focal PSYCHIATRIC: Normal affect, calm and cooperative. 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 - follow BMP - end date ordered in [facility] Continue HAART Monitor progress Continue VIKKI RX: Biaxin, EMB and Rifampin D/C isolation once cleared with infection control Explained plan to the patient D/W Bettina Tang MD May 20, 2017 13:11
[2017-05-20 16:00] VITALS: BP 104/55; PULSE 81; RESP 17; TEMP 96.8; O2SAT 100
[2017-05-20 20:00] VITALS: BP 98/53; PULSE 99; RESP 20; TEMP 98.5; O2SAT 100
[2017-05-20 20:30] VITALS: PULSE 96
[2017-05-20] MEDS: NAPROXEN 250 MG TAB PO SCH (21:03)
[2017-05-21] VITALS (8 sets, daily range): BP systolic 91–119; BP diastolic 53–63; PULSE 87–110; RESP 16–24; TEMP 98.5–101.5; O2SAT 98–100
[2017-05-21] MEDS: ACYCLOVIR INJ 600 MG in SODIUM CHLORIDE 0.9% INJ 100 ML IV SCH ×3 (05:17→21:54)
[2017-05-21] MEDS: FOLIC ACID 1 MG TAB PO SCH (09:29)
[2017-05-21] MEDS: FAMOTIDINE 20 MG TAB PO SCH ×2 (09:29→21:53)
[2017-05-21] MEDS: CLARITHROMYCIN 500 MG TAB PO SCH ×2 (09:29→21:53)
[2017-05-21] MEDS: CYANOCOBALAMIN 1,000 MCG TAB PO SCH (09:29)
[2017-05-21] MEDS: ETHAMBUTOL HCL 400 MG TAB PO SCH (09:29)
[2017-05-21] MEDS: FERROUS SULFATE 325 MG (65 MG ELEMENTAL IRON) TAB PO SCH ×3 (09:30→18:44)
[2017-05-21] MEDS: RIFAMPIN 150 MG CAP PO SCH ×2 (09:30→21:53)
[2017-05-21] MEDS: NAPROXEN 250 MG TAB PO SCH ×2 (09:30→21:53)
[2017-05-21] MEDS: ELVIT/COBI/EMTR/TENOF 150/150/200/300 MG TABLETS PO SCH (09:30)
[2017-05-21] MEDS: SODIUM CHLORIDE 0.9% FLUSH 10 ML FLUSH IV FLUSH SCH ×2 (09:30→21:54)
[2017-05-21] MEDS: SULFAMETHOXAZOLE-TRIMETHOPRIM DS 800-160 MG TAB PO SCH (09:30)
--- NOTE | 2017-05-21 10:32 | HHI.PR ---
Subjective Remarks No fevers overnight. Patient has no new complaints today. Labs are pending. Objective Vital Signs Date Time Temp Pulse Resp B/P (MAP) Pulse Ox O2 Delivery O2 Flow Rate FiO2 05/21/17 04:00 98.5 94 18 96/54 (68) 100 05/21/17 04:00 93 05/21/17 00:23 92 05/21/17 00:00 99.1 103 18 119/63 (81) 98 05/20/17 22:23 20 05/20/17 20:30 96 05/20/17 20:00 98.5 99 20 98/53 (68) 100 05/20/17 16:00 96.8 81 17 104/55 (71) 100 05/20/17 12:00 97.3 102 18 105/76 (86) 100 I/O 05/20/17 05/20/17 05/20/17 05/21/17 05/21/17 05/21/17 07:00 15:00 23:00 07:00 15:00 23:00 Intake Total 100 ml 820 ml 360 ml Output Total 700 ml 800 ml Balance 100 ml 120 ml -440 ml Intake Oral 720 ml 360 ml IV Total 100 ml 100 ml Output Urine Total 700 ml 800 ml # Bowel Movements 1 0 Result Diagram: 05/20/1745705/20/17457 Objective Remarks GENERAL: NAD, A&Ox3 HEAD: Normocephalic. NECK: Supple, trachea midline. No lymphadenopathy. EYES: No scleral icterus. No injection or drainage. CARDIOVASCULAR: Regular rate and rhythm without murmurs, gallops, or rubs. RESPIRATORY: Breath sounds equal bilaterally. No accessory muscle use. GASTROINTESTINAL: Abdomen soft, non-tender, nondistended. MUSCULOSKELETAL: No cyanosis, or edema. Zoster rash at right lower jaw and neck SKIN: Warm and dry. NEURO: No focal neurological deficitis. A/P Problem List: (1) Pancytopenia ICD Code: D61.818 - Other pancytopenia (2) HIV (human immunodeficiency virus infection) ICD Code: B20 - Human immunodeficiency virus [HIV] disease Status: Chronic (3) Enlargement of spleen ICD Code: R16.1 - Splenomegaly, not elsewhere classified Status: Chronic (4) Thrombocytopenia ICD Code: D69.6 - Thrombocytopenia, unspecified Status: Acute (5) Splenic infarction ICD Code: D73.5 - Infarction of spleen Status: Acute (6) Anemia ICD Code: D64.9 - Anemia, unspecified Status: Acute Assessment and Plan Assessment and Plan 36-year-old male admitted secondary to pancytopenia and splenic infarct. Continue to monitor bone marrow biopsy, for results. White blood cell count has been improving. Patient in isolation secondary to zoster outbreak, he will need to continue on IV antiviral treatments until 05/25/17. No fevers last night. Monitor for any recurrence of fever. Labs reviewed. Continue to monitor see. Labs ordered for further monitoring. NSAIDs for shoulder pain. Splenic infarct Follow clinically Surgeon following Hematology following Immunocompromise HIV/AIDS Continue MAC treatment Disseminated zoster Continue IV acyclovir Continue Bactrim Contact and airborne isolation Fever Continue Bactrim Continue azithromycin Continue ciprofloxacin Follow for resolution of fever Possible GI bleed Acute blood loss anemia EGD and colonoscopy pending GI following Follow CBC Transfusions as needed Bone marrow biopsy results pending DVT prophylaxis SCDs Avoid blood thinners secondary to degree of anemia Problem Qualifiers (1) Anemia: Qualified Codes: D64.9 - Anemia, unspecified Esteban Morelos MD May 21, 2017 10:32
[2017-05-21 12:51] LABS: HEMATOCRIT 26.2 % (39.0-51.0); MEAN CELL VOLUME 83.2 FL (80.0-100.0); MEAN CORPUSCULAR HGB CONC 33.6 % (32.0-36.0); PLATELET COUNT 138 TH/MM3 (150-450); RED BLOOD COUNT 3.15 MIL/MM3 (4.50-5.90); RED CELL DISTRIBUTION WIDTH 18.4 % (11.6-17.2); WHITE BLOOD COUNT 2.5 TH/MM3 (4.0-11.0)
[2017-05-21 12:59] LABS: HEMO FLAGS AUTO DIFF
[2017-05-21 13:05] LABS: ALT (GPT) 49 U/L (12-78); ANION GAP 6 MEQ/L (5-15); AST (GOT) 30 U/L (15-37); BLOOD UREA NITROGEN 13 MG/DL (7-18); CHLORIDE 98 MEQ/L (98-107); GLOMERULAR FILTRATION RATE 139 ML/MIN (>89); POTASSIUM 4.5 MEQ/L (3.5-5.1); SODIUM (NA) 131 MEQ/L (136-145)
[2017-05-21 13:07] LABS: ALKALINE PHOSPHATASE 321 U/L (45-117); TOTAL BILIRUBIN ADULT 0.6 MG/DL (0.2-1.0)
[2017-05-21 13:53] LABS: BANDS 5 % (0-6); BASOPHILS 1 % (0-2); EOSINOPHILS 1 % (0-4); NEUTROPHIL # MANUAL DIFF 2.2 TH/MM3 (1.8-7.7); PLATELET ESTIMATE SMEAR LOW (NORMAL); PLATELET MORPHOLOGY NORMAL (NORMAL); POLYS (SEG NEUTROPHILS) 81 % (16-70); SCAN/DIFF FINAL DIFF MANUAL; WBC DIFF SAMPLE 100
--- NOTE | 2017-05-21 15:52 | HHI.IDPN ---
Subjective Subjective Remarks Patient is a 36-year-old male, with known HIV, AIDS, presented to the hospital complaining of diffuse body aches, as well as severe left upper quadrant pain. Patient stated he was hospitalized 2 times at [facility]. The first one was 7 days, and the second one was about 10 days, and he was discharge about a week ago. During that hospitalization he was told he had a bruise in his spleen, and he was actively being evaluated for a splenectomy, but it was decided not to do it. During that time he also had left upper quadrant pain, and his pain resolved the pain however started again at home and it was so severe that any kind of movement aggravates the pain. He is also had on and off fevers. Minimal respiratory complaint. No nausea or vomiting. Has frequent bowel movement. No urinary complaints. Patient has been diagnosed to have HIV probably for the last 7 years. He was [facility] the [facility], but lost to follow-up, and recently started following up with Dr. Edmondson. He has been put on HAART in the last 4 months. The record also mention that he had been diagnosed to have MAC, and currently on treatment for that. Patient also noted a rash on the right side of his neck recently. He has never had chickenpox and denies any exposure to anyone with shingles or chickenpox. Patient since admission has had fevers. He has pancytopenia. He is complaining of severe pain in his left upper quadrant. CT of the abdomen and pelvis did confirm an area of splenic infarct. Infectious disease consultation has been requested to evaluate the patient. Notes reviewed Temps ok No new complaint BM biopsy C/W VIKKI Duodenal biopsy C/W VIKKI Pancytopenia persists VZV PCR (+) VZV IgG (+) CD4 less than 20 CMV PCR negative RPR non-reactive Crypto Ag negative Working with PT - did some ambulation today Antibiotics VIKKI Rx - Rifampin, Biaxin, EMB HAART Acyclovir Current Medications Medications (Trade) Dose Ordered Sig/Derek Route Start Time Stop Time Status Last Admin (NS Flush) 2 ml UNSCH PRN IV FLUSH 05/05/17 17:45 (NS Flush) 2 ml BID IV FLUSH 05/05/17 21:00 05/21/17 09:30 (Narcan Inj) 0.4 mg UNSCH PRN IV PUSH 05/05/17 17:45 Patient Own Medication PT OWN MED: Genvoya (Elvitegra... DAILY PO 05/06/17 09:00 Future Hold 05/10/17 07:53 (Ferrous Sulfate) 325 mg TIDPC PO 05/05/17 18:30 05/21/17 12:50 (Folate) 1 mg DAILY PO 05/06/17 09:00 05/21/17 09:29 (Vitamin B12) 1,000 mcg DAILY PO 05/06/17 09:00 05/21/17 09:29 (Myambutol) 800 mg DAILY PO 05/06/17 09:00 05/21/17 09:29 (Morphine Inj) 2 mg Q3H PRN IV PUSH 05/05/17 18:45 05/06/17 17:45 Acyclovir Sodium 600 mg/Sodium Chloride 100 ml @ 100 mls/hr Q8H IV 05/06/17 12:00 05/25/17 15:00 05/21/17 12:51 (Roxicodone) 5 mg Q4HR PRN PO 05/07/17 12:00 (Roxicodone) 10 mg Q4H PRN PO 05/07/17 15:00 05/21/17 14:09 (Tylenol) 325 mg Q6H PRN PO 05/07/17 13:15 05/19/17 01:46 (Stribild [phone] Mg) 1 tab DAILY PO 05/10/17 09:00 05/21/17 09:30 (Pepcid) 20 mg BID PO 05/12/17 21:00 05/21/17 09:29 (Bactrim Ds 800-160 Mg) 1 tab MoWeFr@09 PO 05/17/17 09:00 05/21/17 09:30 (Biaxin) 500 mg Q12HR PO 05/18/17 09:00 05/21/17 09:29 (Rifampin) 300 mg Q12HR PO 05/17/17 21:00 05/21/17 09:30 (Naprosyn) 250 mg Q12H PO 05/20/17 21:00 05/22/17 23:00 05/21/17 09:30 Lines PIV Past Medical History HIV/AIDS, CD4 26 Hypertension Splenomegaly, splenic infarct MAC infection Allergies: Coded Allergies: No Known Allergies (Verified Allergy, Mild, 05/30/08) Objective . Vital Signs Date Time Temp Pulse Resp B/P (MAP) Pulse Ox O2 Delivery O2 Flow Rate FiO2 05/21/17 12:00 99.5 101 16 91/53 (66) 100 05/21/17 10:36 18 05/21/17 08:00 98.5 99 16 97/53 (68) 98 05/21/17 04:00 98.5 94 18 96/54 (68) 100 05/21/17 04:00 93 05/21/17 00:23 92 05/21/17 00:00 99.1 103 18 119/63 (81) 98 05/20/17 20:30 96 05/20/17 20:00 98.5 99 20 98/53 (68) 100 05/20/17 16:00 96.8 81 17 104/55 (71) 100 . Laboratory Tests Test 05/20/17 04:58 05/21/17 12:35 White Blood Count 2.1 TH/MM3 2.5 TH/MM3 Red Blood Count 2.81 MIL/MM3 3.15 MIL/MM3 Hemoglobin 7.8 GM/DL 8.8 GM/DL Hematocrit 23.4 % 26.2 % Mean Corpuscular Volume 83.4 FL 83.2 FL Mean Corpuscular Hemoglobin 28.0 PG 28.0 PG Mean Corpuscular Hemoglobin Concent 33.5 % 33.6 % Red Cell Distribution Width 18.1 % 18.4 % Platelet Count 103 TH/MM3 138 TH/MM3 Mean Platelet Volume 7.2 FL 7.1 FL CBC Comment AUTO DIFF AUTO DIFF Differential Total Cells Counted 100 100 Neutrophils % (Manual) 80 % 81 % Band Neutrophils % 3 % 5 % Lymphocytes % 5 % 4 % Monocytes % 12 % 8 % Neutrophils # (Manual) 1.7 TH/MM3 2.2 TH/MM3 Differential Comment FINAL DIFF MANUAL FINAL DIFF MANUAL Platelet Estimate LOW LOW Platelet Morphology Comment NORMAL NORMAL Eosinophils % 1 % Basophils % 1 % Red Cell Morphology Comment NORMAL Laboratory Tests Test 05/20/17 04:58 05/21/17 12:35 Blood Urea Nitrogen 16 MG/DL 13 MG/DL Creatinine 0.85 MG/DL 0.76 MG/DL Random Glucose 98 MG/DL 85 MG/DL Total Protein 7.4 GM/DL 8.2 GM/DL Albumin 1.8 GM/DL 2.1 GM/DL Calcium Level 9.4 MG/DL 9.8 MG/DL Alkaline Phosphatase 306 U/L 321 U/L Aspartate Amino Transf (AST/SGOT) 38 U/L 30 U/L Alanine Aminotransferase (ALT/SGPT) 54 U/L 49 U/L Total Bilirubin 0.7 MG/DL 0.6 MG/DL Sodium Level 133 MEQ/L 131 MEQ/L Potassium Level 4.5 MEQ/L 4.5 MEQ/L Chloride Level 99 MEQ/L 98 MEQ/L Carbon Dioxide Level 25.0 MEQ/L 27.0 MEQ/L Anion Gap 9 MEQ/L 6 MEQ/L Estimat Glomerular Filtration Rate 122 ML/MIN 139 ML/MIN Imaging Last Impressions Abdomen/Pelvis CT 05/05/17 1443 Signed Impressions: Service Date/Time: Friday, May 05, 2017 16:42 - CONCLUSION: Enlarged spleen with large areas of infarction or or neoplastic infiltration. Trace ascites. Sclerotic bones without focal destructive lesions. Clinton Valadez MD FACR Chest X-Ray 05/05/17 0000 Signed Impressions: Service Date/Time: Friday, May 05, 2017 15:41 - CONCLUSION: Negative for fracture or dislocation. Follow up in 7-10 days is suggested if symptoms persist. Clinton Valadez MD FACR Physical Exam GENERAL: awake and alert, NAD SKIN: Warm and dry. Skin lesions are all dry and healing HEAD: Atraumatic. Normocephalic. No temporal wasting, or tenderness. EYES: [place] conjunctiva. No petechia or hemorrhage. Pupils equal, round and reactive to light. Extraocular movements full and intact. No scleral icterus. No injection or drainage. EARS, NOSE AND THROAT: Nose without bleeding or purulent nasal discharge. No sinus tenderness. Mucous membranes pink and moist. No oral lesions noted. No exudate. No oral thrush. NECK: Trachea midline. Supple and not tender, no meningeal signs. Has cervical lymphadenopathy CARDIOVASCULAR: Regular rate and rhythm. No murmurs, rubs or gallops heard RESPIRATORY: Clear to auscultation. Breath sounds equal bilaterally. No rales , wheezing or rhonchi ABDOMEN: Soft, nondistended. Tender especially on L side. Bowel sounds present and normoactive. No guarding. No rebound. EXTREMITIES: No clubbing, cyanosis, or edema.No joint effusion, has good ROM. No calf tenderness. Well perfused and warm. NEUROLOGICAL: Grossly non-focal PSYCHIATRIC: Normal affect, calm and cooperative. LINE: No evidence of infection Assessment & Plan Remarks IMPRESSION Sepsis, with fevers, temps low grade, better - has splenomegaly, prob hypersplenism and splenic infarct - known MAC and on Rx, ?compliance - has HIV/AIDS - has rash resembling varicella, ?primary (he denies prior Hx chickenpox) or disseminated zoster Disseminated zoster, rash all dry now - completing Rx 05/25 HIV/AIDS Disseminarted MAC - BM, duodenum, Previous [place]AF[place] [facility] [place] - [place] EMB, Biaxin and Rifampin Neutropenia, slightly better RECOMMENDATION Continue IV Acyclovir would recommend a 3 week course followed by oral suppression. - follow BMP - end date ordered in [facility] - May 25 Continue HAART Monitor progress Continue VIKKI RX: Biaxin, EMB and Rifampin D/C isolation once cleared with infection control Explained plan to the patient D/W Bettina Tang MD May 21, 2017 15:52
[2017-05-21] MEDS: ACETAMINOPHEN 325 MG TAB PO PRN (21:54)
[2017-05-22] VITALS (7 sets, daily range): BP systolic 92–115; BP diastolic 52–62; PULSE 91–118; RESP 16–22; TEMP 98.2–101.8; O2SAT 97–99
[2017-05-22] MEDS: ACETAMINOPHEN 325 MG TAB PO PRN ×2 (04:53→21:57)
[2017-05-22] MEDS: ACYCLOVIR INJ 600 MG in SODIUM CHLORIDE 0.9% INJ 100 ML IV SCH ×3 (04:53→20:03)
[2017-05-22 05:46] LABS: HEMATOCRIT 24.5 % (39.0-51.0); MEAN CELL VOLUME 83.2 FL (80.0-100.0); MEAN CORPUSCULAR HEMOGLOBIN 28.2 PG (27.0-34.0); MEAN CORPUSCULAR HGB CONC 33.9 % (32.0-36.0); PLATELET COUNT 120 TH/MM3 (150-450); RED BLOOD COUNT 2.94 MIL/MM3 (4.50-5.90); RED CELL DISTRIBUTION WIDTH 18.1 % (11.6-17.2); WHITE BLOOD COUNT 1.8 TH/MM3 (4.0-11.0)
[2017-05-22 05:50] LABS: HEMO FLAGS AUTO DIFF
[2017-05-22 06:00] LABS: ANION GAP 10 MEQ/L (5-15); AST (GOT) 24 U/L (15-37); BICARBONATE 24.8 MEQ/L (21.0-32.0); BLOOD UREA NITROGEN 16 MG/DL (7-18); CHLORIDE 97 MEQ/L (98-107); GLOMERULAR FILTRATION RATE 127 ML/MIN (>89); POTASSIUM 4.4 MEQ/L (3.5-5.1); SODIUM (NA) 132 MEQ/L (136-145)
[2017-05-22 06:02] LABS: ALT (GPT) 34 U/L (12-78)
[2017-05-22 06:03] LABS: ALKALINE PHOSPHATASE 278 U/L (45-117); TOTAL BILIRUBIN ADULT 0.8 MG/DL (0.2-1.0)
[2017-05-22 07:31] LABS: BANDS 4 % (0-6); NEUTROPHIL # MANUAL DIFF 1.5 TH/MM3 (1.8-7.7); POLYS (SEG NEUTROPHILS) 80 % (16-70); WBC DIFF SAMPLE 100
[2017-05-22 07:32] LABS: HYPERSEGMENTED POLYS 1+ (NORMAL); PLATELET ESTIMATE SMEAR LOW (NORMAL); PLATELET MORPHOLOGY NORMAL (NORMAL); SCAN/DIFF FINAL DIFF MANUAL
[2017-05-22] MEDS: NAPROXEN 250 MG TAB PO SCH ×2 (08:51→20:03)
[2017-05-22] MEDS: FAMOTIDINE 20 MG TAB PO SCH ×2 (08:51→20:03)
[2017-05-22] MEDS: FERROUS SULFATE 325 MG (65 MG ELEMENTAL IRON) TAB PO SCH ×3 (08:51→18:38)
[2017-05-22] MEDS: ELVIT/COBI/EMTR/TENOF 150/150/200/300 MG TABLETS PO SCH (08:51)
[2017-05-22] MEDS: FOLIC ACID 1 MG TAB PO SCH (08:51)
[2017-05-22] MEDS: CLARITHROMYCIN 500 MG TAB PO SCH ×2 (08:51→20:03)
[2017-05-22] MEDS: CYANOCOBALAMIN 1,000 MCG TAB PO SCH (08:52)
[2017-05-22] MEDS: ETHAMBUTOL HCL 400 MG TAB PO SCH (08:52)
[2017-05-22] MEDS: RIFAMPIN 150 MG CAP PO SCH ×2 (08:52→20:03)
[2017-05-22] MEDS: SODIUM CHLORIDE 0.9% FLUSH 10 ML FLUSH IV FLUSH SCH ×2 (08:52→20:03)
[2017-05-22] MEDS: ONDANSETRON HCL 4 MG/2 ML VIAL IV PUSH PRN (11:38)
--- NOTE | 2017-05-22 14:08 | HHI.PR ---
Subjective Remarks Fevers present again overnight. White blood cell count has decreased to 1.8. Patient has nausea overnight and this morning. Objective Vital Signs Date Time Temp Pulse Resp B/P (MAP) Pulse Ox O2 Delivery O2 Flow Rate FiO2 05/22/17 12:00 95 05/22/17 12:00 98.2 94 16 108/62 (77) 99 05/22/17 08:00 98.3 91 16 106/58 (74) 99 05/22/17 04:00 101.4 109 22 111/61 (78) 98 05/22/17 00:00 92 05/22/17 00:00 98.5 94 22 92/52 (65) 97 05/21/17 20:00 110 05/21/17 20:00 101.5 110 24 105/56 (72) 98 05/21/17 16:00 98.9 103 16 116/63 (80) 100 05/21/17 15:09 18 I/O 05/21/17 05/21/17 05/21/17 05/22/17 05/22/17 05/22/17 07:00 15:00 23:00 07:00 15:00 23:00 Intake Total 360 ml 820 ml 480 ml Output Total 800 ml 450 ml 725 ml Balance -440 ml 370 ml -245 ml Intake Oral 360 ml 720 ml 480 ml IV Total 100 ml Output Urine Total 800 ml 450 ml 725 ml # Bowel Movements 0 0 0 Result Diagram: 05/22/1741905/22/17419 Objective Remarks GENERAL: NAD, A&Ox3 HEAD: Normocephalic. NECK: Supple, trachea midline. No lymphadenopathy. EYES: No scleral icterus. No injection or drainage. CARDIOVASCULAR: Regular rate and rhythm without murmurs, gallops, or rubs. RESPIRATORY: Breath sounds equal bilaterally. No accessory muscle use. GASTROINTESTINAL: Abdomen soft, non-tender, nondistended. MUSCULOSKELETAL: No cyanosis, or edema. Zoster rash at right lower jaw and neck SKIN: Warm and dry. NEURO: No focal neurological deficitis. A/P Problem List: (1) Pancytopenia ICD Code: D61.818 - Other pancytopenia (2) HIV (human immunodeficiency virus infection) ICD Code: B20 - Human immunodeficiency virus [HIV] disease Status: Chronic (3) Enlargement of spleen ICD Code: R16.1 - Splenomegaly, not elsewhere classified Status: Chronic (4) Thrombocytopenia ICD Code: D69.6 - Thrombocytopenia, unspecified Status: Acute (5) Splenic infarction ICD Code: D73.5 - Infarction of spleen Status: Acute (6) Anemia ICD Code: D64.9 - Anemia, unspecified Status: Acute Assessment and Plan Assessment and Plan 36-year-old male admitted secondary to pancytopenia and splenic infarct. Continue to monitor bone marrow biopsy, for results. White blood cell count has decreased again today. Nausea and vomiting present and treated with Zofran. Patient shoulder pain has improved with NSAIDs for shoulder pain. Fevers present overnight. Of note, he has fevers intermittently at baseline. Splenic infarct Follow clinically Surgeon following Hematology following Immunocompromise HIV/AIDS Continue MAC treatment Disseminated zoster Continue IV acyclovir Continue Bactrim Contact and airborne isolation Fever Continue Bactrim Continue azithromycin Continue ciprofloxacin Follow for resolution of fever Possible GI bleed Acute blood loss anemia EGD and colonoscopy pending GI following Follow CBC Transfusions as needed Bone marrow biopsy results pending DVT prophylaxis SCDs Avoid blood thinners secondary to degree of anemia Problem Qualifiers (1) Anemia: Qualified Codes: D64.9 - Anemia, unspecified Esteban Morelos MD May 22, 2017 14:08
[2017-05-23] VITALS: BP 108/59; PULSE 96; RESP 20; TEMP 98; O2SAT 100
[2017-05-23 04:18] VITALS: BP 103/62; PULSE 108; RESP 20; TEMP 99.8; O2SAT 97
[2017-05-23] MEDS: ACYCLOVIR INJ 600 MG in SODIUM CHLORIDE 0.9% INJ 100 ML IV SCH ×3 (05:02→20:10)
[2017-05-23 08:00] VITALS: BP 111/60; PULSE 106; RESP 16; TEMP 99.3; O2SAT 98
[2017-05-23] MEDS: SODIUM CHLORIDE 0.9% FLUSH 10 ML FLUSH IV FLUSH SCH ×2 (09:00→20:11)
[2017-05-23 09:32] LABS: HEMATOCRIT 22.3 % (39.0-51.0); MEAN CELL VOLUME 82.6 FL (80.0-100.0); MEAN CORPUSCULAR HEMOGLOBIN 27.7 PG (27.0-34.0); MEAN CORPUSCULAR HGB CONC 33.5 % (32.0-36.0); PLATELET COUNT 140 TH/MM3 (150-450); RED BLOOD COUNT 2.69 MIL/MM3 (4.50-5.90); RED CELL DISTRIBUTION WIDTH 17.8 % (11.6-17.2); WHITE BLOOD COUNT 2.9 TH/MM3 (4.0-11.0)
[2017-05-23 09:34] LABS: HEMO FLAGS AUTO DIFF
[2017-05-23 09:53] LABS: ANION GAP 9 MEQ/L (5-15); AST (GOT) 26 U/L (15-37); BLOOD UREA NITROGEN 14 MG/DL (7-18); CHLORIDE 98 MEQ/L (98-107); GLOMERULAR FILTRATION RATE 126 ML/MIN (>89); POTASSIUM 4.2 MEQ/L (3.5-5.1); SODIUM (NA) 133 MEQ/L (136-145)
[2017-05-23 09:56] LABS: ALKALINE PHOSPHATASE 265 U/L (45-117); ALT (GPT) 36 U/L (12-78); TOTAL BILIRUBIN ADULT 0.6 MG/DL (0.2-1.0)
[2017-05-23 10:05] LABS: BASOPHILS 1 % (0-2); NEUTROPHIL # MANUAL DIFF 2.4 TH/MM3 (1.8-7.7); POLYS (SEG NEUTROPHILS) 82 % (16-70); WBC DIFF SAMPLE 100
[2017-05-23 10:06] LABS: PLATELET ESTIMATE SMEAR LOW (NORMAL); PLATELET MORPHOLOGY NORMAL (NORMAL); SCAN/DIFF FINAL DIFF MANUAL
[2017-05-23] MEDS: CLARITHROMYCIN 500 MG TAB PO SCH ×2 (10:40→20:09)
[2017-05-23] MEDS: FAMOTIDINE 20 MG TAB PO SCH ×2 (10:40→20:09)
[2017-05-23] MEDS: FERROUS SULFATE 325 MG (65 MG ELEMENTAL IRON) TAB PO SCH ×3 (10:40→18:43)
[2017-05-23] MEDS: CYANOCOBALAMIN 1,000 MCG TAB PO SCH (10:41)
[2017-05-23] MEDS: ETHAMBUTOL HCL 400 MG TAB PO SCH (10:41)
[2017-05-23] MEDS: RIFAMPIN 150 MG CAP PO SCH ×2 (10:41→20:10)
[2017-05-23] MEDS: FOLIC ACID 1 MG TAB PO SCH (10:41)
[2017-05-23] MEDS: ELVIT/COBI/EMTR/TENOF 150/150/200/300 MG TABLETS PO SCH (10:49)
[2017-05-23] MEDS: ONDANSETRON HCL 4 MG/2 ML VIAL IV PUSH PRN (11:01)
[2017-05-23 12:00] VITALS: BP 91/52; PULSE 103; RESP 16; TEMP 99.6; O2SAT 100
--- NOTE | 2017-05-23 13:50 | HHI.PR ---
Subjective Remarks White blood cell count is 2.9 today. Fever present overnight. Patient has some lymphadenopathy in his right upper leg with some swelling in his right lower leg. He is on coverage for disseminated MAC. Objective Vital Signs Date Time Temp Pulse Resp B/P (MAP) Pulse Ox O2 Delivery O2 Flow Rate FiO2 05/23/17 12:00 99.6 103 16 91/52 (65) 100 05/23/17 08:00 99.3 106 16 111/60 (77) 98 05/23/17 04:18 99.8 108 20 103/62 (76) 97 05/23/17 00:00 98.0 96 20 108/59 (75) 100 05/22/17 20:00 101.2 109 20 105/58 (74) 98 05/22/17 17:28 118 05/22/17 16:30 18 05/22/17 16:00 101.8 117 16 115/61 (79) 97 I/O 05/22/17 05/22/17 05/22/17 05/23/17 05/23/17 05/23/17 07:00 15:00 23:00 07:00 15:00 23:00 Intake Total 480 ml 1100 ml Output Total 725 ml 800 ml 825 ml Balance -245 ml 300 ml -825 ml Intake Oral 480 ml 1000 ml IV Total 100 ml Output Urine Total 725 ml 800 ml 825 ml # Bowel Movements 0 0 Result Diagram: 05/23/1780405/23/17804 Objective Remarks GENERAL: NAD, A&Ox3 HEAD: Normocephalic. NECK: Supple, trachea midline. No lymphadenopathy. EYES: No scleral icterus. No injection or drainage. CARDIOVASCULAR: Regular rate and rhythm without murmurs, gallops, or rubs. RESPIRATORY: Breath sounds equal bilaterally. No accessory muscle use. GASTROINTESTINAL: Abdomen soft, non-tender, nondistended. MUSCULOSKELETAL: No cyanosis, or edema. Zoster rash at right lower jaw and neck SKIN: Warm and dry. NEURO: No focal neurological deficitis. A/P Problem List: (1) Pancytopenia ICD Code: D61.818 - Other pancytopenia (2) HIV (human immunodeficiency virus infection) ICD Code: B20 - Human immunodeficiency virus [HIV] disease Status: Chronic (3) Enlargement of spleen ICD Code: R16.1 - Splenomegaly, not elsewhere classified Status: Chronic (4) Thrombocytopenia ICD Code: D69.6 - Thrombocytopenia, unspecified Status: Acute (5) Splenic infarction ICD Code: D73.5 - Infarction of spleen Status: Acute (6) Anemia ICD Code: D64.9 - Anemia, unspecified Status: Acute Assessment and Plan Assessment and Plan 36-year-old male admitted secondary to pancytopenia and splenic infarct. Continue to monitor bone marrow biopsy, for results. White blood cell count has decreased again today. Nausea and vomiting present and treated with Zofran. Fevers present overnight. Antibiotics and antivirals continued. Follow clinically for any worsening of right lower extremity. Splenic infarct Follow clinically Surgeon following Hematology following Immunocompromise HIV/AIDS Continue MAC treatment Disseminated zoster Continue IV acyclovir Continue Bactrim Contact and airborne isolation Fever Continue Bactrim Continue azithromycin Continue ciprofloxacin Follow for resolution of fever Possible GI bleed Acute blood loss anemia EGD and colonoscopy pending GI following Follow CBC Transfusions as needed Bone marrow biopsy results pending DVT prophylaxis SCDs Avoid blood thinners secondary to degree of anemia Problem Qualifiers (1) Anemia: Qualified Codes: D64.9 - Anemia, unspecified Esteban Morelos MD May 23, 2017 13:50
[2017-05-23 16:00] VITALS: BP 90/53; PULSE 109; RESP 16; TEMP 100.8; O2SAT 98
[2017-05-23 20:00] VITALS: BP 106/59; PULSE 104; RESP 18; TEMP 100.7; O2SAT 99
[2017-05-24] VITALS (7 sets, daily range): BP systolic 101–117; BP diastolic 55–72; PULSE 87–112; RESP 16–18; TEMP 98–100.3; O2SAT 97–100
[2017-05-24] MEDS: ACYCLOVIR INJ 600 MG in SODIUM CHLORIDE 0.9% INJ 100 ML IV SCH ×3 (03:48→19:20)
[2017-05-24 08:24] LABS: HEMATOCRIT 23.2 % (39.0-51.0); MEAN CELL VOLUME 82.5 FL (80.0-100.0); MEAN CORPUSCULAR HGB CONC 33.9 % (32.0-36.0); PLATELET COUNT 136 TH/MM3 (150-450); RED BLOOD COUNT 2.81 MIL/MM3 (4.50-5.90); RED CELL DISTRIBUTION WIDTH 18.4 % (11.6-17.2); WHITE BLOOD COUNT 2.2 TH/MM3 (4.0-11.0)
[2017-05-24] MEDS: CYANOCOBALAMIN 1,000 MCG TAB PO SCH (08:38)
[2017-05-24] MEDS: CLARITHROMYCIN 500 MG TAB PO SCH ×2 (08:38→19:19)
[2017-05-24] MEDS: SULFAMETHOXAZOLE-TRIMETHOPRIM DS 800-160 MG TAB PO SCH (08:38)
[2017-05-24] MEDS: ELVIT/COBI/EMTR/TENOF 150/150/200/300 MG TABLETS PO SCH (08:38)
[2017-05-24] MEDS: ETHAMBUTOL HCL 400 MG TAB PO SCH (08:38)
[2017-05-24] MEDS: FOLIC ACID 1 MG TAB PO SCH (08:38)
[2017-05-24] MEDS: FERROUS SULFATE 325 MG (65 MG ELEMENTAL IRON) TAB PO SCH ×3 (08:38→17:47)
[2017-05-24] MEDS: SODIUM CHLORIDE 0.9% FLUSH 10 ML FLUSH IV FLUSH SCH ×2 (08:38→19:20)
[2017-05-24] MEDS: RIFAMPIN 150 MG CAP PO SCH ×2 (08:38→19:20)
[2017-05-24 08:39] LABS: HEMO FLAGS AUTO DIFF
[2017-05-24 08:46] LABS: ANION GAP 8 MEQ/L (5-15); AST (GOT) 32 U/L (15-37); BICARBONATE 24.7 MEQ/L (21.0-32.0); BLOOD UREA NITROGEN 12 MG/DL (7-18); CHLORIDE 98 MEQ/L (98-107); GLOMERULAR FILTRATION RATE 170 ML/MIN (>89); POTASSIUM 4.3 MEQ/L (3.5-5.1); SODIUM (NA) 131 MEQ/L (136-145)
[2017-05-24 08:47] LABS: ALT (GPT) 36 U/L (12-78)
[2017-05-24 08:49] LABS: ALKALINE PHOSPHATASE 273 U/L (45-117); TOTAL BILIRUBIN ADULT 0.9 MG/DL (0.2-1.0)
[2017-05-24 09:16] LABS: BANDS 6 % (0-6); BASOPHILS 1 % (0-2); NEUTROPHIL # MANUAL DIFF 1.9 TH/MM3 (1.8-7.7); POLYS (SEG NEUTROPHILS) 81 % (16-70); WBC DIFF SAMPLE 100
[2017-05-24 09:18] LABS: PLATELET ESTIMATE SMEAR LOW (NORMAL); PLATELET MORPHOLOGY NORMAL (NORMAL); SCAN/DIFF FINAL DIFF MANUAL
--- NOTE | 2017-05-24 12:14 | RADRPT ---
EXAM DATE/TIME: 05/24/2017 10:22 [place] COMPARISON: No previous studies available for comparison. INDICATIONS : Bilateral leg pain. MEDICAL HISTORY : Blood transfusion. Abdominal pain. HIV positive. Blood transfusion. SURGICAL HISTORY : None. ENCOUNTER: Initial ACUITY: 3 days PAIN SCORE: 8/10 LOCATION: Bilateral legs. TECHNIQUE: Venous ultrasound of the left and right leg was performed from the inguinal ligament to the proximal calf. Real-time, color Doppler and spectral tracing, compression and augmentation techniques were us ed. FINDINGS: RIGHT LEG: There is normal compressibility of the deep venous system from the inguinal region to the proximal ca lf. No echogenic clot is seen in the lumen of the common femoral, femoral, popliteal, and posterior tibial veins. There is a normal response of the venous system to proximal and distal augmentation an d respiration. There are some prominent lymph nodes in both inguinal regions. On the right, largest measures 3.3 x 3.4 x 0.7 cm and clearly contains a fatty hilum suggesting a reactive process. LEFT LEG: There is normal compressibility of the deep venous system from the inguinal region to the proximal ca lf. No echogenic clot is seen in the lumen of the common femoral, femoral, popliteal, and posterior tibial veins. There is a normal response of the venous system to proximal and distal augmentation an d respiration. Prominent left inguinal lymph node with the largest measuring 2.4 x 2.8 x 0.6 cm and again, clearly containing a fatty hilum characteristic of a reactive node. Probable 4.4 x 2.9 x 1.3 c m left popliteal fossa Devlin's type cyst. CONCLUSION: 1. No sonographic or Doppler findings of deep venous thrombosis in either lower extremity. 2. However, there are bilateral prominent inguinal lymph nodes which clearly contain fatty oliver and a re most certainly reactive. 3. Probable 4.4 cm left popliteal fossa Devlin's type cyst. Sma Castrejon MD on May 24, 2017 at 12:09 Board Certified Radiologist. This report was verified electronically.
[2017-05-24] MEDS: FAMOTIDINE 20 MG TAB PO SCH ×2 (12:25→19:20)
--- NOTE | 2017-05-24 13:04 | HHI.PR ---
Subjective Remarks White blood cell count is 2.2 today. Fever present overnight. Hemoglobin level has an upper trend today. Patient has no new complaints. Of note he has fever intermittently at baseline so full resolution of fevers not expected. He has been ambulatory recently. Objective Vital Signs Date Time Temp Pulse Resp B/P (MAP) Pulse Ox O2 Delivery O2 Flow Rate FiO2 05/24/17 12:00 98.9 94 16 103/62 (76) 97 05/24/17 08:00 99.7 107 17 101/60 (74) 100 05/24/17 04:25 98.1 97 18 106/57 (73) 99 05/24/17 02:55 87 05/24/17 00:32 98.3 100 18 111/61 (78) 99 05/23/17 20:00 100.7 104 18 106/59 (75) 99 05/23/17 16:00 100.8 109 16 90/53 (65) 98 I/O 05/23/17 05/23/17 05/23/17 05/24/17 05/24/17 05/24/17 07:00 15:00 23:00 07:00 15:00 23:00 Intake Total 200 ml 1030 ml 100 ml Output Total 825 ml 900 ml 600 ml Balance -825 ml 200 ml 130 ml -500 ml Intake Oral 930 ml IV Total 200 ml 100 ml 100 ml Output Urine Total 825 ml 900 ml 600 ml # Bowel Movements 0 Result Diagram: 05/24/17 0733 05/24/17 0733 Objective Remarks GENERAL: NAD, A&Ox3 HEAD: Normocephalic. NECK: Supple, trachea midline. No lymphadenopathy. EYES: No scleral icterus. No injection or drainage. CARDIOVASCULAR: Regular rate and rhythm without murmurs, gallops, or rubs. RESPIRATORY: Breath sounds equal bilaterally. No accessory muscle use. GASTROINTESTINAL: Abdomen soft, non-tender, nondistended. MUSCULOSKELETAL: No cyanosis, or edema. Zoster rash at right lower jaw and neck SKIN: Warm and dry. NEURO: No focal neurological deficitis. A/P Problem List: (1) Pancytopenia ICD Code: D61.818 - Other pancytopenia (2) HIV (human immunodeficiency virus infection) ICD Code: B20 - Human immunodeficiency virus [HIV] disease Status: Chronic (3) Enlargement of spleen ICD Code: R16.1 - Splenomegaly, not elsewhere classified Status: Chronic (4) Thrombocytopenia ICD Code: D69.6 - Thrombocytopenia, unspecified Status: Acute (5) Splenic infarction ICD Code: D73.5 - Infarction of spleen Status: Acute (6) Anemia ICD Code: D64.9 - Anemia, unspecified Status: Acute Assessment and Plan Assessment and Plan 36-year-old male admitted secondary to pancytopenia and splenic infarct. Continue to monitor bone marrow biopsy, for results. White blood cell count has decreased again today. Nausea and vomiting present and treated with Zofran. Fevers present overnight. Antibiotics and antivirals continued. Potential discharge after clearance from ID, which may occur tomorrow; plan for completion of IV antivirals on 05/25/17. Splenic infarct Follow clinically Surgeon following Hematology following Immunocompromise HIV/AIDS Continue MAC treatment Disseminated zoster Continue IV acyclovir Continue Bactrim Contact and airborne isolation Fever Continue Bactrim Continue azithromycin Continue ciprofloxacin Follow for resolution of fever Possible GI bleed Acute blood loss anemia EGD and colonoscopy pending GI following Follow CBC Transfusions as needed Bone marrow biopsy results pending DVT prophylaxis SCDs Avoid blood thinners secondary to degree of anemia Problem Qualifiers (1) Anemia: Qualified Codes: D64.9 - Anemia, unspecified Esteban Morelos MD May 24, 2017 13:04
--- NOTE | 2017-05-24 13:40 | HHI.IDPN ---
Subjective Subjective Remarks Patient is a 36-year-old male, with known HIV, AIDS, presented to the hospital complaining of diffuse body aches, as well as severe left upper quadrant pain. Patient stated he was hospitalized 2 times at [facility]. The first one was 7 days, and the second one was about 10 days, and he was discharge about a week ago. During that hospitalization he was told he had a bruise in his spleen, and he was actively being evaluated for a splenectomy, but it was decided not to do it. During that time he also had left upper quadrant pain, and his pain resolved the pain however started again at home and it was so severe that any kind of movement aggravates the pain. He is also had on and off fevers. Minimal respiratory complaint. No nausea or vomiting. Has frequent bowel movement. No urinary complaints. Patient has been diagnosed to have HIV probably for the last 7 years. He [facility], but lost to follow-up, and recently started following up with Dr. Edmondson. He has been put on HAART in the last 4 months. The record also mention that he had been diagnosed to have MAC, and currently on treatment for that. Patient also noted a rash on the right side of his neck recently. He has never had chickenpox and denies any exposure to anyone with shingles or chickenpox. Patient since admission has had fevers. He has pancytopenia. He is complaining of severe pain in his left upper quadrant. CT of the abdomen and pelvis did confirm an area of splenic infarct. Infectious disease consultation has been requested to evaluate the patient. Notes reviewed Has intermittent low grade temps No new complaint BC AFB (+) BM biopsy C/W VIKKI Duodenal biopsy C/W VIKKI VZV PCR (+) VZV IgG (+) CD4 less than 20 CMV PCR negative RPR non-reactive Crypto Ag negative Antibiotics VIKKI Rx - Rifampin, Biaxin, EMB HAART Acyclovir Current Medications Medications (Trade) Dose Ordered Sig/Derek Route Start Time Stop Time Status Last Admin (NS Flush) 2 ml UNSCH PRN IV FLUSH 05/05/17 17:45 05/22/17 11:38 (NS Flush) 2 ml BID IV FLUSH 05/05/17 21:00 05/24/17 08:38 (Narcan Inj) 0.4 mg UNSCH PRN IV PUSH 05/05/17 17:45 Patient Own Medication PT OWN MED: [place] (Elvitegra... DAILY PO 05/06/17 09:00 Future Hold 05/10/17 07:53 (Ferrous Sulfate) 325 mg TIDPC PO 05/05/17 18:30 05/24/17 12:25 (Folate) 1 mg DAILY PO 05/06/17 09:00 05/24/17 08:38 (Vitamin B12) 1,000 mcg DAILY PO 05/06/17 09:00 05/24/17 08:38 (Myambutol) 800 mg DAILY PO 05/06/17 09:00 05/24/17 08:38 (Morphine Inj) 2 mg Q3H PRN IV PUSH 05/05/17 18:45 05/06/17 17:45 Acyclovir Sodium 600 mg/Sodium Chloride 100 ml @ 100 mls/hr Q8H IV 05/06/17 12:00 05/25/17 15:00 05/24/17 12:25 (Roxicodone) 5 mg Q4HR PRN PO 05/07/17 12:00 (Roxicodone) 10 mg Q4H PRN PO 05/07/17 15:00 05/24/17 12:25 (Tylenol) 325 mg Q6H PRN PO 05/07/17 13:15 05/22/17 21:57 (Stribild [phone] Mg) 1 tab DAILY PO 05/10/17 09:00 05/24/17 08:38 (Pepcid) 20 mg BID PO 05/12/17 21:00 05/24/17 12:25 (Bactrim Ds 800-160 Mg) 1 tab MoWeFr@09 PO 05/17/17 09:00 05/24/17 08:38 (Biaxin) 500 mg Q12HR PO 05/18/17 09:00 05/24/17 08:38 (Rifampin) 300 mg Q12HR PO 05/17/17 21:00 05/24/17 08:38 (Zofran Inj) 4 mg Q6HR PRN IV PUSH 05/22/17 10:45 05/23/17 11:01 Lines PIV Past Medical History HIV/AIDS, CD4 26 Hypertension Splenomegaly, splenic infarct MAC infection Allergies: Coded Allergies: No Known Allergies (Verified Allergy, Mild, 05/30/08) Objective . Vital Signs Date Time Temp Pulse Resp B/P (MAP) Pulse Ox O2 Delivery O2 Flow Rate FiO2 05/24/17 12:00 98.9 94 16 103/62 (76) 97 05/24/17 08:00 99.7 107 17 101/60 (74) 100 05/24/17 08:00 94 05/24/17 04:25 98.1 97 18 106/57 (73) 99 05/24/17 02:55 87 05/24/17 00:32 98.3 100 18 111/61 (78) 99 05/23/17 20:00 100.7 104 18 106/59 (75) 99 05/23/17 16:00 100.8 109 16 90/53 (65) 98 . Laboratory Tests Test 05/23/17 08:05 05/24/17 07:33 White Blood Count 2.9 TH/MM3 2.2 TH/MM3 Red Blood Count 2.69 MIL/MM3 2.81 MIL/MM3 Hemoglobin 7.5 GM/DL 7.9 GM/DL Hematocrit 22.3 % 23.2 % Mean Corpuscular Volume 82.6 FL 82.5 FL Mean Corpuscular Hemoglobin 27.7 PG 28.0 PG Mean Corpuscular Hemoglobin Concent 33.5 % 33.9 % Red Cell Distribution Width 17.8 % 18.4 % Platelet Count 140 TH/MM3 136 TH/MM3 Mean Platelet Volume 6.7 FL 6.5 FL CBC Comment AUTO DIFF AUTO DIFF Differential Total Cells Counted 100 100 Neutrophils % (Manual) 82 % 81 % Lymphocytes % 6 % 4 % Monocytes % 11 % 8 % Basophils % 1 % 1 % Neutrophils # (Manual) 2.4 TH/MM3 1.9 TH/MM3 Differential Comment FINAL DIFF MANUAL FINAL DIFF MANUAL Platelet Estimate LOW LOW Platelet Morphology Comment NORMAL NORMAL Red Cell Morphology Comment NORMAL Band Neutrophils % 6 % Laboratory Tests Test 05/23/17 08:05 05/24/17 07:33 Blood Urea Nitrogen 14 MG/DL 12 MG/DL Creatinine 0.83 MG/DL 0.64 MG/DL Random Glucose 118 MG/DL 87 MG/DL Total Protein 7.4 GM/DL 7.5 GM/DL Albumin 1.8 GM/DL 1.8 GM/DL Calcium Level 9.2 MG/DL 9.6 MG/DL Alkaline Phosphatase 265 U/L 273 U/L Aspartate Amino Transf (AST/SGOT) 26 U/L 32 U/L Alanine Aminotransferase (ALT/SGPT) 36 U/L 36 U/L Total Bilirubin 0.6 MG/DL 0.9 MG/DL Sodium Level 133 MEQ/L 131 MEQ/L Potassium Level 4.2 MEQ/L 4.3 MEQ/L Chloride Level 98 MEQ/L 98 MEQ/L Carbon Dioxide Level 26.0 MEQ/L 24.7 MEQ/L Anion Gap 9 MEQ/L 8 MEQ/L Estimat Glomerular Filtration Rate 126 ML/MIN 170 ML/MIN Imaging Last Impressions Abdomen/Pelvis CT 05/05/17 1443 Signed Impressions: Service Date/Time: Friday, May 05, 2017 16:42 - CONCLUSION: Enlarged spleen with large areas of infarction or or neoplastic infiltration. Trace ascites. Sclerotic bones without focal destructive lesions. Clinton Valadez MD FACR Chest X-Ray 05/05/17 0000 Signed Impressions: Service Date/Time: Friday, May 05, 2017 15:41 - CONCLUSION: Negative for fracture or dislocation. Follow up in 7-10 days is suggested if symptoms persist. Clinton Valadez MD FACR Physical Exam GENERAL: awake and alert, NAD SKIN: Warm and dry. Skin lesions are all dry and healing HEAD: Atraumatic. Normocephalic. No temporal wasting, or tenderness. EYES: [place] conjunctiva. No petechia or hemorrhage. Pupils equal, round and reactive to light. Extraocular movements full and intact. No scleral icterus. EARS, NOSE AND THROAT: Nose without bleeding or purulent nasal discharge. No sinus tenderness. Mucous membranes pink and moist. No oral lesions noted. No exudate. No oral thrush. NECK: Trachea midline. Supple and not tender, no meningeal signs. Has cervical lymphadenopathy CARDIOVASCULAR: Regular rate and rhythm. No murmurs, rubs or gallops heard RESPIRATORY: Clear to auscultation. Breath sounds equal bilaterally. No rales , wheezing or rhonchi ABDOMEN: Soft, nondistended. Tender especially on L side. Bowel sounds present and normoactive. No guarding. No rebound. EXTREMITIES: No clubbing, cyanosis. Well perfused and warm. NEUROLOGICAL: Grossly non-focal PSYCHIATRIC: Normal affect, calm and cooperative. LINE: No evidence of infection Assessment & Plan Remarks IMPRESSION Sepsis, with fevers, temps low grade, better - has splenomegaly, prob hypersplenism and splenic infarct - known MAC and on Rx, ?compliance - has HIV/AIDS - has rash resembling varicella, ?primary (he denies prior Hx chickenpox) or disseminated zoster Disseminated zoster, rash all dry now - completing Rx 05/25 HIV/AIDS Disseminarted MAC - BM, duodenum, Previous +AFB BC at [facility] - on EMB, Biaxin and Rifampin Neutropenia, slightly better Low grade temps RECOMMENDATION Continue IV Acyclovir would recommend a 3 week course followed by oral suppression. - follow BMP - end date ordered in [facility] - May 25 Continue HAART Monitor progress Continue VIKKI RX: Biaxin, EMB and Rifampin Follow temps Explained plan to the patient D/W Bettina Tang MD May 24, 2017 13:40
--- NOTE | 2017-05-24 19:31 | HHI.PR ---
Subjective Remarks NOT SEEN Objective Vitals Vital Signs Date Time Temp Pulse Resp B/P (MAP) Pulse Ox O2 Delivery O2 Flow Rate FiO2 05/24/17 16:00 100.3 106 17 104/55 (71) 99 05/24/17 12:00 98.9 94 16 103/62 (76) 97 05/24/17 08:00 99.7 107 17 101/60 (74) 100 05/24/17 08:00 94 05/24/17 04:25 98.1 97 18 106/57 (73) 99 05/24/17 02:55 87 05/24/17 00:32 98.3 100 18 111/61 (78) 99 05/23/17 20:00 100.7 104 18 106/59 (75) 99 I/O 05/23/17 05/23/17 05/23/17 05/24/17 05/24/17 05/24/17 07:00 15:00 23:00 07:00 15:00 23:00 Intake Total 200 ml 1030 ml 100 ml 1540 ml Output Total 825 ml 900 ml 600 ml 1100 ml Balance -825 ml 200 ml 130 ml -500 ml 440 ml Intake Oral 930 ml 1440 ml IV Total 200 ml 100 ml 100 ml 100 ml Output Urine Total 825 ml 900 ml 600 ml 1100 ml # Bowel Movements 0 0 Result Diagram: 05/24/1733 05/24/17 0733 Imaging Last Impressions Lower Extremity Ultrasound 05/24/17 0000 Signed Impressions: Service Date/Time: Wednesday, May 24, 2017 10:22 - CONCLUSION: 1. No sonographic or Doppler findings of deep venous thrombosis in either lower extremity. 2. However, there are bilateral prominent inguinal lymph nodes which clearly contain fatty oliver and are most certainly reactive. 3. Probable 4.4 cm left popliteal fossa Devlin's type cyst. Sam Castrejon MD Chest X-Ray 05/12/17 0000 Signed Impressions: Service Date/Time: Friday, May 12, 2017 11:52 - CONCLUSION: Normal examination except minimal platelike atelectasis left lung base. Jozef Rod MD Bone Biopsy CT 05/10/17 0000 Signed Impressions: Service Date/Time: Wednesday, May 10, 2017 12:39 - CONCLUSION: 1. Uncomplicated CT guided bone marrow aspirate. 2. Uncomplicated CT guided bone marrow biopsy. Eron Angeles MD Abdomen/Pelvis CT 05/05/17 1443 Signed Impressions: Service Date/Time: Friday, May 05, 2017 16:42 - CONCLUSION: Enlarged spleen with large areas of infarction or or neoplastic infiltration. Trace ascites. Sclerotic bones without focal destructive lesions. Clinton Valadez MD FACR Objective Remarks GENERAL: NAD, A&Ox3 HEAD: Normocephalic. NECK: Supple, trachea midline. No lymphadenopathy. EYES: No scleral icterus. No injection or drainage. CARDIOVASCULAR: Regular rate and rhythm without murmurs, gallops, or rubs. RESPIRATORY: Breath sounds equal bilaterally. No accessory muscle use. GASTROINTESTINAL: Abdomen soft, non-tender, nondistended. MUSCULOSKELETAL: No cyanosis, or edema. Zoster rash at right lower jaw and neck SKIN: Warm and dry. NEURO: No focal neurological deficits. Procedures EGD and C scope, ilium BM biopsy A/P Assessment and Plan 36-year-old male admitted secondary to pancytopenia and splenic infarct. Splenic infarct Follow clinically Surgeon following Hematology following Immunocompromised AIDS Continue HAART treatment, Bactrim Zoster Continue IV acyclovir 05/25 the po suppression per ID Contact and airborne isolation Sepsis bcx with AFB, VIKKI on duodenal and BM bx Continue Rifampin, Biaxin and EMB Follow for resolution of fever Pancytopenia 2/2 VIKKI EGD and colonoscopy with gastritis, duodenal inflammation and hemorrhoids GI following Follow CBC Transfusions as needed DVT prophylaxis SCDs Avoid blood thinners secondary to anemia Isauro Petersen MD May 24, 2017 19:31
[2017-05-25] VITALS (9 sets, daily range): BP systolic 98–115; BP diastolic 50–64; PULSE 80–108; RESP 16–18; TEMP 98.9–101; O2SAT 95–100
[2017-05-25] MEDS: ACYCLOVIR INJ 600 MG in SODIUM CHLORIDE 0.9% INJ 100 ML IV SCH ×2 (04:07→13:03)
[2017-05-25] MEDS: CLARITHROMYCIN 500 MG TAB PO SCH ×2 (08:35→19:15)
[2017-05-25] MEDS: CYANOCOBALAMIN 1,000 MCG TAB PO SCH (08:36)
[2017-05-25] MEDS: FERROUS SULFATE 325 MG (65 MG ELEMENTAL IRON) TAB PO SCH ×3 (08:36→17:07)
[2017-05-25] MEDS: ETHAMBUTOL HCL 400 MG TAB PO SCH (08:36)
[2017-05-25] MEDS: ELVIT/COBI/EMTR/TENOF 150/150/200/300 MG TABLETS PO SCH (08:36)
[2017-05-25] MEDS: FAMOTIDINE 20 MG TAB PO SCH ×2 (08:36→19:15)
[2017-05-25] MEDS: FOLIC ACID 1 MG TAB PO SCH (08:37)
[2017-05-25] MEDS: SODIUM CHLORIDE 0.9% FLUSH 10 ML FLUSH IV FLUSH SCH ×2 (08:37→19:16)
[2017-05-25] MEDS: RIFAMPIN 150 MG CAP PO SCH ×2 (08:37→19:15)
[2017-05-25 09:02] LABS: HEMATOCRIT 23.3 % (39.0-51.0); MEAN CORPUSCULAR HEMOGLOBIN 28.2 PG (27.0-34.0); MEAN CORPUSCULAR HGB CONC 33.6 % (32.0-36.0); PLATELET COUNT 164 TH/MM3 (150-450); RED BLOOD COUNT 2.77 MIL/MM3 (4.50-5.90); RED CELL DISTRIBUTION WIDTH 18.9 % (11.6-17.2); WHITE BLOOD COUNT 2.9 TH/MM3 (4.0-11.0)
[2017-05-25 09:12] LABS: HEMO FLAGS AUTO DIFF
[2017-05-25 09:31] LABS: AST (GOT) 24 U/L (15-37); BLOOD UREA NITROGEN 11 MG/DL (7-18); GLOMERULAR FILTRATION RATE 141 ML/MIN (>89)
[2017-05-25 09:32] LABS: ALT (GPT) 29 U/L (12-78); ANION GAP 8 MEQ/L (5-15); BICARBONATE 25.3 MEQ/L (21.0-32.0); CHLORIDE 96 MEQ/L (98-107); POTASSIUM 4.4 MEQ/L (3.5-5.1); SODIUM (NA) 129 MEQ/L (136-145)
[2017-05-25 09:35] LABS: ALKALINE PHOSPHATASE 263 U/L (45-117); TOTAL BILIRUBIN ADULT 0.6 MG/DL (0.2-1.0)
[2017-05-25 09:44] LABS: BANDS 1 % (0-6); NEUTROPHIL # MANUAL DIFF 2.4 TH/MM3 (1.8-7.7); POLYS (SEG NEUTROPHILS) 81 % (16-70); WBC DIFF SAMPLE 100
[2017-05-25 09:45] LABS: OVALOCYTES 1+ (NORMAL); PLATELET ESTIMATE SMEAR NORMAL (NORMAL); PLATELET MORPHOLOGY NORMAL (NORMAL); SCAN/DIFF FINAL DIFF MANUAL
--- NOTE | 2017-05-25 14:37 | HHI.PR ---
Subjective Remarks Follow-up VIKKI infection. No complaints today reports low-grade temperature usually in the late afternoon or evening MAXIMUM TEMPERATURE 100.3. Objective Vitals Vital Signs Date Time Temp Pulse Resp B/P (MAP) Pulse Ox O2 Delivery O2 Flow Rate FiO2 05/25/17 12:00 99.6 98 18 107/60 (76) 99 05/25/17 11:32 18 05/25/17 08:00 92 05/25/17 08:00 99.1 98 16 103/52 (69) 99 05/25/17 04:48 98.9 90 17 98/52 (67) 95 05/25/17 04:07 94 05/25/17 00:00 100.2 102 18 106/54 (71) 100 05/25/17 00:00 95 05/24/17 20:00 109 05/24/17 20:00 98.0 112 18 117/72 (87) 100 05/24/17 16:00 100.3 106 17 104/55 (71) 99 I/O 05/24/17 05/24/17 05/24/17 05/25/17 05/25/17 05/25/17 06:59 14:59 22:59 06:59 14:59 22:59 Intake Total 100 ml 1640 ml 880 ml Output Total 600 ml 1100 ml 1200 ml Balance -500 ml 540 ml -320 ml Intake Oral 1440 ml 780 ml IV Total 100 ml 200 ml 100 ml Output Urine Total 600 ml 1100 ml 1200 ml # Bowel Movements 0 Result Diagram: 05/25/17 0842 05/25/17 0749 Imaging Last Impressions Lower Extremity Ultrasound 05/24/17 0000 Signed Impressions: Service Date/Time: Wednesday, May 24, 2017 10:22 - CONCLUSION: 1. No sonographic or Doppler findings of deep venous thrombosis in either lower extremity. 2. However, there are bilateral prominent inguinal lymph nodes which clearly contain fatty oliver and are most certainly reactive. 3. Probable 4.4 cm left popliteal fossa Devlin's type cyst. Sam Castrejon MD Chest X-Ray 05/12/17 0000 Signed Impressions: Service Date/Time: Friday, May 12, 2017 11:52 - CONCLUSION: Normal examination except minimal platelike atelectasis left lung base. Jozef Rod MD Bone Biopsy CT 05/10/17 0000 Signed Impressions: Service Date/Time: Wednesday, May 10, 2017 12:39 - CONCLUSION: 1. Uncomplicated CT guided bone marrow aspirate. 2. Uncomplicated CT guided bone marrow biopsy. Eron Angeles MD Abdomen/Pelvis CT 05/05/17 1443 Signed Impressions: Service Date/Time: Friday, May 05, 2017 16:42 - CONCLUSION: Enlarged spleen with large areas of infarction or or neoplastic infiltration. Trace ascites. Sclerotic bones without focal destructive lesions. Clinton Valadez MD FACR Objective Remarks GENERAL: NAD, A&Ox3 HEAD: Normocephalic. NECK: Supple, trachea midline. No lymphadenopathy. EYES: No scleral icterus. No injection or drainage. CARDIOVASCULAR: Regular rate and rhythm without murmurs, gallops, or rubs. RESPIRATORY: Breath sounds equal bilaterally. No accessory muscle use. GASTROINTESTINAL: Abdomen soft, non-tender, nondistended. MUSCULOSKELETAL: No cyanosis, or edema. Resolved Zoster rash at right lower jaw and neck SKIN: Warm and dry. NEURO: No focal neurological deficits. Procedures EGD and C scope, ilium BM biopsy A/P Problem List: (1) Pancytopenia ICD Code: D61.818 - Other pancytopenia Assessment and Plan 36-year-old male admitted secondary to pancytopenia and splenic infarct. Splenic infarct Follow clinically Surgeon following Hematology following Immunocompromised AIDS Continue HAART treatment, Bactrim Zoster Continue IV acyclovir 05/25 then po suppression per ID Contact and airborne isolation Sepsis bcx with AFB, VIKKI on duodenal and BM bx. Still with low-grade fever Continue Rifampin, Biaxin and EMB Follow for resolution of fever Pancytopenia 2/2 VIKKI. Stable EGD and colonoscopy with gastritis, duodenal inflammation and hemorrhoids GI following Follow CBC Transfusions as needed Mild hyponatremia. Asymptomatic. Check serum AND URINE OSMOLALITY. DVT prophylaxis SCDs Avoid blood thinners secondary to anemia Discharge Planning Discharge when cleared by Isauro Hickman MD May 25, 2017 14:37
[2017-05-25] MEDS ORDERED: OXYC-395 PO (14:38)
[2017-05-25] MEDS: ONDANSETRON HCL 4 MG/2 ML VIAL IV PUSH PRN (18:06)
[2017-05-26] VITALS (7 sets, daily range): BP systolic 96–110; BP diastolic 51–61; PULSE 84–107; RESP 16–22; TEMP 96.3–100.9; O2SAT 95–100
[2017-05-26] MEDS: ACETAMINOPHEN 325 MG TAB PO PRN ×2 (00:53→15:23)
[2017-05-26] MEDS: FOLIC ACID 1 MG TAB PO SCH (08:27)
[2017-05-26] MEDS: CYANOCOBALAMIN 1,000 MCG TAB PO SCH (08:27)
[2017-05-26] MEDS: SULFAMETHOXAZOLE-TRIMETHOPRIM DS 800-160 MG TAB PO SCH (08:27)
[2017-05-26] MEDS: RIFAMPIN 150 MG CAP PO SCH ×2 (08:27→20:38)
[2017-05-26] MEDS: FAMOTIDINE 20 MG TAB PO SCH ×2 (08:27→20:37)
[2017-05-26] MEDS: ETHAMBUTOL HCL 400 MG TAB PO SCH (08:27)
[2017-05-26] MEDS: ELVIT/COBI/EMTR/TENOF 150/150/200/300 MG TABLETS PO SCH (08:27)
[2017-05-26] MEDS: CLARITHROMYCIN 500 MG TAB PO SCH ×2 (08:27→20:38)
[2017-05-26] MEDS: SODIUM CHLORIDE 0.9% FLUSH 10 ML FLUSH IV FLUSH SCH ×2 (08:28→20:39)
[2017-05-26] MEDS: FERROUS SULFATE 325 MG (65 MG ELEMENTAL IRON) TAB PO SCH ×3 (08:31→16:28)
[2017-05-26] MEDS: ONDANSETRON HCL 4 MG/2 ML VIAL IV PUSH PRN (08:33)
[2017-05-26 11:58] LABS: BICARBONATE 25.5 MEQ/L (21.0-32.0); MAGNESIUM 1.6 MG/DL (1.5-2.5)
--- NOTE | 2017-05-26 14:01 | HHI.IDPN ---
Subjective Subjective Remarks Patient is a 36-year-old male, with known HIV, AIDS, presented to the hospital complaining of diffuse body aches, as well as severe left upper quadrant pain. Patient stated he was hospitalized 2 times at [place]. The first one was 7 days, and the second one was about 10 days, and he was discharge about a week ago. During that hospitalization he was told he had a bruise in his spleen, and he was actively being evaluated for a splenectomy, but it was decided not to do it. During that time he also had left upper quadrant pain, and his pain resolved the pain however started again at home and it was so severe that any kind of movement aggravates the pain. He is also had on and off fevers. Minimal respiratory complaint. No nausea or vomiting. Has frequent bowel movement. No urinary complaints. Patient has been diagnosed to have HIV probably for the last 7 years. [facility], but lost to follow-up, and recently started following up with Dr. Edmondson. He has been put on HAART in the last 4 months. The record also mention that he had been diagnosed to have MAC, and currently on treatment for that. Patient also noted a rash on the right side of his neck recently. He has never had chickenpox and denies any exposure to anyone with shingles or chickenpox. Patient since admission has had fevers. He has pancytopenia. He is complaining of severe pain in his left upper quadrant. CT of the abdomen and pelvis did confirm an area of splenic infarct. Infectious disease consultation has been requested to evaluate the patient. Notes reviewed Continues to have intermittent fevers Complaining of some tender knots on his right lower extremity and left upper extremity Ultrasound did not show any DVT, but showed some inguinal adenopathy BM biopsy C/W VIKKI Duodenal biopsy C/W VIKKI Completed IV acyclovir VZV PCR (+) VZV IgG (+) CD4 less than 20 CMV PCR negative RPR non-reactive Crypto Ag negative Antibiotics VIKKI Rx - Rifampin, Biaxin, EMB HAART Current Medications Medications (Trade) Dose Ordered Sig/Derek Route Start Time Stop Time Status Last Admin (NS Flush) 2 ml UNSCH PRN IV FLUSH 05/05/17 17:45 05/22/17 11:38 (NS Flush) 2 ml BID IV FLUSH 05/05/17 21:00 05/26/17 08:28 (Narcan Inj) 0.4 mg UNSCH PRN IV PUSH 05/05/17 17:45 Patient Own Medication PT OWN MED: [place] (Elvitegra... DAILY PO 05/06/17 09:00 Future Hold 05/10/17 07:53 (Ferrous Sulfate) 325 mg TIDPC PO 05/05/17 18:30 05/26/17 12:20 (Folate) 1 mg DAILY PO 05/06/17 09:00 05/26/17 08:27 (Vitamin B12) 1,000 mcg DAILY PO 05/06/17 09:00 05/26/17 08:27 (Myambutol) 800 mg DAILY PO 05/06/17 09:00 05/26/17 08:27 (Morphine Inj) 2 mg Q3H PRN IV PUSH 05/05/17 18:45 05/06/17 17:45 (Roxicodone) 5 mg Q4HR PRN PO 05/07/17 12:00 (Roxicodone) 10 mg Q4H PRN PO 05/07/17 15:00 05/26/17 12:20 (Tylenol) 325 mg Q6H PRN PO 05/07/17 13:15 05/26/17 00:53 (Stribild [phone] Mg) 1 tab DAILY PO 05/10/17 09:00 05/26/17 08:27 (Pepcid) 20 mg BID PO 05/12/17 21:00 05/26/17 08:27 (Bactrim Ds 800-160 Mg) 1 tab MoWeFr@09 PO 05/17/17 09:00 05/26/17 08:27 (Biaxin) 500 mg Q12HR PO 05/18/17 09:00 05/26/17 08:27 (Rifampin) 300 mg Q12HR PO 05/17/17 21:00 05/26/17 08:27 (Zofran Inj) 4 mg Q6HR PRN IV PUSH 05/22/17 10:45 05/26/17 08:33 (Valtrex) 500 mg Q12HR PO 05/26/17 21:00 Lines PIV Past Medical History HIV/AIDS, CD4 26 Hypertension Splenomegaly, splenic infarct MAC infection Allergies: Coded Allergies: No Known Allergies (Verified Allergy, Mild, 05/30/08) Objective . Vital Signs Date Time Temp Pulse Resp B/P (MAP) Pulse Ox O2 Delivery O2 Flow Rate FiO2 05/26/17 12:00 99.6 100 19 105/60 (75) 99 05/26/17 08:00 98.8 99 19 110/61 (77) 95 05/26/17 06:06 16 05/26/17 05:08 100.2 98 16 103/51 (68) 98 05/26/17 01:54 17 05/26/17 00:12 100 05/25/17 23:59 101.0 108 17 103/50 (67) 100 05/25/17 20:11 99.9 80 18 115/64 (81) 97 05/25/17 19:59 108 05/25/17 16:00 100.2 107 16 108/55 (72) 98 05/26/17 05/26/17 05/27/17 15:00 23:00 07:00 Intake Total 480 ml Balance 480 ml Intake Oral 480 ml . Laboratory Tests Test 05/25/17 08:42 White Blood Count 2.9 TH/MM3 Red Blood Count 2.77 MIL/MM3 Hemoglobin 7.8 GM/DL Hematocrit 23.3 % Mean Corpuscular Volume 84.0 FL Mean Corpuscular Hemoglobin 28.2 PG Mean Corpuscular Hemoglobin Concent 33.6 % Red Cell Distribution Width 18.9 % Platelet Count 164 TH/MM3 Mean Platelet Volume 6.7 FL CBC Comment AUTO DIFF Differential Total Cells Counted 100 Neutrophils % (Manual) 81 % Band Neutrophils % 1 % Lymphocytes % 8 % Monocytes % 10 % Neutrophils # (Manual) 2.4 TH/MM3 Differential Comment FINAL DIFF MANUAL Platelet Estimate NORMAL Platelet Morphology Comment NORMAL Ovalocytes 1+ Laboratory Tests Test 05/25/17 07:49 05/26/17 09:30 Blood Urea Nitrogen 11 MG/DL 11 MG/DL Creatinine 0.75 MG/DL 0.79 MG/DL Random Glucose 81 MG/DL 115 MG/DL Total Protein 8.0 GM/DL Albumin 1.8 GM/DL Calcium Level 9.8 MG/DL 9.8 MG/DL Alkaline Phosphatase 263 U/L Aspartate Amino Transf (AST/SGOT) 24 U/L Alanine Aminotransferase (ALT/SGPT) 29 U/L Total Bilirubin 0.6 MG/DL Sodium Level 129 MEQ/L 128 MEQ/L Potassium Level 4.4 MEQ/L 4.0 MEQ/L Chloride Level 96 MEQ/L 93 MEQ/L Carbon Dioxide Level 25.3 MEQ/L 25.5 MEQ/L Anion Gap 8 MEQ/L 10 MEQ/L Estimat Glomerular Filtration Rate 141 ML/MIN 133 ML/MIN Serum Osmolality 276 MOSM/KG Magnesium Level 1.6 MG/DL Imaging Last Impressions Abdomen/Pelvis CT 05/05/17 1443 Signed Impressions: Service Date/Time: Friday, May 05, 2017 16:42 - CONCLUSION: Enlarged spleen with large areas of infarction or or neoplastic infiltration. Trace ascites. Sclerotic bones without focal destructive lesions. Clinton Valadez MD FACR Chest X-Ray 05/05/17 0000 Signed Impressions: Service Date/Time: Friday, May 05, 2017 15:41 - CONCLUSION: Negative for fracture or dislocation. Follow up in 7-10 days is suggested if symptoms persist. Clinton Valadez MD FACR Physical Exam GENERAL: awake and alert, NAD SKIN: Warm and dry. Has tender nodules in his RLE, ?along lymphatics, and also on his L forearm HEAD: Atraumatic. Normocephalic. No temporal wasting, or tenderness. EYES: [place] conjunctiva. No petechia or hemorrhage. Pupils equal, round and reactive to light. Extraocular movements full and intact. No scleral icterus. EARS, NOSE AND THROAT: Nose without bleeding or purulent nasal discharge. No sinus tenderness. Mucous membranes pink and moist. No oral lesions noted. No exudate. No oral thrush. NECK: Trachea midline. Supple and not tender, no meningeal signs. Has cervical lymphadenopathy CARDIOVASCULAR: Regular rate and rhythm. No murmurs, rubs or gallops heard RESPIRATORY: Clear to auscultation. Breath sounds equal bilaterally. No rales , wheezing or rhonchi ABDOMEN: Soft, nondistended. Not tender. Bowel sounds present and normoactive. No guarding. No rebound. EXTREMITIES: No clubbing, cyanosis. Well perfused and warm. NEUROLOGICAL: Grossly non-focal PSYCHIATRIC: Normal affect, calm and cooperative. LINE: No evidence of infection Assessment & Plan Remarks IMPRESSION Sepsis, with fevers, temps low grade, better - has splenomegaly, prob hypersplenism and splenic infarct - known MAC and on Rx, ?compliance - has HIV/AIDS - has rash resembling varicella, ?primary (he denies prior Hx chickenpox) or disseminated zoster Disseminated zoster, rash all dry now - S/P RX HIV/AIDS Disseminarted MAC - BM, duodenum, [place] [facility] [place], Biaxin and Rifampin Neutropenia, slightly better Persistent fevers Nodules in RLE and LUE, ?LN, ?MAC RECOMMENDATION Monitor progress Continue VIKKI RX: Biaxin, EMB and Rifampin NAprosyn to control fever May need to do excition biopsy of nodules tavia on R leg which are bigger Follow temps Explained plan to the patient D/W Bettina Villarreal MD May 26, 2017 14:01
[2017-05-26] MEDS: NAPROXEN 500 MG TAB PO SCH ×2 (15:23→20:37)
--- NOTE | 2017-05-26 15:53 | HHI.PR ---
Subjective Remarks Follow-up VIKKI infection. Continues to have intermittent fever MAXIMUM TEMPERATURE 101. Complained of nausea earlier. Discussed with RN Objective Vitals Vital Signs Date Time Temp Pulse Resp B/P (MAP) Pulse Ox O2 Delivery O2 Flow Rate FiO2 05/26/17 12:00 99.6 100 19 105/60 (75) 99 05/26/17 08:00 98.8 99 19 110/61 (77) 95 05/26/17 06:06 16 05/26/17 05:08 100.2 98 16 103/51 (68) 98 05/26/17 01:54 17 05/26/17 00:12 100 05/25/17 23:59 101.0 108 17 103/50 (67) 100 05/25/17 20:11 99.9 80 18 115/64 (81) 97 05/25/17 19:59 108 05/25/17 16:00 100.2 107 16 108/55 (72) 98 I/O 05/25/17 05/25/17 05/25/17 05/26/17 05/26/17 05/26/17 07:00 15:00 23:00 07:00 15:00 23:00 Intake Total 880 ml 100 ml 960 ml 780 ml 480 ml Output Total 1200 ml 785 ml 1500 ml Balance -320 ml 100 ml 175 ml -720 ml 480 ml Intake Oral 780 ml 960 ml 780 ml 480 ml IV Total 100 ml 100 ml Output Urine Total 1200 ml 785 ml 1500 ml # Bowel Movements 2 Result Diagram: 05/25/17 0842 05/26/17 0930 Imaging Last Impressions Lower Extremity Ultrasound 05/24/17 0000 Signed Impressions: Service Date/Time: Wednesday, May 24, 2017 10:22 - CONCLUSION: 1. No sonographic or Doppler findings of deep venous thrombosis in either lower extremity. 2. However, there are bilateral prominent inguinal lymph nodes which clearly contain fatty oliver and are most certainly reactive. 3. Probable 4.4 cm left popliteal fossa Devlin's type cyst. Sam Castrejon MD Chest X-Ray 05/12/17 0000 Signed Impressions: Service Date/Time: Friday, May 12, 2017 11:52 - CONCLUSION: Normal examination except minimal platelike atelectasis left lung base. Jozef Rod MD Bone Biopsy CT 05/10/17 0000 Signed Impressions: Service Date/Time: Wednesday, May 10, 2017 12:39 - CONCLUSION: 1. Uncomplicated CT guided bone marrow aspirate. 2. Uncomplicated CT guided bone marrow biopsy. Eron Angeles MD Abdomen/Pelvis CT 05/05/17 1443 Signed Impressions: Service Date/Time: Friday, May 05, 2017 16:42 - CONCLUSION: Enlarged spleen with large areas of infarction or or neoplastic infiltration. Trace ascites. Sclerotic bones without focal destructive lesions. Clinton Valadez MD FACR Objective Remarks GENERAL: NAD, A&Ox3 HEAD: Normocephalic. NECK: Supple, trachea midline. No lymphadenopathy. EYES: No scleral icterus. No injection or drainage. CARDIOVASCULAR: Regular rate and rhythm without murmurs, gallops, or rubs. RESPIRATORY: Breath sounds equal bilaterally. No accessory muscle use. GASTROINTESTINAL: Abdomen soft, non-tender, nondistended. MUSCULOSKELETAL: No cyanosis, or edema. Resolved Zoster rash at right lower jaw and neck. Nodules on the left upper and left lower extremities SKIN: Warm and dry. NEURO: No focal neurological deficits. Procedures EGD and C scope, ilium BM biopsy A/P Problem List: (1) Pancytopenia ICD Code: D61.818 - Other pancytopenia Assessment and Plan 36-year-old male admitted secondary to pancytopenia and splenic infarct. Continues to have intermittent fever. Naproxen added Splenic infarct Follow clinically Surgeon following Hematology following Immunocompromised AIDS Continue HAART treatment, Bactrim Zoster Status post IV acyclovir 05/25 then po suppression per ID Contact and airborne isolation Sepsis bcx with AFB, VIKKI on duodenal and BM bx. Still with low-grade fever. Naproxen started Continue Rifampin, Biaxin and EMB Follow for resolution of fever May need excisional biopsy of nodules per ID Pancytopenia 2/2 VIKKI. Stable EGD and colonoscopy with gastritis, duodenal inflammation and hemorrhoids GI following Follow CBC Transfusions as needed Mild hyponatremia. Asymptomatic. Serum osmolality 276 and urine osmolality 442. Monitor DVT prophylaxis SCDs Avoid blood thinners secondary to anemia Discharge Planning Discharge when cleared by Isauro Hickman MD May 26, 2017 15:53
[2017-05-26] MEDS: valACYclovir HCL 500 MG TAB PO SCH (20:55)
[2017-05-27] VITALS: BP 108/57; PULSE 87; RESP 17; TEMP 96.9; O2SAT 100
[2017-05-27 04:00] VITALS: BP 104/60; PULSE 66; RESP 17; TEMP 96.7; O2SAT 100
[2017-05-27 07:27] LABS: HEMATOCRIT 22.5 % (39.0-51.0); MEAN CELL VOLUME 83.2 FL (80.0-100.0); MEAN CORPUSCULAR HEMOGLOBIN 28.5 PG (27.0-34.0); MEAN CORPUSCULAR HGB CONC 34.2 % (32.0-36.0); PLATELET COUNT 140 TH/MM3 (150-450); RED CELL DISTRIBUTION WIDTH 19.5 % (11.6-17.2); WHITE BLOOD COUNT 2.8 TH/MM3 (4.0-11.0)
[2017-05-27 07:37] LABS: HEMO FLAGS AUTO DIFF
[2017-05-27 07:42] LABS: BICARBONATE 25.1 MEQ/L (21.0-32.0); MAGNESIUM 1.6 MG/DL (1.5-2.5); POTASSIUM 4.2 MEQ/L (3.5-5.1)
[2017-05-27 08:00] VITALS: BP 105/63; PULSE 105; RESP 20; TEMP 96.9; O2SAT 99
[2017-05-27 08:28] LABS: ACANTHOCYTES OCC (NORMAL); BANDS 10 % (0-6); DOHLE BODIES PRESENT (NONE SEEN); NEUTROPHIL # MANUAL DIFF 2.6 TH/MM3 (1.8-7.7); OVALOCYTES 1+ (NORMAL); POLYS (SEG NEUTROPHILS) 82 % (16-70); WBC DIFF SAMPLE 100
[2017-05-27 08:29] LABS: HELMET CELLS OCC (NORMAL); PLATELET ESTIMATE SMEAR LOW (NORMAL); PLATELET MORPHOLOGY NORMAL (NORMAL); SCAN/DIFF FINAL DIFF MANUAL
[2017-05-27] MEDS: SODIUM CHLORIDE 0.9% FLUSH 10 ML FLUSH IV FLUSH SCH ×2 (09:00→20:14)
[2017-05-27] MEDS: CLARITHROMYCIN 500 MG TAB PO SCH ×2 (09:00→20:13)
[2017-05-27] MEDS: ONDANSETRON HCL 4 MG/2 ML VIAL IV PUSH PRN (09:13)
[2017-05-27] MEDS: CYANOCOBALAMIN 1,000 MCG TAB PO SCH (09:14)
[2017-05-27] MEDS: valACYclovir HCL 500 MG TAB PO SCH ×2 (09:14→20:13)
[2017-05-27] MEDS: NAPROXEN 500 MG TAB PO SCH ×2 (09:14→20:13)
[2017-05-27] MEDS: FOLIC ACID 1 MG TAB PO SCH (09:14)
[2017-05-27] MEDS: ETHAMBUTOL HCL 400 MG TAB PO SCH (09:14)
[2017-05-27] MEDS: ELVIT/COBI/EMTR/TENOF 150/150/200/300 MG TABLETS PO SCH (09:15)
[2017-05-27] MEDS: RIFAMPIN 150 MG CAP PO SCH ×2 (09:15→20:13)
[2017-05-27] MEDS: FAMOTIDINE 20 MG TAB PO SCH ×2 (09:15→20:14)
[2017-05-27] MEDS: FERROUS SULFATE 325 MG (65 MG ELEMENTAL IRON) TAB PO SCH ×3 (09:15→17:25)
[2017-05-27] MEDS ORDERED: VALT500T PO (10:14)
[2017-05-27] MEDS ORDERED: FAMO20TA2 PO (10:14)
[2017-05-27] MEDS ORDERED: SULF1TAB23 PO (10:14)
[2017-05-27] MEDS ORDERED: CLAR500T PO (10:14)
[2017-05-27] MEDS ORDERED: RIFA150C2 PO (10:14)
[2017-05-27] MEDS ORDERED: Ethambutol PO (10:14)
[2017-05-27] MEDS ORDERED: PERC5TAB12 PO (10:57)
--- NOTE | 2017-05-27 11:05 | HHI.FF ---
Face to Face Verification Diagnosis: (1) Pancytopenia (2) HIV (human immunodeficiency virus infection) Physical Therapy Order: Evaluate and Treat, Improve ambulation, Strength and gait training Home Health Nursing Order: Signs/symptoms of disease process Medication education-adverse effect Nursing assessment with vital signs I have seen patient Andrea GradyJr on 05/27/17. My clinical findings support the need for the requested home health care services because: Ltd mobility - disease progression Deconditioned w/ increased weakness Limited ability to care for self I certify that my clinical findings support that this patient is homebound because: Unsteady gait/balance Unable to use public transportation Juan J Davidson May 27, 2017 11:05
[2017-05-27 12:00] VITALS: BP 114/58; PULSE 95; RESP 21; TEMP 98.4; O2SAT 100
--- NOTE | 2017-05-27 12:15 | HHI.IDPN ---
Subjective Subjective Remarks Patient is a 36-year-old male, with known HIV, AIDS, presented to the hospital complaining of diffuse body aches, as well as severe left upper quadrant pain. Patient stated he was hospitalized 2 times at [facility]. The first one was 7 days, and the second one was about 10 days, and he was discharge about a week ago. During that hospitalization he was told he had a bruise in his spleen, and he was actively being evaluated for a splenectomy, but it was decided not to do it. During that time he also had left upper quadrant pain, and his pain resolved the pain however started again at home and it was so severe that any kind of movement aggravates the pain. He is also had on and off fevers. Minimal respiratory complaint. No nausea or vomiting. Has frequent bowel movement. No urinary complaints. Patient has been diagnosed to have HIV probably for the last 7 years. He was [facility] the [facility], but lost to follow-up, and recently started following up with Dr. Edmondson. He has been put on HAART in the last 4 months. The record also mention that he had been diagnosed to have MAC, and currently on treatment for that. Patient also noted a rash on the right side of his neck recently. He has never had chickenpox and denies any exposure to anyone with shingles or chickenpox. Patient since admission has had fevers. He has pancytopenia. He is complaining of severe pain in his left upper quadrant. CT of the abdomen and pelvis did confirm an area of splenic infarct. Infectious disease consultation has been requested to evaluate the patient. Notes reviewed Temps better Patient noted that the tender knots in his RLE smaller/better Ultrasound did not show any DVT, but showed some inguinal adenopathy BM biopsy C/W VIKKI Duodenal biopsy C/W VIKKI Completed IV acyclovir VZV PCR (+) VZV IgG (+) CD4 less than 20 CMV PCR negative RPR non-reactive Crypto Ag negative Antibiotics VIKKI Rx - Rifampin, Biaxin, EMB HAART Current Medications Medications (Trade) Dose Ordered Sig/Derek Route Start Time Stop Time Status Last Admin (NS Flush) 2 ml UNSCH PRN IV FLUSH 05/05/17 17:45 05/22/17 11:38 (NS Flush) 2 ml BID IV FLUSH 05/05/17 21:00 05/27/17 09:00 (Narcan Inj) 0.4 mg UNSCH PRN IV PUSH 05/05/17 17:45 Patient Own Medication PT OWN MED: Genvoya (Elvitegra... DAILY PO 05/06/17 09:00 Future Hold 05/10/17 07:53 (Ferrous Sulfate) 325 mg TIDPC PO 05/05/17 18:30 05/27/17 09:15 (Folate) 1 mg DAILY PO 05/06/17 09:00 05/27/17 09:14 (Vitamin B12) 1,000 mcg DAILY PO 05/06/17 09:00 05/27/17 09:14 (Myambutol) 800 mg DAILY PO 05/06/17 09:00 05/27/17 09:14 (Morphine Inj) 2 mg Q3H PRN IV PUSH 05/05/17 18:45 05/06/17 17:45 (Roxicodone) 5 mg Q4HR PRN PO 05/07/17 12:00 (Roxicodone) 10 mg Q4H PRN PO 05/07/17 15:00 05/27/17 09:15 (Tylenol) 325 mg Q6H PRN PO 05/07/17 13:15 05/26/17 15:23 (Stribild [id number] Mg) 1 tab DAILY PO 05/10/17 09:00 05/27/17 09:15 (Pepcid) 20 mg BID PO 05/12/17 21:00 05/27/17 09:15 (Bactrim Ds 800-160 Mg) 1 tab MoWeFr@09 PO 05/17/17 09:00 05/26/17 08:27 (Biaxin) 500 mg Q12HR PO 05/18/17 09:00 05/27/17 09:00 (Rifampin) 300 mg Q12HR PO 05/17/17 21:00 05/27/17 09:15 (Zofran Inj) 4 mg Q6HR PRN IV PUSH 05/22/17 10:45 05/27/17 09:13 (Valtrex) 500 mg Q12HR PO 05/26/17 21:00 05/27/17 09:14 (Naprosyn) 500 mg Q12HR PO 05/26/17 14:15 05/30/17 14:14 05/27/17 09:14 Lines PIV Past Medical History HIV/AIDS, CD4 26 Hypertension Splenomegaly, splenic infarct MAC infection Allergies: Coded Allergies: No Known Allergies (Verified Allergy, Mild, 05/30/08) Objective . Vital Signs Date Time Temp Pulse Resp B/P (MAP) Pulse Ox O2 Delivery O2 Flow Rate FiO2 05/27/17 09:45 05/27/17 08:00 96.9 105 20 105/63 (77) 99 05/27/17 07:55 05/27/17 07:00 18 05/27/17 04:00 96.7 66 17 104/60 (75) 100 05/27/17 00:00 96.9 87 17 108/57 (74) 100 05/26/17 21:37 18 05/26/17 21:00 85 05/26/17 20:00 96.3 84 17 96/52 (67) 100 05/26/17 16:00 100.9 107 22 107/59 (75) 100 05/27/17 05/27/17 05/28/17 15:00 23:00 07:00 Intake Total 240 ml Balance 240 ml Intake Oral 240 ml . Laboratory Tests Test 05/27/17 05:52 White Blood Count 2.8 TH/MM3 Red Blood Count 2.70 MIL/MM3 Hemoglobin 7.7 GM/DL Hematocrit 22.5 % Mean Corpuscular Volume 83.2 FL Mean Corpuscular Hemoglobin 28.5 PG Mean Corpuscular Hemoglobin Concent 34.2 % Red Cell Distribution Width 19.5 % Platelet Count 140 TH/MM3 Mean Platelet Volume 6.7 FL CBC Comment AUTO DIFF Differential Total Cells Counted 100 Neutrophils % (Manual) 82 % Band Neutrophils % 10 % Lymphocytes % 3 % Monocytes % 5 % Neutrophils # (Manual) 2.6 TH/MM3 Differential Comment FINAL DIFF MANUAL Dohle Bodies PRESENT Platelet Estimate LOW Platelet Morphology Comment NORMAL Ovalocytes 1+ Helmet Cells OCC Acanthocytes OCC Laboratory Tests Test 05/26/17 09:30 05/27/17 05:52 Blood Urea Nitrogen 11 MG/DL 16 MG/DL Creatinine 0.79 MG/DL 0.82 MG/DL Random Glucose 115 MG/DL 86 MG/DL Calcium Level 9.8 MG/DL 9.4 MG/DL Magnesium Level 1.6 MG/DL 1.6 MG/DL Sodium Level 128 MEQ/L 131 MEQ/L Potassium Level 4.0 MEQ/L 4.2 MEQ/L Chloride Level 93 MEQ/L 97 MEQ/L Carbon Dioxide Level 25.5 MEQ/L 25.1 MEQ/L Anion Gap 10 MEQ/L 9 MEQ/L Estimat Glomerular Filtration Rate 133 ML/MIN 127 ML/MIN Imaging Last Impressions Abdomen/Pelvis CT 05/05/17 1443 Signed Impressions: Service Date/Time: Friday, May 05, 2017 16:42 - CONCLUSION: Enlarged spleen with large areas of infarction or or neoplastic infiltration. Trace ascites. Sclerotic bones without focal destructive lesions. Clinton Valadez MD FACR Chest X-Ray 05/05/17 0000 Signed Impressions: Service Date/Time: Friday, May 05, 2017 15:41 - CONCLUSION: Negative for fracture or dislocation. Follow up in 7-10 days is suggested if symptoms persist. Clinton Valadez MD FACR Physical Exam GENERAL: awake and alert, NAD SKIN: Warm and dry. Has tender nodules in his RLE, ?along lymphatics, and also on his L forearm, they are all smaller and less tender HEAD: Atraumatic. Normocephalic. No temporal wasting, or tenderness. EYES: [place] conjunctiva. No petechia or hemorrhage. Pupils equal, round and reactive to light. Extraocular movements full and intact. No scleral icterus. EARS, NOSE AND THROAT: Nose without bleeding or purulent nasal discharge. No sinus tenderness. Mucous membranes pink and moist. No oral lesions noted. No exudate. No oral thrush. NECK: Trachea midline. Supple and not tender, no meningeal signs. Has cervical lymphadenopathy CARDIOVASCULAR: Regular rate and rhythm. No murmurs, rubs or gallops heard RESPIRATORY: Clear to auscultation. Breath sounds equal bilaterally. No rales , wheezing or rhonchi ABDOMEN: Soft, nondistended. Not tender. Bowel sounds present and normoactive. No guarding. No rebound. EXTREMITIES: No clubbing, cyanosis. Well perfused and warm. NEUROLOGICAL: Grossly non-focal PSYCHIATRIC: Normal affect, calm and cooperative. LINE: No evidence of infection Assessment & Plan Remarks IMPRESSION Sepsis, with fevers, temps low grade, better - has splenomegaly, prob hypersplenism and splenic infarct - known MAC and on Rx, ?compliance - has HIV/AIDS - has rash resembling varicella, ?primary (he denies prior Hx chickenpox) or disseminated zoster Disseminated zoster, rash all dry now - S/P RX HIV/AIDS Disseminarted MAC - BM, duodenum, Previous +AFB BC at [facility] - on EMB, Biaxin and Rifampin Neutropenia, slightly better Persistent fevers Nodules in RLE and LUE, ?LN, ?MAC - smaller, ?responded to NSAIDS RECOMMENDATION Monitor progress Continue VIKKI RX: Biaxin, EMB and Rifampin Continue naprosyn If nodes continue to get smaller, and temps down, ok to D/C tomorrow He can follow up with Dr Edmondson who knows him Agree with Valtrex for chronic suppression Continue Bactrim for PCP prophylaxis May need to do excision biopsy of nodules if gets bigger Follow temps Explained plan to the patient D/W Dr Petersen (HEPAS) Bettina Covarrubias MD May 27, 2017 12:15
--- NOTE | 2017-05-27 14:01 | HHI.PR ---
Subjective Remarks Follow-up VIKKI infection. No recurrence of fever on naproxen. Patient feels good. Discussed with ID, possible discharge in the morning if he remains afebrile. Objective Vitals Vital Signs Date Time Temp Pulse Resp B/P (MAP) Pulse Ox O2 Delivery O2 Flow Rate FiO2 05/27/17 13:42 05/27/17 12:00 98.4 95 21 114/58 (76) 100 05/27/17 09:45 05/27/17 08:00 96.9 105 20 105/63 (77) 99 05/27/17 07:55 05/27/17 07:00 18 05/27/17 04:00 96.7 66 17 104/60 (75) 100 05/27/17 00:00 96.9 87 17 108/57 (74) 100 05/26/17 21:37 18 05/26/17 21:00 85 05/26/17 20:00 96.3 84 17 96/52 (67) 100 05/26/17 16:00 100.9 107 22 107/59 (75) 100 I/O 05/26/17 05/26/17 05/26/17 05/27/17 05/27/17 05/27/17 07:00 15:00 23:00 07:00 15:00 23:00 Intake Total 780 ml 480 ml 1200 ml 240 ml Output Total 1500 ml 2000 ml 150 ml Balance -720 ml 480 ml -800 ml -150 ml 240 ml Intake Oral 780 ml 480 ml 1200 ml 240 ml Output Urine Total 1500 ml 2000 ml 150 ml # Bowel Movements 1 Result Diagram: 05/27/17 0552 05/27/17 0552 Imaging Last Impressions Lower Extremity Ultrasound 05/24/17 0000 Signed Impressions: Service Date/Time: Wednesday, May 24, 2017 10:22 - CONCLUSION: 1. No sonographic or Doppler findings of deep venous thrombosis in either lower extremity. 2. However, there are bilateral prominent inguinal lymph nodes which clearly contain fatty oliver and are most certainly reactive. 3. Probable 4.4 cm left popliteal fossa Devlin's type cyst. Sam Castrejon MD Chest X-Ray 05/12/17 0000 Signed Impressions: Service Date/Time: Friday, May 12, 2017 11:52 - CONCLUSION: Normal examination except minimal platelike atelectasis left lung base. Jozef Rod MD Bone Biopsy CT 05/10/17 0000 Signed Impressions: Service Date/Time: Wednesday, May 10, 2017 12:39 - CONCLUSION: 1. Uncomplicated CT guided bone marrow aspirate. 2. Uncomplicated CT guided bone marrow biopsy. Eron Angeles MD Abdomen/Pelvis CT 05/05/17 1443 Signed Impressions: Service Date/Time: Friday, May 05, 2017 16:42 - CONCLUSION: Enlarged spleen with large areas of infarction or or neoplastic infiltration. Trace ascites. Sclerotic bones without focal destructive lesions. Clinton Valadez MD FACR Objective Remarks GENERAL: NAD, A&Ox3 HEAD: Normocephalic. NECK: Supple, trachea midline. No lymphadenopathy. EYES: No scleral icterus. No injection or drainage. CARDIOVASCULAR: Regular rate and rhythm without murmurs, gallops, or rubs. RESPIRATORY: Breath sounds equal bilaterally. No accessory muscle use. GASTROINTESTINAL: Abdomen soft, non-tender, nondistended. MUSCULOSKELETAL: No cyanosis, or edema. Resolved Zoster rash at right lower jaw and neck. Nodules on the left upper and left lower extremities are smaller SKIN: Warm and dry. NEURO: No focal neurological deficits. Procedures EGD and C scope, ilium BM biopsy A/P Problem List: (1) Pancytopenia ICD Code: D61.818 - Other pancytopenia Assessment and Plan 36-year-old male admitted secondary to pancytopenia and splenic infarct. Splenic infarct Follow clinically Surgeon following Hematology following Immunocompromised AIDS Continue HAART treatment, Bactrim Zoster Status post IV acyclovir 05/25 then po suppression per ID Contact and airborne isolation Sepsis bcx with AFB, VIKKI on duodenal and BM bx. Improving fever curve on naproxen Continue Rifampin, Biaxin and EMB Follow for resolution of fever May need excisional biopsy of nodules per ID if larger Pancytopenia 2/2 VIKKI. Stable EGD and colonoscopy with gastritis, duodenal inflammation and hemorrhoids GI following Follow CBC Transfusions as needed Mild hyponatremia. Asymptomatic. Serum osmolality 276 and urine osmolality 442. Monitor DVT prophylaxis SCDs Avoid blood thinners secondary to anemia Discharge Planning Discharge when cleared by ID Isauro Petersen MD May 27, 2017 14:00
[2017-05-27 16:00] VITALS: BP 103/57; PULSE 98; RESP 20; TEMP 97.9; O2SAT 100
[2017-05-27 20:16] VITALS: BP 105/72
[2017-05-28] VITALS: BP 100/56; PULSE 95; RESP 20; TEMP 98; O2SAT 100
[2017-05-28 04:00] VITALS: BP 92/51; PULSE 93; RESP 20; TEMP 96.9; O2SAT 99
--- NOTE | 2017-05-28 07:34 | HHI.DCPOC ---
Discharge Care Plan Diagnosis: (1) Pancytopenia Your Health Problems Are: Difficulty with ADL Exercise Tolerance Goals to Promote Your Health * To prevent worsening of your condition and complications * To maintain your health at the optimal level Directions to Meet Your Goals Take your medications as prescribed Follow your dietary instruction Follow activity as directed Keep your appointments as scheduled Take your immunizations and boosters as scheduled If your symptoms worsen call your PCP, if no PCP go to Urgent Care Center or Emergency Room Smoking is Dangerous to Your Health. Avoid second hand smoke Call the 24-hour hour crisis hotline for domestic abuse at Isauro Petersen MD May 28, 2017 07:34
[2017-05-28] MEDS ORDERED: WALKER WHEELS/F1 MIS (07:35)
[2017-05-28 08:00] VITALS: BP 110/66; PULSE 101; PULSE 81; RESP 21; TEMP 98; O2SAT 98
--- NOTE | 2017-05-28 08:22 | HHI.FF ---
Face to Face Verification Diagnosis: (1) HIV (human immunodeficiency virus infection) (2) Enlargement of spleen (3) Pancytopenia (4) Splenic infarction (5) Thrombocytopenia Physical Therapy Order: Evaluate and Treat, Improve ambulation, Strength and gait training Home Health Nursing Order: Medical education Signs/symptoms of disease process Medication education-adverse effect Wound care and dressing changes Nursing assessment with vital signs Entry Level Sales Associate Order: To Evaluate: Support services Order: To Provide: Community services I have seen patient Andrea Gramajo Jr Miguel A on 05/28/17. My clinical findings support the need for the requested home health care services because: Ltd mobility - disease progression Deconditioned w/ increased weakness Limited ability to care for self High risk of falls Infection w/ risk of complications I certify that my clinical findings support that this patient is homebound because: Unsteady gait/balance Unable to use public transportation Juan J Davidson May 28, 2017 08:22
[2017-05-28] MEDS: ONDANSETRON HCL 4 MG/2 ML VIAL IV PUSH PRN (09:02)
[2017-05-28] MEDS: SODIUM CHLORIDE 0.9% FLUSH 10 ML FLUSH IV FLUSH SCH (09:02)
[2017-05-28] MEDS: FOLIC ACID 1 MG TAB PO SCH (09:05)
[2017-05-28] MEDS: NAPROXEN 500 MG TAB PO SCH (09:05)
[2017-05-28] MEDS: SULFAMETHOXAZOLE-TRIMETHOPRIM DS 800-160 MG TAB PO SCH (09:05)
[2017-05-28] MEDS: CLARITHROMYCIN 500 MG TAB PO SCH (09:05)
[2017-05-28] MEDS: ELVIT/COBI/EMTR/TENOF 150/150/200/300 MG TABLETS PO SCH (09:05)
[2017-05-28] MEDS: RIFAMPIN 150 MG CAP PO SCH (09:06)
[2017-05-28] MEDS: CYANOCOBALAMIN 1,000 MCG TAB PO SCH (09:06)
[2017-05-28] MEDS: ETHAMBUTOL HCL 400 MG TAB PO SCH (09:06)
[2017-05-28] MEDS: valACYclovir HCL 500 MG TAB PO SCH (09:07)
[2017-05-28] MEDS: FAMOTIDINE 20 MG TAB PO SCH (09:07)
[2017-05-28] MEDS: FERROUS SULFATE 325 MG (65 MG ELEMENTAL IRON) TAB PO SCH (09:07)
[2017-05-28 10:05] VITALS: RESP 18
[2017-05-28] MEDS ORDERED: NAPR500 PO (10:10)
--- NOTE | 2017-05-28 10:56 | HHI.DS ---
Discharge Summary Admission Date May 05, 2017 at 17:55 Discharge Date: May 28, 2017 Admitting Diagnosis anemia, enlarged spleen (1) Pancytopenia ICD Code: D61.818 - Other pancytopenia Diagnosis: Principal Procedures EGD and C scope, ilium BM biopsy Brief History - From Admission hx from patient, ER communication, and nursing staff hurts all over cant lie down on left side because spleen is too big and painful it was bruised before but not bleeding there body aches, left shoulder pains, cant even grab a bottle also now within past 48hrs, nodules all over the body popped up fevers come and go , highest 103.2- past 3 months of fever at [facility]- discharged about 10 days ago, was in hospital for 13 days, 3 days was in icu- think it was for hypertensive urgency; had MAC, was on airborne or droplet isolation there, no toxo, cmv or epv that he knows of at that time, had 3 different transfusions had fevers then too had iv in neck had diarrhea- always had lose stool- goes about 5-6 x a day congested in nasal and had thick discharge no urinary symptoms no blood in stool or urine never had gi workup no chest pain, no shortness of breath has been taking lots of bc powders and ibuprofen CBC/BMP: 05/27/17 0552 05/27/17 0552 Significant Findings Laboratory Tests Test 05/26/17 08:45 05/26/17 09:30 05/27/17 05:52 Random Glucose 115 MG/DL (74-106) Sodium Level 128 MEQ/L (136-145) 131 MEQ/L (136-145) Chloride Level 93 MEQ/L (98-107) 97 MEQ/L (98-107) White Blood Count 2.8 TH/MM3 (4.0-11.0) Red Blood Count 2.70 MIL/MM3 (4.50-5.90) Hemoglobin 7.7 GM/DL (13.0-17.0) Hematocrit 22.5 % (39.0-51.0) Red Cell Distribution Width 19.5 % (11.6-17.2) Platelet Count 140 TH/MM3 (150-450) Mean Platelet Volume 6.7 FL (7.0-11.0) Neutrophils % (Manual) 82 % (16-70) Band Neutrophils % 10 % (0-6) Lymphocytes % 3 % (9-44) Dohle Bodies PRESENT (NONE SEEN) Platelet Estimate LOW (NORMAL) Ovalocytes 1+ (NORMAL) Imaging Last Impressions Lower Extremity Ultrasound 05/24/17 0000 Signed Impressions: Service Date/Time: Wednesday, May 24, 2017 10:22 - CONCLUSION: 1. No sonographic or Doppler findings of deep venous thrombosis in either lower extremity. 2. However, there are bilateral prominent inguinal lymph nodes which clearly contain fatty oliver and are most certainly reactive. 3. Probable 4.4 cm left popliteal fossa Devlin's type cyst. Sam Castrejon MD Chest X-Ray 05/12/17 0000 Signed Impressions: Service Date/Time: Friday, May 12, 2017 11:52 - CONCLUSION: Normal examination except minimal platelike atelectasis left lung base. Jozef Rod MD Bone Biopsy CT 05/10/17 0000 Signed Impressions: Service Date/Time: Wednesday, May 10, 2017 12:39 - CONCLUSION: 1. Uncomplicated CT guided bone marrow aspirate. 2. Uncomplicated CT guided bone marrow biopsy. Eron Angeles MD Abdomen/Pelvis CT 05/05/17 1443 Signed Impressions: Service Date/Time: Friday, May 05, 2017 16:42 - CONCLUSION: Enlarged spleen with large areas of infarction or or neoplastic infiltration. Trace ascites. Sclerotic bones without focal destructive lesions. Clinton Valadez MD FACR PE at Discharge GENERAL: NAD, A&Ox3 HEAD: Normocephalic. NECK: Supple, trachea midline. No lymphadenopathy. EYES: No scleral icterus. No injection or drainage. CARDIOVASCULAR: Regular rate and rhythm without murmurs, gallops, or rubs. RESPIRATORY: Breath sounds equal bilaterally. No accessory muscle use. GASTROINTESTINAL: Abdomen soft, non-tender, nondistended. MUSCULOSKELETAL: No cyanosis, or edema. Resolved Zoster rash at right lower jaw and neck. Nodules on the left upper and left lower extremities are smaller SKIN: Warm and dry. NEURO: No focal neurological deficits. Hospital Course 36-year-old male admitted secondary to pancytopenia and splenic infarct. Splenic infarct. Improved status post neurosurgery and hematology evaluation Immunocompromised AIDS Continue HAART treatment, Bactrim [place] precautions discussed with the patient Zoster Status post IV acyclovir 05/25 then po suppression per ID Contact and airborne isolation Sepsis bcx with AFB, VIKKI on duodenal and BM bx. Improved fever curve on naproxen Continue Rifampin, Biaxin and EMB Follow for resolution of fever May need excisional biopsy of nodules per ID if larger. Pancytopenia 2/2 VIKKI. Stable EGD and colonoscopy with gastritis, duodenal inflammation and hemorrhoids GI following Follow CBC Transfusions as needed Mild hyponatremia. Asymptomatic. Serum osmolality 276 and urine osmolality 442. Monitor DVT prophylaxis SCDs Avoid blood thinners secondary to anemia Pt Condition on Discharge: Stable Discharge Disposition: Disch w/ Home Health Serv Discharge Time: > 30 minutes Discharge Instructions DIET: Follow Instructions for: As Tolerated, No Restrictions Activities you can perform: Regular-No Restrictions Activities to Avoid: Driving Follow up Referrals: Appointment for Follow Up Infectious Disease - 1 Week PCP Follow-up - 1 Week New Medications: Oxycodone-Acetaminophen (Percocet) 5-325 mg Tab 1 TAB PO Q6H PRN for PAIN, #28 TAB 0 Refills Walker with Front Wheels (Walker with Front Wheels) 1 Mis Mis EA .ROUTE DIRECTED, #1 0 Refills Clarithromycin (Clarithromycin) 500 Mg Tab 500 MG PO Q12HR for Infection, #60 TAB Famotidine (Famotidine) 20 Mg Tab 20 MG PO BID for Dyspepsia, #60 TAB Naproxen (Naprosyn) 500 Mg Tab 250 MG PO Q12HR for fever, #10 TAB Rifampin (Rifampin) 150 Mg Cap 300 MG PO Q12HR for Infection, #60 CAP Sulfamethoxazole-Trimethoprim (Sulfamethoxazole-Trimethoprim) 800-160 Mg Tab 1 TAB PO MoWeFr@09 for Infection, #12 TAB Valacyclovir (Valtrex) 500 Mg Tab 500 MG PO Q12HR for infection, #60 TAB [Ethambutol] () 400 MG TAB 800 MG PO DAILY for Infection, #30 TAB Continued Medications: Cyanocobalamin (B-12) 1,000 Mcg Subl 1000 MCG SL DAILY for Nutritional Supplement, TAB.SL 0 Refills Qlkrkhefkxff-Ceczrwhkoe-Mvtuuliuqfzv-Tenofvir (Genvoya) [phone] Mg Tab 1 TAB PO DAILY for Mgmt Viral Infection, TAB 0 Refills Ferrous Sulfate (Ferrous Sulfate) 325 Mg (65 Mg Iron) Tablet 325 MG PO TIDPC for Nutritional Supplement, TAB 0 Refills Folic Acid (Folic Acid) 0.4 Mg Tab 1 MG PO DAILY for Nutritional Supplement, TAB 0 Refills Discontinued Medications: Azithromycin (Azithromycin) 500 Mg Tab 500 MG PO DAILY for Infection, TAB 0 Refills Ciprofloxacin (Ciprofloxacin) 500 Mg Tab 500 MG PO BID for Infection, TAB 0 Refills Ethambutol (Ethambutol) 400 Mg Tab 800 DAILY Furosemide (Furosemide) 40 Mg Tab 40 MG PO DAILY, TAB 0 Refills Isauro Petersen MD May 28, 2017 10:56
== END 2017-05-28 12:17 | disposition home health service (06) | DRG 975 ==
LOC: NEPE 13:42 → NEDA 17:55 → N07B 20:09 → N07A 05-06 15:47
PROVIDERS: ADMIT Internal Medicine; ATTEND Internal Medicine
PROC: 30233N1 Transfusion of Nonautologous Red Blood Cells into Peripheral Vein, Percutaneous Approach (ICD-10-PCS; 2017-05-05)
PROC: 07DR3ZX Extraction of Iliac Bone Marrow, Percutaneous Approach, Diagnostic (ICD-10-PCS; principal; 2017-05-10)
PROC: 0DJD8ZZ Inspection of Lower Intestinal Tract, Via Natural or Artificial Opening Endoscopic (ICD-10-PCS; 2017-05-11)
PROC: 0DB98ZX Excision of Duodenum, Via Natural or Artificial Opening Endoscopic, Diagnostic (ICD-10-PCS; 2017-05-11 13:29)
DX: B20 Human immunodeficiency virus [HIV] disease (principal); A31.2 Disseminated mycobacterium avium-intracellulare complex (DMAC); D61.818 Other pancytopenia; D70.9 Neutropenia, unspecified; E87.1 Hypo-osmolality and hyponatremia; B02.7 Disseminated zoster; D62 Acute posthemorrhagic anemia; K92.2 Gastrointestinal hemorrhage, unspecified; D73.5 Infarction of spleen; R19.7 Diarrhea, unspecified; R16.1 Splenomegaly, not elsewhere classified; R59.0 Localized enlarged lymph nodes; F17.210 Nicotine dependence, cigarettes, uncomplicated; I10 Essential (primary) hypertension; K29.70 Gastritis, unspecified, without bleeding; K64.4 Residual hemorrhoidal skin tags; K64.8 Other hemorrhoids; Z91.19 Patient's noncompliance with other medical treatment and regimen
CPT/HCPCS: 36430; 38221; 71010; 74177; 76937; 77012; 80048; 80053; 80074; 81001; 82247; 82565; 82607; 82746; 82955; 83010; 83036; 83605; 83615; 83690; 83735; 83930; 83935; 84100; 84439; 84443; 85007; 85014; 85018; 85025; 85027; 85097; 85384; 85610; 85613; 85652; 85730; 86140; 86146; 86147; 86355; 86357; 86359; 86360; 86592; 86747; 86787; 86850; 86900; 86901; 86920; 87040; 87103; 87116; 87205; 87207; 87328; 87329; 87493; 87497; 87506; 87529; 87798; 87899; 88305; 88311; 88312; 88313; 93970; 96374; 96375; 99152; 99153; C1830; G0364; J0133; J1885; J1940; J2250; J2270; J2405; J3010; J7050; P9016; Q9967